=== PATIENT | male | born 1950 | race Caucasian/White ===

== ENCOUNTER → 2016-09-20 | Outpatient (CLI) | payer OTHER ==
[~2016-09-20] MED LIST: /CELE20CA PO; /GLIM2TA; /GLIM2TA OR; /OXYC15TA; /OXYC15TA OR; /ZOLP6ER; /ZOLP6ER OR; ASPI81TA83 OR; ASPI81TA85 PO; BABY81CH; COLA100C2; COLA100C2 OR; COUM2.5T11 PO; CYMB60CA3 PO; DIPH50CA PO; DRIS50002 PO; FLECTOR1.3 TOP; GLIM4TAB PO; HYDR-4274 PO; HYZA50TA2 PO; HYZAAR; HYZAAR OR; LISI10TA2 PO; LISI10TA4; LISI10TA4 OR; LOSA50TA21 PO; LOVA20TA2 PO; METH75TA PO; MORP15TA2 PO; MORP30TA4; MORP30TA4 OR; MORP60TA; NAPR1TAB23 PO; NAPR500T2 PO; NEUR300C PO; OSTEO-BI-FLEX PO; OXYC20TA21 PO; PERC5TAB6 PO; PRIL40CA; PRIL40CA OR; ROBA750T4 PO; SENN8.6T5; SENN8.6T5 OR; TIZA4TAB; TIZA4TAB OR; TYLE325T5 PO; ULTR50TA PO; VALI5TAB PO; VIT D 2000 OR; VITA200016 PO; VITAMIN D50000 UNT; VOLT1GEL2 EXT; VYTO10TA5; VYTO10TA5 OR; [UNRECOGNIZED DRUG - CODE]
--- NOTE | 2016-09-25 00:36 | ECWPNPC ---
PATIENT NAME: ALLAN ARNETT : 1950 GENDER: MALE VISIT DATE: 09/20/2016 DISCHARGE DATE: 09/20/16 1050 VISIT LOCKED DATE TIME: PHYSICIAN: MATTIE EASLEY RESOURCE: MATTIE EASLEY REASON FOR APPOINTMENT 1. BACK PAIN W/C HISTORY OF PRESENT ILLNESS HISTORY OF PRESENT ILLNESS: PAIN THE PATIENT DESCRIBES THE PAIN... 65 YEAR OLD MALE PATIENT WITH HISTORY OF CHRONIC BACK PAIN. PATIENT DESCRIBES THE PAIN ACHING, SORE, SHARP AND HAVING IT ALL THE TIME WITH A PAIN SCORE OF 8/10. PATIENT WAS HURT IN A WORK RELATED INJURY IN 1995 WHEN HE WAS WORKING FOR THE [employer] AND STEPPED OFF A LADDER AND FELL WHEN HE STEPPED ON A PIPE AND HIS FEET CAME OUT FROM UNDER HIM. PATIENT RECEIVED A LUMBAR EPIDURAL ON 06/21/16 AND STATES THAT HE HAS 50% RELIEF FOR 5-6 WEEKS FROM THE INJECTION. MR. FERNÁNDEZ HAD A PATIENT DOES HAVE A DCS PLACED IN 2008 WHICH HE STATES HELPS A LOT WITH PAIN MANAGEMENT BUT WOULD LIKE TO MEET WITH [facility] TO HAVE THE PROGRAMS UPDATED. PATIENT REPORTS THAT WALKING, STANDING, SITTING, AND OTHER EVERY DAY ACTIVITIES INCREASES PAIN IN HIS BACK. CURRENTLY THE PATIENT IS USING GABAPENTIN 300 MG AND METHOCARBAMOL 750 MG AND HE STATES THAT BOTH MEDICATIONS HELP TO AID WITH PAIN RELIEF. PATIENT DENIES UNEXPLAINABLE WEIGHT LOSS, FEVER, CHILLS, NEW CHANGES ON HIS URINARY OR BOWEL CONTROL. FALL RISK SCREENING: SCREENING :NO FALLS IN THE PAST YEAR CURRENT MEDICATIONS TAKING GLIMEPIRIDE 4 MG TABLET 1 TABLET WITH BREAKFAST OR THE FIRST MAIN MEAL OF THE DAY ORALLY ONCE A DAY TAKING GABAPENTIN 300 MG CAPSULE 1 CAPSULE ORALLY BEFORE BEDTIME TAKING LOVASTATIN 20 MG TABLET 1 TABLET WITH A MEAL ORALLY ONCE A DAY TAKING LISINOPRIL-HYDROCHLOROTHIAZIDE 10-12.5 MG TABLET 1 TABLET ORALLY ONCE A DAY TAKING LOSARTAN POTASSIUM-HCTZ 50-12.5 MG TABLET 1 TABLET ORALLY ONCE A DAY TAKING METHOCARBAMOL 750 MG TABLET 1 TABLET ORALLY TID TAKING NAPROXEN 500 MG TABLET 1 TABLET NEEDED ORALLY EVERY 12 HRS TAKING DRISDOL 10087 UNIT CAPSULE 1 CAPSULE ORALLY WEEKLY TAKING MULTIVITAMIN TABLET 1 TAB ORALLY DAILY TAKING INDOMETHACIN 25 MG CAPSULE 1 CAPSULE WITH FOOD OR MILK ORALLY TWICE A DAY NOT-TAKING ASPIR-81 81 MG TABLET DELAYED RELEASE 1 TABLET ORALLY ONCE A DAY NOT-TAKING VALIUM 5 MG TABLET 1 TABLET NEEDED ORALLY TID PRN NOT-TAKING MORPHINE SULFATE 15 MG TABLET 1 TABLET NEEDED ORALLY EVERY 6 HRS PRN NOT-TAKING ROBAXIN-750 750 MG TABLET 1 TABLET ORALLY EVERY 8 HOURS MDD=3 NOT-TAKING VALIUM 5 MG TABLET 1 TABLET NEEDED ORALLY EVERY 8 HOURS NEEDED FOR SEVERE SPASM MDD = 3 NOT-TAKING MORPHINE SULFATE 15 MG TABLET 1 TABLET ORALLY EVERY 12 HRS PRN PAIN MDD=2 MEDICATION LIST REVIEWED AND RECONCILED WITH THE PATIENT PAST MEDICAL HISTORY HTN DIABETIC CHRONIC LOW BACK PAIN ARTHRITIS HYPERCHOLESTEROLEMIA GOUT ALLERGIES CODEINE SULFATE: HEART RACES: ALLERGY SURGICAL HISTORY KNEE REPLACEMENT LEFT BACK SURGERY DCS 2009 CARPAL TUNNEL RELEASE RIGHT CARPAL TUNNEL RELEASE ELBOW ELBOW SURGERY RIGHT ELBOW SURGERY LEFT RIGHT CATARACT LEFT CATARACT FAMILY HISTORY NO FAMILY HISTORY DOCUMENTED. SOCIAL HISTORY GENERAL: TOBACCO USE ARE YOU A:NONSMOKER LEARNING BARRIERS / SPECIAL NEEDS ORIENTED TO PLAN OF CARE: PATIENT, PAIN MANAGEMENT PATIENT, ORIENTED TO PLAN OF CARE: PATIENT, PAIN MANAGEMENT PATIENT. NEW PATIENT PAIN DIARY TODAY'S VISITNOTES FROM 0-10, WHAT LEVEL IS YOUR PAIN TODAY?0 PAIN CLINIC PFS, CLERGY, PUBLIC HEALTH REFERRALS PFS REFERRAL NEEDED?NO CLERGY REFERRAL NEEDED?NO PUBLIC HEALTH REFERRAL NEEDED?NO WAS THE PROVIDER NOTIFIED OF ANY PERTINENT INFO?NO PFS REFERRAL NEEDED?NO CLERGY REFERRAL NEEDED?NO PUBLIC HEALTH REFERRAL NEEDED?NO WAS THE PROVIDER NOTIFIED OF ANY PERTINENT INFO?NO HOSPITALIZATION/MAJOR DIAGNOSTIC PROCEDURE SURGERIES REVIEW OF SYSTEMS CONSTITUTIONAL: ANY CHANGE IN YOUR MEDICAL CONDITION? NO . CHILLS NO . FEVER NO . INFECTION: DO YOU HAVE NEW INFECTIONS? NO . DO YOU HAVE HISTORY OF MRSA? NO . MUSCULOSKELETAL: ANY NEW PATTERNS OF PAIN OR NUMBNESS? NO . GASTROENTEROLOGY: ANY NEW CHANGE IN BOWEL CONTROL? NO . GENITOURINARY: ANY NEW CHANGE IN BLADDER CONTROL? NO . IS THERE A CHANCE YOU COULD BE ? NO . HEMATOLOGY/LYMPH: DO YOU TAKE ANY BLOOD THINNERS? (FOR EXAMPLE- COUMADIN, PLAVIX, AGGRENOX, PLATEL, PRADAXA, OR XARELTO) NO . WHEN WAS YOUR LAST DOSE? DATE: TIME: . NEUROLOGY: HAVE YOU FALLEN IN THE PAST 6 MONTHS? NO . ANY NEW EXTREMITY NUMBNESS OR WEAKNESS? NO . CARDIOLOGY: DO YOU HAVE A PACEMAKER OR DEFIBRILLATOR? NO . RESPIRATORY: HAVE YOU BEEN SICK IN THE PAST WEEK? NO . FEVER NO . FLU LIKE SYMPTOMS? NO . COUGH NO . INTEGUMENTARY: DO YOU HAVE ANY RASHES OR OPEN SORES? NO . ALLERGIC/IMMUNO: ARE YOU ALLERGIC TO SHELLFISH OR IV DYE? NO . ANY NEW ALLERGIES? NO . PSYCHIATRIC: DO YOU HAVE THOUGHTS OF HURTING YOURSELF OR SOMEONE ELSE? NO . ARE YOU ABUSED, NEGLECTED, OR IN AN UNSAFE ENVIRONMENT? NO . ENDOCRINOLOGY: ARE YOU DIABETIC? NO . OTHER: DO YOU NEED ANY PRESCRIPTIONS? YES GABAPENTIN/METHACARBAMOL . IF YES, PLEASE LIST: ____ . ANY NEW PROBLEMS WITH YOUR MEDICATIONS? NO . WHEN DID YOU LAST EAT? ____ . WHEN DID YOU LAST DRINK? ____ . WHAT DID YOU LAST DRINK? ____ . NAME OF PERSON DRIVING YOU HOME? ____ . DO YOU HAVE ANY OTHER QUESTIONS OR CONCERNS YES NOTES INCREASE IN INTENSITY IN LEFT LEG DISCOMFORT. PT STATES HAS NOT HEARD FROM [facility] REP. . REVIEWED BY: PROVIDER: MATTIE EASLEY MD . VITAL SIGNS WT 270 LBS, HT 69 IN, BMI 39.87 INDEX, BP 161/94 MM HG, HR 78 /MIN, RR 18 /MIN, TEMP 96.6 F, OXYGEN SAT % 100, NA INITIALS MP, REVIEWED BY: MLF. EXAMINATION : PATIENT IS ALERT O X 3 AND COOPERATIVE. TENDERNESS IN THE LOWER BACK AND PARASPINAL MUSCLE GROUP. LIMPING FROM THE RIGHT LEG. LEFT LEG IS WEAKER THEN THE RIGHT AT EXTENSION AND FLEXION. FLEXING BACK INCREASES PAIN. CT DONE ON 01/20/16 SHOWS DEGENERATIVE CHANGES AT L2-L3. ASSESSMENTS INTERVERTEBRAL DISC DISORDERS WITH RADICULOPATHY, LUMBAR REGION - M51.16 (PRIMARY) INTERVERTEBRAL DISC DISORDERS WITH RADICULOPATHY, LUMBOSACRAL REGION - M51.17 TREATMENT INTERVERTEBRAL DISC DISORDERS WITH RADICULOPATHY, LUMBAR REGION REFILL GABAPENTIN CAPSULE, 300 MG, 1 CAPSULE, ORALLY FOR PAIN, BEFORE BEDTIME, 30 DAY(S), 30, REFILLS 2 REFILL METHOCARBAMOL TABLET, 750 MG, 1 TABLET, ORALLY, TID NEEDED FOR SPASMS AND PAIN MDD3, 30 DAYS, 85, REFILLS 2 REFILL NAPROXEN TABLET, 500 MG, 1 TABLET NEEDED, ORALLY, EVERY 12 HRS, 30 DAY(S), 60 TABLET, REFILLS 1 NOTES: WE DISCUSSED SEVERAL ISSUES WITH MR. ARNETT'S PAIN MANAGEMENT CASE. AT THIS TIME PATIENT WILL CONTINUE TO USE GABAPENTIN, METHOCARBAMOL AND NAPROXEN. I WOULD LIKE THE PATIENT TO START USING CYMBALTA WELL. MR. ARNETT REPORTS THAT HE DOES NOT WANT ANY NARCOTICS AT THIS TIME. PATIENT STATES THAT HIS PAIN IS GETTING SEVERE AND DUE TO THE LONG LASTING RESULTS OF THE PREVIOUS LUMBAR EPIDURAL WE DISCUSSED MOVING FORWARD WITH ANOTHER INJECTION. WE DISCUSSED THE RISKS, BENEFITS, AND ALTERNATIVES OF THE INJECTION AND THE PATIENT WOULD LIKE TO PROCEED AT THIS TIME. INSTRUCTIONS WERE GIVEN, QUESTIONS WERE ANSWERED, PATIENT REPORTS UNDERSTANDING AND AGREES WITH THE PLAN. I, SAM ADAMS, DOCUMENTED THE ABOVE INFORMATION ACTING A SCRIBE FOR DR. EASLEY. I HAVE REVIEWED THE ABOVE DOCUMENT, WRITTEN BY SAM ADAMS SCRIBDeanne AND I VERIFY THAT IT IS ACCURATE. OTHERS NOTES: LUMBAR EPIDURAL INJECTION: YOUR PROCEDURE MATERIAL WAS PRINTED,WHAT IS LUMBAR EPIDURAL INJECTION? MATERIAL WAS PRINTED. PROCEDURES PN WORKMANS' COMP OPINION IN YOUR OPINION, WAS THE INCIDENT THAT THE PATIENT DESCRIBED THE COMPETENT MEDICAL CAUSE OF THIS INJURY/ILLNESS? YES ARE THE PATIENT'S COMPLAINTS CONSISTENT WITH HIS/HER HISTORY OF THE INJURY/ILLNESS? YES IS THE PATIENT'S HISTORY OF THE INJURY/ILLNESS CONSISTENT WITH YOUR OBJECTIVE FINDING? YES WHAT IS THE PERCENTAGE OF TEMPORARY IMPAIRMENT? TOTAL = 100% IS THE PATIENT WORKING? NO DOCTOR ON SITE: MATTIE HERNANDEZ MD PREVENTIVE MEDICINE PAIN CLINIC TEACHING: MEDICATIONS CYMBALTA PRINTED HANDOUT GIVEN/REVIEWED WITH PT.. PROCEDURE CODES FA211 ESTABILISHED PATIENT [facility] CHARGE G8427 DOC MEDS VERIFIED W/PT OR RE G8730 PAIN ASSESS POS TOOL F/U PLAN DOC FOLLOW UP LESI AFTER APPROVAL ELECTRONICALLY SIGNED BY MATTIE EASLEY MD ON 09/24/2016 AT 07:59 PM EST DISCLAIMER : THIS IS A VISIT SUMMARY EXTRACTED FROM THE [employer] CHART. IT IS NOT A COPY OF THE [employer] PROGRESS NOTE. JL
== END ==
LOC: M PAIN 10:00
PROVIDERS: ATTEND Anesthesiology
DX: M51.16 Intervertebral disc disorders with radiculopathy, lumbar region (principal); M51.17 Intervertebral disc disorders with radiculopathy, lumbosacral region; Z79.899 Other long term (current) drug therapy; Z79.84 Long term (current) use of oral hypoglycemic drugs; I10 Essential (primary) hypertension; M19.90 Unspecified osteoarthritis, unspecified site; E78.00 Pure hypercholesterolemia, unspecified; M10.9 Gout, unspecified; Z88.5 Allergy status to narcotic agent

== ENCOUNTER → 2016-09-25 | Outpatient (CLI) | payer OTHER ==
[~2016-09-25] MED LIST changes: +ISOVUE-M 300 61% 15ML VIAL (Q9967) As Ordered ONE; +LIDOCAINE 1% SDV INJ 30 ML VIAL As Ordered ONE; +methylPREDNISolone SUSP 40 MG/ML (DEPO-medrol) VIAL (J1030) As Ordered ONE
--- NOTE | 2016-09-25 17:04 | REP ---
Partial lumbar spine series: Three views. History: Lumbar epidural steroid injection for pain. 27 seconds of fluoroscopy time is reported. Findings: A sequence of three last image hold fluoroscopic spot radiographs document needle position and contrast injection associated with lumbar epidural injection procedure. Signed by Lobo Centeno MD 09/26/2016 08:29 A
--- NOTE | 2016-09-27 00:10 | ECWPNPC ---
PATIENT NAME: ALLAN ARNETT : 1950 GENDER: MALE VISIT DATE: 09/25/2016 DISCHARGE DATE: 09/25/16 162 VISIT LOCKED DATE TIME: PHYSICIAN: MATTIE EASLEY RESOURCE: MATTIE EASLEY REASON FOR APPOINTMENT 1. LE W/C HISTORY OF PRESENT ILLNESS HISTORY OF PRESENT ILLNESS: PAIN THE PATIENT DESCRIBES THE PAIN... FALL RISK SCREENING: SCREENING :NO FALLS IN THE PAST YEAR CURRENT MEDICATIONS TAKING GLIMEPIRIDE 4 MG TABLET 1 TABLET WITH BREAKFAST OR THE FIRST MAIN MEAL OF THE DAY ORALLY ONCE A DAY, NOTES: 09/24/16699 TAKING LOVASTATIN 20 MG TABLET 1 TABLET WITH A MEAL ORALLY ONCE A DAY, NOTES: 09/25/16599 TAKING LISINOPRIL-HYDROCHLOROTHIAZIDE 10-12.5 MG TABLET 1 TABLET ORALLY ONCE A DAY, NOTES: 09/25/16599 TAKING LOSARTAN POTASSIUM-HCTZ 50-12.5 MG TABLET 1 TABLET ORALLY ONCE A DAY, NOTES: 09/25/16599 TAKING DRISDOL 48605 UNIT CAPSULE 1 CAPSULE ORALLY WEEKLY, NOTES: 09/20/161999 TAKING MULTIVITAMIN TABLET 1 TAB ORALLY DAILY, NOTES: 09/25/16599 TAKING INDOMETHACIN 25 MG CAPSULE 1 CAPSULE WITH FOOD OR MILK ORALLY TWICE A DAY, NOTES: 1 WEEK AGO TAKING GABAPENTIN 300 MG CAPSULE 1 CAPSULE ORALLY FOR PAIN BEFORE BEDTIME, NOTES: 09/24/162129 TAKING METHOCARBAMOL 750 MG TABLET 1 TABLET ORALLY TID NEEDED FOR SPASMS AND PAIN MDD3, NOTES: 09/25/16599 TAKING NAPROXEN 500 MG TABLET 1 TABLET NEEDED ORALLY EVERY 12 HRS, NOTES: 09/25/16599 TAKING ASPIR-81 81 MG TABLET DELAYED RELEASE 1 TABLET ORALLY ONCE A DAY, NOTES: 09/25/16599 NOT-TAKING VALIUM 5 MG TABLET 1 TABLET NEEDED ORALLY TID PRN NOT-TAKING MORPHINE SULFATE 15 MG TABLET 1 TABLET NEEDED ORALLY EVERY 6 HRS PRN NOT-TAKING ROBAXIN-750 750 MG TABLET 1 TABLET ORALLY EVERY 8 HOURS MDD=3 NOT-TAKING VALIUM 5 MG TABLET 1 TABLET NEEDED ORALLY EVERY 8 HOURS NEEDED FOR SEVERE SPASM MDD = 3 NOT-TAKING MORPHINE SULFATE 15 MG TABLET 1 TABLET ORALLY EVERY 12 HRS PRN PAIN MDD=2 MEDICATION LIST REVIEWED AND RECONCILED WITH THE PATIENT PAST MEDICAL HISTORY HTN DIABETIC CHRONIC LOW BACK PAIN ARTHRITIS HYPERCHOLESTEROLEMIA GOUT ALLERGIES CODEINE SULFATE: HEART RACES: ALLERGY SOCIAL HISTORY GENERAL: TOBACCO USE ARE YOU A:NONSMOKER LEARNING BARRIERS / SPECIAL NEEDS ORIENTED TO PLAN OF CARE: PATIENT, PAIN MANAGEMENT PATIENT, ORIENTED TO PLAN OF CARE: PATIENT, PAIN MANAGEMENT PATIENT. NEW PATIENT PAIN DIARY TODAY'S VISITNOTES FROM 0-10, WHAT LEVEL IS YOUR PAIN TODAY?0 PAIN CLINIC PFS, CLERGY, PUBLIC HEALTH REFERRALS PFS REFERRAL NEEDED?NO CLERGY REFERRAL NEEDED?NO PUBLIC HEALTH REFERRAL NEEDED?NO WAS THE PROVIDER NOTIFIED OF ANY PERTINENT INFO?NO PFS REFERRAL NEEDED?NO CLERGY REFERRAL NEEDED?NO PUBLIC HEALTH REFERRAL NEEDED?NO WAS THE PROVIDER NOTIFIED OF ANY PERTINENT INFO?NO REVIEW OF SYSTEMS CONSTITUTIONAL: ANY CHANGE IN YOUR MEDICAL CONDITION? NO . CHILLS NO . FEVER NO . INFECTION: DO YOU HAVE NEW INFECTIONS? NO . DO YOU HAVE HISTORY OF MRSA? NO . MUSCULOSKELETAL: ANY NEW PATTERNS OF PAIN OR NUMBNESS? YES, PAIN AND NUMBNESS LEFT LEG . GASTROENTEROLOGY: ANY NEW CHANGE IN BOWEL CONTROL? NO . GENITOURINARY: ANY NEW CHANGE IN BLADDER CONTROL? NO . IS THERE A CHANCE YOU COULD BE ? NO . HEMATOLOGY/LYMPH: DO YOU TAKE ANY BLOOD THINNERS? (FOR EXAMPLE- COUMADIN, PLAVIX, AGGRENOX, PLATEL, PRADAXA, OR XARELTO) NO . WHEN WAS YOUR LAST DOSE? DATE: TIME: . NEUROLOGY: HAVE YOU FALLEN IN THE PAST 6 MONTHS? NO . ANY NEW EXTREMITY NUMBNESS OR WEAKNESS? NO . CARDIOLOGY: DO YOU HAVE A PACEMAKER OR DEFIBRILLATOR? NO . RESPIRATORY: HAVE YOU BEEN SICK IN THE PAST WEEK? NO . FEVER NO . FLU LIKE SYMPTOMS? NO . COUGH NO . INTEGUMENTARY: DO YOU HAVE ANY RASHES OR OPEN SORES? NO . ALLERGIC/IMMUNO: ARE YOU ALLERGIC TO SHELLFISH OR IV DYE? NO . ANY NEW ALLERGIES? NO . PSYCHIATRIC: DO YOU HAVE THOUGHTS OF HURTING YOURSELF OR SOMEONE ELSE? NO . ARE YOU ABUSED, NEGLECTED, OR IN AN UNSAFE ENVIRONMENT? NO . ENDOCRINOLOGY: ARE YOU DIABETIC? YES DOESN'T TEST GLUCOSE AT HOME . OTHER: DO YOU NEED ANY PRESCRIPTIONS? NO . IF YES, PLEASE LIST: ____ . ANY NEW PROBLEMS WITH YOUR MEDICATIONS? NO . WHEN DID YOU LAST EAT? 09/25/16 0600 . WHEN DID YOU LAST DRINK? ___09/25/16 0600_ . WHAT DID YOU LAST DRINK? ____COFFEE . NAME OF PERSON DRIVING YOU HOME? ____TIM SPRIGS . DO YOU HAVE ANY OTHER QUESTIONS OR CONCERNS NO . REVIEWED BY: PROVIDER: . VITAL SIGNS WT 270 LBS, HT 69 IN, BMI 39.87 INDEX, BP 162/99 MM HG, REPEAT BP 140/88 AD, HR 77 /MIN, RR 16 /MIN, TEMP 96.8 F, OXYGEN SAT % 98, NA INITIALS TL 1332, REVIEWED BY: AD. ASSESSMENTS INTERVERTEBRAL DISC DISORDERS WITH RADICULOPATHY, LUMBAR REGION - M51.16 (PRIMARY) TREATMENT OTHERS START CYMBALTA CAPSULE DELAYED RELEASE PARTICLES, 30 MG, 1 CAPSULE, ORALLY FOR PAIN, TWICE A DAY, 30 DAY(S), 60, REFILLS 2 PROCEDURES PRE PROCEDURE DIAGNOSIS LUMBAR DISC DISORDER WITH RADICULOPATHY POST PROCEDURE DIAGNOSIS LUMBAR DISC DISORDER WITH RADICULOPATHY PROCEDURE LUMBAR EPIDURAL STEROID INJECTION UNDER FLUOROSCOPIC GUIDANCE SURGEON DR. MATTIE EASLEY [employer] INSPECTOR NONE ANESTHESIA LOCAL PRE PROCEDURE NOTE THE PATIENT HAS A HISTORY OF CHRONIC LOW BACK PAIN. I EVALUATE THE PATIENT AND REVIEWED THE CHART. I WENT OVER THE RISKS, ALTERNATIVES, AND BENEFITS ASSOCIATED WITH THIS PROCEDURE. THE PATIENT WOULD LIKE TO PROCEED AND GIVE CONSENT TO PERFORMED THE PROCEDURE. THE PATIENT DENIES UNEXPLAINABLE WEIGHT LOSS, FEVER, CHILLS, OR NEW CHANGES IN URINARY OR BOWEL CONTROL DESCRIPTION OF PROCEDURE THE PATIENT WAS BROUGHT TO THE PROCEDURE ROOM AND PLACED IN THE PRONE POSITION. THE LUMBOSACRAL AREA WAS CLEANED WITH BETADINE SOLUTION AND DRAPED ASEPTICALLY. THE PROCEDURE WAS DONE UNDER STERILE CONDITIONS. I CHECKED LATERALITY AND THE LEVEL WHERE THE PROCEDURE WAS GOING TO BE PERFORMED WITH THE PATIENT AND THE SUPPORTING STAFF AT THE MOMENT OF THE TIME OUT IN THE PROCEDURE ROOM. UNDER FLUOROSCOPIC GUIDANCE, THE TARGET POINT WAS SELECTED AT THE INTERLAMINAR LEVEL OF L4-L5. LIDOCAINE WAS USED TO NUMB THE SKIN AND THE SUBCUTANEOUS TISSUE BELOW IT. EPIDURAL TUOHY NEEDLE, 17-GAUGE, WAS ADVANCED UNDER FLUOROSCOPIC GUIDANCE AND FOLLOWING PATIENT FEEDBACK UNTIL THE EPIDURAL SPACE WAS REACHED, 7 CM DEEP INTO THE SKIN BY THE LOSS OF RESISTANCE TECHNIQUE. ISOVUE M DYE 30%, 0.25 ML, WAS INJECTED SHOWING ADEQUATE SPREAD OF THE DYE. THEN, A SOLUTION OF 3 ML OF NORMAL SALINE WITH DEPO-MEDROL 60 MG WAS INJECTED SLOWLY FOLLOWING PATIENT FEEDBACK. THERE WAS NO EVIDENCE OF BLOOD, PARESTHESIA OR CEREBROSPINAL FLUID DURING THE PROCEDURE. THE PATIENT WAS SENT TO THE RECOVERY ROOM. THE PATIENT WAS MOVING THE EXTREMITIES AND DOING WELL. THERE WAS NO COMPLICATION DURING THE PROCEDURE. FLUOROSCOPY TIME WAS 27 SECONDS POST PROCEDURE NOTE THE PATIENT WILL BE SEEN IN A FOLLOW UP IN THE NEXT FEW WEEKS. INSTRUCTIONS WERE GIVEN, QUESTIONS WERE ANSWERED, AND THE PATIENT EXPRESSED UNDERSTANDING AND AGREES WITH THE PLAN. I, SAM ADAMS, DOCUMENTED THE ABOVE INFORMATION ACTING A SCRIBE FOR DR. EASLEY. I, DR. EASLEY, HAVE REVIEWED THE ABOVE DOCUMENT, SCRIBED BY SAM ADAMS, AND I VERIFY THAT IT IS ACCURATE PN WORKMANS' COMP OPINION IN YOUR OPINION, WAS THE INCIDENT THAT THE PATIENT DESCRIBED THE COMPETENT MEDICAL CAUSE OF THIS INJURY/ILLNESS? YES ARE THE PATIENT'S COMPLAINTS CONSISTENT WITH HIS/HER HISTORY OF THE INJURY/ILLNESS? YES IS THE PATIENT'S HISTORY OF THE INJURY/ILLNESS CONSISTENT WITH YOUR OBJECTIVE FINDING? YES WHAT IS THE PERCENTAGE OF TEMPORARY IMPAIRMENT? TOTAL = 100% IS THE PATIENT WORKING? NO DOCTOR ON SITE: MATTIE HERNANDEZ MD DIAGNOSTIC IMAGING [facility] FLUORO GUIDE SPINE INJECTION (PAIN)[id number] PREVENTIVE MEDICINE PAIN CLINIC TEACHING: PROCEDURE TEACHING POST LUMBAR EPIDURAL STEROID INJECTION INSTRUCTIONS REVIEWED WITH PT. VERBALIZED UNDERSTANDING.. PROCEDURE CODES 41747 LUMBAR/SACRAL W/ IMAGING 6045F RADXPS IN END [id number] PXD FOLLOW UP 3 WEEKS ELECTRONICALLY SIGNED BY MATTIE EASLEY MD ON 09/26/2016 AT 08:59 PM EST DISCLAIMER : THIS IS A VISIT SUMMARY EXTRACTED FROM THE [employer] CHART. IT IS NOT A COPY OF THE [employer] PROGRESS NOTE. MTDD
== END | disposition home or self-care (01) ==
LOC: M PAIN 13:20
PROVIDERS: ATTEND Anesthesiology
DX: G89.29 Other chronic pain (principal); M51.16 Intervertebral disc disorders with radiculopathy, lumbar region; I10 Essential (primary) hypertension; E11.9 Type 2 diabetes mellitus without complications; M19.90 Unspecified osteoarthritis, unspecified site; E78.00 Pure hypercholesterolemia, unspecified; Z88.5 Allergy status to narcotic agent; Z79.82 Long term (current) use of aspirin; Z87.39 Personal history of other diseases of the musculoskeletal system and connective tissue
CPT/HCPCS: 62323; J1030; Q9967

== ENCOUNTER → 2016-10-23 | Outpatient (CLI) | payer OTHER ==
[~2016-10-23] MED LIST changes: -ISOVUE-M 300 61% 15ML VIAL (Q9967) As Ordered ONE; -LIDOCAINE 1% SDV INJ 30 ML VIAL As Ordered ONE; -methylPREDNISolone SUSP 40 MG/ML (DEPO-medrol) VIAL (J1030) As Ordered ONE
== END ==
LOC: M PAIN 10:00
PROVIDERS: ATTEND Anesthesiology
DX: Z09 Encounter for follow-up examination after completed treatment for conditions other than malignant neoplasm (principal); G89.29 Other chronic pain; M51.16 Intervertebral disc disorders with radiculopathy, lumbar region; M51.17 Intervertebral disc disorders with radiculopathy, lumbosacral region; I10 Essential (primary) hypertension; E11.9 Type 2 diabetes mellitus without complications; M19.90 Unspecified osteoarthritis, unspecified site; E78.00 Pure hypercholesterolemia, unspecified; M10.9 Gout, unspecified; Z88.5 Allergy status to narcotic agent; Z79.82 Long term (current) use of aspirin; Z79.899 Other long term (current) drug therapy

== ENCOUNTER → 2016-11-22 | Outpatient (CLI) | payer OTHER ==
--- NOTE | 2016-12-05 00:17 | ECWPNPC ---
PATIENT NAME: ALLAN ARNETT : 1950 GENDER: MALE VISIT DATE: 11/22/2016 DISCHARGE DATE: 11/22/16 1237 VISIT LOCKED DATE TIME: PHYSICIAN: MATTIE EASLEY RESOURCE: MATTIE EASLEY HISTORY OF PRESENT ILLNESS HISTORY OF PRESENT ILLNESS: PAIN THE PATIENT DESCRIBES THE PAIN... 66 YEAR OLD MALE PATIENT WITH HISTORY OF CHRONIC BACK PAIN. PATIENT DESCRIBES THE PAIN ACHING, BURNING, SORE, AND HAVING IT ALL THE TIME WITH A PAIN SCORE OF 9/10 ON TODAY'S VISIT. PATIENT WAS INJURED IN A WORK RELATED INJURY ON 08/28/1995 WORKING FOR [employer] PLASTER[employer], PATIENT WAS STEPPING OFF A LADDER AND FELL WHEN HE STEPPED ON A PIPE AND HIS FEET CAME OUT FROM UNDER HIM, INJURING HIS BACK. PATIENT REPORTS OF HAVING A DCS SURGERY IN 2008. PATIENT REPORTS THAT HE HAS TRIED PHYSICAL THERAPY IN THE PAST WITHOUT ANY SUCCESSFUL IMPROVEMENT IN PAIN RELIEF. PATIENT REPORTS OF RADIATING PAIN DOWN BOTH LEGS WITH THE LEFT LEG HURTING THE MOST. PATIENT REPORTS THAT HIS DCS DOES NOT PROVIDE PAIN RELIEF LIKE IT USE TO. PATIENT REPORTS THAT CYMBALTA MAKES HIM DROWSY AND UNABLE TO THINK CLEARLY. PATIENT DENIES UNEXPLAINABLE WEIGHT LOSS, FEVER, CHILLS, NEW CHANGES ON HIS URINARY OR BOWEL CONTROL. FALL RISK SCREENING: SCREENING :NO FALLS IN THE PAST YEAR CURRENT MEDICATIONS TAKING GLIMEPIRIDE 4 MG TABLET 1 TABLET WITH BREAKFAST OR THE FIRST MAIN MEAL OF THE DAY ORALLY ONCE A DAY TAKING LOVASTATIN 20 MG TABLET 1 TABLET WITH A MEAL ORALLY ONCE A DAY TAKING LISINOPRIL-HYDROCHLOROTHIAZIDE 10-12.5 MG TABLET 1 TABLET ORALLY ONCE A DAY TAKING LOSARTAN POTASSIUM-HCTZ 50-12.5 MG TABLET 1 TABLET ORALLY ONCE A DAY TAKING DRISDOL 74911 UNIT CAPSULE 1 CAPSULE ORALLY WEEKLY TAKING MULTIVITAMIN TABLET 1 TAB ORALLY DAILY TAKING GABAPENTIN 300 MG CAPSULE 1 CAPSULE ORALLY FOR PAIN BEFORE BEDTIME TAKING METHOCARBAMOL 750 MG TABLET 1 TABLET ORALLY TID NEEDED FOR SPASMS AND PAIN MDD3 TAKING NAPROXEN 500 MG TABLET 1 TABLET NEEDED ORALLY EVERY 12 HRS TAKING ASPIR-81 81 MG TABLET DELAYED RELEASE 1 TABLET ORALLY ONCE A DAY NOT-TAKING CYMBALTA 30 MG CAPSULE DELAYED RELEASE PARTICLES 1 CAPSULE ORALLY FOR PAIN TWICE A DAY DISCONTINUED INDOMETHACIN 25 MG CAPSULE 1 CAPSULE WITH FOOD OR MILK ORALLY TWICE A DAY DISCONTINUED VALIUM 5 MG TABLET 1 TABLET NEEDED ORALLY TID PRN DISCONTINUED MORPHINE SULFATE 15 MG TABLET 1 TABLET NEEDED ORALLY EVERY 6 HRS PRN DISCONTINUED ROBAXIN-750 750 MG TABLET 1 TABLET ORALLY EVERY 8 HOURS MDD=3 DISCONTINUED VALIUM 5 MG TABLET 1 TABLET NEEDED ORALLY EVERY 8 HOURS NEEDED FOR SEVERE SPASM MDD = 3 DISCONTINUED MORPHINE SULFATE 15 MG TABLET 1 TABLET ORALLY EVERY 12 HRS PRN PAIN MDD=2 MEDICATION LIST REVIEWED AND RECONCILED WITH THE PATIENT PAST MEDICAL HISTORY HTN DIABETIC CHRONIC LOW BACK PAIN ARTHRITIS HYPERCHOLESTEROLEMIA GOUT ALLERGIES CODEINE SULFATE: HEART RACES: ALLERGY SURGICAL HISTORY NO SURGICAL HISTORY DOCUMENTED. FAMILY HISTORY NO FAMILY HISTORY DOCUMENTED. SOCIAL HISTORY GENERAL: PAIN CLINIC PFS, CLERGY, PUBLIC HEALTH REFERRALS CLERGY REFERRAL NEEDED?NO WAS THE PROVIDER NOTIFIED OF ANY PERTINENT INFO?NO PFS REFERRAL NEEDED?NO PUBLIC HEALTH REFERRAL NEEDED?NO PATIENT: ____. HOSPITALIZATION/MAJOR DIAGNOSTIC PROCEDURE SURGERIES REVIEW OF SYSTEMS CONSTITUTIONAL: ANY CHANGE IN YOUR MEDICAL CONDITION? NO . CHILLS NO . FEVER NO . INFECTION: DO YOU HAVE NEW INFECTIONS? NO . DO YOU HAVE HISTORY OF MRSA? NO . MUSCULOSKELETAL: ANY NEW PATTERNS OF PAIN OR NUMBNESS? YES, PAIN IS NOW UP IN THE THORACIC AREA ON THE LEFT SIDE . GASTROENTEROLOGY: ANY NEW CHANGE IN BOWEL CONTROL? NO . GENITOURINARY: ANY NEW CHANGE IN BLADDER CONTROL? NO . IS THERE A CHANCE YOU COULD BE ? NO . HEMATOLOGY/LYMPH: DO YOU TAKE ANY BLOOD THINNERS? (FOR EXAMPLE- COUMADIN, PLAVIX, AGGRENOX, PLATEL, PRADAXA, OR XARELTO) NO . WHEN WAS YOUR LAST DOSE? DATE: TIME: . NEUROLOGY: HAVE YOU FALLEN IN THE PAST 6 MONTHS? NO . ANY NEW EXTREMITY NUMBNESS OR WEAKNESS? NO . CARDIOLOGY: DO YOU HAVE A PACEMAKER OR DEFIBRILLATOR? NO . RESPIRATORY: HAVE YOU BEEN SICK IN THE PAST WEEK? NO . FEVER NO . FLU LIKE SYMPTOMS? NO . COUGH NO . INTEGUMENTARY: DO YOU HAVE ANY RASHES OR OPEN SORES? NO . ALLERGIC/IMMUNO: ARE YOU ALLERGIC TO SHELLFISH OR IV DYE? NO . ANY NEW ALLERGIES? NO . PSYCHIATRIC: DO YOU HAVE THOUGHTS OF HURTING YOURSELF OR SOMEONE ELSE? NO . ARE YOU ABUSED, NEGLECTED, OR IN AN UNSAFE ENVIRONMENT? NO . ENDOCRINOLOGY: ARE YOU DIABETIC? YES . OTHER: DO YOU NEED ANY PRESCRIPTIONS? NO . IF YES, PLEASE LIST: ____ . ANY NEW PROBLEMS WITH YOUR MEDICATIONS? YES, CAN NOT TAKE DULOXETINE MAKES HIM TOO SLEEPY . WHEN DID YOU LAST EAT? ____ . WHEN DID YOU LAST DRINK? ____ . WHAT DID YOU LAST DRINK? ____ . NAME OF PERSON DRIVING YOU HOME? ____ . DO YOU HAVE ANY OTHER QUESTIONS OR CONCERNS NO . REVIEWED BY: PROVIDER: MATTIE EASLEY MD . VITAL SIGNS WT 260.0 LBS, HT 69 IN, BMI 38.39 INDEX, BP 143/73 MM HG, HR 93 /MIN, RR 18 /MIN, TEMP 98.4 F, OXYGEN SAT % 97%, NA INITIALS TL 1115, REVIEWED BY: CM. EXAMINATION : PATIENT IS ALERT O X 3 AND COOPERATIVE. PATIENT'S LEFT LEG IS WEAKER AT FLEXION AND EXTENSION COMPARED TO THE RIGHT LEG. PATIENT GAS TENDERNESS IN THE LUMBAR PARASPINAL MUSCLE GROUP. PATIENT HAS DIFFICULTIES EXTENDING AND FLEXING HIS BACK. CT DONE ON 01/20/16 SHOWS DEGENERATIVE CHANGES AT L2-L3. ASSESSMENTS INTERVERTEBRAL DISC DISORDERS WITH RADICULOPATHY, LUMBAR REGION - M51.16 (PRIMARY) INTERVERTEBRAL DISC DISORDERS WITH RADICULOPATHY, LUMBOSACRAL REGION - M51.17 TREATMENT INTERVERTEBRAL DISC DISORDERS WITH RADICULOPATHY, LUMBAR REGION REFILL GABAPENTIN CAPSULE, 300 MG, 1 CAPSULE, ORALLY FOR PAIN, BEFORE BEDTIME, 30 DAY(S), 30, REFILLS 2 REFILL METHOCARBAMOL TABLET, 750 MG, 1 TABLET, ORALLY FOR SPASMS AND PAIN, THREE TIMES DAILY NEEDED MDD3, 30 DAYS, 90, REFILLS 2 NOTES: WHAT IS LUMBAR EPIDURAL INJECTION? MATERIAL WAS PRINTED,LUMBAR EPIDURAL INJECTION: YOUR PROCEDURE MATERIAL WAS PRINTED,LUMBAR EPIDURAL INJECTION: YOUR PROCEDURE MATERIAL WAS PRINTED. CLINICAL NOTES: WE DISCUSSED SEVERAL ISSUES WITH MR. ARNETT'S PAIN MANAGEMENT CASE. PATIENT WILL RECEIVED A REFILL OF GABAPENTIN AND METHOCARBAMOL AND PATIENT WILL DISCONTINUE CYMBALTA. I WILL HAVE THE PATIENT START ON IBUPROFEN FOR THE SOMATIC PAIN IN HIS BACK. PATIENT BROUGHT HIS MEDICATIONS IN THE ORIGINAL BOTTLES ON TODAY'S VISIT. PATIENT IS TAKING GABAPENTIN FOR NEUROPATHIC PAIN AND METHOCARBAMOL FOR MUSCLE SPASTICITY. PATIENT REPORTS THAT NOT TAKING METHOCARBAMOL WILL CAUSE SEVERE SPASTICITY, DECREASING HIS MOBILITY AND FUNCTIONALITY. AFTER REVIEWING THE CT AND EXAMINING THE PATIENT HE IS A GOOD CANDIDATE FOR A LUMBAR EPIDURAL INJECTION, WE DISCUSSED THE RISK, BENEFITS, AND ALTERNATIVES AND THE PATIENT WOULD LIKE TO PROCEED. PATIENT WILL BE BOOKED PENDING APPROVAL. INSTRUCTIONS WERE GIVEN, QUESTIONS WERE ANSWERED, PATIENT REPORTS UNDERSTANDING AND AGREES WITH THE PLAN. I, LISA HOUSER, DOCUMENTED THE ABOVE INFORMATION ACTING A SCRIBE FOR DR. EASLEY. I HAVE REVIEWED THE ABOVE DOCUMENT, WRITTEN BY LISA HOUSER SCRIBE AND I VERIFY THAT IT IS ACCURATE. OTHERS START IBUPROFEN TABLET, 800 MG, 1 TABLET, ORALLY WITH FOOD, THREE TIMES A DAY NEEDED FOR PAIN MDD3, 30 DAY(S), 75, REFILLS 2 PROCEDURES PN WORKMANS' COMP OPINION IN YOUR OPINION, WAS THE INCIDENT THAT THE PATIENT DESCRIBED THE COMPETENT MEDICAL CAUSE OF THIS INJURY/ILLNESS? YES ARE THE PATIENT'S COMPLAINTS CONSISTENT WITH HIS/HER HISTORY OF THE INJURY/ILLNESS? YES IS THE PATIENT'S HISTORY OF THE INJURY/ILLNESS CONSISTENT WITH YOUR OBJECTIVE FINDING? YES WHAT IS THE PERCENTAGE OF TEMPORARY IMPAIRMENT? TOTAL = 100% IS THE PATIENT WORKING? NO DOCTOR ON SITE: MATTIE HERNANDEZ MD PROCEDURE CODES FA211 ESTABILISHED PATIENT [facility] FACILITY CHARGE G8730 PAIN ASSESS POS TOOL F/U PLAN DOC G8427 DOC MEDS VERIFIED W/PT OR RE DISPOSITION & COMMUNICATION FOLLOW UP LESI PENDING APPROVAL ELECTRONICALLY SIGNED BY MATTIE EASLEY MD ON 12/04/2016 AT 08:14 AM EDT DISCLAIMER : THIS IS A VISIT SUMMARY EXTRACTED FROM THE [employer] CHART. IT IS NOT A COPY OF THE [employer] PROGRESS NOTE. MTDD
== END ==
LOC: M PAIN 11:30
PROVIDERS: ATTEND Anesthesiology
DX: M51.16 Intervertebral disc disorders with radiculopathy, lumbar region (principal); M51.17 Intervertebral disc disorders with radiculopathy, lumbosacral region; M54.9 Dorsalgia, unspecified; G89.29 Other chronic pain; Z79.899 Other long term (current) drug therapy; Z79.84 Long term (current) use of oral hypoglycemic drugs; Z79.82 Long term (current) use of aspirin; E11.9 Type 2 diabetes mellitus without complications; I10 Essential (primary) hypertension; E78.00 Pure hypercholesterolemia, unspecified; Z88.5 Allergy status to narcotic agent

== ENCOUNTER → 2017-01-22 | Outpatient (CLI) | payer OTHER ==
--- NOTE | 2017-02-07 02:51 | ECWPNPC ---
PATIENT NAME: ALLAN ARNETT : 1950 GENDER: MALE VISIT DATE: 01/22/2017 DISCHARGE DATE: 01/22/17 1354 VISIT LOCKED DATE TIME: PHYSICIAN: MATTIE EASLEY RESOURCE: MATTIE EASLEY REASON FOR APPOINTMENT 1. W/C BACK PAIN HISTORY OF PRESENT ILLNESS HISTORY OF PRESENT ILLNESS: PAIN THE PATIENT DESCRIBES THE PAIN... 66 YEAR OLD MALE PATIENT WITH HISTORY OF CHRONIC BACK PAIN. PATIENT DESCRIBES THE PAIN ACHING, BURNING, SORE, AND HAVING IT ALL THE TIME WITH A PAIN SCORE OF 9/10 ON TODAY'S VISIT. PATIENT WAS INJURED IN A WORK RELATED INJURY ON 08/28/1995 WORKING FOR [employer] P[employer], PATIENT WAS STEPPING OFF A LADDER AND FELL WHEN HE STEPPED ON A PIPE AND HIS FEET CAME OUT FROM UNDER HIM, INJURING HIS BACK. MR. ARNETT RECEIVED A LUMBAR EPIDURAL ON 11/24/16 AND STATES THAT FOR 5 WEEKS HE HAD OVER 50% RELIEF FROM PAIN AND INCREASED MOBILITY AND FUNCTIONALITY. PATIENT REPORTS OF HAVING A DCS SURGERY IN 2008. PATIENT REPORTS THAT HE HAS TRIED PHYSICAL THERAPY IN THE PAST WITHOUT ANY SUCCESSFUL IMPROVEMENT IN PAIN RELIEF. PATIENT REPORTS OF RADIATING PAIN DOWN BOTH LEGS WITH THE LEFT LEG HURTING THE MOST. CURRENTLY THE PATIENT IS USING GABAPENTIN AND MELOXICAM AND STATES THAT THE MEDICATION KEEPS HIM MOBILE AND FUNCTIONAL. PATIENT DENIES UNEXPLAINABLE WEIGHT LOSS, FEVER, CHILLS, NEW CHANGES ON HIS URINARY OR BOWEL CONTROL. FALL RISK SCREENING: SCREENING :NO FALLS IN THE PAST YEAR CURRENT MEDICATIONS TAKING GLIMEPIRIDE 4 MG TABLET 1 TABLET WITH BREAKFAST OR THE FIRST MAIN MEAL OF THE DAY ORALLY ONCE A DAY, NOTES: 11/23/16 0700 TAKING LOVASTATIN 20 MG TABLET 1 TABLET WITH A MEAL ORALLY ONCE A DAY, NOTES: 11/24/16599 TAKING LISINOPRIL-HYDROCHLOROTHIAZIDE 10-12.5 MG TABLET 1 TABLET ORALLY ONCE A DAY, NOTES: 11/24/16599 TAKING LOSARTAN POTASSIUM-HCTZ 50-12.5 MG TABLET 1 TABLET ORALLY ONCE A DAY, NOTES: 11/24/16599 TAKING DRISDOL 33118 UNIT CAPSULE 1 CAPSULE ORALLY WEEKLY, NOTES: 11/22/16 TAKING MULTIVITAMIN TABLET 1 TAB ORALLY DAILY, NOTES: 11/24/16599 TAKING NAPROXEN 500 MG TABLET 1 TABLET NEEDED ORALLY EVERY 12 HRS, NOTES: 11/24/16 0600 TAKING ASPIR-81 81 MG TABLET DELAYED RELEASE 1 TABLET ORALLY ONCE A DAY, NOTES: 11/24/16 0600 TAKING GABAPENTIN 300 MG CAPSULE 1 CAPSULE ORALLY FOR PAIN BEFORE BEDTIME, NOTES: 11/23/16 2200 TAKING METHOCARBAMOL 750 MG TABLET 1 TABLET ORALLY FOR SPASMS AND PAIN THREE TIMES DAILY NEEDED MDD3, NOTES: 11/24/16 0600 NOT-TAKING IBUPROFEN 800 MG TABLET 1 TABLET ORALLY WITH FOOD THREE TIMES A DAY NEEDED FOR PAIN MDD3, NOTES: NONE LATELY NOT-TAKING CYMBALTA 30 MG CAPSULE DELAYED RELEASE PARTICLES 1 CAPSULE ORALLY FOR PAIN TWICE A DAY MEDICATION LIST REVIEWED AND RECONCILED WITH THE PATIENT PAST MEDICAL HISTORY HTN DIABETIC CHRONIC LOW BACK PAIN ARTHRITIS HYPERCHOLESTEROLEMIA GOUT ALLERGIES CODEINE SULFATE: HEART RACES: ALLERGY SURGICAL HISTORY BILAT CARPAL TUNNEL RELEASE BILAT ELBOW SURGERY BILAT TRIGGER FINGER REPAIR LEFT KNEE REPLACEMENT DORSAL COLUMN STIMULATOR FAMILY HISTORY NO FAMILY HISTORY DOCUMENTED. SOCIAL HISTORY GENERAL: PAIN CLINIC PFS, CLERGY, PUBLIC HEALTH REFERRALS CLERGY REFERRAL NEEDED?NO WAS THE PROVIDER NOTIFIED OF ANY PERTINENT INFO?NO PFS REFERRAL NEEDED?NO PUBLIC HEALTH REFERRAL NEEDED?NO PATIENT: ____. HOSPITALIZATION/MAJOR DIAGNOSTIC PROCEDURE SURGERIES REVIEW OF SYSTEMS CONSTITUTIONAL: ANY CHANGE IN YOUR MEDICAL CONDITION? NO . CHILLS NO . FEVER NO . INFECTION: DO YOU HAVE NEW INFECTIONS? NO . DO YOU HAVE HISTORY OF MRSA? NO . MUSCULOSKELETAL: ANY NEW PATTERNS OF PAIN OR NUMBNESS? NO . GASTROENTEROLOGY: ANY NEW CHANGE IN BOWEL CONTROL? NO . GENITOURINARY: ANY NEW CHANGE IN BLADDER CONTROL? NO . IS THERE A CHANCE YOU COULD BE ? NO . HEMATOLOGY/LYMPH: DO YOU TAKE ANY BLOOD THINNERS? (FOR EXAMPLE- COUMADIN, PLAVIX, AGGRENOX, PLATEL, PRADAXA, OR XARELTO) NO . WHEN WAS YOUR LAST DOSE? DATE: TIME: . NEUROLOGY: HAVE YOU FALLEN IN THE PAST 6 MONTHS? NO . ANY NEW EXTREMITY NUMBNESS OR WEAKNESS? NO . CARDIOLOGY: DO YOU HAVE A PACEMAKER OR DEFIBRILLATOR? NO . RESPIRATORY: HAVE YOU BEEN SICK IN THE PAST WEEK? NO . FEVER NO . FLU LIKE SYMPTOMS? NO . COUGH NO . INTEGUMENTARY: DO YOU HAVE ANY RASHES OR OPEN SORES? NO . ALLERGIC/IMMUNO: ARE YOU ALLERGIC TO SHELLFISH OR IV DYE? NO . ANY NEW ALLERGIES? NO . PSYCHIATRIC: DO YOU HAVE THOUGHTS OF HURTING YOURSELF OR SOMEONE ELSE? NO . ARE YOU ABUSED, NEGLECTED, OR IN AN UNSAFE ENVIRONMENT? NO . ENDOCRINOLOGY: ARE YOU DIABETIC? YES . OTHER: DO YOU NEED ANY PRESCRIPTIONS? NO . IF YES, PLEASE LIST: ____ . ANY NEW PROBLEMS WITH YOUR MEDICATIONS? NO . WHEN DID YOU LAST EAT? ____ . WHEN DID YOU LAST DRINK? ____ . WHAT DID YOU LAST DRINK? ____ . NAME OF PERSON DRIVING YOU HOME? ____ . DO YOU HAVE ANY OTHER QUESTIONS OR CONCERNS NO . REVIEWED BY: PROVIDER: MATTIE EASLEY MD . VITAL SIGNS WT 265.0 LBS, HT 69 IN, BMI 39.13 INDEX, BP 142/102 R ARM, REPEAT BP 158/92 MANUAL, HR 67 /MIN, RR 16 /MIN, TEMP 97.0 F, OXYGEN SAT % 96%, SAFE IN ENV? (Y/N) Y, NA INITIALS TL 1301, REVIEWED BY: EM. EXAMINATION : PATIENT IS ALERT O X 3 AND COOPERATIVE. PATIENT'S LEFT LEG IS WEAKER AT FLEXION AND EXTENSION COMPARED TO THE RIGHT LEG. PATIENT GAS TENDERNESS IN THE LUMBAR PARASPINAL MUSCLE GROUP. PATIENT HAS DIFFICULTIES EXTENDING AND FLEXING HIS BACK. CT DONE ON 01/20/16 SHOWS DEGENERATIVE CHANGES AT L2-L3. ASSESSMENTS INTERVERTEBRAL DISC DISORDERS WITH RADICULOPATHY, LUMBAR REGION - M51.16 (PRIMARY) TREATMENT INTERVERTEBRAL DISC DISORDERS WITH RADICULOPATHY, LUMBAR REGION REFILL GABAPENTIN CAPSULE, 300 MG, 1 CAPSULE, ORALLY FOR PAIN, THREE TIMES DAILY MDD3, 30 DAY(S), 90, REFILLS 2, NOTES: 11/23/16 2200 REFILL METHOCARBAMOL TABLET, 750 MG, 1 TABLET, ORALLY FOR SPASMS AND PAIN, THREE TIMES DAILY NEEDED MDD3, 30 DAYS, 65, REFILLS 2, NOTES: 11/24/16 0600 NOTES: WE DISCUSSED SEVERAL ISSUES WITH MR. ARNETT'S PAIN MANAGEMENT CASE. AT THIS TIME THE PATIENT WILL CONTINUE WIT THE SAME MEDICATION REGIME BEFORE. PATIENT WILL ALSO USED IBUPROFEN FOR THE INFLAMMATION AND WAS ADVISED TO USE THIS MEDICATION WITH FOOD. PATIENT IS AWARE OF THE POTENTIAL COMPLICATIONS THAT CAN HAPPEN WHILE USING THIS MEDICATION. PATIENT WILL CONTINUE TO USE GABAPENTIN FOR THE NEUROPATHIC PAIN AND METHOCARBAMOL FOR THE MUSCLE SPASMS. MR. ARNETT HAD A LUMBAR EPIDURAL ON 11/24/16 AND REPORTS HAVING OVER 50% RELIEF FROM THE INJECTION WITH INCREASED MOBILITY AND FUNCTIONALITY. DUE TO THE LONG LASTING PAIN RELIEF FROM THE PREVIOUS LUMBAR EPIDURAL I WOULD LIKE TO PROCEED WITH ANOTHER INJECTION. WE DISCUSSED THE RISKS, BENENFITS, AND ALTNERATIVES OF THE INJECTION AND THE PATIENT WOULD LIKE TO PROCEED. OTHERS START IBUPROFEN TABLET, 800 MG, 1 TABLET WITH FOOD OR MILK, ORALLY FOR PAIN, EVERY 6 HOURS NEEDED MDD3, 30 DAY(S), 60, REFILLS 2 PROCEDURES PN WORKMANS' COMP OPINION IN YOUR OPINION, WAS THE INCIDENT THAT THE PATIENT DESCRIBED THE COMPETENT MEDICAL CAUSE OF THIS INJURY/ILLNESS? YES ARE THE PATIENT'S COMPLAINTS CONSISTENT WITH HIS/HER HISTORY OF THE INJURY/ILLNESS? YES IS THE PATIENT'S HISTORY OF THE INJURY/ILLNESS CONSISTENT WITH YOUR OBJECTIVE FINDING? YES WHAT IS THE PERCENTAGE OF TEMPORARY IMPAIRMENT? TOTAL = 100% IS THE PATIENT WORKING? NO DOCTOR ON SITE: MATTIE HERNANDEZ MD PROCEDURE CODES FA211 ESTABILISHED PATIENT [facility] FACILITY CHARGE G8427 DOC MEDS VERIFIED W/PT OR RE G8730 PAIN ASSESS POS TOOL F/U PLAN DOC DISPOSITION & COMMUNICATION FOLLOW UP LESI AFTER APPROVAL ELECTRONICALLY SIGNED BY MATTIE EASLEY MD ON 02/05/2017 AT 03:02 PM EDT DISCLAIMER : THIS IS A VISIT SUMMARY EXTRACTED FROM THE [employer] CHART. IT IS NOT A COPY OF THE [employer] PROGRESS NOTE. JL
== END ==
LOC: M PAIN 13:00
PROVIDERS: ATTEND Anesthesiology
DX: M51.16 Intervertebral disc disorders with radiculopathy, lumbar region (principal); Z79.84 Long term (current) use of oral hypoglycemic drugs; Z79.82 Long term (current) use of aspirin; Z79.899 Other long term (current) drug therapy; Z88.5 Allergy status to narcotic agent

== ENCOUNTER → 2017-02-21 | Outpatient (CLI) | payer OTHER ==
[~2017-02-21] MED LIST changes: -COUM2.5T11 PO; +COUM2.5T17 PO; -HYDR-4274 PO; +HYDR50TA70 PO; +ISOVUE-M 300 61% 15ML VIAL (Q9967) As Ordered ONE; +LIDOCAINE 1% SDV INJ 30 ML VIAL As Ordered ONE; -LOSA50TA21 PO; +LOSA50TA5 PO; -NAPR500T2 PO; +NAPR500T3 PO; -OXYC20TA21 PO; +OXYC20TA40 PO; +PERC5TAB12 PO; -PERC5TAB6 PO; +methylPREDNISolone SUSP 40 MG/ML (DEPO-medrol) VIAL (J1030) As Ordered ONE
--- NOTE | 2017-02-21 15:02 | REP ---
Partial lumbar spine series: Four views. History: Lumbar epidural steroid injection for pain. 22 seconds of fluoroscopy time is reported. Findings: A sequence of four fluoroscopically obtained intraprocedural spot radiographs of the lumbar spine document needle position associated with lumbar epidural steroid injection. Signed by Lobo Centeno MD 02/21/2017 05:03 P
--- NOTE | 2017-03-04 23:52 | ECWPNPC ---
PATIENT NAME: ALLAN ARNETT : 1950 GENDER: MALE VISIT DATE: 02/21/2017 DISCHARGE DATE: 02/21/17 1108 VISIT LOCKED DATE TIME: PHYSICIAN: MATTIE EASLEY RESOURCE: MATTIE EASLEY REASON FOR APPOINTMENT 1. LE HISTORY OF PRESENT ILLNESS HISTORY OF PRESENT ILLNESS: PAIN THE PATIENT DESCRIBES THE PAIN... FALL RISK SCREENING: SCREENING :NO FALLS IN THE PAST YEAR CURRENT MEDICATIONS TAKING IBUPROFEN 800 MG TABLET 1 TABLET WITH FOOD OR MILK ORALLY FOR PAIN EVERY 6 HOURS NEEDED MDD3, NOTES: 2 WEEKS AGO TAKING GLIMEPIRIDE 4 MG TABLET 1 TABLET WITH BREAKFAST OR THE FIRST MAIN MEAL OF THE DAY ORALLY ONCE A DAY, NOTES: 02/20/17@0700 TAKING LOVASTATIN 20 MG TABLET 1 TABLET WITH A MEAL ORALLY ONCE A DAY, NOTES: 0630 TAKING LISINOPRIL-HYDROCHLOROTHIAZIDE 10-12.5 MG TABLET 1 TABLET ORALLY ONCE A DAY, NOTES: 0630 TAKING LOSARTAN POTASSIUM-HCTZ 50-12.5 MG TABLET 1 TABLET ORALLY ONCE A DAY, NOTES: 0630 TAKING DRISDOL 28630 UNIT CAPSULE 1 CAPSULE ORALLY WEEKLY, NOTES: 0630 TAKING MULTIVITAMIN TABLET 1 TAB ORALLY DAILY, NOTES: 0630 TAKING NAPROXEN 500 MG TABLET 1 TABLET NEEDED ORALLY EVERY 12 HRS, NOTES: 0630 TAKING ASPIR-81 81 MG TABLET DELAYED RELEASE 1 TABLET ORALLY ONCE A DAY, NOTES: 02/20/17@0700 TAKING GABAPENTIN 300 MG CAPSULE 1 CAPSULE ORALLY FOR PAIN THREE TIMES DAILY MDD3, NOTES: 0630 TAKING METHOCARBAMOL 750 MG TABLET 1 TABLET ORALLY FOR SPASMS AND PAIN THREE TIMES DAILY NEEDED MDD3, NOTES: 02/20/17@2330 NOT-TAKING IBUPROFEN 800 MG TABLET 1 TABLET ORALLY WITH FOOD THREE TIMES A DAY NEEDED FOR PAIN MDD3, NOTES: NONE LATELY NOT-TAKING CYMBALTA 30 MG CAPSULE DELAYED RELEASE PARTICLES 1 CAPSULE ORALLY FOR PAIN TWICE A DAY MEDICATION LIST REVIEWED AND RECONCILED WITH THE PATIENT PAST MEDICAL HISTORY HTN DIABETIC CHRONIC LOW BACK PAIN ARTHRITIS HYPERCHOLESTEROLEMIA GOUT ALLERGIES CODEINE SULFATE: HEART RACES: ALLERGY REVIEW OF SYSTEMS REVIEWED BY: PROVIDER: . CONSTITUTIONAL: ANY CHANGE IN YOUR MEDICAL CONDITION? NO . CHILLS NO . FEVER NO . INFECTION: DO YOU HAVE NEW INFECTIONS? NO . DO YOU HAVE HISTORY OF MRSA? NO . MUSCULOSKELETAL: ANY NEW PATTERNS OF PAIN OR NUMBNESS? NO . GASTROENTEROLOGY: ANY NEW CHANGE IN BOWEL CONTROL? NO . GENITOURINARY: ANY NEW CHANGE IN BLADDER CONTROL? NO . IS THERE A CHANCE YOU COULD BE ? NO . HEMATOLOGY/LYMPH: DO YOU TAKE ANY BLOOD THINNERS? (FOR EXAMPLE- COUMADIN, PLAVIX, AGGRENOX, PLATEL, PRADAXA, OR XARELTO) NO . WHEN WAS YOUR LAST DOSE? DATE: TIME: . NEUROLOGY: HAVE YOU FALLEN IN THE PAST 6 MONTHS? NO . ANY NEW EXTREMITY NUMBNESS OR WEAKNESS? NO . CARDIOLOGY: DO YOU HAVE A PACEMAKER OR DEFIBRILLATOR? NO . RESPIRATORY: HAVE YOU BEEN SICK IN THE PAST WEEK? NO . FEVER NO . FLU LIKE SYMPTOMS? NO . COUGH NO . INTEGUMENTARY: DO YOU HAVE ANY RASHES OR OPEN SORES? NO . ALLERGIC/IMMUNO: ARE YOU ALLERGIC TO SHELLFISH OR IV DYE? NO . ANY NEW ALLERGIES? NO . PSYCHIATRIC: DO YOU HAVE THOUGHTS OF HURTING YOURSELF OR SOMEONE ELSE? NO . ARE YOU ABUSED, NEGLECTED, OR IN AN UNSAFE ENVIRONMENT? NO . ENDOCRINOLOGY: ARE YOU DIABETIC? YES . OTHER: DO YOU NEED ANY PRESCRIPTIONS? NO . IF YES, PLEASE LIST: ____ . ANY NEW PROBLEMS WITH YOUR MEDICATIONS? NO . WHEN DID YOU LAST EAT? ____02/20/17 . WHEN DID YOU LAST DRINK? ____629 . WHAT DID YOU LAST DRINK? ____BLACK COFFEE . NAME OF PERSON DRIVING YOU HOME? ____DYLAN NEAL . DO YOU HAVE ANY OTHER QUESTIONS OR CONCERNS NO . VITAL SIGNS WT 270 LBS, HT 69 IN, BMI 39.87 INDEX, BP 170/93 MM HG, HR 72 /MIN, RR 18 /MIN, TEMP 97.3 F, OXYGEN SAT % 97%, NA INITIALS SC 10:07. ASSESSMENTS INTERVERTEBRAL DISC DISORDERS WITH RADICULOPATHY, LUMBAR REGION - M51.16 (PRIMARY) PROCEDURES PRE PROCEDURE DIAGNOSIS LUMBAR DISC DISORDER WITH RADICULOPATHY POST PROCEDURE DIAGNOSIS LUMBAR DISC DISORDER WITH RADICULOPATHY PROCEDURE LUMBAR EPIDURAL STEROID INJECTION UNDER FLUOROSCOPIC GUIDANCE SURGEON DR. MATTIE EASLEY MOBILE SERVICE RV TECHNICIAN NONE ANESTHESIA LOCAL PRE PROCEDURE NOTE THE PATIENT HAS A HISTORY OF CHRONIC LOW BACK PAIN. I EVALUATE THE PATIENT AND REVIEWED THE CHART. I WENT OVER THE RISKS, ALTERNATIVES, AND BENEFITS ASSOCIATED WITH THIS PROCEDURE. THE PATIENT WOULD LIKE TO PROCEED AND GIVE CONSENT TO PERFORMED THE PROCEDURE. THE PATIENT DENIES UNEXPLAINABLE WEIGHT LOSS, FEVER, CHILLS, OR NEW CHANGES IN URINARY OR BOWEL CONTROL. DESCRIPTION OF PROCEDURE THE PATIENT WAS BROUGHT TO THE PROCEDURE ROOM AND PLACED IN THE PRONE POSITION. THE LUMBOSACRAL AREA WAS CLEANED WITH BETADINE SOLUTION AND DRAPED ASEPTICALLY. THE PROCEDURE WAS DONE UNDER STERILE CONDITIONS. I CHECKED LATERALITY AND THE LEVEL WHERE THE PROCEDURE WAS GOING TO BE PERFORMED WITH THE PATIENT AND THE SUPPORTING STAFF AT THE MOMENT OF THE TIME OUT IN THE PROCEDURE ROOM. UNDER FLUOROSCOPIC GUIDANCE, THE TARGET POINT WAS SELECTED AT THE INTERLAMINAR LEVEL OF L4-L5. LIDOCAINE WAS USED TO NUMB THE SKIN AND THE SUBCUTANEOUS TISSUE BELOW IT. EPIDURAL TUOHY NEEDLE, 17-GAUGE, WAS ADVANCED UNDER FLUOROSCOPIC GUIDANCE AND FOLLOWING PATIENT FEEDBACK UNTIL THE EPIDURAL SPACE WAS REACHED, 7 CM DEEP INTO THE SKIN BY THE LOSS OF RESISTANCE TECHNIQUE. ISOVUE M DYE 30%, 0.25 ML, WAS INJECTED SHOWING ADEQUATE SPREAD OF THE DYE. THEN, A SOLUTION OF 3 ML OF NORMAL SALINE WITH DEPO-MEDROL 60 MG WAS INJECTED SLOWLY FOLLOWING PATIENT FEEDBACK. THERE WAS NO EVIDENCE OF BLOOD, PARESTHESIA OR CEREBROSPINAL FLUID DURING THE PROCEDURE. THE PATIENT WAS SENT TO THE RECOVERY ROOM. THE PATIENT WAS MOVING THE EXTREMITIES AND DOING WELL. THERE WAS NO COMPLICATION DURING THE PROCEDURE. FLUOROSCOPY TIME WAS 22 SECONDS. POST PROCEDURE NOTE THE PATIENT WILL BE SEEN IN A FOLLOW UP IN THE NEXT FEW WEEKS. INSTRUCTIONS WERE GIVEN, QUESTIONS WERE ANSWERED, AND THE PATIENT EXPRESSED UNDERSTANDING AND AGREES WITH THE PLAN. I, SAM ADAMS, DOCUMENTED THE ABOVE INFORMATION ACTING A SCRIBE FOR DR. EASLEY. I, DR. EASLEY, HAVE REVIEWED THE ABOVE DOCUMENT, SCRIBED BY SAM ADAMS, AND I VERIFY THAT IT IS ACCURATE PN WORKMANS' COMP OPINION IN YOUR OPINION, WAS THE INCIDENT THAT THE PATIENT DESCRIBED THE COMPETENT MEDICAL CAUSE OF THIS INJURY/ILLNESS? YES ARE THE PATIENT'S COMPLAINTS CONSISTENT WITH HIS/HER HISTORY OF THE INJURY/ILLNESS? YES IS THE PATIENT'S HISTORY OF THE INJURY/ILLNESS CONSISTENT WITH YOUR OBJECTIVE FINDING? YES WHAT IS THE PERCENTAGE OF TEMPORARY IMPAIRMENT? TOTAL = 100% IS THE PATIENT WORKING? NO DOCTOR ON SITE: MATTIE HERNANDEZ MD DOCTOR ON SITE: MATTIE HERNANDEZ MD DOCTOR ON SITE: MATTIE HERNANDEZ MD DIAGNOSTIC IMAGING [facility] FLUORO GUIDE SPINE INJECTION (PAIN)[id number] PROCEDURE CODES 22655 LUMBAR/SACRAL W/ IMAGING 6045F RADXPS IN END [id number] PXD DISPOSITION & COMMUNICATION FOLLOW UP 3 WEEKS ELECTRONICALLY SIGNED BY MATTIE EASLEY MD ON 03/04/2017 AT 10:33 PM EDT DISCLAIMER : THIS IS A VISIT SUMMARY EXTRACTED FROM THE [employer] CHART. IT IS NOT A COPY OF THE [employer] PROGRESS NOTE. JL
== END ==
LOC: M PAIN 10:20
PROVIDERS: ATTEND Anesthesiology
DX: G89.29 Other chronic pain (principal); M51.16 Intervertebral disc disorders with radiculopathy, lumbar region; Z79.899 Other long term (current) drug therapy; Z79.891 Long term (current) use of opiate analgesic; Z79.84 Long term (current) use of oral hypoglycemic drugs; Z79.82 Long term (current) use of aspirin; Z88.5 Allergy status to narcotic agent; I10 Essential (primary) hypertension; E11.9 Type 2 diabetes mellitus without complications; E78.00 Pure hypercholesterolemia, unspecified
CPT/HCPCS: 62323; J1030; Q9967

== ENCOUNTER → 2017-03-13 | Outpatient (CLI) | payer OTHER ==
[~2017-03-13] MED LIST changes: -ISOVUE-M 300 61% 15ML VIAL (Q9967) As Ordered ONE; -LIDOCAINE 1% SDV INJ 30 ML VIAL As Ordered ONE; -methylPREDNISolone SUSP 40 MG/ML (DEPO-medrol) VIAL (J1030) As Ordered ONE
--- NOTE | 2017-03-28 00:55 | ECWPNPC ---
PATIENT NAME: ALLAN ARENTT : 1950 GENDER: MALE VISIT DATE: 03/13/2017 DISCHARGE DATE: 03/13/17 1407 VISIT LOCKED DATE TIME: PHYSICIAN: MATTIE EASLEY RESOURCE: MATTIE EASLEY REASON FOR APPOINTMENT 1. LOW BACK PAIN W/C HISTORY OF PRESENT ILLNESS HISTORY OF PRESENT ILLNESS: PAIN THE PATIENT DESCRIBES THE PAIN... 56 YEAR OLD MALE PATIENT WITH HISTORY OF CHRONIC LOW BACK PAIN. PATIENT DESCRIBES THE PAIN STABBING, THROBBING, SORE, AND HAVING IT ALL THE TIME WITH A PAIN CURRENT PAIN SCORE 4/10. 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 PATIENT RECEIVED A LUMBAR EPIDURAL ON 02/21/17 WITH INCREASED MOBILITY AND FUNCTIONALITY AND OVER 50% RELIEF FROM PAIN FOR OVER 2 WEEKS. PATIENT REPORTS USING LESS MEDICATION DUE TO THE INJECTION. PATIENT REPORTS OF HAVING A DCS SURGERY IN 2008. PATIENT REPORTS THAT HE HAS TRIED PHYSICAL THERAPY IN THE PAST WITHOUT ANY SUCCESSFUL IMPROVEMENT IN PAIN RELIEF. PATIENT REPORTS OF RADIATING PAIN DOWN BOTH LEGS WITH THE LEFT LEG HURTING THE MOST. CURRENTLY THE PATIENT IS USING GABAPENTIN AND MELOXICAM AND STATES THAT THE MEDICATION KEEPS HIM MOBILE AND FUNCTIONAL. PATIENT DENIES UNEXPLAINABLE WEIGHT LOSS, FEVER, CHILLS, NEW CHANGES ON HIS URINARY OR BOWEL CONTROL. FALL RISK SCREENING: SCREENING :NO FALLS IN THE PAST YEAR CURRENT MEDICATIONS TAKING GLIMEPIRIDE 4 MG TABLET 1 TABLET WITH BREAKFAST OR THE FIRST MAIN MEAL OF THE DAY ORALLY ONCE A DAY TAKING LOVASTATIN 20 MG TABLET 1 TABLET WITH A MEAL ORALLY ONCE A DAY TAKING LISINOPRIL-HYDROCHLOROTHIAZIDE 10-12.5 MG TABLET 1 TABLET ORALLY ONCE A DAY TAKING LOSARTAN POTASSIUM-HCTZ 50-12.5 MG TABLET 1 TABLET ORALLY ONCE A DAY TAKING DRISDOL 69701 UNIT CAPSULE 1 CAPSULE ORALLY WEEKLY TAKING MULTIVITAMIN TABLET 1 TAB ORALLY DAILY TAKING NAPROXEN 500 MG TABLET 1 TABLET NEEDED ORALLY EVERY 12 HRS TAKING ASPIR-81 81 MG TABLET DELAYED RELEASE 1 TABLET ORALLY ONCE A DAY TAKING GABAPENTIN 300 MG CAPSULE 1 CAPSULE ORALLY FOR PAIN THREE TIMES DAILY MDD3 TAKING METHOCARBAMOL 750 MG TABLET 1 TABLET ORALLY FOR SPASMS AND PAIN THREE TIMES DAILY NEEDED MDD3 NOT-TAKING IBUPROFEN 800 MG TABLET 1 TABLET WITH FOOD OR MILK ORALLY FOR PAIN EVERY 6 HOURS NEEDED MDD3 NOT-TAKING IBUPROFEN 800 MG TABLET 1 TABLET ORALLY WITH FOOD THREE TIMES A DAY NEEDED FOR PAIN MDD3, NOTES: NONE LATELY NOT-TAKING CYMBALTA 30 MG CAPSULE DELAYED RELEASE PARTICLES 1 CAPSULE ORALLY FOR PAIN TWICE A DAY MEDICATION LIST REVIEWED AND RECONCILED WITH THE PATIENT PAST MEDICAL HISTORY HTN DIABETIC CHRONIC LOW BACK PAIN ARTHRITIS HYPERCHOLESTEROLEMIA GOUT ALLERGIES CODEINE SULFATE: HEART RACES: ALLERGY SURGICAL HISTORY BILAT CARPAL TUNNEL RELEASE BILAT ELBOW SURGERY BILAT TRIGGER FINGER REPAIR LEFT KNEE REPLACEMENT DORSAL COLUMN STIMULATOR FAMILY HISTORY NO FAMILY HISTORY DOCUMENTED. SOCIAL HISTORY GENERAL: PAIN CLINIC PFS, CLERGY, PUBLIC HEALTH REFERRALS CLERGY REFERRAL NEEDED?NO WAS THE PROVIDER NOTIFIED OF ANY PERTINENT INFO?NO PFS REFERRAL NEEDED?NO PUBLIC HEALTH REFERRAL NEEDED?NO PATIENT: ____. HOSPITALIZATION/MAJOR DIAGNOSTIC PROCEDURE SURGERIES REVIEW OF SYSTEMS REVIEWED BY: PROVIDER: MATTIE EASLEY MD . CONSTITUTIONAL: ANY CHANGE IN YOUR MEDICAL CONDITION? NO . CHILLS NO . FEVER NO . INFECTION: DO YOU HAVE NEW INFECTIONS? NO . DO YOU HAVE HISTORY OF MRSA? NO . MUSCULOSKELETAL: ANY NEW PATTERNS OF PAIN OR NUMBNESS? NO, PT STATES HE HAD LESI 02/21/17. PT STATES PRE-PROCEDURE PAIN WAS 8/10, POST PROCEDURE PAIN WAS 5. TODAY PAIN IS RATED 4/10. . GASTROENTEROLOGY: ANY NEW CHANGE IN BOWEL CONTROL? NO . GENITOURINARY: ANY NEW CHANGE IN BLADDER CONTROL? NO . IS THERE A CHANCE YOU COULD BE ? NO . HEMATOLOGY/LYMPH: DO YOU TAKE ANY BLOOD THINNERS? (FOR EXAMPLE- COUMADIN, PLAVIX, AGGRENOX, PLATEL, PRADAXA, OR XARELTO) NO . WHEN WAS YOUR LAST DOSE? DATE: TIME: . NEUROLOGY: HAVE YOU FALLEN IN THE PAST 6 MONTHS? NO . ANY NEW EXTREMITY NUMBNESS OR WEAKNESS? NO . CARDIOLOGY: DO YOU HAVE A PACEMAKER OR DEFIBRILLATOR? NO . RESPIRATORY: HAVE YOU BEEN SICK IN THE PAST WEEK? NO . FEVER NO . FLU LIKE SYMPTOMS? NO . COUGH NO . INTEGUMENTARY: DO YOU HAVE ANY RASHES OR OPEN SORES? NO . ALLERGIC/IMMUNO: ARE YOU ALLERGIC TO SHELLFISH OR IV DYE? NO . ANY NEW ALLERGIES? NO . PSYCHIATRIC: DO YOU HAVE THOUGHTS OF HURTING YOURSELF OR SOMEONE ELSE? NO . ARE YOU ABUSED, NEGLECTED, OR IN AN UNSAFE ENVIRONMENT? NO . ENDOCRINOLOGY: ARE YOU DIABETIC? YES . OTHER: DO YOU NEED ANY PRESCRIPTIONS? NO . IF YES, PLEASE LIST: ____ . ANY NEW PROBLEMS WITH YOUR MEDICATIONS? YES, IBUPROFEN GIVES PT CHEST PAIN, SO PT STATES HE DOES NOT TAKE IT ANYMORE, DISCUSSED GASTRIC REFLUX AND IBUPROFEN WITH PT. . WHEN DID YOU LAST EAT? ____ . WHEN DID YOU LAST DRINK? ____ . WHAT DID YOU LAST DRINK? ____ . NAME OF PERSON DRIVING YOU HOME? ____ . DO YOU HAVE ANY OTHER QUESTIONS OR CONCERNS NO . VITAL SIGNS WT 272.0 LBS, HT 69 IN, BMI 40.16 INDEX, BP 147/87 MM HG, HR 76 /MIN, RR 18 /MIN, TEMP 97.3 F, OXYGEN SAT % 96%, BLOOD GLUCOSE LEVEL 55, SAFE IN ENV? (Y/N) Y, NA INITIALS TL 1314, REVIEWED BY: EMPATIENT FELT DIZZY ON HIS WAY TO THIS APPT. SO HE ASKED IF I COULD CHECK HIS BLOOD SUGAR, I DID AND HIS BLOOD SUGAR WAS 55, RN Wen AWARE, GAVE PTIENT CLARKE CRACKERS, ORAGNE JUICE AND PEPSI - TL. EXAMINATION : PATIENT IS ALERT O X 3 AND COOPERATIVE. PATIENT'S LEFT LEG IS WEAKER AT FLEXION AND EXTENSION COMPARED TO THE RIGHT LEG. PATIENT GAS TENDERNESS IN THE LUMBAR PARASPINAL MUSCLE GROUP. PATIENT HAS DIFFICULTIES EXTENDING AND FLEXING HIS BACK. CT DONE ON 01/20/16 OF THE LUMBAR SPINE SHOWS DISC BULGES AT L3-L4 THROUGH L5-S1 ALONG WITH HYPERTROPHY AND SPINAL STENOSIS. ASSESSMENTS INTERVERTEBRAL DISC DISORDERS WITH RADICULOPATHY, LUMBAR REGION - M51.16 (PRIMARY) RADICULOPATHY, LUMBAR REGION - M54.16 TREATMENT INTERVERTEBRAL DISC DISORDERS WITH RADICULOPATHY, LUMBAR REGION REFILL GABAPENTIN CAPSULE, 300 MG, 1 CAPSULE, ORALLY FOR PAIN, THREE TIMES DAILY MDD3, 30 DAY(S), 90, REFILLS 2 REFILL METHOCARBAMOL TABLET, 750 MG, 1 TABLET, ORALLY FOR SPASMS AND PAIN, BEFORE BEDTIME NEEDED MDD1, 30 DAYS, 30, REFILLS 2 REFILL NAPROXEN TABLET, 500 MG, 1 TABLET NEEDED, ORALLY WITH FOOD, EVERY 12 HRS NEEDED FOR PAIN, 30 DAY(S), 60 TABLET, REFILLS 2 START CYMBALTA CAPSULE DELAYED RELEASE PARTICLES, 30 MG, 1 CAPSULE, ORALLY FOR PAIN, TWICE A DAY MDD2, 30 DAY(S), 60, REFILLS 2 NOTES: WE DISCUSSED SEVERAL ISSUES WITH MR. ARNETT'S PAIN MANAGEMENT CASE. AT THIS TIME THE PATIENT WILL CONTINUE WIT THE SAME MEDICATION REGIME BEFORE. PATIENT WILL CONTINUE TO USE GABAPENTIN FOR THE NEUROPATHIC PAIN, NAPROXEN FOR THE INFLAMMATION, AND METHOCARBAMOL FOR THE MUSCLE SPASMS. PATIENT WILL ALSO START CYMBALTA FOR THE NEUROPATHIC PAIN DOWN THE LEGS. PATIENT WAS ADVISED TO STOP THE MEDICATION IF HE HAS ANY ADVERSE SIDE EFFECTS. PATIENT RECEIVED A LUMBAR EPIDURAL ON 02/21/17 AND REPORTS HAVING OVER 50% PAIN RELIEF WITH INCREASED MOBILITY AND FUNCTIONALITY. PATIENT IS DOING WELL FROM THE INJECTION AND DOES NOT WANT TO PROCEED WITH ANY INTERVENTION AT THIS TIME. PATIENT WILL RETURN TO THE CLINIC IN 2 MONTHS. INSTRUCTIONS WERE GIVEN, QUESTIONS WERE ANSWERED, PATIENT REPORTS UNDERSTANDING AND AGREES WITH THE PLAN. I, SAM ADAMS, DOCUMENTED THE ABOVE INFORMATION ACTING A SCRIBE FOR DR. EASLEY. I HAVE REVIEWED THE ABOVE DOCUMENT, WRITTEN BY SAM DENT AND I VERIFY THAT IT IS ACCURATE. PROCEDURES PN WORKMANS' COMP OPINION IN YOUR OPINION, WAS THE INCIDENT THAT THE PATIENT DESCRIBED THE COMPETENT MEDICAL CAUSE OF THIS INJURY/ILLNESS? YES ARE THE PATIENT'S COMPLAINTS CONSISTENT WITH HIS/HER HISTORY OF THE INJURY/ILLNESS? YES IS THE PATIENT'S HISTORY OF THE INJURY/ILLNESS CONSISTENT WITH YOUR OBJECTIVE FINDING? YES WHAT IS THE PERCENTAGE OF TEMPORARY IMPAIRMENT? TOTAL = 100% IS THE PATIENT WORKING? NO DOCTOR ON SITE: MATTIE HERNANDEZ MD PROCEDURE CODES FA211 ESTABILISHED PATIENT [facility] FACILITY CHARGE G8427 DOC MEDS VERIFIED W/PT OR RE G8730 PAIN ASSESS POS TOOL F/U PLAN DOC DISPOSITION & COMMUNICATION FOLLOW UP 2 MONTHS ELECTRONICALLY SIGNED BY MATTIE EASLEY MD ON 03/26/2017 AT 01:22 PM EDT DISCLAIMER : THIS IS A VISIT SUMMARY EXTRACTED FROM THE [employer] CHART. IT IS NOT A COPY OF THE [employer] PROGRESS NOTE. [facility]
== END ==
LOC: M PAIN 13:40
PROVIDERS: ATTEND Anesthesiology
DX: M51.16 Intervertebral disc disorders with radiculopathy, lumbar region (principal); M54.5 Low back pain; G89.29 Other chronic pain; Z79.82 Long term (current) use of aspirin; Z79.84 Long term (current) use of oral hypoglycemic drugs; Z79.899 Other long term (current) drug therapy; Z88.5 Allergy status to narcotic agent

== ENCOUNTER → 2017-05-11 | Outpatient (CLI) | payer OTHER ==
--- NOTE | 2017-05-24 02:10 | ECWPNPC ---
PATIENT NAME: ALLAN ARNETT : 1950 GENDER: MALE VISIT DATE: 05/11/2017 DISCHARGE DATE: 05/11/17 1209 VISIT LOCKED DATE TIME: PHYSICIAN: MATTIE EASLEY RESOURCE: MATTIE EASLEY REASON FOR APPOINTMENT 1. LOW BACK PAIN W/C HISTORY OF PRESENT ILLNESS HISTORY OF PRESENT ILLNESS: PAIN THE PATIENT DESCRIBES THE PAIN... 56 YEAR OLD MALE PATIENT WITH HISTORY OF CHRONIC LOW BACK PAIN. PATIENT DESCRIBES THE PAIN STABBING, THROBBING, SORE, AND HAVING IT ALL THE TIME WITH A PAIN CURRENT PAIN SCORE 7/10. 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 PATIENT RECEIVED A LUMBAR EPIDURAL ON 02/21/17 WITH INCREASED MOBILITY AND FUNCTIONALITY AND OVER 50% RELIEF FROM PAIN FOR OVER 8 WEEKS BUT THE PAIN IS STARTING TO RETURN AT THIS TIME. PATIENT REPORTS USING LESS MEDICATION DUE TO THE INJECTION. PATIENT REPORTS OF HAVING A DCS SURGERY IN 2008. PATIENT REPORTS THAT HE HAS TRIED PHYSICAL THERAPY IN THE PAST WITHOUT ANY SUCCESSFUL IMPROVEMENT IN PAIN RELIEF. PATIENT REPORTS OF RADIATING PAIN DOWN BOTH LEGS WITH THE LEFT LEG HURTING THE MOST. CURRENTLY THE PATIENT IS USING GABAPENTIN AND MELOXICAM AND STATES THAT THE MEDICATION KEEPS HIM MOBILE AND FUNCTIONAL. PATIENT DENIES UNEXPLAINABLE WEIGHT LOSS, FEVER, CHILLS, NEW CHANGES ON HIS URINARY OR BOWEL CONTROL. FALL RISK SCREENING: SCREENING :NO FALLS IN THE PAST YEAR CURRENT MEDICATIONS TAKING GABAPENTIN 300 MG CAPSULE 1 CAPSULE ORALLY FOR PAIN THREE TIMES DAILY MDD3 TAKING CYMBALTA 30 MG CAPSULE DELAYED RELEASE PARTICLES 1 CAPSULE ORALLY FOR PAIN TWICE A DAY MDD2 TAKING GLIMEPIRIDE 4 MG TABLET 1 TABLET WITH BREAKFAST OR THE FIRST MAIN MEAL OF THE DAY ORALLY ONCE A DAY TAKING LOVASTATIN 20 MG TABLET 1 TABLET WITH A MEAL ORALLY ONCE A DAY TAKING LOSARTAN POTASSIUM-HCTZ 50-12.5 MG TABLET 1 TABLET ORALLY ONCE A DAY TAKING DRISDOL 66819 UNIT CAPSULE 1 CAPSULE ORALLY WEEKLY TAKING MULTIVITAMIN TABLET 1 TAB ORALLY DAILY TAKING ASPIR-81 81 MG TABLET DELAYED RELEASE 1 TABLET ORALLY ONCE A DAY TAKING METHOCARBAMOL 750 MG TABLET 1 TABLET ORALLY FOR SPASMS AND PAIN BEFORE BEDTIME NEEDED MDD1 NOT-TAKING NAPROXEN 500 MG TABLET 1 TABLET NEEDED ORALLY WITH FOOD EVERY 12 HRS NEEDED FOR PAIN NOT-TAKING LISINOPRIL-HYDROCHLOROTHIAZIDE 10-12.5 MG TABLET 1 TABLET ORALLY ONCE A DAY NOT-TAKING IBUPROFEN 800 MG TABLET 1 TABLET WITH FOOD OR MILK ORALLY FOR PAIN EVERY 6 HOURS NEEDED MDD3 NOT-TAKING IBUPROFEN 800 MG TABLET 1 TABLET ORALLY WITH FOOD THREE TIMES A DAY NEEDED FOR PAIN MDD3, NOTES: NONE LATELY NOT-TAKING CYMBALTA 30 MG CAPSULE DELAYED RELEASE PARTICLES 1 CAPSULE ORALLY FOR PAIN TWICE A DAY MEDICATION LIST REVIEWED AND RECONCILED WITH THE PATIENT PAST MEDICAL HISTORY HTN DIABETIC CHRONIC LOW BACK PAIN ARTHRITIS HYPERCHOLESTEROLEMIA GOUT ALLERGIES CODEINE SULFATE: HEART RACES: ALLERGY SURGICAL HISTORY BILAT CARPAL TUNNEL RELEASE BILAT ELBOW SURGERY BILAT TRIGGER FINGER REPAIR LEFT KNEE REPLACEMENT DORSAL COLUMN STIMULATOR SOCIAL HISTORY GENERAL: PAIN CLINIC PFS, CLERGY, PUBLIC HEALTH REFERRALS PFS REFERRAL NEEDED?NO CLERGY REFERRAL NEEDED?NO PUBLIC HEALTH REFERRAL NEEDED?NO WAS THE PROVIDER NOTIFIED OF ANY PERTINENT INFO?NO HAS THE PATIENT BEEN EDUCATED REGARDING HIS/HER PLAN OF CARE?YES HAS THE PATIENT BEEN EDUCATED REGARDING PAIN, THE RISK FOR PAIN, THE IMPORTANCE OF EFFECTIVE PAIN MANAGEMENT, AND THE PAIN ASSESSMENT PROCESS?YES PATIENT: ____. HOSPITALIZATION/MAJOR DIAGNOSTIC PROCEDURE SURGERIES REVIEW OF SYSTEMS REVIEWED BY: PROVIDER: MATTIE EASLEY MD . CONSTITUTIONAL: ANY CHANGE IN YOUR MEDICAL CONDITION? NO . CHILLS NO . FEVER NO . INFECTION: DO YOU HAVE NEW INFECTIONS? NO . DO YOU HAVE HISTORY OF MRSA? NO . MUSCULOSKELETAL: ANY NEW PATTERNS OF PAIN OR NUMBNESS? YES, BILAT LEG PAIN . GASTROENTEROLOGY: ANY NEW CHANGE IN BOWEL CONTROL? NO . GENITOURINARY: ANY NEW CHANGE IN BLADDER CONTROL? NO . IS THERE A CHANCE YOU COULD BE ? NO . HEMATOLOGY/LYMPH: DO YOU TAKE ANY BLOOD THINNERS? (FOR EXAMPLE- COUMADIN, PLAVIX, AGGRENOX, PLATEL, PRADAXA, OR XARELTO) NO . WHEN WAS YOUR LAST DOSE? DATE: TIME: . NEUROLOGY: HAVE YOU FALLEN IN THE PAST 6 MONTHS? NO . ANY NEW EXTREMITY NUMBNESS OR WEAKNESS? NO . CARDIOLOGY: DO YOU HAVE A PACEMAKER OR DEFIBRILLATOR? NO . RESPIRATORY: HAVE YOU BEEN SICK IN THE PAST WEEK? NO . FEVER NO . FLU LIKE SYMPTOMS? NO . COUGH NO . INTEGUMENTARY: DO YOU HAVE ANY RASHES OR OPEN SORES? NO . ALLERGIC/IMMUNO: ARE YOU ALLERGIC TO SHELLFISH OR IV DYE? NO . ANY NEW ALLERGIES? NO . PSYCHIATRIC: DO YOU HAVE THOUGHTS OF HURTING YOURSELF OR SOMEONE ELSE? NO . ARE YOU ABUSED, NEGLECTED, OR IN AN UNSAFE ENVIRONMENT? NO . ENDOCRINOLOGY: ARE YOU DIABETIC? NO . OTHER: DO YOU NEED ANY PRESCRIPTIONS? YES, PT TO DISCUSS CHANGES WITH DR. EASLEY . IF YES, PLEASE LIST: ____ . ANY NEW PROBLEMS WITH YOUR MEDICATIONS? NO . WHEN DID YOU LAST EAT? ____ . WHEN DID YOU LAST DRINK? ____ . WHAT DID YOU LAST DRINK? ____ . NAME OF PERSON DRIVING YOU HOME? ____ . DO YOU HAVE ANY OTHER QUESTIONS OR CONCERNS NO . VITAL SIGNS WT 280 LBS, HT 69 IN, BMI 41.34 INDEX, BP 185/90 MM HG, HR 82 /MIN, RR 16 /MIN, TEMP 97.2 F, OXYGEN SAT % 97, REVIEWED BY: BRIDGET. EXAMINATION : PATIENT IS ALERT O X 3 AND COOPERATIVE. PATIENT'S LEFT LEG IS WEAKER AT FLEXION AND EXTENSION COMPARED TO THE RIGHT LEG. PATIENT GAS TENDERNESS IN THE LUMBAR PARASPINAL MUSCLE GROUP. PATIENT HAS DIFFICULTIES EXTENDING AND FLEXING HIS BACK. STRAIGHT LEG POSITIVE FOR PAIN AT 10 DEGREES. PATIENT DEVELOPS SEVERE SPASMS IN THE SUPINE POSITION. CT DONE ON 01/20/16 OF THE LUMBAR SPINE SHOWS DISC BULGES AT L3-L4 THROUGH L5-S1 ALONG WITH HYPERTROPHY AND SPINAL STENOSIS. ASSESSMENTS INTERVERTEBRAL DISC DISORDERS WITH RADICULOPATHY, LUMBAR REGION - M51.16 (PRIMARY) RADICULOPATHY OF LUMBAR REGION - M54.16 TREATMENT INTERVERTEBRAL DISC DISORDERS WITH RADICULOPATHY, LUMBAR REGION REFILL GABAPENTIN CAPSULE, 300 MG, 1 CAPSULE, ORALLY FOR PAIN, THREE TIMES DAILY MDD3, 30 DAY(S), 90, REFILLS 2 REFILL CYMBALTA CAPSULE DELAYED RELEASE PARTICLES, 30 MG, 1 CAPSULE, ORALLY FOR PAIN, TWICE A DAY MDD2, 30 DAY(S), 60, REFILLS 2 REFILL METHOCARBAMOL TABLET, 750 MG, 1 TABLET, ORALLY FOR SPASMS AND PAIN, EVERY 6 HRS NEEDED MDD3, 30 DAYS, 85, REFILLS 2 NOTES: WE DISCUSSED SEVERAL ISSUES WITH MR. ARNETT'S PAIN MANAGEMENT CASE. AT THIS TIME THE PATIENT WILL CONTINUE WIT THE SAME MEDICATION REGIME BEFORE. PATIENT WILL CONTINUE TO USE GABAPENTIN FOR THE NEUROPATHIC PAIN, NAPROXEN FOR THE INFLAMMATION, CYMBALTA FOR THE NEUROPATHIC PAIN AND METHOCARBAMOL FOR THE MUSCLE SPASMS. PATIENT WILL RECEIVED 85 TABLETS OF THE METHOCARBAMOL DUE TO THE SEVERE SPASMS AND TO HOLD HIM UNTIL HE IS ABLE TO HAVE HIS INJECTION. PATIENT WILL ALSO INCREASE HIS CYMBALTA TO TWO TABLETS A DAY TO SEE IF IT WILL AID IN PAIN RELIEF. DUE TO THE LONG LASTING PAIN RELIEF THE PATIENT RECEIVED FROM THE LUMBAR EPIDURAL I WOULD LIKE TO REPEAT THE INJECTION. PATIENT REPORTS HAVING OVER 8 WEEKS OF PAIN RELIEF WITH INCREASED MOBILITY AND FUNCTIONALITY FROM THE INJECTION AND WAS ABLE TO REDUCE THE USE OF MEDICATIONS. WE DISCUSSED THE RISKS, BENENFITS, AND ALTNERATIVES OF THE INJECTION AND THE PATIENT WOULD LIKE TO PROCEED AT THIS TIME. INSTRUCTIONS WERE GIVEN, QUESTIONS WERE ANSWERED, PATIENT REPORTS UNDERSTANDING AND AGREES WITH THE PLAN. I, SAM ADAMS, DOCUMENTED THE ABOVE INFORMATION ACTING A SCRIBE FOR DR. EASLEY. I HAVE REVIEWED THE ABOVE DOCUMENT, WRITTEN BY SAM DENT AND I VERIFY THAT IT IS ACCURATE. PROCEDURES PN WORKMANS' COMP OPINION IN YOUR OPINION, WAS THE INCIDENT THAT THE PATIENT DESCRIBED THE COMPETENT MEDICAL CAUSE OF THIS INJURY/ILLNESS? YES ARE THE PATIENT'S COMPLAINTS CONSISTENT WITH HIS/HER HISTORY OF THE INJURY/ILLNESS? YES IS THE PATIENT'S HISTORY OF THE INJURY/ILLNESS CONSISTENT WITH YOUR OBJECTIVE FINDING? YES WHAT IS THE PERCENTAGE OF TEMPORARY IMPAIRMENT? TOTAL = 100% IS THE PATIENT WORKING? NO DOCTOR ON SITE: MATTIE HERNANDEZ MD PROCEDURE CODES FA211 ESTABILISHED PATIENT [facility] FACILITY CHARGE G8427 DOC MEDS VERIFIED W/PT OR RE G8730 PAIN ASSESS POS TOOL F/U PLAN DOC DISPOSITION & COMMUNICATION FOLLOW UP LESI AFTER APPROVAL ELECTRONICALLY SIGNED BY MATTIE EASLEY MD ON 05/21/2017 AT 01:27 PM EDT DISCLAIMER : THIS IS A VISIT SUMMARY EXTRACTED FROM THE [employer] CHART. IT IS NOT A COPY OF THE [employer] PROGRESS NOTE. [facility]
== END ==
LOC: M PAIN 10:45
PROVIDERS: ATTEND Anesthesiology
DX: M51.16 Intervertebral disc disorders with radiculopathy, lumbar region (principal); G89.29 Other chronic pain; M54.5 Low back pain; E11.9 Type 2 diabetes mellitus without complications; Z79.82 Long term (current) use of aspirin; Z79.84 Long term (current) use of oral hypoglycemic drugs; Z79.899 Other long term (current) drug therapy; Z88.5 Allergy status to narcotic agent

== ENCOUNTER → 2017-06-04 | Outpatient (CLI) | payer OTHER ==
--- NOTE | 2017-06-19 00:41 | ECWPNPC ---
PATIENT NAME: ALLAN ARNETT : 1950 GENDER: MALE VISIT DATE: 06/04/2017 DISCHARGE DATE: 06/04/17 1639 VISIT LOCKED DATE TIME: PHYSICIAN: MATTIE EASLEY RESOURCE: MATTIE EASLEY REASON FOR APPOINTMENT 1. LOW BACK PAIN W/C HISTORY OF PRESENT ILLNESS HISTORY OF PRESENT ILLNESS: PAIN THE PATIENT DESCRIBES THE PAIN... 66 YEAR OLD MALE PATIENT WITH HISTORY OF CHRONIC LOW BACK PAIN. PATIENT DESCRIBES THE PAIN ACHING, BURNING, THROBBING, SORE, AND HAVING IT ALL THE TIME WITH A PAIN SCORE OF 8/10. 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 PATIENT RECEIVED A LUMBAR EPIDURAL ON 02/21/17 WITH INCREASED MOBILITY AND FUNCTIONALITY AND OVER 50% RELIEF FROM PAIN FOR OVER 8 WEEKS BUT THE PAIN IS STARTING TO RETURN AT THIS TIME. PATIENT REPORTS HAVING AN INCREASED RANGE OF MOTION WHILE HE HAD BENENFITS FROM THE INJECTION INCLUDING BENDING DOWN TO TIE HIS SHOES OR PICK THINGS UP AND WELL TWISTING. PATIENT REPORTS USING LESS MEDICATION DUE TO THE INJECTION BUT AT THIS TIME THE PAIN IS SEVERE. PATIENT REPORTS OF HAVING A DCS SURGERY IN 2008. PATIENT REPORTS THAT HE HAS TRIED PHYSICAL THERAPY IN THE PAST WITHOUT ANY SUCCESSFUL IMPROVEMENT IN PAIN RELIEF. PATIENT REPORTS OF RADIATING PAIN DOWN BOTH LEGS WITH THE LEFT LEG HURTING THE MOST. MR. ARNETT STATES HE HAS DIFFICULTIES MOVING AND DOING ANYTHING BY HIMSELF DUE TO THE SEVERE PAIN. PATIENT STATES HE IS UNABLE TO BE ACTIVE DUE TO THIS SEVERE PAIN. CURRENTLY THE PATIENT IS USING GABAPENTIN AND MELOXICAM AND STATES THAT THE MEDICATION KEEPS HIM MOBILE AND FUNCTIONAL. PATIENT DENIES UNEXPLAINABLE WEIGHT LOSS, FEVER, CHILLS, NEW CHANGES ON HIS URINARY OR BOWEL CONTROL. FALL RISK SCREENING: SCREENING :NO FALLS IN THE PAST YEAR CURRENT MEDICATIONS TAKING LOVASTATIN 20 MG TABLET 1 TABLET WITH A MEAL ORALLY ONCE A DAY TAKING LOSARTAN POTASSIUM-HCTZ 100-25 MG TABLET 1 TABLET ORALLY ONCE A DAY TAKING DRISDOL 09367 UNIT CAPSULE 1 CAPSULE ORALLY WEEKLY TAKING MULTIVITAMIN TABLET 1 TAB ORALLY DAILY TAKING ASPIR-81 81 MG TABLET DELAYED RELEASE 1 TABLET ORALLY ONCE A DAY TAKING GABAPENTIN 300 MG CAPSULE 1 CAPSULE ORALLY FOR PAIN THREE TIMES DAILY MDD3 TAKING METHOCARBAMOL 750 MG TABLET 1 TABLET ORALLY FOR SPASMS AND PAIN EVERY 6 HRS NEEDED MDD3 NOT-TAKING NAPROXEN 500 MG TABLET 1 TABLET NEEDED ORALLY WITH FOOD EVERY 12 HRS NEEDED FOR PAIN NOT-TAKING LISINOPRIL-HYDROCHLOROTHIAZIDE 10-12.5 MG TABLET 1 TABLET ORALLY ONCE A DAY NOT-TAKING IBUPROFEN 800 MG TABLET 1 TABLET WITH FOOD OR MILK ORALLY FOR PAIN EVERY 6 HOURS NEEDED MDD3 NOT-TAKING IBUPROFEN 800 MG TABLET 1 TABLET ORALLY WITH FOOD THREE TIMES A DAY NEEDED FOR PAIN MDD3, NOTES: NONE LATELY NOT-TAKING CYMBALTA 30 MG CAPSULE DELAYED RELEASE PARTICLES 1 CAPSULE ORALLY FOR PAIN TWICE A DAY NOT-TAKING GLIMEPIRIDE 4 MG TABLET 1 TABLET WITH BREAKFAST OR THE FIRST MAIN MEAL OF THE DAY ORALLY ONCE A DAY NOT-TAKING CYMBALTA 30 MG CAPSULE DELAYED RELEASE PARTICLES 1 CAPSULE ORALLY FOR PAIN TWICE A DAY MDD2 MEDICATION LIST REVIEWED AND RECONCILED WITH THE PATIENT PAST MEDICAL HISTORY HTN DIABETIC CHRONIC LOW BACK PAIN ARTHRITIS HYPERCHOLESTEROLEMIA GOUT ALLERGIES CODEINE SULFATE: HEART RACES: ALLERGY REVIEW OF SYSTEMS REVIEWED BY: PROVIDER: MATTIE EASLEY MD . CONSTITUTIONAL: ANY CHANGE IN YOUR MEDICAL CONDITION? NO . CHILLS NO . FEVER NO . INFECTION: DO YOU HAVE NEW INFECTIONS? NO . DO YOU HAVE HISTORY OF MRSA? NO . MUSCULOSKELETAL: ANY NEW PATTERNS OF PAIN OR NUMBNESS? NO . GASTROENTEROLOGY: ANY NEW CHANGE IN BOWEL CONTROL? NO . GENITOURINARY: ANY NEW CHANGE IN BLADDER CONTROL? NO . IS THERE A CHANCE YOU COULD BE ? NO . HEMATOLOGY/LYMPH: DO YOU TAKE ANY BLOOD THINNERS? (FOR EXAMPLE- COUMADIN, PLAVIX, AGGRENOX, PLATEL, PRADAXA, OR XARELTO) NO . WHEN WAS YOUR LAST DOSE? DATE: TIME: . NEUROLOGY: HAVE YOU FALLEN IN THE PAST 6 MONTHS? NO . ANY NEW EXTREMITY NUMBNESS OR WEAKNESS? NO . CARDIOLOGY: DO YOU HAVE A PACEMAKER OR DEFIBRILLATOR? NO . RESPIRATORY: HAVE YOU BEEN SICK IN THE PAST WEEK? NO . FEVER NO . FLU LIKE SYMPTOMS? NO . COUGH NO . INTEGUMENTARY: DO YOU HAVE ANY RASHES OR OPEN SORES? NO . ALLERGIC/IMMUNO: ARE YOU ALLERGIC TO SHELLFISH OR IV DYE? NO . ANY NEW ALLERGIES? NO . PSYCHIATRIC: DO YOU HAVE THOUGHTS OF HURTING YOURSELF OR SOMEONE ELSE? NO . ARE YOU ABUSED, NEGLECTED, OR IN AN UNSAFE ENVIRONMENT? NO . ENDOCRINOLOGY: ARE YOU DIABETIC? NO . OTHER: DO YOU NEED ANY PRESCRIPTIONS? NO . IF YES, PLEASE LIST: ____ . ANY NEW PROBLEMS WITH YOUR MEDICATIONS? NO . WHEN DID YOU LAST EAT? ____ . WHEN DID YOU LAST DRINK? ____ . WHAT DID YOU LAST DRINK? ____ . NAME OF PERSON DRIVING YOU HOME? ____ . DO YOU HAVE ANY OTHER QUESTIONS OR CONCERNS NO . VITAL SIGNS WT 270 LBS, HT 69 IN, BMI 39.87 INDEX, BP 143/78 MM HG, HR 87 /MIN, RR 18 /MIN, TEMP 97.8 F, OXYGEN SAT % 98%, NA INITIALS SC 15:28, REVIEWED BY: KG. EXAMINATION : PATIENT IS ALERT O X 3 AND COOPERATIVE. ANTALGIC GAIT. PATIENT WALKS IN FLEXED POSITION. PATIENT'S LEFT LEG IS WEAKER AT FLEXION AND EXTENSION COMPARED TO THE RIGHT LEG. PATIENT GAS TENDERNESS IN THE LUMBAR PARASPINAL MUSCLE GROUP. PATIENT HAS DIFFICULTIES EXTENDING AND FLEXING HIS BACK. STRAIGHT LEG POSITIVE FOR PAIN AT 10 DEGREES. PATIENT DEVELOPS SEVERE SPASMS IN THE SUPINE POSITION. DIFFICULTIES SITTING UP FROM SUPINE POSITION. CT DONE ON 01/20/16 OF THE LUMBAR SPINE SHOWS DISC BULGES AT L3-L4 THROUGH L5-S1 ALONG WITH HYPERTROPHY AND SPINAL STENOSIS. ASSESSMENTS INTERVERTEBRAL DISC DISORDERS WITH RADICULOPATHY, LUMBAR REGION - M51.16 (PRIMARY) RADICULOPATHY OF LUMBAR REGION - M54.16 TREATMENT INTERVERTEBRAL DISC DISORDERS WITH RADICULOPATHY, LUMBAR REGION REFILL GABAPENTIN CAPSULE, 300 MG, 1 CAPSULE, ORALLY FOR PAIN, FOUR TIMES DAILY MDD4, 30 DAY(S), 120, REFILLS 2 REFILL METHOCARBAMOL TABLET, 750 MG, 1 TABLET, ORALLY FOR SPASMS AND PAIN, EVERY 6 HRS NEEDED MDD3, 30 DAYS, 85, REFILLS 2 NOTES: WE DISCUSSED SEVERAL ISSUES WITH MR. ARNETT'S PAIN MANAGEMENT CASE. AT THIS TIME THE PATIENT WILL CONTINUE WIT THE SAME MEDICATION REGIME BEFORE. PATIENT WILL CONTINUE TO USE GABAPENTIN FOR THE NEUROPATHIC PAIN, NAPROXEN FOR THE INFLAMMATION, CYMBALTA FOR THE NEUROPATHIC PAIN AND METHOCARBAMOL FOR THE MUSCLE SPASMS. DUE TO THE LONG LASTING PAIN RELIEF THE PATIENT RECEIVED FROM THE LUMBAR EPIDURAL I WOULD LIKE TO REPEAT THE INJECTION. PATIENT REPORTS HAVING OVER 8 WEEKS OF PAIN RELIEF WITH INCREASED MOBILITY AND FUNCTIONALITY FROM THE INJECTION AND WAS ABLE TO REDUCE THE USE OF MEDICATIONS. PATIENT REPORTS HAVING AN INCREASES RANGE OF MOTION INCLUDING BENDING AND TWISTING WHILE RECEIVING BENENFITS FROM THE INJECTION, HOWEVER DUE TO THE PAIN RETURNING HE IS UNABLE TO BEND OR TWIST. WE DISCUSSED THE RISKS, BENENFITS, AND ALTNERATIVES OF THE INJECTION AND THE PATIENT WOULD LIKE TO PROCEED AT THIS TIME. INSTRUCTIONS WERE GIVEN, QUESTIONS WERE ANSWERED, PATIENT REPORTS UNDERSTANDING AND AGREES WITH THE PLAN. I, SAM ADAMS, DOCUMENTED THE ABOVE INFORMATION ACTING A SCRIBE FOR DR. EASLEY. I HAVE REVIEWED THE ABOVE DOCUMENT, WRITTEN BY SAM ERNSTIBDeanne AND I VERIFY THAT IT IS ACCURATE. OTHERS START IBUPROFEN TABLET, 800 MG, 1 TABLET WITH FOOD OR MILK, ORALLY, EVERY 8 HOURS NEEDED MDD3, 30 DAY(S), 70, REFILLS 1 PROCEDURES PN WORKMANS' COMP OPINION IN YOUR OPINION, WAS THE INCIDENT THAT THE PATIENT DESCRIBED THE COMPETENT MEDICAL CAUSE OF THIS INJURY/ILLNESS? YES ARE THE PATIENT'S COMPLAINTS CONSISTENT WITH HIS/HER HISTORY OF THE INJURY/ILLNESS? YES IS THE PATIENT'S HISTORY OF THE INJURY/ILLNESS CONSISTENT WITH YOUR OBJECTIVE FINDING? YES WHAT IS THE PERCENTAGE OF TEMPORARY IMPAIRMENT? TOTAL = 100% IS THE PATIENT WORKING? NO DOCTOR ON SITE: MATTIE HERNANDEZ MD PROCEDURE CODES FA211 ESTABILISHED PATIENT [facility] FACILITY CHARGE G8427 DOC MEDS VERIFIED W/PT OR RE G8730 PAIN ASSESS POS TOOL F/U PLAN DOC DISPOSITION & COMMUNICATION FOLLOW UP LESI AFTER APPROVAL ELECTRONICALLY SIGNED BY AMTTIE EASLEY MD ON 06/18/2017 AT 03:24 PM EDT DISCLAIMER : THIS IS A VISIT SUMMARY EXTRACTED FROM THE [employer] CHART. IT IS NOT A COPY OF THE [employer] PROGRESS NOTE. MTDD
== END ==
LOC: M PAIN 15:15
PROVIDERS: ATTEND Anesthesiology
DX: G89.21 Chronic pain due to trauma (principal); M51.16 Intervertebral disc disorders with radiculopathy, lumbar region; I10 Essential (primary) hypertension; E11.9 Type 2 diabetes mellitus without complications; E78.00 Pure hypercholesterolemia, unspecified; Z88.5 Allergy status to narcotic agent; Z79.82 Long term (current) use of aspirin; Z79.899 Other long term (current) drug therapy

== ENCOUNTER → 2017-07-06 | Outpatient (CLI) | payer OTHER ==
--- NOTE | 2017-07-08 23:55 | ECWPNPC ---
PATIENT NAME: ALLAN ARNETT : 1950 GENDER: MALE VISIT DATE: 07/06/2017 DISCHARGE DATE: 07/06/17 1115 VISIT LOCKED DATE TIME: PHYSICIAN: REJI KIM RESOURCE: REJI KIM REASON FOR APPOINTMENT 1. LOW BACK/DENIAL LESI HISTORY OF PRESENT ILLNESS HISTORY OF PRESENT ILLNESS: PAIN THE PATIENT DESCRIBES THE PAIN... FALL RISK SCREENING: SCREENING :NO FALLS IN THE PAST YEAR TODAY'S VISIT: NOTES: FOLLOWUP FOR LOW BACK PAIN. (DOI : 08/28/95) LESB HAD BEEN REQUESTED BY DR EASLEY BUT THIS HAS NOT YET BEEN APPROVED. IS NOTING +OUT OF CONTROL PAIN IN LOW BACK AND THAT THE WORST IS THE RADIATING PAIN TO HIS LEFT LEG TO THE LEVEL OF THE CALF. HAS HAD SEVERAL NEAR FALLS WITH LEG GIVING OUT. STATES DORSAL COLUMN STIMULATOR HAS CONTINUED TO GIVE GOOD COVERAGE TO THE LOW BACK BUT DOES NOT DECREASE THE PAIN IN THE LEG. RATES THE PAIN 9/10. DESCRIBES THE PAIN CONSTANT, ACHING, BURNING, TENDER, THROBBING,SHOOTING. IS S/P LESB COMPLETED ATTHE L4-5 LEVEL ON 02/21/17. PT REPORTS THIS PROVIDED 90% RELIEF OF PAIN IN THE LOW BACK AND LEGS, PARTICULARLY IN THE LEFT LEG. THIS RELIEF LASTED FOR 6 WEEKS AND THEN THE INTENSE PAIN RETURNED WITH THE RADIATION TO THE LEFT LEG. TRIGGERPOINTS AND TIGHT FIBROUS BANDS IDENTIFIED WITH PALPATION OVER THE LUMBAR PARAVERTEBRAL MUSCLES AND ACROSS THE SACRUM. SIGNIFICANT DECREASE IN ROM WITH FLEX/EXTION OF THE SPINE.. CURRENT MEDICATIONS TAKING LOSARTAN POTASSIUM 100 MG TABLET ORALLY DAILY TAKING IBUPROFEN 800 MG TABLET 1 TABLET WITH FOOD OR MILK ORALLY FOR PAIN EVERY 6 HOURS NEEDED MDD3, NOTES: INSURANCE REJECTED TAKING DRISDOL 66934 UNIT CAPSULE 1 CAPSULE ORALLY WEEKLY TAKING MULTIVITAMIN TABLET 1 TAB ORALLY DAILY TAKING ASPIR-81 81 MG TABLET DELAYED RELEASE 1 TABLET ORALLY ONCE A DAY TAKING GABAPENTIN 300 MG CAPSULE 1 CAPSULE ORALLY FOR PAIN FOUR TIMES DAILY MDD4 TAKING METHOCARBAMOL 750 MG TABLET 1 TABLET ORALLY FOR SPASMS AND PAIN EVERY 6 HRS NEEDED MDD3 NOT-TAKING NAPROXEN 500 MG TABLET 1 TABLET NEEDED ORALLY WITH FOOD EVERY 12 HRS NEEDED FOR PAIN NOT-TAKING LISINOPRIL-HYDROCHLOROTHIAZIDE 10-12.5 MG TABLET 1 TABLET ORALLY ONCE A DAY NOT-TAKING IBUPROFEN 800 MG TABLET 1 TABLET ORALLY WITH FOOD THREE TIMES A DAY NEEDED FOR PAIN MDD3, NOTES: NONE LATELY NOT-TAKING CYMBALTA 30 MG CAPSULE DELAYED RELEASE PARTICLES 1 CAPSULE ORALLY FOR PAIN TWICE A DAY NOT-TAKING GLIMEPIRIDE 4 MG TABLET 1 TABLET WITH BREAKFAST OR THE FIRST MAIN MEAL OF THE DAY ORALLY ONCE A DAY NOT-TAKING CYMBALTA 30 MG CAPSULE DELAYED RELEASE PARTICLES 1 CAPSULE ORALLY FOR PAIN TWICE A DAY MDD2 NOT-TAKING LOVASTATIN 20 MG TABLET 1 TABLET WITH A MEAL ORALLY ONCE A DAY NOT-TAKING LOSARTAN POTASSIUM-HCTZ 100-25 MG TABLET 1 TABLET ORALLY ONCE A DAY UNKNOWN IBUPROFEN 800 MG TABLET 1 TABLET WITH FOOD OR MILK ORALLY EVERY 8 HOURS NEEDED MDD3 MEDICATION LIST REVIEWED AND RECONCILED WITH THE PATIENT PAST MEDICAL HISTORY HTN DIABETIC CHRONIC LOW BACK PAIN ARTHRITIS HYPERCHOLESTEROLEMIA GOUT ALLERGIES CODEINE SULFATE: HEART RACES: ALLERGY SURGICAL HISTORY BILAT CARPAL TUNNEL RELEASE BILAT ELBOW SURGERY BILAT TRIGGER FINGER REPAIR LEFT KNEE REPLACEMENT DORSAL COLUMN STIMULATOR SOCIAL HISTORY GENERAL: TOBACCO USE ARE YOU A:NONSMOKER ALCOHOL SCREENING POINTS2 INTERPRETATIONNEGATIVE CAFFEINE CAFFEINE USE?YES MUSLIM [id number] ORTHODOX NO CONGREGATION BELIEFS THAT WOULD IMPACT HEALTH CARE. LEARNING BARRIERS / SPECIAL NEEDS BARRIERS TO LEARNING?NO VISION IMPAIRED?YES :CORRECTIVE LENSES READINESS TO LEARN?YES PAIN CLINIC PFS, CLERGY, PUBLIC HEALTH REFERRALS PFS REFERRAL NEEDED?NO CLERGY REFERRAL NEEDED?NO PUBLIC HEALTH REFERRAL NEEDED?NO WAS THE PROVIDER NOTIFIED OF ANY PERTINENT INFO?NO HAS THE PATIENT BEEN EDUCATED REGARDING HIS/HER PLAN OF CARE?YES HAS THE PATIENT BEEN EDUCATED REGARDING PAIN, THE RISK FOR PAIN, THE IMPORTANCE OF EFFECTIVE PAIN MANAGEMENT, AND THE PAIN ASSESSMENT PROCESS?YES PATIENT: ____. ADVANCE DIRECTIVES HEALTH CARE PROXY?NO WOULD YOU LIKE MORE INFORMATION?NO HOSPITALIZATION/MAJOR DIAGNOSTIC PROCEDURE SURGERIES REVIEW OF SYSTEMS REVIEWED BY: PROVIDER: REJI HUSSEIN . CONSTITUTIONAL: ANY CHANGE IN YOUR MEDICAL CONDITION? NO . CHILLS NO . FEVER NO . INFECTION: DO YOU HAVE NEW INFECTIONS? NO . DO YOU HAVE HISTORY OF MRSA? NO . MUSCULOSKELETAL: ANY NEW PATTERNS OF PAIN OR NUMBNESS? YES, BACK AND LEGS WORSE . GASTROENTEROLOGY: ANY NEW CHANGE IN BOWEL CONTROL? NO . GENITOURINARY: ANY NEW CHANGE IN BLADDER CONTROL? NO . IS THERE A CHANCE YOU COULD BE ? NO . HEMATOLOGY/LYMPH: DO YOU TAKE ANY BLOOD THINNERS? (FOR EXAMPLE- COUMADIN, PLAVIX, AGGRENOX, PLATEL, PRADAXA, OR XARELTO) NO . WHEN WAS YOUR LAST DOSE? DATE: TIME: . NEUROLOGY: HAVE YOU FALLEN IN THE PAST 6 MONTHS? NO . ANY NEW EXTREMITY NUMBNESS OR WEAKNESS? NO . CARDIOLOGY: DO YOU HAVE A PACEMAKER OR DEFIBRILLATOR? YES, DCS . CHEST PAIN PATIENT ADMITS - INTERMITTANT. IS DISCUSSING THIS WITH NEW PCP DR JULIAN . RESPIRATORY: HAVE YOU BEEN SICK IN THE PAST WEEK? NO . FEVER NO . FLU LIKE SYMPTOMS? NO . SHORTNESS OF BREATH ON EXERTION YES . COUGH NO . INTEGUMENTARY: DO YOU HAVE ANY RASHES OR OPEN SORES? NO . ALLERGIC/IMMUNO: ARE YOU ALLERGIC TO SHELLFISH OR IV DYE? NO . ANY NEW ALLERGIES? NO . PSYCHIATRIC: DO YOU HAVE THOUGHTS OF HURTING YOURSELF OR SOMEONE ELSE? NO . ARE YOU ABUSED, NEGLECTED, OR IN AN UNSAFE ENVIRONMENT? NO . ENDOCRINOLOGY: ARE YOU DIABETIC? YES - DIET CONTROLED . OTHER: DO YOU NEED ANY PRESCRIPTIONS? YES . IF YES, PLEASE LIST: ____ . ANY NEW PROBLEMS WITH YOUR MEDICATIONS? NO . WHEN DID YOU LAST EAT? ____ . WHEN DID YOU LAST DRINK? ____ . WHAT DID YOU LAST DRINK? ____ . NAME OF PERSON DRIVING YOU HOME? ____ . DO YOU HAVE ANY OTHER QUESTIONS OR CONCERNS NO . VITAL SIGNS WT 283.6 LBS, HT 69 IN, BMI 41.88 INDEX, BP 185/104 L ARM, REPEAT BP 195/117 R ARM, HR 78 /MIN, RR 18 /MIN, TEMP 97.0 F, OXYGEN SAT % 97%, NA INITIALS TL 1002ELEVATED BP, RN N.L. AWARE- TL/ NL AWARE OF THE. EXAMINATION GENERAL EXAMINATION: PSYCHALERT , ORIENTED X 3 , APPROPRIATE MOOD AND AFFECT , APPEARS UNCOMFORTABLE. CHANGES POSITION FREQUENTLY. LUNGS:CLEAR TO AUSCULTATION BILATERALLY. HEART:HEART RATE REGULAR, RAPID. MUSCULOSKELETAL:PAIN WITH STRAIGHT LEG RAISE LEFT SIDE AT 10 DEGREES IN LOW BACK WITH RADIATION TO POSTERIOR KNEE AND TO WRAPPING AROUND SIDE OF LEFT FOOT. PAIN WITH PATRICKS TESTING BILATERALLY. MUSCLE STRENGTH 4+/5 LEFT PROX/DISTAL LOWER EXTREMITY, 5/5 ON RIGHT. LEFT KNEE FLEXTION TO 90 DEGREES ONLY. RISES VERY SLOWLY TO STANDING POSITION. GAIT ANTALGIC. LEFT LEG LIMP. CANE USED FOR SUPPORT.. DIAGNOSTIC TESTS REVIEWEDCT SCN OF LUMBAR SPINE REVIEWED COMPLETED 01/20/16.. ASSESSMENTS INTERVERTEBRAL DISC DISORDERS WITH RADICULOPATHY, LUMBAR REGION - M51.16 (PRIMARY) RADICULOPATHY OF LUMBAR REGION - M54.16 TREATMENT INTERVERTEBRAL DISC DISORDERS WITH RADICULOPATHY, LUMBAR REGION START IBUPROFEN TABLET, 800 MG, 1 TABLET WITH FOOD OR MILK, ORALLY, THREE TIMES A DAY, 30 DAY(S), 90, REFILLS 1 START AMITRIPTYLINE HCL TABLET, 25 MG, 1 TABLET, ORALLY, BEFORE BEDTIME, 30 DAY(S), 30, REFILLS [address] [facility] [address] SPINE, LUMBAR W/O [id number],[id number] M 07/06/2017 10:44:37 AM > MARKED PERSITANT INCREASE IN PAIN, LEFT LEG WEAKNESS TRIGGER POINT 3 + AREASREJI KIM 07/06/2017 10:43:32 AM > LOW BACK LEFT SACRUM NOTES: INTRALAMINAL LUMBAR EPIDURAL AT L4-5 WITH SPECIAL ATTENTION LEFT L4-5 AND [id number] AND SUSTAINED PAIN NOTED WITH INTERMITTANT WEAKNESS IN LEFT LEG. WILL ASK FOR NEW CT OF LUMBAR SPINE - CAN NOT DO MRI DUE TO DORSAL COLUMN STIMULATOR. WILL ASK FOR SURGICAL RE-EVAL DUE TO THE INCREASED PAIN AND DECREASED ABILITY TO GO ABOUT ROUTINE ADL'S. WILL ASK FOR WC AUTH FOR IBUPROFEN 800 MG FOR ANTI-INFLAMMATORY EFFECT AND PAIN CONTROL, AND AMITRIPTYLINE 25 MG FOR NERVE PAIN AND TO IMPROVE SLEEP DUE TO PAIN.CONTINUE WITH METHOCARBAMOL 750 MG TID FOR MUSCLE SPASMS AND GABAPENTIN FOR LANCITATING NERVE PAIN. [facility] REASON:INCREASED BACK PAIN WITH L4-5, L5-S1 RADICULOPATHY PROCEDURES PN WORKMANS' COMP OPINION IN YOUR OPINION, WAS THE INCIDENT THAT THE PATIENT DESCRIBED THE COMPETENT MEDICAL CAUSE OF THIS INJURY/ILLNESS? YES ARE THE PATIENT'S COMPLAINTS CONSISTENT WITH HIS/HER HISTORY OF THE INJURY/ILLNESS? YES IS THE PATIENT'S HISTORY OF THE INJURY/ILLNESS CONSISTENT WITH YOUR OBJECTIVE FINDING? YES WHAT IS THE PERCENTAGE OF TEMPORARY IMPAIRMENT? TOTAL = 100% IS THE PATIENT WORKING? NO DOCTOR ON SITE: MATTIE HERNANDEZ MD PREVENTIVE MEDICINE REVIEWED PRE PROCEDURE CARE WITH UNDERSTANDING EXPRESSED. PROCEDURE CODES FA211 ESTABILISHED PATIENT [facility] FACILITY CHARGE DISPOSITION & COMMUNICATION FOLLOW UP 1 MONTH (REASON: WC NEED AUTH FOR LESB AT L4-5, AND TRIGGER POINTS LOW BACK AND SACRUM, AND CT OF LUMBAR) ELECTRONICALLY SIGNED BY LAVELLE KILPATRICK ON 07/08/2017 AT 02:19 PM EST DISCLAIMER : THIS IS A VISIT SUMMARY EXTRACTED FROM THE [employer] CHART. IT IS NOT A COPY OF THE [employer] PROGRESS NOTE. RITOD
== END ==
LOC: M PAIN 09:45
PROVIDERS: ATTEND Nurse Practitioner Family
DX: G89.29 Other chronic pain (principal); M51.16 Intervertebral disc disorders with radiculopathy, lumbar region; I10 Essential (primary) hypertension; E11.9 Type 2 diabetes mellitus without complications; E78.00 Pure hypercholesterolemia, unspecified; M10.9 Gout, unspecified; Z88.5 Allergy status to narcotic agent; Z79.82 Long term (current) use of aspirin; Z79.899 Other long term (current) drug therapy; Z95.9 Presence of cardiac and vascular implant and graft, unspecified

== ENCOUNTER → 2017-08-29 | Outpatient (CLI) | payer OTHER | LOC: M PAIN 10:30 | DX: M51.16 Intervertebral disc disorders with radiculopathy, lumbar region (principal); I10 Essential (primary) hypertension; E11.9 Type 2 diabetes mellitus without complications; M19.90 Unspecified osteoarthritis, unspecified site; E78.00 Pure hypercholesterolemia, unspecified; M10.9 Gout, unspecified; Z88.5 Allergy status to narcotic agent; Z79.82 Long term (current) use of aspirin; Z79.84 Long term (current) use of oral hypoglycemic drugs; Z79.899 Other long term (current) drug therapy; Z95.811 Presence of heart assist device | CPT/HCPCS: G0463 ==

== ENCOUNTER → 2017-09-26 | Outpatient (CLI) | payer OTHER ==
[~2017-09-26] MED LIST changes: -/CELE20CA PO; -/GLIM2TA; -/GLIM2TA OR; -/OXYC15TA; -/OXYC15TA OR; -/ZOLP6ER; -/ZOLP6ER OR; -ASPI81TA83 OR; -ASPI81TA85 PO; -BABY81CH; +BUPIVACAINE HCL 0.25% 10 ML VIAL As Ordered; +BUPIVACAINE HCL 0.25% 30 ML VIAL As Ordered; -COLA100C2; -COLA100C2 OR; -COUM2.5T17 PO; -CYMB60CA3 PO; -DIPH50CA PO; -DRIS50002 PO; -FLECTOR1.3 TOP; -GLIM4TAB PO; -HYDR50TA70 PO; -HYZA50TA2 PO; -HYZAAR; -HYZAAR OR; -LISI10TA2 PO; -LISI10TA4; -LISI10TA4 OR; -LOSA50TA5 PO; -LOVA20TA2 PO; -METH75TA PO; -MORP15TA2 PO; -MORP30TA4; -MORP30TA4 OR; -MORP60TA; -NAPR1TAB23 PO; -NAPR500T3 PO; -NEUR300C PO; -OSTEO-BI-FLEX PO; -OXYC20TA40 PO; -PERC5TAB12 PO; -PRIL40CA; -PRIL40CA OR; -ROBA750T4 PO; -SENN8.6T5; -SENN8.6T5 OR; -TIZA4TAB; -TIZA4TAB OR; +TRIAMCINOLONE ACETONIDE SUSP 40 MG/ML VIAL (J3301) As Ordered; -TYLE325T5 PO; -ULTR50TA PO; -VALI5TAB PO; -VIT D 2000 OR; -VITA200016 PO; -VITAMIN D50000 UNT; -VOLT1GEL2 EXT; -VYTO10TA5; -VYTO10TA5 OR; -[UNRECOGNIZED DRUG - CODE]
== END ==
LOC: M PAIN 14:30
DX: G89.29 Other chronic pain (principal); M79.1 Myalgia; I10 Essential (primary) hypertension; E11.9 Type 2 diabetes mellitus without complications; E78.00 Pure hypercholesterolemia, unspecified; Z79.82 Long term (current) use of aspirin; Z79.84 Long term (current) use of oral hypoglycemic drugs; Z79.899 Other long term (current) drug therapy; Z88.5 Allergy status to narcotic agent
CPT/HCPCS: J3301

== ENCOUNTER → 2017-11-06 | Outpatient (CLI) | payer OTHER | LOC: M PAIN 09:45 | DX: M79.1 Myalgia (principal); M51.16 Intervertebral disc disorders with radiculopathy, lumbar region; I10 Essential (primary) hypertension; E11.9 Type 2 diabetes mellitus without complications; E78.00 Pure hypercholesterolemia, unspecified; Z79.82 Long term (current) use of aspirin; Z79.84 Long term (current) use of oral hypoglycemic drugs; Z79.899 Other long term (current) drug therapy; Z88.8 Allergy status to other drugs, medicaments and biological substances | CPT/HCPCS: G0463 ==

== ENCOUNTER → 2017-12-07 | Outpatient (CLI) | payer OTHER | END | disposition home or self-care (01) | LOC: M PAIN 09:00 | DX: G89.29 Other chronic pain (principal); M79.1 Myalgia; I10 Essential (primary) hypertension; E11.9 Type 2 diabetes mellitus without complications; M19.90 Unspecified osteoarthritis, unspecified site; E78.00 Pure hypercholesterolemia, unspecified; M10.9 Gout, unspecified; Z79.899 Other long term (current) drug therapy; Z79.82 Long term (current) use of aspirin; Z79.84 Long term (current) use of oral hypoglycemic drugs; Z88.2 Allergy status to sulfonamides; Z88.5 Allergy status to narcotic agent | CPT/HCPCS: J3301 ==

== ENCOUNTER → 2018-01-09 | Outpatient (CLI) | payer OTHER | LOC: M PAIN 14:30 | DX: M79.1 Myalgia (principal); M51.16 Intervertebral disc disorders with radiculopathy, lumbar region; E11.9 Type 2 diabetes mellitus without complications; I10 Essential (primary) hypertension; M19.90 Unspecified osteoarthritis, unspecified site; E78.00 Pure hypercholesterolemia, unspecified; Z79.82 Long term (current) use of aspirin; Z79.84 Long term (current) use of oral hypoglycemic drugs; Z79.899 Other long term (current) drug therapy; Z88.5 Allergy status to narcotic agent; Z87.39 Personal history of other diseases of the musculoskeletal system and connective tissue; Z96.652 Presence of left artificial knee joint | CPT/HCPCS: G0463 ==

== ENCOUNTER → 2018-02-11 | Outpatient (CLI) | payer OTHER | LOC: M PAIN 15:00 | DX: M79.1 Myalgia (principal); M51.16 Intervertebral disc disorders with radiculopathy, lumbar region; I10 Essential (primary) hypertension; E11.9 Type 2 diabetes mellitus without complications; M19.90 Unspecified osteoarthritis, unspecified site; E78.00 Pure hypercholesterolemia, unspecified; Z79.52 Long term (current) use of systemic steroids; Z79.84 Long term (current) use of oral hypoglycemic drugs; Z79.899 Other long term (current) drug therapy; Z88.5 Allergy status to narcotic agent; Z87.39 Personal history of other diseases of the musculoskeletal system and connective tissue; Z96.652 Presence of left artificial knee joint | CPT/HCPCS: G0463 ==

== ENCOUNTER → 2018-02-28 | Outpatient (CLI) | payer OTHER ==
[~2018-02-28] MED LIST changes: -BUPIVACAINE HCL 0.25% 10 ML VIAL As Ordered; -BUPIVACAINE HCL 0.25% 30 ML VIAL As Ordered; +ISOVUE-370 76% 100ML VIAL (Q9967) As Ordered; -TRIAMCINOLONE ACETONIDE SUSP 40 MG/ML VIAL (J3301) As Ordered
[2018-02-28 10:32] LABS: ALBUMIN 3.5 GM/DL (3.2-5.2); ANION GAP 9 MEQ/L (8-16); BLOOD UREA NITROGEN 24 MG/DL (7-18); CALCIUM LEVEL 8.7 MG/DL (8.8-10.2); CARBON DIOXIDE LEVEL 29 MEQ/L (21-32); CHLORIDE LEVEL 102 MEQ/L (98-107); CREATININE FOR GFR 1.49 MG/DL (0.70-1.30); GLOMERULAR FILTRATION RATE 49.9 (>49); GLUCOSE, FASTING 247 MG/DL (70-100); PHOSPHORUS LEVEL 2.8 MG/DL (2.5-4.9); POTASSIUM SERUM 4.1 MEQ/L (3.5-5.1); SODIUM LEVEL 140 MEQ/L (136-145)
== END ==
LOC: M RAD 08:00
DX: M51.16 Intervertebral disc disorders with radiculopathy, lumbar region (principal); M51.26 Other intervertebral disc displacement, lumbar region; M48.061 Spinal stenosis, lumbar region without neurogenic claudication; Z97.8 Presence of other specified devices
CPT/HCPCS: Q9967

== ENCOUNTER → 2018-03-18 | Outpatient (CLI) | payer OTHER | LOC: M PAIN 10:30 | DX: M51.26 Other intervertebral disc displacement, lumbar region (principal); M79.1 Myalgia; M51.16 Intervertebral disc disorders with radiculopathy, lumbar region; I10 Essential (primary) hypertension; E11.9 Type 2 diabetes mellitus without complications; M19.90 Unspecified osteoarthritis, unspecified site; E78.00 Pure hypercholesterolemia, unspecified; M10.9 Gout, unspecified; Z96.652 Presence of left artificial knee joint; Z79.82 Long term (current) use of aspirin; Z79.84 Long term (current) use of oral hypoglycemic drugs; Z79.899 Other long term (current) drug therapy; Z88.5 Allergy status to narcotic agent | CPT/HCPCS: G0463 ==

== ENCOUNTER → 2018-04-30 | Outpatient (CLI) | payer OTHER ==
[~2018-04-30] MED LIST changes: -ISOVUE-370 76% 100ML VIAL (Q9967) As Ordered; +ISOVUE-M 300 61% 15ML VIAL (Q9967) As Ordered; +LIDOCAINE 1% SDV INJ 30 ML VIAL As Ordered; +methylPREDNISolone SUSP 40 MG/ML (DEPO-medrol) VIAL (J1030) As Ordered
== END ==
LOC: M PAIN 11:45
DX: G89.29 Other chronic pain (principal); M51.16 Intervertebral disc disorders with radiculopathy, lumbar region; M48.061 Spinal stenosis, lumbar region without neurogenic claudication; E11.9 Type 2 diabetes mellitus without complications; I10 Essential (primary) hypertension; M19.90 Unspecified osteoarthritis, unspecified site; E78.00 Pure hypercholesterolemia, unspecified; Z79.84 Long term (current) use of oral hypoglycemic drugs; Z79.82 Long term (current) use of aspirin; Z79.899 Other long term (current) drug therapy; Z88.5 Allergy status to narcotic agent; Z87.39 Personal history of other diseases of the musculoskeletal system and connective tissue
CPT/HCPCS: J1030

== ENCOUNTER → 2018-06-06 | Outpatient (CLI) | payer OTHER | LOC: M PAIN 10:45 | DX: M51.16 Intervertebral disc disorders with radiculopathy, lumbar region (principal); M48.061 Spinal stenosis, lumbar region without neurogenic claudication; I10 Essential (primary) hypertension; E11.9 Type 2 diabetes mellitus without complications; E78.00 Pure hypercholesterolemia, unspecified; M10.9 Gout, unspecified; M19.90 Unspecified osteoarthritis, unspecified site; Z79.82 Long term (current) use of aspirin; Z79.899 Other long term (current) drug therapy; Z96.652 Presence of left artificial knee joint; Z88.5 Allergy status to narcotic agent | CPT/HCPCS: G0463 ==

== ENCOUNTER → 2018-08-08 | Outpatient (CLI) | payer OTHER ==
[~2018-08-08] MED LIST changes: +/CELE20CA PO; +/GLIM2TA; +/GLIM2TA OR; +/OXYC15TA; +/OXYC15TA OR; +/ZOLP6ER; +/ZOLP6ER OR; +ASPI81TA83 OR; +ASPI81TA85 PO; +BABY81CH; +BUPIVACAINE HCL 0.25% 30 ML VIAL As Ordered ONE; +COLA100C2; +COLA100C2 OR; +COUM2.5T17 PO; +CYMB60CA3 PO; +DIPH50CA PO; +DRIS50003 PO; +FLECTOR1.3 TOP; +GLIM4TAB PO; +HYDR50TA70 PO; +HYZA50TA2 PO; +HYZAAR; +HYZAAR OR; -ISOVUE-M 300 61% 15ML VIAL (Q9967) As Ordered; +ISOVUE-M 300 61% 15ML VIAL (Q9967) As Ordered ONE; -LIDOCAINE 1% SDV INJ 30 ML VIAL As Ordered; +LIDOCAINE 1% SDV INJ 30 ML VIAL As Ordered ONE; +LISI10TA2 PO; +LISI10TA4; +LISI10TA4 OR; +LOSA50TA5 PO; +LOVA20TA2 PO; +METH75TA PO; +MORP15TA2 PO; +MORP30TA4; +MORP30TA4 OR; +MORP60TA; +NAPR-885 PO; +NAPR1TAB23 PO; +NEUR300C PO; +OSTEO-BI-FLEX PO; +OXYC20TA40 PO; +PERC5TAB12 PO; +PRIL40CA; +PRIL40CA OR; +ROBA750T4 PO; +SENN8.6T5; +SENN8.6T5 OR; +TIZA4TAB; +TIZA4TAB OR; +TYLE325T5 PO; +ULTR50TA PO; +VALI5TAB PO; +VIT D 2000 OR; +VITA200016 PO; +VITAMIN D50000 UNT; +VOLT1GEL2 EXT; +VYTO10TA5; +VYTO10TA5 OR; +[UNRECOGNIZED DRUG - CODE]; +dexameTHASONE 10 MG/1 ML VIAL PRES.FREE (J1100) As Ordered ONE; +diazePAM 5 MG TAB As Ordered ONE; -methylPREDNISolone SUSP 40 MG/ML (DEPO-medrol) VIAL (J1030) As Ordered; +oxyCODONE 5MG TAB As Ordered ONE
--- NOTE | 2018-08-08 13:57 | REP ---
Partial lumbar spine series: 115 views . History: Injection procedure for pain. 1 minute 42 seconds of fluoroscopy time is reported. Findings: A sequence of 115 fluoroscopically obtained last image hold procedural spot radiographs of the lumbar spine document needle position and contrast injection associated with injection procedure. Electronically Signed by Lobo Centeno MD 08/08/2018 01:48 P
--- NOTE | 2018-08-26 00:04 | ECWPNPC ---
PATIENT NAME: ALLAN ARNETT : 1950 GENDER: MALE VISIT DATE: 08/08/2018 DISCHARGE DATE: 08/08/18 1313 VISIT LOCKED DATE TIME: PHYSICIAN: MATTIE EASLEY MD RESOURCE: MATTIE EASLEY MD REASON FOR APPOINTMENT 1. WC TRANSFORAMINAL EPIDURAL LEFT HISTORY OF PRESENT ILLNESS HISTORY OF PRESENT ILLNESS: PAIN THE PATIENT DESCRIBES THE PAIN... FALL RISK SCREENING: SCREENING :NO FALLS IN THE PAST YEAR CURRENT MEDICATIONS TAKING MULTIVITAMIN TABLET 1 TAB ORALLY DAILY, NOTES: 08/08/18 AM TAKING ASPIR-81 81 MG TABLET DELAYED RELEASE 1 TABLET ORALLY ONCE A DAY, NOTES: 08/07/18 TAKING NIFEDIPINE 60 MG TABLET EXTENDED RELEASE ORALLY , NOTES: 08/08/18 TAKING IBUPROFEN 800 MG TABLET 1 TABLET WITH FOOD OR MILK ORALLY THREE TIMES A DAY, NOTES: 08/07/18 TAKING LOSARTAN POTASSIUM-HCTZ 100-25 MG TABLET 1 TABLET ORALLY ONCE A DAY, NOTES: 08/08/18 AM TAKING CYCLOBENZAPRINE HCL 10 MG TABLET 1 TABLET NEEDED ORALLY THREE TIMES A DAY, NOTES: 08/08/18 AM TAKING GABAPENTIN 300 MG CAPSULE 1 CAPSULE ORALLY FOR PAIN FOUR TIMES DAILY MDD4, NOTES: 08/08/18 AM TAKING BYDUREON 2MG/VIAL 1 INJECTION SUBCUTANEOUSLY WEEKLY, NOTES: 08/06/18 NOT-TAKING METFORMIN HCL ER 500 MG TABLET EXTENDED RELEASE 24 HOUR 1 TABLET WITH EVENING MEAL ORALLY BID NOT-TAKING DRISDOL 94931 UNIT CAPSULE 1 CAPSULE ORALLY WEEKLY NOT-TAKING CELECOXIB 200 MG CAPSULE 1 CAPSULE WITH FOOD ORALLY ONCE A DAY, NOTES: HAVENT STARTED YET NOT-TAKING LYRICA 75 MG CAPSULE 1 CAPSULE ORALLY BID MDD=2, NOTES: HAVENT STARTED YET NOT-TAKING AMITRIPTYLINE HCL 25 MG TABLET 1 TABLET ORALLY BEFORE BEDTIME, NOTES: INSURANCE WONT FILL MEDICATION LIST REVIEWED AND RECONCILED WITH THE PATIENT PAST MEDICAL HISTORY HTN DIABETIC CHRONIC LOW BACK PAIN ARTHRITIS HYPERCHOLESTEROLEMIA GOUT ALLERGIES CODEINE SULFATE: HEART RACES: ALLERGY SURGICAL HISTORY BILAT CARPAL TUNNEL RELEASE BILAT ELBOW SURGERY BILAT TRIGGER FINGER REPAIR LEFT KNEE REPLACEMENT DORSAL COLUMN STIMULATOR SOCIAL HISTORY GENERAL: TOBACCO USE ARE YOU A:NONSMOKER ALCOHOL SCREENING DID YOU HAVE A DRINK CONTAINING ALCOHOL IN THE PAST YEAR?YES HOW OFTEN DID YOU HAVE A DRINK CONTAINING ALCOHOL IN THE PAST YEAR?TWO TO FOUR TIMES A MONTH (2 POINTS) POINTS2 INTERPRETATIONNEGATIVE CAFFEINE CAFFEINE USE?YES ORTHODOX [id number] FAITH NO YAZIDI BELIEFS THAT WOULD IMPACT HEALTH CARE. LANGUAGE LANGUAGES SPOKEN:MACEDONIAN LEARNING BARRIERS / SPECIAL NEEDS BARRIERS TO LEARNING?NO VISION IMPAIRED?YES :CORRECTIVE LENSES READINESS TO LEARN?YES PAIN CLINIC PFS, CLERGY, PUBLIC HEALTH REFERRALS PFS REFERRAL NEEDED?NO CLERGY REFERRAL NEEDED?NO PUBLIC HEALTH REFERRAL NEEDED?NO WAS THE PROVIDER NOTIFIED OF ANY PERTINENT INFO?NO HAS THE PATIENT BEEN EDUCATED REGARDING HIS/HER PLAN OF CARE?YES HAS THE PATIENT BEEN EDUCATED REGARDING PAIN, THE RISK FOR PAIN, THE IMPORTANCE OF EFFECTIVE PAIN MANAGEMENT, AND THE PAIN ASSESSMENT PROCESS?YES ADVANCE DIRECTIVE ADVANCE DIRECTIVE DISCUSSED WITH PATIENT:YES DECLINED REVIEWED WITH PT 06/06/18 1106 BV. HOSPITALIZATION/MAJOR DIAGNOSTIC PROCEDURE SURGERIES REVIEW OF SYSTEMS REVIEWED BY: PROVIDER: . CONSTITUTIONAL: ANY CHANGE IN YOUR MEDICAL CONDITION? NO . CHILLS NO . FEVER NO . INFECTION: DO YOU HAVE NEW INFECTIONS? NO . DO YOU HAVE HISTORY OF MRSA? NO . MUSCULOSKELETAL: ANY NEW PATTERNS OF PAIN OR NUMBNESS? NO . GASTROENTEROLOGY: ANY NEW CHANGE IN BOWEL CONTROL? NO . GENITOURINARY: ANY NEW CHANGE IN BLADDER CONTROL? NO . IS THERE A CHANCE YOU COULD BE ? NO . HEMATOLOGY/LYMPH: DO YOU TAKE ANY BLOOD THINNERS? (FOR EXAMPLE- COUMADIN, PLAVIX, AGGRENOX, PLATEL, PRADAXA, OR XARELTO) NO . WHEN WAS YOUR LAST DOSE? DATE: TIME: . NEUROLOGY: HAVE YOU FALLEN IN THE PAST 6 MONTHS? NO . ANY NEW EXTREMITY NUMBNESS OR WEAKNESS? NO . CARDIOLOGY: DO YOU HAVE A PACEMAKER OR DEFIBRILLATOR? NO . RESPIRATORY: HAVE YOU BEEN SICK IN THE PAST WEEK? NO . FEVER NO . FLU LIKE SYMPTOMS? NO . COUGH NO . INTEGUMENTARY: DO YOU HAVE ANY RASHES OR OPEN SORES? NO . ALLERGIC/IMMUNO: ARE YOU ALLERGIC TO SHELLFISH OR IV DYE? NO . ANY NEW ALLERGIES? NO . PSYCHIATRIC: DO YOU HAVE THOUGHTS OF HURTING YOURSELF OR SOMEONE ELSE? NO . ARE YOU ABUSED, NEGLECTED, OR IN AN UNSAFE ENVIRONMENT? NO . ENDOCRINOLOGY: ARE YOU DIABETIC? YES . OTHER: DO YOU NEED ANY PRESCRIPTIONS? NO . IF YES, PLEASE LIST: ____ . ANY NEW PROBLEMS WITH YOUR MEDICATIONS? NO . WHEN DID YOU LAST EAT? 08/07/18 2030 . WHEN DID YOU LAST DRINK? 08/08/18 0630 . WHAT DID YOU LAST DRINK? WATER . NAME OF PERSON DRIVING YOU HOME? JAIME . DO YOU HAVE ANY OTHER QUESTIONS OR CONCERNS NO . VITAL SIGNS WT 283 LBS, HT 69 IN, BMI 41.79 INDEX, BP 162/78 MM HG, HR 90 /MIN, RR 18 /MIN, TEMP 96.7 F, OXYGEN SAT % 97%, NA INITIALS SC 09:45, REVIEWED BY: EM. ASSESSMENTS SPINAL STENOSIS OF LUMBAR REGION, UNSPECIFIED WHETHER NEUROGENIC CLAUDICATION PRESENT - M48.061 (PRIMARY) INTERVERTEBRAL DISC DISORDER WITH RADICULOPATHY OF LUMBAR REGION - M51.16 INTERVERTEBRAL DISC DISORDER WITH RADICULOPATHY OF LUMBOSACRAL REGION - M51.17 TREATMENT OTHERS START SOMA TABLET, 350 MG, 1 TABLET NEEDED, ORALLY FOR SPASMS AND PAIN, EVERY 6 HOURS NEEDED MDD3, 3 DAYS, 8, REFILLS 0 CLINICAL NOTES: ISTOP CHECKED NUMBER [id number]. PROCEDURES PN LUMBAR TRANSFORAMINAL BLOCKS PRE PROCEDURE DIAGNOSIS LUMBAR SPINAL STENOSIS, LUMBOSACRAL SPINAL STENOSIS, , LUMBAR DISC DISORDER WITH RADICULOPATHY, LUMBOSACRAL DISC DISORDER WITH RADICULOPATHY POST PROCEDURE DIAGNOSIS LUMBAR SPINAL STENOSIS, LUMBOSACRAL SPINAL STENOSIS, , LUMBAR DISC DISORDER WITH RADICULOPATHY, LUMBOSACRAL DISC DISORDER WITH RADICULOPATHY PROCEDURE LEFT L5 AND LEFT S1 TRANSFORAMINAL EPIDURAL STEROID INJECTION UNDER FLUOROSCOPIC GUIDANCE SURGEON DR MATTIE EASLEY HUMAN RESOURCES TEAM MEMBER NONE ANESTHESIA LOCAL PRE PROCEDURE NOTE PATIENT WITH HISTORY OF CHRONIC LOW BACK PAIN. I EVALUATE THE PATIENT AND REVIEWED THE CHART. I WENT OVER THE RISKS, ALTERNATIVES, AND BENEFITS ASSOCIATED WITH THIS PROCEDURE. THE PATIENT WOULD LIKE TO PROCEED AND GIVE CONSENT TO PERFORMED THE PROCEDURE. THE PATIENT DENIES UNEXPLAINABLE WEIGHT LOSS, FEVER, CHILLS, OR CHANGES IN URINARY OR BOWEL CONTROL DESCRIPTION OF PROCEDURE THE PATIENT WAS BROUGHT TO THE PROCEDURE ROOM AND PLACED IN THE PRONE POSITION. THE LUMBOSACRAL AREA WAS CLEANED WITH BETADINE SOLUTION AND DRAPED ASEPTICALLY. THE PROCEDURE WAS DONE UNDER STERILE CONDITIONS. I CHECKED LATERALITY AND THE LEVEL WHERE THE PROCEDURE WAS GOING TO BE PERFORMED WITH THE PATIENT AND THE SUPPORTING STAFF AT THE MOMENT OF THE TIME OUT IN THE PROCEDURE ROOM. UNDER FLUOROSCOPIC GUIDANCE, TARGETS WERE SELECTED AT THE LEFT TRANSFORAMINAL OPENING OF L5 AND S1. TARGET POINT WAS SELECTED AFTER LATERAL ROTATION AND TILT OF THE MAGNIFIER OF THE C-ARM. LIDOCAINE 0.5% WAS USED TO NUMB THE SKIN AND THE SUBCUTANEOUS TISSUE BELOW IT. AN EPIMED INTRODUCER 18-GAUGE WAS ADVANCED UNTIL WE WENT CLOSE TO THE SELECTED TRANSFORAMINAL OPENINGS. AFTER PROPER POSITION OF THE NEEDLES WAS ACHIEVED, A 22-GAUGE EPIMED NEEDLE WAS PLACED INSIDE OF THE INTRODUCER AND ADVANCED TO THE TRANSFORAMINAL OPENING OF THE SELECTED SITES. WHEN PROPER POSITION OF THE NEEDLE WAS ACHIEVED, ISOVUE M DYE 30%, 0.25 ML, WAS INJECTED SHOWING ADEQUATE SPREAD OF THE DYE. THIS WAS DONE UNDER DIGITAL SUBTRACTION AND ANGIOGRAPHY. THERE WAS NO VASCULAR UPDATE. THEN, A SOLUTION OF 2 ML OF BUPIVACAINE 0.25% AND DEXAMETHASONE 10 MG WAS INJECTED AT EACH SITE. THERE WAS NO EVIDENCE OF BLOOD, PARESTHESIA OR CEREBROSPINAL FLUID DURING THE PROCEDURE. THE PATIENT WAS SENT TO THE RECOVERY ROOM. THE PATIENT WAS MOVING THE EXTREMITIES AND DOING WELL. THERE WAS NO COMPLICATION DURING THE PROCEDURE. FLUOROSCOPY TIME WAS 102 SECONDS POST PROCEDURE NOTE THE PROCEDURE DONE WAS DISCUSSED WITH THE PATIENT. THE PATIENT WILL BE SEEN IN A FOLLOW UP IN THE NEXT FEW WEEKS. INSTRUCTIONS WERE GIVEN, QUESTIONS WERE ANSWERED, AND THE PATIENT EXPRESSED UNDERSTANDING AND AGREES WITH THE PLAN. I, KAYLA BARRON, DOCUMENTED THE ABOVE INFORMATION ACTING A SCRIBE FOR DR. EASLEY. I HAVE REVIEWED THE ABOVE DOCUMENT, WRITTEN BY KAYLA DENT AND I VERIFY THAT IT IS ACCURATE. PN WORKMANS' COMP OPINION IN YOUR OPINION, WAS THE INCIDENT THAT THE PATIENT DESCRIBED THE COMPETENT MEDICAL CAUSE OF THIS INJURY/ILLNESS? YES ARE THE PATIENT'S COMPLAINTS CONSISTENT WITH HIS/HER HISTORY OF THE INJURY/ILLNESS? YES IS THE PATIENT'S HISTORY OF THE INJURY/ILLNESS CONSISTENT WITH YOUR OBJECTIVE FINDING? YES WHAT IS THE PERCENTAGE OF TEMPORARY IMPAIRMENT? TOTAL = 100% IS THE PATIENT WORKING? NO DOCTOR ON SITE: MATTIE HERNANDEZ MD DIAGNOSTIC IMAGING [facility] FLUORO GUIDE SPINE INJECTION (PAIN)[id number] PROCEDURE CODES 6045F RADXPS IN END [id number] PXD 13139 INJ FORAMEN EPIDURAL L/S, [place]: [place] [address] INJ FORAMEN EPIDURAL ADD-ON, MODIFIERS: LT DISPOSITION & COMMUNICATION FOLLOW UP 3 WEEKS ELECTRONICALLY SIGNED BY MATTIE EASLEY MD, MD ON 08/25/2018 AT 02:28 PM EST DISCLAIMER : THIS IS A VISIT SUMMARY EXTRACTED FROM THE [employer] CHART. IT IS NOT A COPY OF THE [employer] PROGRESS NOTE. MTDD
== END ==
LOC: M PAIN 10:00
PROVIDERS: ATTEND Anesthesiology
DX: G89.29 Other chronic pain (principal); M48.061 Spinal stenosis, lumbar region without neurogenic claudication; M51.16 Intervertebral disc disorders with radiculopathy, lumbar region; M51.17 Intervertebral disc disorders with radiculopathy, lumbosacral region; I10 Essential (primary) hypertension; E11.9 Type 2 diabetes mellitus without complications; M19.90 Unspecified osteoarthritis, unspecified site; E78.00 Pure hypercholesterolemia, unspecified; E66.01 Morbid (severe) obesity due to excess calories; Z68.41 Body mass index [BMI] 40.0-44.9, adult; Z79.82 Long term (current) use of aspirin; Z79.899 Other long term (current) drug therapy; Z88.5 Allergy status to narcotic agent; Z87.39 Personal history of other diseases of the musculoskeletal system and connective tissue; Z96.652 Presence of left artificial knee joint
CPT/HCPCS: 64483; 64484; J1100; Q9967

== ENCOUNTER → 2018-10-28 | Outpatient (CLI) | payer OTHER ==
[~2018-10-28] MED LIST changes: -BUPIVACAINE HCL 0.25% 30 ML VIAL As Ordered ONE; -ISOVUE-M 300 61% 15ML VIAL (Q9967) As Ordered ONE; -LIDOCAINE 1% SDV INJ 30 ML VIAL As Ordered ONE; -dexameTHASONE 10 MG/1 ML VIAL PRES.FREE (J1100) As Ordered ONE; -diazePAM 5 MG TAB As Ordered ONE; -oxyCODONE 5MG TAB As Ordered ONE
--- NOTE | 2018-11-12 03:44 | ECWPNPC ---
PATIENT NAME: ALLAN ARNETT : 1950 GENDER: MALE VISIT DATE: 10/28/2018 DISCHARGE DATE: 10/28/18 1448 VISIT LOCKED DATE TIME: PHYSICIAN: MATTIE EASLEY MD RESOURCE: MATTIE EASLEY MD REASON FOR APPOINTMENT 1. POST PROC HISTORY OF PRESENT ILLNESS HISTORY OF PRESENT ILLNESS: PAIN THE PATIENT DESCRIBES THE PAIN... 68 YEAR OLD MALE PATIENT WITH A HISTORY OF CHRONIC LOW BACK PAIN. THE PATIENT DESCRIBES THE PAIN ACHING, STABBING, SORE AND CONTINUOUS THROUGHOUT THE DAY WITH A PAIN SCORE 7-10/10. PATIENT WAS INJURED IN A WORK RELATED INJURY ON 08/28/95 WHILE WORKING FOR [employer]. PATIENT WAS STEPPING OFF A LADDER AND FELL WHEN HE STEPPED ON A PIPE, INJURING HIS BACK. PATIENT STATES PAIN STARTS IN HIS LOWER BACK AND RADIATES TO HIS LEFT LEG. PATIENT HAD A TRANSFORAMINAL EPIDURAL INJECTION DONE 08/08/18 AND STATES IT ONLY HELPED THE PAIN FOR A FEW DAYS. THE PATIENT STATES HE HAS DIFFICULTY DOING DAILY ACTIVITIES SUCH CLEANING AND SHOPPING DUE TO THE PAIN. 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 PATIENT DENIES UNEXPLAINABLE WEIGHT LOSS, FEVER, CHILLS, NEW CHANGES ON HIS URINARY OR BOWEL CONTROL. FALL RISK SCREENING: SCREENING : NO FALLS IN THE PAST YEAR. CURRENT MEDICATIONS TAKING MULTIVITAMIN TABLET 1 TAB ORALLY DAILY TAKING ASPIR-81 81 MG TABLET DELAYED RELEASE 1 TABLET ORALLY ONCE A DAY TAKING NIFEDIPINE 60 MG TABLET EXTENDED RELEASE ORALLY TAKING LOSARTAN POTASSIUM-HCTZ 100-25 MG TABLET 1 TABLET ORALLY ONCE A DAY TAKING BYDUREON 2MG/VIAL 1 INJECTION SUBCUTANEOUSLY WEEKLY TAKING IBUPROFEN 800 MG TABLET 1 TABLET WITH FOOD OR MILK ORALLY THREE TIMES A DAY TAKING CYCLOBENZAPRINE HCL 10 MG TABLET 1 TABLET NEEDED ORALLY THREE TIMES A DAY TAKING GABAPENTIN 300 MG CAPSULE 1 CAPSULE ORALLY FOR PAIN FOUR TIMES DAILY MDD4 TAKING OMEPRAZOLE 20 MG CAPSULE DELAYED RELEASE 1 CAPSULE ORALLY ONCE A DAY TAKING TRULICITY 0.75 MG/0.5ML SOLUTION PEN-INJECTOR SUBCUTANEOUS NOT-TAKING SOMA 350 MG TABLET 1 TABLET NEEDED ORALLY FOR SPASMS AND PAIN EVERY 6 HOURS NEEDED MDD3 NOT-TAKING METFORMIN HCL ER 500 MG TABLET EXTENDED RELEASE 24 HOUR 1 TABLET WITH EVENING MEAL ORALLY BID NOT-TAKING DRISDOL 36384 UNIT CAPSULE 1 CAPSULE ORALLY WEEKLY NOT-TAKING CELECOXIB 200 MG CAPSULE 1 CAPSULE WITH FOOD ORALLY ONCE A DAY, NOTES: HAVENT STARTED YET NOT-TAKING LYRICA 75 MG CAPSULE 1 CAPSULE ORALLY BID MDD=2, NOTES: HAVENT STARTED YET NOT-TAKING AMITRIPTYLINE HCL 25 MG TABLET 1 TABLET ORALLY BEFORE BEDTIME, NOTES: INSURANCE WONT FILL MEDICATION LIST REVIEWED AND RECONCILED WITH THE PATIENT PAST MEDICAL HISTORY HTN DIABETIC CHRONIC LOW BACK PAIN ARTHRITIS HYPERCHOLESTEROLEMIA GOUT ALLERGIES CODEINE SULFATE: HEART RACES - ALLERGY SURGICAL HISTORY BILAT CARPAL TUNNEL RELEASE BILAT ELBOW SURGERY BILAT TRIGGER FINGER REPAIR LEFT KNEE REPLACEMENT DORSAL COLUMN STIMULATOR FAMILY HISTORY FATHER: DIAGNOSED WITH HYPERTENSION, DIABETES SOCIAL HISTORY GENERAL: TOBACCO USE ARE YOU A:NONSMOKER ALCOHOL SCREENING DID YOU HAVE A DRINK CONTAINING ALCOHOL IN THE PAST YEAR?YES HOW OFTEN DID YOU HAVE A DRINK CONTAINING ALCOHOL IN THE PAST YEAR?TWO TO FOUR TIMES A MONTH (2 POINTS) POINTS2 INTERPRETATIONNEGATIVE CAFFEINE CAFFEINE USE?YES CAODAISM [id number] SIKHISM NO ISLAM BELIEFS THAT WOULD IMPACT HEALTH CARE. LANGUAGE LANGUAGES SPOKEN:KAZAKH LEARNING BARRIERS / SPECIAL NEEDS BARRIERS TO LEARNING?NO VISION IMPAIRED?YES :CORRECTIVE LENSES READINESS TO LEARN?YES PAIN CLINIC PFS, CLERGY, PUBLIC HEALTH REFERRALS PFS REFERRAL NEEDED?NO CLERGY REFERRAL NEEDED?NO PUBLIC HEALTH REFERRAL NEEDED?NO WAS THE PROVIDER NOTIFIED OF ANY PERTINENT INFO?NO HAS THE PATIENT BEEN EDUCATED REGARDING HIS/HER PLAN OF CARE?YES HAS THE PATIENT BEEN EDUCATED REGARDING PAIN, THE RISK FOR PAIN, THE IMPORTANCE OF EFFECTIVE PAIN MANAGEMENT, AND THE PAIN ASSESSMENT PROCESS?YES ADVANCE DIRECTIVE ADVANCE DIRECTIVE DISCUSSED WITH PATIENT:YES PT DOES NOT HAVE A HCP AND DECLINES INFORMATION AND ASSISTANCE AT THIS TIME. 10/28/18 BV REVIEWED WITH PT 06/06/18 1106 BVREVIEWED WITH PT 10/28/18 1313 BV. HOSPITALIZATION/MAJOR DIAGNOSTIC PROCEDURE SURGERIES REVIEW OF SYSTEMS REVIEWED BY: PROVIDER: MATTIE EASLEY MD . CONSTITUTIONAL: ANY CHANGE IN YOUR MEDICAL CONDITION? NO . CHILLS NO . FEVER NO . INFECTION: DO YOU HAVE NEW INFECTIONS? NO . DO YOU HAVE HISTORY OF MRSA? NO . MUSCULOSKELETAL: ANY NEW PATTERNS OF PAIN OR NUMBNESS? NO . GASTROENTEROLOGY: ANY NEW CHANGE IN BOWEL CONTROL? NO . GENITOURINARY: ANY NEW CHANGE IN BLADDER CONTROL? NO . IS THERE A CHANCE YOU COULD BE ? NO . HEMATOLOGY/LYMPH: DO YOU TAKE ANY BLOOD THINNERS? (FOR EXAMPLE- COUMADIN, PLAVIX, AGGRENOX, PLATEL, PRADAXA, OR XARELTO) NO . WHEN WAS YOUR LAST DOSE? DATE: TIME: . NEUROLOGY: HAVE YOU FALLEN IN THE PAST 12 MONTHS? NO . ANY NEW EXTREMITY NUMBNESS OR WEAKNESS? NO . CARDIOLOGY: DO YOU HAVE A PACEMAKER OR DEFIBRILLATOR? DORSAL COLUMN STIMULATOR . RESPIRATORY: HAVE YOU BEEN SICK IN THE PAST WEEK? NO . FEVER NO . FLU LIKE SYMPTOMS? NO . COUGH NO . INTEGUMENTARY: DO YOU HAVE ANY RASHES OR OPEN SORES? NO . ALLERGIC/IMMUNO: ARE YOU ALLERGIC TO IV DYE? NO . ANY NEW ALLERGIES? NO . PSYCHIATRIC: DO YOU HAVE THOUGHTS OF HURTING YOURSELF OR SOMEONE ELSE? NO . ARE YOU ABUSED, NEGLECTED, OR IN AN UNSAFE ENVIRONMENT? NO . ENDOCRINOLOGY: ARE YOU DIABETIC? YES . OTHER: DO YOU NEED ANY PRESCRIPTIONS? NO . IF YES, PLEASE LIST: ____ . ANY NEW PROBLEMS WITH YOUR MEDICATIONS? NO . WHEN DID YOU LAST EAT? ____ . WHEN DID YOU LAST DRINK? ____ . WHAT DID YOU LAST DRINK? ____ . NAME OF PERSON DRIVING YOU HOME? ____ . DO YOU HAVE ANY OTHER QUESTIONS OR CONCERNS NO . VITAL SIGNS WT 284 LBS, HT 69 IN, BMI 41.93 INDEX, BP 155/84 MM HG, HR 101 /MIN, RR 18 /MIN, TEMP 97.8 F, OXYGEN SAT % 97%, REVIEWED BY: BV. EXAMINATION GENERAL EXAMINATION: PATIENT IS ALERT O X 3 AND COOPERATIVE. PATIENT HAS DIFFICULTY WALKING. LEFT LEG IS WEAKER AT EXTENSION AND FLEXION. STRAIGHT LEG RAISE OF THE LEFT LEG IS POSITIVE AT [address] OF THE LUMBAR SPINE DONE 02/28/18 SHOWS BULGING DISCS. ASSESSMENTS INTERVERTEBRAL DISC DISORDERS WITH RADICULOPATHY, LUMBAR REGION - M51.16 (PRIMARY) RADICULOPATHY OF LUMBAR REGION - M54.16 TREATMENT INTERVERTEBRAL DISC DISORDERS WITH RADICULOPATHY, LUMBAR REGION CLINICAL NOTES: WE DISCUSSED SEVERAL ISSUES WITH MR. ARNETT'S PAIN MANAGEMENT CASE. DUE TO THE LUMBAR RADICULOPATHY I WOULD LIKE TO PROCEED WITH A LEFT SIDE TRANSFORAMINAL EPIDURAL INJECTION. WE HAVE DISCUSSED THE RISKS, BENEFITS AND ALTERNATIVES OF THE INJECTION AND THE PATIENT WOULD LIKE TO PROCEED. WE WILL SCHEDULE THE PROCEDURE AFTER AUTHORIZATION IS RECEIVED. PATIENT TO DISCUSS HIS CASE WITH HIS SURGEON REGARDING SURGICAL SOLUTIONS AND ADRYAN FROM [employer] REGARDING READJUSTMENT OF DCS. PATIENT TO FOLLOW UP WITH ME IN 2 MONTHS AFTER INJECTION. INSTRUCTIONS WERE GIVEN, QUESTIONS WERE ANSWERED, PATIENT REPORTS UNDERSTANDING AND AGREES WITH THE PLAN. I, TYLER PETERSON, DOCUMENTED THE ABOVE INFORMATION ACTING A SCRIBE FOR DR. EASLEY. I HAVE REVIEWED THE ABOVE DOCUMENT, WRITTEN BY TYLER PETERSON SCRIBE AND I VERIFY THAT IT IS ACCURATE. PROCEDURES PN WORKMANS' COMP OPINION IN YOUR OPINION, WAS THE INCIDENT THAT THE PATIENT DESCRIBED THE COMPETENT MEDICAL CAUSE OF THIS INJURY/ILLNESS? YES ARE THE PATIENT'S COMPLAINTS CONSISTENT WITH HIS/HER HISTORY OF THE INJURY/ILLNESS? YES IS THE PATIENT'S HISTORY OF THE INJURY/ILLNESS CONSISTENT WITH YOUR OBJECTIVE FINDING? YES WHAT IS THE PERCENTAGE OF TEMPORARY IMPAIRMENT? TOTAL = 100% IS THE PATIENT WORKING? NO DOCTOR ON SITE: MATTIE HERNANDEZ MD PROCEDURE CODES FA211 ESTABILISHED PATIENT [facility] FACILITY CHARGE [id number] CURRENT MEDS W/DOSAGES DOCUMENTED G8730 PAIN ASSESS POS TOOL F/U PLAN DOC DISPOSITION & COMMUNICATION FOLLOW UP NEEDS AUTH BEFORE IDANIA PROCEDURE ELECTRONICALLY SIGNED BY MATTIE EASLEY MD, MD ON 11/11/2018 AT 06:09 PM EDT DISCLAIMER : THIS IS A VISIT SUMMARY EXTRACTED FROM THE [employer] CHART. IT IS NOT A COPY OF THE [employer] PROGRESS NOTE. JL
== END ==
LOC: M PAIN 13:00
PROVIDERS: ATTEND Anesthesiology
DX: M51.16 Intervertebral disc disorders with radiculopathy, lumbar region (principal); G89.29 Other chronic pain; I10 Essential (primary) hypertension; E11.9 Type 2 diabetes mellitus without complications; M19.90 Unspecified osteoarthritis, unspecified site; E78.00 Pure hypercholesterolemia, unspecified; E66.01 Morbid (severe) obesity due to excess calories; Z68.41 Body mass index [BMI] 40.0-44.9, adult; Z79.82 Long term (current) use of aspirin; Z79.899 Other long term (current) drug therapy; Z88.5 Allergy status to narcotic agent; Z96.652 Presence of left artificial knee joint; Z87.39 Personal history of other diseases of the musculoskeletal system and connective tissue

== ENCOUNTER → 2018-12-19 | Outpatient (CLI) | payer OTHER ==
[~2018-12-19] MED LIST changes: -/CELE20CA PO; -/GLIM2TA; -/GLIM2TA OR; -/OXYC15TA; -/OXYC15TA OR; +AMAR1TAB5; +AMAR1TAB5 OR; +BUPIVACAINE HCL 0.25% 30 ML VIAL As Ordered ONE; +CELE1CAP4 PO; +ISOVUE-M 300 61% 15ML VIAL (Q9967) As Ordered ONE; +LIDOCAINE 1% SDV INJ 30 ML VIAL As Ordered ONE; +OXYC1TAB32; +OXYC1TAB32 OR; +dexameTHASONE 10 MG/1 ML VIAL PRES.FREE (J1100) As Ordered ONE; +diazePAM 5 MG TAB As Ordered ONE; +oxyCODONE 5MG TAB As Ordered ONE
--- NOTE | 2018-12-20 18:49 | REP ---
C-ARM VIEW LUMBAR SPINE: C-ARM view lumbar spine was performed in the lateral projection during transforaminal epidural steroid injection by Dr. Boles. 1 minute and 6 seconds of fluoroscopy time was utilized. Electronically Signed by Salo Martinez MD 12/21/2018 03:06 P
--- NOTE | 2019-01-06 00:11 | ECWPNPC ---
PATIENT NAME: ALLAN ARNETT : 1950 GENDER: MALE VISIT DATE: 12/19/2018 DISCHARGE DATE: 12/19/18 1254 VISIT LOCKED DATE TIME: PHYSICIAN: MATTIE EASLEY MD RESOURCE: MATTIE EASLEY MD REASON FOR APPOINTMENT 1. TRANSFORMINAL W/C HISTORY OF PRESENT ILLNESS HISTORY OF PRESENT ILLNESS: PAIN THE PATIENT DESCRIBES THE PAIN... FALL RISK SCREENING: SCREENING :NO FALLS REPORTED IN THE LAST YEAR CURRENT MEDICATIONS TAKING MULTIVITAMIN TABLET 1 TAB ORALLY DAILY, NOTES: 12/19/18699 TAKING ASPIR-81 81 MG TABLET DELAYED RELEASE 1 TABLET ORALLY ONCE A DAY, NOTES: 12/19/18699 TAKING NIFEDIPINE 60 MG TABLET EXTENDED RELEASE ORALLY , NOTES: 12/19/18699 TAKING LOSARTAN POTASSIUM-HCTZ 100-25 MG TABLET 1 TABLET ORALLY ONCE A DAY, NOTES: 12/19/18699 TAKING CYCLOBENZAPRINE HCL 10 MG TABLET 1 TABLET NEEDED ORALLY THREE TIMES A DAY, NOTES: 12/19/18699 TAKING GABAPENTIN 300 MG CAPSULE 1 CAPSULE ORALLY FOR PAIN FOUR TIMES DAILY MDD4, NOTES: 12/19/18699 TAKING OMEPRAZOLE 20 MG CAPSULE DELAYED RELEASE 1 CAPSULE ORALLY ONCE A DAY, NOTES: 12/19/18699 TAKING TRULICITY 0.75 MG/0.5ML SOLUTION PEN-INJECTOR SUBCUTANEOUS , NOTES: 12/17/18 TAKING IBUPROFEN 800 MG TABLET 1 TABLET WITH FOOD OR MILK ORALLY THREE TIMES A DAY, NOTES: WORKERS COMPENSATION TAKING ROSUVASTATIN CALCIUM 20 MG TABLET 1 TABLET ORALLY ONCE A DAY, NOTES: 12/18/18 2100 NOT-TAKING BYDUREON 2MG/VIAL 1 INJECTION SUBCUTANEOUSLY WEEKLY NOT-TAKING SOMA 350 MG TABLET 1 TABLET NEEDED ORALLY FOR SPASMS AND PAIN EVERY 6 HOURS NEEDED MDD3 NOT-TAKING METFORMIN HCL ER 500 MG TABLET EXTENDED RELEASE 24 HOUR 1 TABLET WITH EVENING MEAL ORALLY BID NOT-TAKING DRISDOL 08977 UNIT CAPSULE 1 CAPSULE ORALLY WEEKLY NOT-TAKING CELECOXIB 200 MG CAPSULE 1 CAPSULE WITH FOOD ORALLY ONCE A DAY, NOTES: HAVENT STARTED YET NOT-TAKING LYRICA 75 MG CAPSULE 1 CAPSULE ORALLY BID MDD=2, NOTES: HAVENT STARTED YET NOT-TAKING AMITRIPTYLINE HCL 25 MG TABLET 1 TABLET ORALLY BEFORE BEDTIME, NOTES: INSURANCE WONT FILL MEDICATION LIST REVIEWED AND RECONCILED WITH THE PATIENT PAST MEDICAL HISTORY HTN DIABETIC CHRONIC LOW BACK PAIN ARTHRITIS HYPERCHOLESTEROLEMIA GOUT ALLERGIES CODEINE SULFATE: HEART RACES - ALLERGY SURGICAL HISTORY BILAT CARPAL TUNNEL RELEASE BILAT ELBOW SURGERY BILAT TRIGGER FINGER REPAIR LEFT KNEE REPLACEMENT DORSAL COLUMN STIMULATOR FAMILY HISTORY FATHER: DIAGNOSED WITH DIABETES, HYPERTENSION SOCIAL HISTORY GENERAL: TOBACCO USE ARE YOU A:NONSMOKER PAIN CLINIC PFS, CLERGY, PUBLIC HEALTH REFERRALS PFS REFERRAL NEEDED?NO CLERGY REFERRAL NEEDED?NO PUBLIC HEALTH REFERRAL NEEDED?NO WAS THE PROVIDER NOTIFIED OF ANY PERTINENT INFO?NO HAS THE PATIENT BEEN EDUCATED REGARDING HIS/HER PLAN OF CARE?YES HAS THE PATIENT BEEN EDUCATED REGARDING PAIN, THE RISK FOR PAIN, THE IMPORTANCE OF EFFECTIVE PAIN MANAGEMENT, AND THE PAIN ASSESSMENT PROCESS?YES CAFFEINE CAFFEINE USE?YES ADVANCE DIRECTIVE ADVANCE DIRECTIVE DISCUSSED WITH PATIENT:YES HCP CHANDRA GOTTI, DAUGHTER HOLINESS [id number] [place] NO LATTER DAY BELIEFS THAT WOULD IMPACT HEALTH CARE. LANGUAGE LANGUAGES SPOKEN:[place] ALCOHOL SCREENING DID YOU HAVE A DRINK CONTAINING ALCOHOL IN THE PAST YEAR?YES HOW OFTEN DID YOU HAVE A DRINK CONTAINING ALCOHOL IN THE PAST YEAR?TWO TO FOUR TIMES A MONTH (2 POINTS) POINTS2 INTERPRETATIONNEGATIVE LEARNING BARRIERS / SPECIAL NEEDS BARRIERS TO LEARNING?NO VISION IMPAIRED?YES :CORRECTIVE LENSES READINESS TO LEARN?YES REVIEWED WITH PT 06/06/18 1106 BVREVIEWED WITH PT 10/28/18 1313 BVREVIEWED WITH PT 12/19/18 1055 LAS. HOSPITALIZATION/MAJOR DIAGNOSTIC PROCEDURE SURGERIES REVIEW OF SYSTEMS REVIEWED BY: PROVIDER: . CONSTITUTIONAL: ANY CHANGE IN YOUR MEDICAL CONDITION? NO . CHILLS NO . FEVER NO . INFECTION: DO YOU HAVE NEW INFECTIONS? NO . DO YOU HAVE HISTORY OF MRSA? NO . MUSCULOSKELETAL: ANY NEW PATTERNS OF PAIN OR NUMBNESS? NO . GASTROENTEROLOGY: ANY NEW CHANGE IN BOWEL CONTROL? NO . GENITOURINARY: ANY NEW CHANGE IN BLADDER CONTROL? NO . IS THERE A CHANCE YOU COULD BE ? NO . HEMATOLOGY/LYMPH: DO YOU TAKE ANY BLOOD THINNERS? (FOR EXAMPLE- COUMADIN, PLAVIX, AGGRENOX, PLATEL, PRADAXA, OR XARELTO) NO . WHEN WAS YOUR LAST DOSE? DATE: TIME: . NEUROLOGY: HAVE YOU FALLEN IN THE PAST 12 MONTHS? NO . ANY NEW EXTREMITY NUMBNESS OR WEAKNESS? NO . CARDIOLOGY: DO YOU HAVE A PACEMAKER OR DEFIBRILLATOR? NO . RESPIRATORY: HAVE YOU BEEN SICK IN THE PAST WEEK? NO . FEVER NO . FLU LIKE SYMPTOMS? NO . COUGH NO . INTEGUMENTARY: DO YOU HAVE ANY RASHES OR OPEN SORES? NO . ALLERGIC/IMMUNO: ARE YOU ALLERGIC TO IV DYE? NO . ANY NEW ALLERGIES? NO . PSYCHIATRIC: DO YOU HAVE THOUGHTS OF HURTING YOURSELF OR SOMEONE ELSE? NO . ARE YOU ABUSED, NEGLECTED, OR IN AN UNSAFE ENVIRONMENT? NO . ENDOCRINOLOGY: ARE YOU DIABETIC? YES . OTHER: DO YOU NEED ANY PRESCRIPTIONS? YES . IF YES, PLEASE LIST: ____GABAPENTIN, CYCLOBENZAPRINE, IBUPROFEN . ANY NEW PROBLEMS WITH YOUR MEDICATIONS? NO . WHEN DID YOU LAST EAT? ____12/18/18 1700 . WHEN DID YOU LAST DRINK? ____12/19/18 0700 . WHAT DID YOU LAST DRINK? ____BLACK COFFEE . NAME OF PERSON DRIVING YOU HOME? ____TIMOTHY . DO YOU HAVE ANY OTHER QUESTIONS OR CONCERNS NO PT HAS NOT HAD ANY VACCINES IN THE PAST 30 DAYS . VITAL SIGNS WT 286.4 LBS, HT 69 IN, BMI 42.29 INDEX, BP 154/103 MM HG, REPEAT BP 170/100MANUAL, 132/82 MANUAL AT 1111, HR 92 /MIN, RR 18 /MIN, TEMP 98.0 F, OXYGEN SAT % 97%, SAFE IN ENV? (Y/N) Y, NA INITIALS AW 0931, REVIEWED BY: MARCUS. ASSESSMENTS INTERVERTEBRAL DISC DISORDERS WITH RADICULOPATHY, LUMBAR REGION - M51.16 (PRIMARY) SPINAL STENOSIS OF LUMBAR REGION, UNSPECIFIED WHETHER NEUROGENIC CLAUDICATION PRESENT - M48.061 TREATMENT INTERVERTEBRAL DISC DISORDERS WITH RADICULOPATHY, LUMBAR REGION REFILL CYCLOBENZAPRINE HCL TABLET, 10 MG, 1 TABLET NEEDED, ORALLY, THREE TIMES A DAY, 30 DAY(S), 90 TABLET, REFILLS 2, NOTES: 12/19/18699 REFILL GABAPENTIN CAPSULE, 300 MG, 1 CAPSULE, ORALLY FOR PAIN, FOUR TIMES DAILY MDD4, 30 DAY(S), 120, REFILLS 2, NOTES: 12/19/18699 REFILL IBUPROFEN TABLET, 800 MG, 1 TABLET WITH FOOD OR MILK, ORALLY, THREE TIMES A DAY, 30 DAY(S), 80, REFILLS 0, NOTES: WORKERS COMPENSATION REFILL SOMA TABLET, 350 MG, 1 TABLET NEEDED, ORALLY FOR SPASMS AND PAIN (FOR POST PROCEDURE USE), EVERY 6 HOURS NEEDED MDD3, 3 DAYS, 8, REFILLS 0 START KETOROLAC TROMETHAMINE TABLET, 10 MG, 1 TABLET WITH FOOD OR MILK NEEDED, ORALLY FOR PAIN, EVERY 8 HRS MDD3, 5 DAY(S), 15, REFILLS 0 [facility] FLUORO GUIDE SPINE INJECTION (PAIN)[id number] CLINICAL NOTES: ISTOP NUMBER [id number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eanne AND I VERIFY THAT IT IS ACCURATE. PN WORKMANS' COMP OPINION IN YOUR OPINION, WAS THE INCIDENT THAT THE PATIENT DESCRIBED THE COMPETENT MEDICAL CAUSE OF THIS INJURY/ILLNESS? YES ARE THE PATIENT'S COMPLAINTS CONSISTENT WITH HIS/HER HISTORY OF THE INJURY/ILLNESS? YES IS THE PATIENT'S HISTORY OF THE INJURY/ILLNESS CONSISTENT WITH YOUR OBJECTIVE FINDING? YES WHAT IS THE PERCENTAGE OF TEMPORARY IMPAIRMENT? TOTAL = 100% IS THE PATIENT WORKING? NO DOCTOR ON SITE: MATTIE HERNANDEZ MD PROCEDURE CODES 6045F RADXPS IN END [id number] PXD 30023 INJ FORAMEN EPIDURAL L/S, [place]IF[place]: [place] [address] INJ FORAMEN EPIDURAL ADD-ON, UNITS: 2.00 , MODIFIERS: LT DISPOSITION & COMMUNICATION FOLLOW UP 3 WEEKS ELECTRONICALLY SIGNED BY MATTIE EASLEY MD, MD ON 01/05/2019 AT 07:56 PM EDT DISCLAIMER : THIS IS A VISIT SUMMARY EXTRACTED FROM THE [employer] CHART. IT IS NOT A COPY OF THE [employer] PROGRESS NOTE. MTDD
== END ==
LOC: M PAIN 10:15
PROVIDERS: ATTEND Anesthesiology
DX: G89.29 Other chronic pain (principal); M51.16 Intervertebral disc disorders with radiculopathy, lumbar region; M48.061 Spinal stenosis, lumbar region without neurogenic claudication; E11.9 Type 2 diabetes mellitus without complications; I10 Essential (primary) hypertension; M19.90 Unspecified osteoarthritis, unspecified site; E78.00 Pure hypercholesterolemia, unspecified; E66.01 Morbid (severe) obesity due to excess calories; Z68.41 Body mass index [BMI] 40.0-44.9, adult; Z79.82 Long term (current) use of aspirin; Z79.899 Other long term (current) drug therapy; Z88.5 Allergy status to narcotic agent; Z87.39 Personal history of other diseases of the musculoskeletal system and connective tissue; Z96.652 Presence of left artificial knee joint
CPT/HCPCS: 64483; 64484; J1100; Q9967

== ENCOUNTER → 2019-02-07 | Outpatient (CLI) | payer OTHER ==
[~2019-02-07] MED LIST changes: -BUPIVACAINE HCL 0.25% 30 ML VIAL As Ordered ONE; -ISOVUE-M 300 61% 15ML VIAL (Q9967) As Ordered ONE; -LIDOCAINE 1% SDV INJ 30 ML VIAL As Ordered ONE; -dexameTHASONE 10 MG/1 ML VIAL PRES.FREE (J1100) As Ordered ONE; -diazePAM 5 MG TAB As Ordered ONE; -oxyCODONE 5MG TAB As Ordered ONE
--- NOTE | 2019-02-16 23:51 | ECWPNPC ---
PATIENT NAME: ALLAN ARNETT : 1950 GENDER: MALE VISIT DATE: 02/07/2019 DISCHARGE DATE: 02/07/19 1052 VISIT LOCKED DATE TIME: PHYSICIAN: MATTIE EASLEY MD RESOURCE: MATTIE EASLEY MD REASON FOR APPOINTMENT 1. WC POST PROC HISTORY OF PRESENT ILLNESS HISTORY OF PRESENT ILLNESS: PAIN THE PATIENT DESCRIBES THE PAIN... 68 YEAR OLD MALE PATIENT WITH A HISTORY OF CHRONIC LOW BACK PAIN. THE PATIENT DESCRIBES THE PAIN ACHING, BURNING, SORE, STABBING, AND CONTINUOUS WITH A PAIN SCORE OF 6-10/10 DEPENDING ON PHYSICAL ACTIVITY. THE PATIENT WAS HURT IN A WORK RELATED INJURY ON 08/28/1995 WHILE WORKING FOR [employer] A [employer] P[employer]ERER WHEN HE WAS STEPPING OFF A LADDER, FELL, AND STEPPED ON A PIPE CAUSING HIM TO INJURE HIS BACK. THE PATIENT SAYS HIS PAIN STARTS IN HIS LOW BACK AND RADIATES DOWN HIS LEFT LEG. THE PATIENT SAYS HE HAS DIFFICULTY DOING DAILY ACTIVITIES SUCH WALKING, SLEEPING, AND WORKING AROUND HIS HOME. THE PATIENT IS CURRENTLY USING GABAPENTIN, CYCLOBENZAPRINE, AND IBUPROFEN WELL A DCS IMPLANT TO AID IN PAIN RELIEF. PATIENT HAS TRIALED AND FAILED MULTIPLE MEDICATIONS IN THE PAST INCLUDING LYRICA, AMITRIPTYLINE, SOMA, KETOROLAC, ROBAXIN, VALIUM, MORPHINE SULFATE, NAPROXEN, CYMBALTA, BACLOFEN, OXYCODONE, TIZANIDINE, ALEVE, HYDROCODONE, FLECTOR PATCH, MOBIC, SKELAXIN, TRAMADOL AND FENTANYL PATCHES.THE PATIENT SAYS THAT HIS PAIN HAS BEEN WORSENING, SO HE FEELS HIS MEDICATION IS NOT HELPING MUCH IT USED TO. PATIENT DENIES UNEXPLAINABLE WEIGHT LOSS, FEVER, CHILLS, NEW CHANGES ON HIS URINARY OR BOWEL CONTROL. FALL RISK SCREENING: SCREENING :NO FALLS REPORTED IN THE LAST YEAR CURRENT MEDICATIONS TAKING MULTIVITAMIN TABLET 1 TAB ORALLY DAILY TAKING ASPIR-81 81 MG TABLET DELAYED RELEASE 1 TABLET ORALLY ONCE A DAY TAKING NIFEDIPINE 60 MG TABLET EXTENDED RELEASE ORALLY TAKING LOSARTAN POTASSIUM-HCTZ 100-25 MG TABLET 1 TABLET ORALLY ONCE A DAY TAKING OMEPRAZOLE 20 MG CAPSULE DELAYED RELEASE 1 CAPSULE ORALLY ONCE A DAY TAKING TRULICITY 0.75 MG/0.5ML SOLUTION PEN-INJECTOR SUBCUTANEOUS TAKING ROSUVASTATIN CALCIUM 20 MG TABLET 1 TABLET ORALLY ONCE A DAY TAKING CYCLOBENZAPRINE HCL 10 MG TABLET 1 TABLET NEEDED ORALLY THREE TIMES A DAY TAKING GABAPENTIN 300 MG CAPSULE 1 CAPSULE ORALLY FOR PAIN FOUR TIMES DAILY MDD4 TAKING IBUPROFEN 800 MG TABLET 1 TABLET WITH FOOD OR MILK ORALLY THREE TIMES A DAY NOT-TAKING BYDUREON 2MG/VIAL 1 INJECTION SUBCUTANEOUSLY WEEKLY NOT-TAKING METFORMIN HCL ER 500 MG TABLET EXTENDED RELEASE 24 HOUR 1 TABLET WITH EVENING MEAL ORALLY BID NOT-TAKING DRISDOL 98690 UNIT CAPSULE 1 CAPSULE ORALLY WEEKLY NOT-TAKING CELECOXIB 200 MG CAPSULE 1 CAPSULE WITH FOOD ORALLY ONCE A DAY, NOTES: HAVENT STARTED YET NOT-TAKING LYRICA 75 MG CAPSULE 1 CAPSULE ORALLY BID MDD=2, NOTES: HAVENT STARTED YET NOT-TAKING AMITRIPTYLINE HCL 25 MG TABLET 1 TABLET ORALLY BEFORE BEDTIME, NOTES: INSURANCE WONT FILL DISCONTINUED SOMA 350 MG TABLET 1 TABLET NEEDED ORALLY FOR SPASMS AND PAIN (FOR POST PROCEDURE USE) EVERY 6 HOURS NEEDED MDD3 DISCONTINUED KETOROLAC TROMETHAMINE 10 MG TABLET 1 TABLET WITH FOOD OR MILK NEEDED ORALLY FOR PAIN EVERY 8 HRS MDD3 MEDICATION LIST REVIEWED AND RECONCILED WITH THE PATIENT PAST MEDICAL HISTORY HTN DIABETIC CHRONIC LOW BACK PAIN ARTHRITIS HYPERCHOLESTEROLEMIA GOUT ALLERGIES CODEINE SULFATE: HEART RACES - ALLERGY SURGICAL HISTORY BILAT CARPAL TUNNEL RELEASE BILAT ELBOW SURGERY BILAT TRIGGER FINGER REPAIR LEFT KNEE REPLACEMENT DORSAL COLUMN STIMULATOR FAMILY HISTORY FATHER: DIAGNOSED WITH DIABETES, HYPERTENSION SOCIAL HISTORY GENERAL: TOBACCO USE ARE YOU A:NONSMOKER PAIN CLINIC PFS, CLERGY, PUBLIC HEALTH REFERRALS PFS REFERRAL NEEDED?NO CLERGY REFERRAL NEEDED?NO PUBLIC HEALTH REFERRAL NEEDED?NO WAS THE PROVIDER NOTIFIED OF ANY PERTINENT INFO?NO HAS THE PATIENT BEEN EDUCATED REGARDING HIS/HER PLAN OF CARE?YES HAS THE PATIENT BEEN EDUCATED REGARDING PAIN, THE RISK FOR PAIN, THE IMPORTANCE OF EFFECTIVE PAIN MANAGEMENT, AND THE PAIN ASSESSMENT PROCESS?YES CAFFEINE CAFFEINE USE?YES ADVANCE DIRECTIVE ADVANCE DIRECTIVE DISCUSSED WITH PATIENT:YES HCP CHANDRA GOTTI, DAUGHTER LATTER-DAY [id number] JEW NO SCIENTOLOGIST BELIEFS THAT WOULD IMPACT HEALTH CARE. LANGUAGE LANGUAGES SPOKEN:[place] ALCOHOL SCREENING DID YOU HAVE A DRINK CONTAINING ALCOHOL IN THE PAST YEAR?YES HOW OFTEN DID YOU HAVE A DRINK CONTAINING ALCOHOL IN THE PAST YEAR?TWO TO FOUR TIMES A MONTH (2 POINTS) POINTS2 INTERPRETATIONNEGATIVE LEARNING BARRIERS / SPECIAL NEEDS BARRIERS TO LEARNING?NO VISION IMPAIRED?YES :CORRECTIVE LENSES READINESS TO LEARN?YES REVIEWED WITH PT 06/06/18 1106 BVREVIEWED WITH PT 10/28/18 1313 BVREVIEWED WITH PT 12/19/18 1055 LAS. HOSPITALIZATION/MAJOR DIAGNOSTIC PROCEDURE SURGERIES REVIEW OF SYSTEMS REVIEWED BY: PROVIDER: MATTIE EASLEY MD . CONSTITUTIONAL: ANY CHANGE IN YOUR MEDICAL CONDITION? NO . CHILLS NO . FEVER NO . INFECTION: DO YOU HAVE NEW INFECTIONS? NO . DO YOU HAVE HISTORY OF MRSA? NO . MUSCULOSKELETAL: ANY NEW PATTERNS OF PAIN OR NUMBNESS? YES, PAIN IS GETTING WORSE . GASTROENTEROLOGY: ANY NEW CHANGE IN BOWEL CONTROL? NO . GENITOURINARY: ANY NEW CHANGE IN BLADDER CONTROL? NO . IS THERE A CHANCE YOU COULD BE ? NO . HEMATOLOGY/LYMPH: DO YOU TAKE ANY BLOOD THINNERS? (FOR EXAMPLE- COUMADIN, PLAVIX, AGGRENOX, PLATEL, PRADAXA, OR XARELTO) NO . WHEN WAS YOUR LAST DOSE? DATE: TIME: . NEUROLOGY: HAVE YOU FALLEN IN THE PAST 12 MONTHS? NO . ANY NEW EXTREMITY NUMBNESS OR WEAKNESS? YES, LEFT LEG PAIN AND WEAKNESS IS WORSE . CARDIOLOGY: DO YOU HAVE A PACEMAKER OR DEFIBRILLATOR? YES, DCS . RESPIRATORY: HAVE YOU BEEN SICK IN THE PAST WEEK? NO . FEVER NO . FLU LIKE SYMPTOMS? NO . COUGH NO . INTEGUMENTARY: DO YOU HAVE ANY RASHES OR OPEN SORES? NO . ALLERGIC/IMMUNO: ARE YOU ALLERGIC TO IV DYE? NO . ANY NEW ALLERGIES? NO . PSYCHIATRIC: DO YOU HAVE THOUGHTS OF HURTING YOURSELF OR SOMEONE ELSE? NO . ARE YOU ABUSED, NEGLECTED, OR IN AN UNSAFE ENVIRONMENT? NO . ENDOCRINOLOGY: ARE YOU DIABETIC? YES . OTHER: DO YOU NEED ANY PRESCRIPTIONS? YES, IBUPROFEN, CYCLLOBENZAPRINE . IF YES, PLEASE LIST: ____ . ANY NEW PROBLEMS WITH YOUR MEDICATIONS? NO . WHEN DID YOU LAST EAT? ____ . WHEN DID YOU LAST DRINK? ____ . WHAT DID YOU LAST DRINK? ____ . NAME OF PERSON DRIVING YOU HOME? ____ . DO YOU HAVE ANY OTHER QUESTIONS OR CONCERNS YES, SHINGLES VACCINE RECEIVED 01/18/19 . VITAL SIGNS WT 282.6 LBS, HT 69 IN, BMI 41.73 INDEX, BP 157/89 MM HG, HR 95 /MIN, RR 18 /MIN, TEMP 96.3 F, OXYGEN SAT % 97%, NA INITIALS SC 09:31, REVIEWED BY: BRIDGET. EXAMINATION GENERAL EXAMINATION: PATIENT IS ALERT O X 3 AND COOPERATIVE. ANTALGIC GAIT. PATIENT IS LIMPING FROM HIS LEFT LEG. LEFT LEG IS WEAKER AT EXTENSION AND FLEXION. CT OF THE LUMBAR SPINE DONE ON 02/28/2018 SHOWS A DISC PROTRUSION AT L3-L4 THAT IS EXTENDING CAUDALLY. ASSESSMENTS INTERVERTEBRAL DISC DISORDER WITH RADICULOPATHY OF LUMBAR REGION - M51.16 (PRIMARY) TREATMENT INTERVERTEBRAL DISC DISORDER WITH RADICULOPATHY OF LUMBAR REGION CLINICAL NOTES: WE DISCUSSED SEVERAL ISSUES WITH MR. ARNETT'S PAIN MANAGEMENT CASE. THE PATIENT IS A SURGICAL CANDIDATE AND HIS SURGEON HAS RECOMMENDED A CT WITH CONTRAST AND I AGREE WITH THAT TREATMENT PLAN. THE PATIENT WILL CONTINUE USING THE GABAPENTIN FOR NEUROPATHIC PAIN AND I WILL GIVE THE PATIENT 85 TABLETS OF CYCLOBENZAPRINE FOR THE MONTH TO USE NEEDED FOR THE ACUTE SPASMS AND PAIN. I WOULD LIKE THE PATIENT TO START USING CELEBREX BECAUSE THE IBUPROFEN HAS NOT BEEN HELPING, BUT I WILL REFILL THE IBUPROFEN FOR HIM TO USE UNTIL HE RECEIVES THE CELEBREX. THE PLAN IS FOR THE PATIENT TO CONTINUE TO TAKE THE CELEBREX LONG THE MEDICATION IS HELPING WITH HIS PAIN MANAGEMENT. THE PATIENT WILL FOLLOW UP IN 2 MONTHS. INSTRUCTIONS WERE GIVEN, QUESTIONS WERE ANSWERED, PATIENT REPORTS UNDERSTANDING AND AGREES WITH THE PLAN. I, KAYLA BARRON, DOCUMENTED THE ABOVE INFORMATION ACTING A SCRIBE FOR DR. EASLEY. I HAVE REVIEWED THE ABOVE DOCUMENT, WRITTEN BY KAYLA DENT AND I VERIFY THAT IT IS ACCURATE. . OTHERS REFILL CELECOXIB CAPSULE, 200 MG, 1 CAPSULE WITH FOOD, ORALLY, ONCE A DAY, 30 DAY(S), 30, REFILLS 1, NOTES: HAVENT STARTED YET REFILL IBUPROFEN TABLET, 800 MG, 1 TABLET WITH FOOD OR MILK, ORALLY, THREE TIMES A DAY, 30 DAY(S), 80, REFILLS 0 REFILL GABAPENTIN CAPSULE, 300 MG, 1 CAPSULE, ORALLY FOR PAIN, FOUR TIMES DAILY MDD4, 30 DAY(S), 120, REFILLS 2 REFILL CYCLOBENZAPRINE HCL TABLET, 10 MG, 1 TABLET NEEDED, ORALLY, THREE TIMES A DAY, 30 DAY(S), 85, REFILLS 2 PROCEDURES PN WORKMANS' COMP OPINION IN YOUR OPINION, WAS THE INCIDENT THAT THE PATIENT DESCRIBED THE COMPETENT MEDICAL CAUSE OF THIS INJURY/ILLNESS? YES ARE THE PATIENT'S COMPLAINTS CONSISTENT WITH HIS/HER HISTORY OF THE INJURY/ILLNESS? YES IS THE PATIENT'S HISTORY OF THE INJURY/ILLNESS CONSISTENT WITH YOUR OBJECTIVE FINDING? YES WHAT IS THE PERCENTAGE OF TEMPORARY IMPAIRMENT? TOTAL = 100% IS THE PATIENT WORKING? NO DOCTOR ON SITE: MATTIE HERNANDEZ MD PREVENTIVE MEDICINE PAIN CLINIC TEACHING: MEDICATIONS PT GIVEN WRITTEN AND VERBAL EDUCATION ON STARTING CELEBREX. PT VERBALIZES UNDERSTANDING OF ALL EDUCATION, STATING HE HAS BEEN ON THIS MEDICATION BEFORE. TRANG BRIGGS 02/07/2019 10:54:49 AM > . PROCEDURE CODES FA211 ESTABILISHED PATIENT [facility] FACILITY CHARGE G8427 CURRENT MEDS W/DOSAGES DOCUMENTED G8730 PAIN ASSESS POS TOOL F/U PLAN DOC DISPOSITION & COMMUNICATION FOLLOW UP 2 MONTHS (REASON: W/C LOW BACK) ELECTRONICALLY SIGNED BY MATTIE EASLEY MD, MD ON 02/16/2019 AT 08:08 PM EDT DISCLAIMER : THIS IS A VISIT SUMMARY EXTRACTED FROM THE [employer] CHART. IT IS NOT A COPY OF THE [employer] PROGRESS NOTE. JL
== END ==
LOC: M PAIN 09:30
PROVIDERS: ATTEND Anesthesiology
DX: M51.16 Intervertebral disc disorders with radiculopathy, lumbar region (principal); I10 Essential (primary) hypertension; E11.9 Type 2 diabetes mellitus without complications; E78.00 Pure hypercholesterolemia, unspecified; M10.9 Gout, unspecified; M19.90 Unspecified osteoarthritis, unspecified site; Z79.82 Long term (current) use of aspirin; Z79.1 Long term (current) use of non-steroidal anti-inflammatories (NSAID); Z79.899 Other long term (current) drug therapy; Z88.5 Allergy status to narcotic agent

== ENCOUNTER → 2019-03-03 | Outpatient (CLI) | payer OTHER ==
[~2019-03-03] MED LIST changes: -GLIM4TAB PO; +GLIM4TAB5 PO; +LISI10TA15 PO; -LISI10TA2 PO; +METH750T2 PO; -METH75TA PO
[2019-03-03 13:22] LABS: CREATININE FOR GFR 1.4 MG/DL (0.70-1.30); GLOMERULAR FILTRATION RATE 53.5 (>49)
== END ==
LOC: M LAB 12:21
PROVIDERS: ATTEND Neurological Surgery
DX: M54.5 Low back pain (principal)

== ENCOUNTER → 2019-04-14 | Outpatient (CLI) | payer OTHER ==
--- NOTE | 2019-04-18 00:23 | ECWPNPC ---
PATIENT NAME: ALLAN ARNETT : 1950 GENDER: MALE VISIT DATE: 04/14/2019 DISCHARGE DATE: 04/14/19 1051 VISIT LOCKED DATE TIME: PHYSICIAN: MATTIE EASLEY MD RESOURCE: MATTIE EASLEY MD REASON FOR APPOINTMENT 1. W/C, LOW BACK- DR. FRANCISCO IS REQUESTING THAT THE PATIENT HAVE A L TRANSFORAMINAL BLOCK AT L4-5 & L5/S1 HISTORY OF PRESENT ILLNESS HISTORY OF PRESENT ILLNESS: PAIN THE PATIENT DESCRIBES THE PAIN... 68 YEAR OLD MALE PATIENT WITH A HISTORY OF CHRONIC LOW BACK PAIN. THE PATIENT DESCRIBES THE PAIN ACHING, STABBING, SORE, AND CONTINUOUS WITH A PAIN SCORE OF 6-10/10 DEPENDING ON PHYSICAL ACTIVITY. 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 THE PATIENT STATES HIS PAIN BEGINS IN HIS LOW BACK AND RADIATES DOWN MAINLY HIS LEFT LEG AND INTO HIS LEFT FOOT. THE PATIENT SAYS HIS PAIN IS AFFECTING HIS ABILITY TO PERFORM HIS DAILY ACTIVITIES SUCH CLEANING, GROCERY SHOPPING, WALKING, AND SLEEPING. THE PATIENT IS CURRENTLY USING CELEBREX 200 MG, GABAPENTIN 300 MG, AND CYCLOBENZAPRINE 10 MG TO AID IN RELIEF FROM PAIN AND SPASMS, BUT HIS PAIN STILL PERSISTS. PATIENT DENIES UNEXPLAINABLE WEIGHT LOSS, FEVER, CHILLS, NEW CHANGES ON HIS URINARY OR BOWEL CONTROL. FALL RISK SCREENING: SCREENING :NO FALLS REPORTED IN THE LAST YEAR CURRENT MEDICATIONS TAKING CELECOXIB 200 MG CAPSULE 1 CAPSULE WITH FOOD ORALLY ONCE A DAY, NOTES: HAVENT STARTED YET TAKING GABAPENTIN 300 MG CAPSULE 1 CAPSULE ORALLY FOR PAIN FOUR TIMES DAILY MDD4 TAKING CYCLOBENZAPRINE HCL 10 MG TABLET 1 TABLET NEEDED ORALLY THREE TIMES A DAY, NOTES: PT REPORTS HE IS TAKING ONLY ONE/DAY TAKING MULTIVITAMIN TABLET 1 TAB ORALLY DAILY TAKING ASPIR-81 81 MG TABLET DELAYED RELEASE 1 TABLET ORALLY ONCE A DAY TAKING NIFEDIPINE 60 MG TABLET EXTENDED RELEASE ORALLY TAKING LOSARTAN POTASSIUM-HCTZ 100-25 MG TABLET 1 TABLET ORALLY ONCE A DAY TAKING OMEPRAZOLE 20 MG CAPSULE DELAYED RELEASE 1 CAPSULE ORALLY ONCE A DAY TAKING TRULICITY 0.75 MG/0.5ML SOLUTION PEN-INJECTOR SUBCUTANEOUS TAKING ROSUVASTATIN CALCIUM 20 MG TABLET 1 TABLET ORALLY ONCE A DAY NOT-TAKING IBUPROFEN 800 MG TABLET 1 TABLET WITH FOOD OR MILK ORALLY THREE TIMES A DAY NOT-TAKING BYDUREON 2MG/VIAL 1 INJECTION SUBCUTANEOUSLY WEEKLY NOT-TAKING METFORMIN HCL ER 500 MG TABLET EXTENDED RELEASE 24 HOUR 1 TABLET WITH EVENING MEAL ORALLY BID NOT-TAKING DRISDOL 09535 UNIT CAPSULE 1 CAPSULE ORALLY WEEKLY NOT-TAKING LYRICA 75 MG CAPSULE 1 CAPSULE ORALLY BID MDD=2, NOTES: HAVENT STARTED YET NOT-TAKING AMITRIPTYLINE HCL 25 MG TABLET 1 TABLET ORALLY BEFORE BEDTIME, NOTES: INSURANCE WONT FILL MEDICATION LIST REVIEWED AND RECONCILED WITH THE PATIENT PAST MEDICAL HISTORY HTN DIABETIC CHRONIC LOW BACK PAIN ARTHRITIS HYPERCHOLESTEROLEMIA GOUT ALLERGIES CODEINE SULFATE: HEART RACES - ALLERGY SURGICAL HISTORY BILAT CARPAL TUNNEL RELEASE BILAT ELBOW SURGERY BILAT TRIGGER FINGER REPAIR LEFT KNEE REPLACEMENT DORSAL COLUMN STIMULATOR FAMILY HISTORY FATHER: DIAGNOSED WITH DIABETES, HYPERTENSION SOCIAL HISTORY GENERAL: TOBACCO USE ARE YOU A:NONSMOKER PAIN CLINIC PFS, CLERGY, PUBLIC HEALTH REFERRALS PFS REFERRAL NEEDED?NO CLERGY REFERRAL NEEDED?NO PUBLIC HEALTH REFERRAL NEEDED?NO WAS THE PROVIDER NOTIFIED OF ANY PERTINENT INFO?NO HAS THE PATIENT BEEN EDUCATED REGARDING HIS/HER PLAN OF CARE?YES HAS THE PATIENT BEEN EDUCATED REGARDING PAIN, THE RISK FOR PAIN, THE IMPORTANCE OF EFFECTIVE PAIN MANAGEMENT, AND THE PAIN ASSESSMENT PROCESS?YES CAFFEINE CAFFEINE USE?YES ADVANCE DIRECTIVE ADVANCE DIRECTIVE DISCUSSED WITH PATIENT:YES HCP CHANDRA GOTTI, DAUGHTER HINDU [id number] EPISCOPALIAN NO FAITH BELIEFS THAT WOULD IMPACT HEALTH CARE. LANGUAGE LANGUAGES SPOKEN:CROATIAN ALCOHOL SCREENING DID YOU HAVE A DRINK CONTAINING ALCOHOL IN THE PAST YEAR?YES HOW OFTEN DID YOU HAVE A DRINK CONTAINING ALCOHOL IN THE PAST YEAR?TWO TO FOUR TIMES A MONTH (2 POINTS) POINTS2 INTERPRETATIONNEGATIVE LEARNING BARRIERS / SPECIAL NEEDS BARRIERS TO LEARNING?NO VISION IMPAIRED?YES :CORRECTIVE LENSES READINESS TO LEARN?YES REVIEWED WITH PT 06/06/18 1106 BVREVIEWED WITH PT 10/28/18 1313 BVREVIEWED WITH PT 12/19/18 1055 LAS. HOSPITALIZATION/MAJOR DIAGNOSTIC PROCEDURE SURGERIES REVIEW OF SYSTEMS REVIEWED BY: PROVIDER: MATTIE EASLEY MD . CONSTITUTIONAL: ANY CHANGE IN YOUR MEDICAL CONDITION? NO . CHILLS NO . FEVER NO . INFECTION: DO YOU HAVE NEW INFECTIONS? NO . DO YOU HAVE HISTORY OF MRSA? NO . MUSCULOSKELETAL: ANY NEW PATTERNS OF PAIN OR NUMBNESS? YES PT REPORTS INCREASED NUMBNESS/WEAKNESS IN LEFT LEG, GETTING WORSE OVER THE PAST YEAR. . GASTROENTEROLOGY: ANY NEW CHANGE IN BOWEL CONTROL? NO . GENITOURINARY: ANY NEW CHANGE IN BLADDER CONTROL? NO . IS THERE A CHANCE YOU COULD BE ? NO . HEMATOLOGY/LYMPH: DO YOU TAKE ANY BLOOD THINNERS? (FOR EXAMPLE- COUMADIN, PLAVIX, AGGRENOX, PLATEL, PRADAXA, OR XARELTO) NO . WHEN WAS YOUR LAST DOSE? DATE: TIME: . NEUROLOGY: HAVE YOU FALLEN IN THE PAST 12 MONTHS? NO . ANY NEW EXTREMITY NUMBNESS OR WEAKNESS? NO . CARDIOLOGY: DO YOU HAVE A PACEMAKER OR DEFIBRILLATOR? NO . RESPIRATORY: HAVE YOU BEEN SICK IN THE PAST WEEK? NO . FEVER NO . FLU LIKE SYMPTOMS? NO . COUGH NO . INTEGUMENTARY: DO YOU HAVE ANY RASHES OR OPEN SORES? NO . ALLERGIC/IMMUNO: ARE YOU ALLERGIC TO IV DYE? NO . ANY NEW ALLERGIES? NO . PSYCHIATRIC: DO YOU HAVE THOUGHTS OF HURTING YOURSELF OR SOMEONE ELSE? NO . ARE YOU ABUSED, NEGLECTED, OR IN AN UNSAFE ENVIRONMENT? NO . ENDOCRINOLOGY: ARE YOU DIABETIC? NO . OTHER: DO YOU NEED ANY PRESCRIPTIONS? YES CELECOXIB, GABAPENTIN CYCLOBENZAPRINE . IF YES, PLEASE LIST: ____ . ANY NEW PROBLEMS WITH YOUR MEDICATIONS? NO . WHEN DID YOU LAST EAT? ____ . WHEN DID YOU LAST DRINK? ____ . WHAT DID YOU LAST DRINK? ____ . NAME OF PERSON DRIVING YOU HOME? ____ . DO YOU HAVE ANY OTHER QUESTIONS OR CONCERNS NO . VITAL SIGNS WT 292 LBS, HT 69 IN, BMI 43.12 INDEX, BP 130/86 MM HG, HR 102 /MIN, RR 18 /MIN, TEMP 98.1 F, OXYGEN SAT % 96%, SAFE IN ENV? (Y/N) YES, NA INITIALS AW 0924, REVIEWED BY: PREMA. EXAMINATION GENERAL EXAMINATION: PATIENT IS ALERT O X 3 AND COOPERATIVE. LEFT LEG IS WEAKER AT EXTENSION AND FLEXION. STRAIGHT LEG RAISE OF THE LEFT LEG IS POSITIVE AT 30 DEGREES FOR RADICULOPATHY. TENDERNESS IN THE LOW BACK AREA. ANTALGIC WALK. MRI OF THE LUMBAR SPINE DONE ON 03/18/2019 SHOWS BULGING DISC AT L4-L5 LEVEL. NOTE FROM DR. CELESTINO RFANCISCO MD FROM [facility] STATES PATIENT WAS SEEN AT THEIR PRACTICE IN FEBRUARY 2019 AND HE WAS REFERRED TO US WITH THE RECOMMENDATION OF A LUMBAR EPIDURAL. ASSESSMENTS INTERVERTEBRAL DISC DISORDER WITH RADICULOPATHY OF LUMBAR REGION - M51.16 (PRIMARY) INTERVERTEBRAL DISC DISORDER WITH RADICULOPATHY OF LUMBOSACRAL REGION - M51.17 TREATMENT INTERVERTEBRAL DISC DISORDER WITH RADICULOPATHY OF LUMBAR REGION CLINICAL NOTES: WE DISCUSSED SEVERAL ISSUES WITH MR. ARNETT'S PAIN MANAGEMENT CASE. DUE TO THE LUMBAR RADICULOPATHY, I WOULD LIKE TO MOVE FORWARD WITH A LUMBAR EPIDURAL STEROID INJECTION AT THIS TIME. WE DISCUSSED THE BENEFITS, RISKS, AND ALTERNATIVES OF THE INJECTION AND THE PATIENT WOULD LIKE TO PROCEED. I PREFER TO FIRST TRY THE INTERLAMINAR ROUTE WITH AN EPIMED CATHETER TO SEE IF THIS PROVIDES LONG-LASTING PAIN RELIEF FOR THE PATIENT. DEPENDING ON THE RESULTS OF THE PROCEDURE, I WILL TRY THE TRANSFORAMINAL ROUTE DR. FRANCISCO, SPINE SURGEON RECOMMENDED. I REFILLED THE PATIENT'S CELECOXIB 200 MG, GABAPENTIN 300 MG, AND CYCLOBENZAPRINE 10 MG AT TODAY'S VISIT. THE PATIENT HAS BEEN REDUCING HIS CYCLOBENZAPRINE MEDICATION FROM 3 TABLETS DAILY DOWN TO 1 TABLET NEEDED FOR SPASMS AND PAIN. I EXPLAINED TO THE PATIENT THE RISKS, ALTERNATIVES, AND BENEFITS ASSOCIATED WITH THE USE OF NSAID'S. THE PATIENT UNDERSTOOD THAT THE USE OF NSAID'S MAY BE ASSOCIATED WITH THE DEVELOPMENT OF GASTRIC IRRITATION AND ULCERS, WITH THE DEVELOPMENT OF KIDNEY PROBLEMS, AND WITH THE POSSIBILITY OF DEVELOPING CARDIAC EVENTS, SUCH STOKE OR CARDIAC DISEASES. THE PATIENT AGREES ON USING THE CELEBREX LITTLE POSSIBLE AND NEEDED FOR HIS PAIN. THE PATIENT WILL FOLLOW UP IN SEVERAL WEEKS AFTER HIS INJECTION. INSTRUCTIONS WERE GIVEN, QUESTIONS WERE ANSWERED, PATIENT REPORTS UNDERSTANDING AND AGREES WITH THE PLAN. I, EDWARDO TERRAZAS, DOCUMENTED THE ABOVE INFORMATION ACTING A SCRIBE FOR DR. EASLEY. I HAVE REVIEWED THE ABOVE DOCUMENT, WRITTEN BY EDWARDO ERNSTIBDeanne AND I VERIFY THAT IT IS ACCURATE. . OTHERS REFILL CELECOXIB CAPSULE, 200 MG, 1 CAPSULE WITH FOOD, ORALLY, ONCE A DAY, 30 DAY(S), 30, REFILLS 1, NOTES: HAVENT STARTED YET REFILL GABAPENTIN CAPSULE, 300 MG, 1 CAPSULE, ORALLY FOR PAIN, FOUR TIMES DAILY MDD4, 30 DAY(S), 120, REFILLS 2 REFILL CYCLOBENZAPRINE HCL TABLET, 10 MG, 1 TABLET NEEDED, ORALLY, THREE TIMES A DAY, 30 DAY(S), 85, REFILLS 2, NOTES: PT REPORTS HE IS TAKING ONLY ONE/DAY PROCEDURES PN WORKMANS' COMP OPINION IN YOUR OPINION, WAS THE INCIDENT THAT THE PATIENT DESCRIBED THE COMPETENT MEDICAL CAUSE OF THIS INJURY/ILLNESS? YES ARE THE PATIENT'S COMPLAINTS CONSISTENT WITH HIS/HER HISTORY OF THE INJURY/ILLNESS? YES IS THE PATIENT'S HISTORY OF THE INJURY/ILLNESS CONSISTENT WITH YOUR OBJECTIVE FINDING? YES WHAT IS THE PERCENTAGE OF TEMPORARY IMPAIRMENT? TOTAL = 100% IS THE PATIENT WORKING? NO DOCTOR ON SITE: MATTIE HERNANDEZ MD PROCEDURE CODES FA211 ESTABILISHED PATIENT [facility] FACILITY CHARGE [id number] CURRENT MEDS W/DOSAGES DOCUMENTED [id number] PAIN ASSESS POS TOOL F/U PLAN DOC DISPOSITION & COMMUNICATION FOLLOW UP REASON: LESI WITH CATHETER (PLEASE PUT IN DESCRIPTION) ELECTRONICALLY SIGNED BY MATTIE EASLEY MD, ON 04/17/2019 AT 01:51 PM EDT DISCLAIMER : THIS IS A VISIT SUMMARY [facility]ACTED FROM [facility]. IT IS NOT A COPY OF THE [employer] PROGRESS NOTE. JL
== END ==
LOC: M PAIN 09:45
PROVIDERS: ATTEND Anesthesiology
DX: M51.16 Intervertebral disc disorders with radiculopathy, lumbar region (principal); M51.17 Intervertebral disc disorders with radiculopathy, lumbosacral region; G89.29 Other chronic pain; I10 Essential (primary) hypertension; E11.9 Type 2 diabetes mellitus without complications; M19.90 Unspecified osteoarthritis, unspecified site; E78.00 Pure hypercholesterolemia, unspecified; Z96.652 Presence of left artificial knee joint; Z88.5 Allergy status to narcotic agent; E66.01 Morbid (severe) obesity due to excess calories; Z68.41 Body mass index [BMI] 40.0-44.9, adult; Z79.82 Long term (current) use of aspirin; Z79.84 Long term (current) use of oral hypoglycemic drugs; Z79.899 Other long term (current) drug therapy

== ENCOUNTER → 2019-05-27 | Outpatient (CLI) | payer OTHER ==
[~2019-05-27] MED LIST changes: +GLIM4TAB PO; -GLIM4TAB5 PO; +ISOVUE-M 300 61% 15ML VIAL (Q9967) As Ordered ONE; +LIDOCAINE 1% SDV INJ 30 ML VIAL As Ordered ONE; +diazePAM 5 MG TAB As Ordered ONE; +methylPREDNISolone SUSP 40 MG/ML (DEPO-medrol) VIAL (J1030) As Ordered ONE
--- NOTE | 2019-05-27 16:46 | REP ---
Partial lumbar spine series: Two views . History: Injection procedure for pain. 50 seconds of fluoroscopy time is reported. Findings: A sequence of two fluoroscopically obtained last image hold procedural spot radiographs of the lumbar spine document needle position and contrast injection associated with injection procedure. Electronically Signed by Lobo Centeno MD 05/27/2019 04:38 P
== END ==
LOC: M PAIN 13:00
PROVIDERS: ATTEND Anesthesiology
DX: M51.17 Intervertebral disc disorders with radiculopathy, lumbosacral region (principal); M48.061 Spinal stenosis, lumbar region without neurogenic claudication; I10 Essential (primary) hypertension; E11.9 Type 2 diabetes mellitus without complications; E78.00 Pure hypercholesterolemia, unspecified; M10.9 Gout, unspecified; M19.90 Unspecified osteoarthritis, unspecified site; Z96.652 Presence of left artificial knee joint; Z79.82 Long term (current) use of aspirin; Z79.84 Long term (current) use of oral hypoglycemic drugs; Z79.899 Other long term (current) drug therapy; Z88.5 Allergy status to narcotic agent
CPT/HCPCS: 62323; J1030; Q9967

== ENCOUNTER → 2019-06-10 | Outpatient (CLI) | payer OTHER ==
[~2019-06-10] MED LIST changes: -GLIM4TAB PO; +GLIM4TAB3 PO; -ISOVUE-M 300 61% 15ML VIAL (Q9967) As Ordered ONE; -LIDOCAINE 1% SDV INJ 30 ML VIAL As Ordered ONE; -diazePAM 5 MG TAB As Ordered ONE; -methylPREDNISolone SUSP 40 MG/ML (DEPO-medrol) VIAL (J1030) As Ordered ONE
--- NOTE | 2019-06-12 00:30 | ECWPNPC ---
PATIENT NAME: ALLAN ARNETT : 1950 GENDER: MALE VISIT DATE: 06/10/2019 DISCHARGE DATE: 06/10/19 1112 VISIT LOCKED DATE TIME: PHYSICIAN: DYLAN GARCIA RESOURCE: DYLAN GARCIA REASON FOR APPOINTMENT 1. W/C POST PROC HISTORY OF PRESENT ILLNESS HISTORY OF PRESENT ILLNESS: PAIN THE PATIENT DESCRIBES THE PAIN... THE PATIENT DESCRIBES THE PAIN... 68-YEAR-OLD MALE WITH A HX OF LOW BACK PAIN IN FOR POST LESI FOLLOW-UP. HE RATES HIS PAIN PREPROCEDURE AT AN 8 OUT OF 10 AND POSTPROCEDURE AT A 3 OUT OF 10 AND STATES THIS ONLY LASTED A COUPLE OF DAYS. HE RATES HIS PAIN CURRENTLY AT AN 8 OUT OF 10 AND DESCRIBES IT ACHING, BURNING, SORE, WAKES HIM FROM SLEEP, AND LASTS ALL DAY. 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 THE PATIENT STATES HIS PAIN BEGINS IN HIS LOW BACK AND RADIATES DOWN MAINLY HIS LEFT LEG AND INTO HIS LEFT FOOT. THE PATIENT SAYS HIS PAIN IS AFFECTING HIS ABILITY TO PERFORM HIS DAILY ACTIVITIES SUCH CLEANING, GROCERY SHOPPING, WALKING, AND SLEEPING. THE PATIENT IS CURRENTLY USING CELEBREX 200 MG, GABAPENTIN 300 MG, AND CYCLOBENZAPRINE 10 MG TO AID IN RELIEF FROM PAIN AND SPASMS, BUT HIS PAIN STILL PERSISTS. FALL RISK SCREENING: SCREENING :NO FALLS REPORTED IN THE LAST YEAR CURRENT MEDICATIONS TAKING CELECOXIB 200 MG CAPSULE 1 CAPSULE WITH FOOD ORALLY ONCE A DAY TAKING GABAPENTIN 300 MG CAPSULE 1 CAPSULE ORALLY FOR PAIN FOUR TIMES DAILY MDD4 TAKING CYCLOBENZAPRINE HCL 10 MG TABLET 1 TABLET NEEDED ORALLY THREE TIMES A DAY TAKING MULTIVITAMIN TABLET 1 TAB ORALLY DAILY TAKING ASPIR-81 81 MG TABLET DELAYED RELEASE 1 TABLET ORALLY ONCE A DAY TAKING NIFEDIPINE 60 MG TABLET EXTENDED RELEASE ORALLY DAILY TAKING LOSARTAN POTASSIUM-HCTZ 100-25 MG TABLET 1 TABLET ORALLY ONCE A DAY TAKING OMEPRAZOLE 20 MG CAPSULE DELAYED RELEASE 1 CAPSULE ORALLY ONCE A DAY TAKING TRULICITY 0.75 MG/0.5ML SOLUTION PEN-INJECTOR SUBCUTANEOUS TAKING ROSUVASTATIN CALCIUM 20 MG TABLET 1 TABLET ORALLY ONCE A DAY TAKING METFORMIN HCL ER 500 MG TABLET EXTENDED RELEASE 24 HOUR 1 TABLET WITH EVENING MEAL ORALLY ONCE A DAY NOT-TAKING IBUPROFEN 800 MG TABLET 1 TABLET WITH FOOD OR MILK ORALLY THREE TIMES A DAY NOT-TAKING BYDUREON 2MG/VIAL 1 INJECTION SUBCUTANEOUSLY WEEKLY NOT-TAKING DRISDOL [id number] UNIT CAPSULE 1 CAPSULE ORALLY WEEKLY NOT-TAKING LYRICA 75 MG CAPSULE 1 CAPSULE ORALLY BID MDD=2, NOTES: HAVENT STARTED YET NOT-TAKING AMITRIPTYLINE HCL 25 MG TABLET 1 TABLET ORALLY BEFORE BEDTIME, NOTES: INSURANCE WONT FILL MEDICATION LIST REVIEWED AND RECONCILED WITH THE PATIENT PAST MEDICAL HISTORY HTN DIABETIC CHRONIC LOW BACK PAIN ARTHRITIS HYPERCHOLESTEROLEMIA GOUT ALLERGIES CODEINE SULFATE: HEART RACES - ALLERGY SURGICAL HISTORY BILAT CARPAL TUNNEL RELEASE BILAT ELBOW SURGERY BILAT TRIGGER FINGER REPAIR LEFT KNEE REPLACEMENT DORSAL COLUMN STIMULATOR 08/2018 FAMILY HISTORY FATHER: , DIAGNOSED WITH DIABETES, HYPERTENSION MOTHER: SOCIAL HISTORY GENERAL: TOBACCO USE ARE YOU A:NONSMOKER PAIN CLINIC PFS, CLERGY, PUBLIC HEALTH REFERRALS PFS REFERRAL NEEDED?NO CLERGY REFERRAL NEEDED?NO PUBLIC HEALTH REFERRAL NEEDED?NO WAS THE PROVIDER NOTIFIED OF ANY PERTINENT INFO? N/A HAS THE PATIENT BEEN EDUCATED REGARDING HIS/HER PLAN OF CARE?YES HAS THE PATIENT BEEN EDUCATED REGARDING PAIN, THE RISK FOR PAIN, THE IMPORTANCE OF EFFECTIVE PAIN MANAGEMENT, AND THE PAIN ASSESSMENT PROCESS?YES LATEX QUESTIONNAIRE LATEX ALLERGY : HAVE YOU EVER DEVELOPED ANY TYPE OF REACTION AFTER HANDLING LATEX PRODUCTS SUCH RUBBER GLOVES, CONDOMS, DIAPHRAGMS, BALLOONS, SOCKS, OR UNDERWEAR?NO LATEX ALLERGY : HAVE YOU EVER DEVELOPED ANY TYPE OF REACTION DURING OR AFTER DENTAL APPOINTMENT, VAGINAL/RECTAL EXAMINATION, SURGICAL PROCEDURE, OR ANY OTHER EXPOSURE?NO DATE ASKED : 05/27/2019 LATEX RISK : HAVE YOU EVER HAD ANY DIFFICULTY BREATHING OR HIVES AFTER EATING OR HANDLING ANY FRUITS, OR VEGETABLES; SUCH KIWI, BANANAS, STONE FRUITS, OR CHESTNUTSNO LATEX RISK : DO YOU HAVE A PREVIOUS PERSONAL HISTORY OF MORE THAN NINE SURGERIES, SPINA BIFIDA, OR REPEATED CATHERIZATIONS? NO LATEX RISK : ARE YOU FREQUENTLY EXPOSED TO LATEX PRODUCTS IN YOUR OCCUPATION?NO CAFFEINE CAFFEINE USE?YES ADVANCE DIRECTIVE ADVANCE DIRECTIVE DISCUSSED WITH PATIENT:YES HCP CHANDRA GOTTI, DAUGHTER JAINISM [id number] AMISH NO TENRIISM BELIEFS THAT WOULD IMPACT HEALTH CARE. LANGUAGE LANGUAGES SPOKEN:VINCENTIAN DOMESTIC VIOLENCE DO YOU FEEL SAFE IN YOUR ENVIRONMENT?YES ALCOHOL SCREENING DID YOU HAVE A DRINK CONTAINING ALCOHOL IN THE PAST YEAR?YES HOW OFTEN DID YOU HAVE SIX OR MORE DRINKS ON ONE OCCASION IN THE PAST YEAR?WEEKLY (3 POINTS) HOW MANY DRINKS DID YOU HAVE ON A TYPICAL DAY WHEN YOU WERE DRINKING IN THE PAST YEAR?7 TO 9 (3 POINTS) HOW OFTEN DID YOU HAVE A DRINK CONTAINING ALCOHOL IN THE PAST YEAR?TWO TO FOUR TIMES A MONTH (2 POINTS) POINTS8 INTERPRETATIONPOSITIVE LEARNING BARRIERS / SPECIAL NEEDS BARRIERS TO LEARNING?NO HEARING IMPAIRED?NO VISION IMPAIRED?YES COGNITIVELY IMPAIRED?NO :CORRECTIVE LENSES READINESS TO LEARN?YES LEARNING PREFERENCES?YES :TAPES/VIDEOS LEARNING CAPABILITIES PRESENT?YES EMOTIONAL BARRIERS?NO SPECIAL DEVICES?NO PAPER FOLDING MACHINE 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 AD REVIEWED WITH PATIENT 06/10/19 1027 NLJ. HOSPITALIZATION/MAJOR DIAGNOSTIC PROCEDURE SURGERIES REVIEW OF SYSTEMS REVIEWED BY: PROVIDER: DHAVAL VALDERRAMA . CONSTITUTIONAL: ANY CHANGE IN YOUR MEDICAL CONDITION? NO . CHILLS NO . FEVER NO . INFECTION: DO YOU HAVE NEW INFECTIONS? NO . DO YOU HAVE HISTORY OF MRSA? NO . MUSCULOSKELETAL: ANY NEW PATTERNS OF PAIN OR NUMBNESS? YES- STATES LESI ONLY WORKED FOR A COUPLE OF DAYS, STATES HIS PAIN HAS RETURNED TO PRE-PROCEDURE LEVEL, STATES MEDS DO NOT WORK FOR PAIN . GASTROENTEROLOGY: ANY NEW CHANGE IN BOWEL CONTROL? NO . GENITOURINARY: ANY NEW CHANGE IN BLADDER CONTROL? NO . IS THERE A CHANCE YOU COULD BE ? NO . HEMATOLOGY/LYMPH: DO YOU TAKE ANY BLOOD THINNERS? (FOR EXAMPLE- COUMADIN, PLAVIX, AGGRENOX, PLATEL, PRADAXA, OR XARELTO) NO . WHEN WAS YOUR LAST DOSE? DATE: TIME: . NEUROLOGY: HAVE YOU FALLEN IN THE PAST 12 MONTHS? NO . ANY NEW EXTREMITY NUMBNESS OR WEAKNESS? NO . CARDIOLOGY: DO YOU HAVE A PACEMAKER OR DEFIBRILLATOR? NO . RESPIRATORY: HAVE YOU BEEN SICK IN THE PAST WEEK? NO . FEVER NO . FLU LIKE SYMPTOMS? NO . COUGH NO . INTEGUMENTARY: DO YOU HAVE ANY RASHES OR OPEN SORES? NO . ALLERGIC/IMMUNO: ARE YOU ALLERGIC TO IV DYE? NO . ANY NEW ALLERGIES? NO . PSYCHIATRIC: DO YOU HAVE THOUGHTS OF HURTING YOURSELF OR SOMEONE ELSE? NO . ARE YOU ABUSED, NEGLECTED, OR IN AN UNSAFE ENVIRONMENT? NO . ENDOCRINOLOGY: ARE YOU DIABETIC? YES . OTHER: DO YOU NEED ANY PRESCRIPTIONS? YES . IF YES, PLEASE LIST: ____GABAPENTIN, CYCLOBENZAPRINE . ANY NEW PROBLEMS WITH YOUR MEDICATIONS? NO . WHEN DID YOU LAST EAT? ____ . WHEN DID YOU LAST DRINK? ____ . WHAT DID YOU LAST DRINK? ____ . NAME OF PERSON DRIVING YOU HOME? ____ . DO YOU HAVE ANY OTHER QUESTIONS OR CONCERNS NO . VITAL SIGNS WT 283.4 LBS, HT 69 IN, BMI 41.85 INDEX, BP 183/97 MM HG, HR 104 /MIN, RR 18 /MIN, TEMP 97.1 F, OXYGEN SAT % 96%, SAFE IN ENV? (Y/N) YES, NA INITIALS SC 10:06, REVIEWED BY: SHAY. EXAMINATION GENERAL EXAMINATION: GENERALNO ACUTE DISTRESS, WELL NOURISHED AND HYDRATED. PSYCHAPPROPRIATE MOOD AND AFFECT . LUNGS:CLEAR TO AUSCULTATION BILATERALLY, NO WHEEZES, RHONCHI, RALES. HEART:NO MURMURS, REGULAR RATE AND RHYTHM. ASSESSMENTS INTERVERTEBRAL DISC DISORDERS WITH RADICULOPATHY, LUMBAR REGION - M51.16 (PRIMARY) TREATMENT INTERVERTEBRAL DISC DISORDERS WITH RADICULOPATHY, LUMBAR REGION START CYMBALTA CAPSULE DELAYED RELEASE PARTICLES, 30 MG, 1 CAPSULE, ORALLY, ONCE A DAY, 30 DAY(S), 30 STOP CYCLOBENZAPRINE HCL TABLET, 10 MG, 1 TABLET NEEDED, ORALLY, THREE TIMES A DAY REFILL GABAPENTIN CAPSULE, 300 MG, 1 CAPSULE, ORALLY FOR PAIN, FOUR TIMES DAILY MDD4, 30 DAY(S), 120, REFILLS 2 CLINICAL NOTES: 68-YEAR-OLD MALE IN FOR POST LESI FOLLOW-UP. GIVEN PRESENTING SYMPTOMS AND RESULTS OF PHYSICAL EXAMINATION RECOMMENDED CYMBALTA 30 MG DAILY WITH FOLLOW-UP IN 2 MONTHS TO DETERMINE EFFICACY OF TREATMENT. PATIENT HAS EXPRESSED UNDERSTANDING OF AND WAS IN AGREEMENT WITH TREATMENT PLAN. GIVEN TIME TO ASK QUESTIONS AND EXPRESS CONCERNS. PROCEDURES PN WORKMANS' COMP OPINION IN YOUR OPINION, WAS THE INCIDENT THAT THE PATIENT DESCRIBED THE COMPETENT MEDICAL CAUSE OF THIS INJURY/ILLNESS? YES ARE THE PATIENT'S COMPLAINTS CONSISTENT WITH HIS/HER HISTORY OF THE INJURY/ILLNESS? YES IS THE PATIENT'S HISTORY OF THE INJURY/ILLNESS CONSISTENT WITH YOUR OBJECTIVE FINDING? YES WHAT IS THE PERCENTAGE OF TEMPORARY IMPAIRMENT? TOTAL = 100% IS THE PATIENT WORKING? NO DOCTOR ON SITE: MATTIE HERNANDEZ MD PREVENTIVE MEDICINE PAIN CLINIC TEACHING: MEDITATION DULOXETINE MEDICATION INFORMATION PRINTED AND REVIEWED WITH PATIENT 06/10/19 1106 NLJ. PROCEDURE CODES FA211 ESTABILISHED PATIENT [facility] CHARGE DISPOSITION & COMMUNICATION FOLLOW UP 2 MONTHS (REASON: MEDICATION ADDITION ) ELECTRONICALLY SIGNED BY JOVITA XAVIER ON 06/11/2019 AT 03:55 PM EDT DISCLAIMER : THIS IS A VISIT SUMMARY EXTRACTED FROM THE [employer] CHART. IT IS NOT A COPY OF THE [employer] PROGRESS NOTE. JL
== END ==
LOC: M PAIN 10:15
PROVIDERS: ATTEND Family Medicine
DX: M51.16 Intervertebral disc disorders with radiculopathy, lumbar region (principal); I10 Essential (primary) hypertension; E11.9 Type 2 diabetes mellitus without complications; E78.00 Pure hypercholesterolemia, unspecified; Z96.652 Presence of left artificial knee joint; Z88.5 Allergy status to narcotic agent; E66.01 Morbid (severe) obesity due to excess calories; Z68.41 Body mass index [BMI] 40.0-44.9, adult; Z79.82 Long term (current) use of aspirin; Z79.84 Long term (current) use of oral hypoglycemic drugs; Z79.899 Other long term (current) drug therapy

== ENCOUNTER → 2019-08-07 | Outpatient (CLI) | payer OTHER ==
--- NOTE | 2019-08-12 04:22 | ECWPNPC ---
PATIENT NAME: ALLAN ARNETT : 1950 GENDER: MALE VISIT DATE: 08/07/2019 DISCHARGE DATE: 08/07/19 1123 VISIT LOCKED DATE TIME: PHYSICIAN: DYLAN GARCIA RESOURCE: DYLAN GARCIA REASON FOR APPOINTMENT 1. W/C MEDS HISTORY OF PRESENT ILLNESS HISTORY OF PRESENT ILLNESS: PAIN THE PATIENT DESCRIBES THE PAIN... 68-YEAR-OLD MALE WITH A HX OF LOW BACK PAIN IN FOR FOLLOW-UP. HE RATES HIS PAIN CURRENTLY AT AN 7 OUT OF 10 AND DESCRIBES IT ACHING, SORE, AND CONTINUOUS. 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 THE PATIENT STATES HIS PAIN BEGINS IN HIS LOW BACK AND RADIATES DOWN MAINLY HIS LEFT LEG AND INTO HIS LEFT FOOT. THE PATIENT SAYS HIS PAIN IS AFFECTING HIS ABILITY TO PERFORM HIS DAILY ACTIVITIES SUCH CLEANING, GROCERY SHOPPING, WALKING, AND SLEEPING. THE PATIENT IS CURRENTLY USING CELEBREX 200 MG, AND CYCLOBENZAPRINE 10 MG TO AID IN RELIEF FROM PAIN AND SPASMS, BUT HIS PAIN STILL PERSISTS. FALL RISK SCREENING: SCREENING :NO FALLS REPORTED IN THE LAST YEAR CURRENT MEDICATIONS TAKING MULTIVITAMIN TABLET 1 TAB ORALLY DAILY TAKING ASPIR-81 81 MG TABLET DELAYED RELEASE 1 TABLET ORALLY ONCE A DAY TAKING NIFEDIPINE 60 MG TABLET EXTENDED RELEASE ORALLY DAILY TAKING LOSARTAN POTASSIUM-HCTZ 100-25 MG TABLET 1 TABLET ORALLY ONCE A DAY TAKING OMEPRAZOLE 20 MG CAPSULE DELAYED RELEASE 1 CAPSULE ORALLY ONCE A DAY TAKING ROSUVASTATIN CALCIUM 20 MG TABLET 1 TABLET ORALLY ONCE A DAY TAKING CELECOXIB 200 MG CAPSULE 1 CAPSULE WITH FOOD ORALLY ONCE A DAY TAKING METFORMIN HCL 1000 MG TABLET 1 TABLET WITH A MEAL ORALLY ONCE A DAY NOT-TAKING TRULICITY 0.75 MG/0.5ML SOLUTION PEN-INJECTOR SUBCUTANEOUS NOT-TAKING METFORMIN HCL ER 500 MG TABLET EXTENDED RELEASE 24 HOUR 1 TABLET WITH EVENING MEAL ORALLY ONCE A DAY NOT-TAKING CYMBALTA 30 MG CAPSULE DELAYED RELEASE PARTICLES 1 CAPSULE ORALLY ONCE A DAY NOT-TAKING GABAPENTIN 300 MG CAPSULE 1 CAPSULE ORALLY FOR PAIN FOUR TIMES DAILY MDD4 NOT-TAKING IBUPROFEN 800 MG TABLET 1 TABLET WITH FOOD OR MILK ORALLY THREE TIMES A DAY NOT-TAKING BYDUREON 2MG/VIAL 1 INJECTION SUBCUTANEOUSLY WEEKLY NOT-TAKING DRFFIIOL 02144 UNIT CAPSULE 1 CAPSULE ORALLY WEEKLY NOT-TAKING LYRICA 75 MG CAPSULE 1 CAPSULE ORALLY BID MDD=2, NOTES: HAVENT STARTED YET NOT-TAKING AMITRIPTYLINE HCL 25 MG TABLET 1 TABLET ORALLY BEFORE BEDTIME, NOTES: INSURANCE WONT FILL MEDICATION LIST REVIEWED AND RECONCILED WITH THE PATIENT PAST MEDICAL HISTORY HTN DIABETIC CHRONIC LOW BACK PAIN ARTHRITIS HYPERCHOLESTEROLEMIA GOUT ALLERGIES CODEINE SULFATE: HEART RACES - ALLERGY SURGICAL HISTORY BILAT CARPAL TUNNEL RELEASE BILAT ELBOW SURGERY BILAT TRIGGER FINGER REPAIR LEFT KNEE REPLACEMENT DORSAL COLUMN STIMULATOR 08/2018 FAMILY HISTORY FATHER: , DIAGNOSED WITH DIABETES, HYPERTENSION MOTHER: SOCIAL HISTORY GENERAL: TOBACCO USE ARE YOU A:NONSMOKER PAIN CLINIC PFS, CLERGY, PUBLIC HEALTH REFERRALS PFS REFERRAL NEEDED?NO CLERGY REFERRAL NEEDED?NO PUBLIC HEALTH REFERRAL NEEDED?NO WAS THE PROVIDER NOTIFIED OF ANY PERTINENT INFO? N/A HAS THE PATIENT BEEN EDUCATED REGARDING HIS/HER PLAN OF CARE?YES HAS THE PATIENT BEEN EDUCATED REGARDING PAIN, THE RISK FOR PAIN, THE IMPORTANCE OF EFFECTIVE PAIN MANAGEMENT, AND THE PAIN ASSESSMENT PROCESS?YES LATEX QUESTIONNAIRE LATEX ALLERGY : HAVE YOU EVER DEVELOPED ANY TYPE OF REACTION AFTER HANDLING LATEX PRODUCTS SUCH RUBBER GLOVES, CONDOMS, DIAPHRAGMS, BALLOONS, SOCKS, OR UNDERWEAR?NO LATEX ALLERGY : HAVE YOU EVER DEVELOPED ANY TYPE OF REACTION DURING OR AFTER DENTAL APPOINTMENT, VAGINAL/RECTAL EXAMINATION, SURGICAL PROCEDURE, OR ANY OTHER EXPOSURE?NO DATE ASKED : 05/27/2019 LATEX RISK : HAVE YOU EVER HAD ANY DIFFICULTY BREATHING OR HIVES AFTER EATING OR HANDLING ANY FRUITS, OR VEGETABLES; SUCH KIWI, BANANAS, STONE FRUITS, OR CHESTNUTSNO LATEX RISK : DO YOU HAVE A PREVIOUS PERSONAL HISTORY OF MORE THAN NINE SURGERIES, SPINA BIFIDA, OR REPEATED CATHERIZATIONS? NO LATEX RISK : ARE YOU FREQUENTLY EXPOSED TO LATEX PRODUCTS IN YOUR OCCUPATION?NO CAFFEINE CAFFEINE USE?YES ADVANCE DIRECTIVE ADVANCE DIRECTIVE DISCUSSED WITH PATIENT:YES HCP CHANDRA BEN, DAUGHTER PRESYBETERIAN [id number] MORAVIAN NO DRUZE BELIEFS THAT WOULD IMPACT HEALTH CARE. LANGUAGE LANGUAGES SPOKEN:ERITREAN DOMESTIC VIOLENCE DO YOU FEEL SAFE IN YOUR ENVIRONMENT?YES ALCOHOL SCREENING DID YOU HAVE A DRINK CONTAINING ALCOHOL IN THE PAST YEAR?YES HOW OFTEN DID YOU HAVE SIX OR MORE DRINKS ON ONE OCCASION IN THE PAST YEAR?WEEKLY (3 POINTS) HOW MANY DRINKS DID YOU HAVE ON A TYPICAL DAY WHEN YOU WERE DRINKING IN THE PAST YEAR?7 TO 9 (3 POINTS) HOW OFTEN DID YOU HAVE A DRINK CONTAINING ALCOHOL IN THE PAST YEAR?TWO TO FOUR TIMES A MONTH (2 POINTS) POINTS8 INTERPRETATIONPOSITIVE LEARNING BARRIERS / SPECIAL NEEDS BARRIERS TO LEARNING?NO HEARING IMPAIRED?NO VISION IMPAIRED?YES COGNITIVELY IMPAIRED?NO :CORRECTIVE LENSES READINESS TO LEARN?YES LEARNING PREFERENCES?YES :TAPES/VIDEOS LEARNING CAPABILITIES PRESENT?YES EMOTIONAL BARRIERS?NO SPECIAL DEVICES?NO HOUSEKEEPER/LAUNDRY ASSISTANT NEEDED?NO REVIEWED WITH PATIENT 08/07/19 1041 BVREVIEWED WITH PT 06/06/18 1106 BVREVIEWED WITH PT 10/28/18 1313 BVREVIEWED WITH PT 12/19/18 1055 LAS05/27/19 1331 REVIEWED WITH PT. AD REVIEWED WITH PATIENT 06/10/19 1027 NLJ. HOSPITALIZATION/MAJOR DIAGNOSTIC PROCEDURE SURGERIES REVIEW OF SYSTEMS REVIEWED BY: PROVIDER: DHAVAL VALDERRAMA . CONSTITUTIONAL: ANY CHANGE IN YOUR MEDICAL CONDITION? NO . CHILLS NO . FEVER NO . INFECTION: DO YOU HAVE NEW INFECTIONS? NO . DO YOU HAVE HISTORY OF MRSA? NO . MUSCULOSKELETAL: ANY NEW PATTERNS OF PAIN OR NUMBNESS? YES, INCREASING PAIN/NUMBNESS IN LEFT LEG . GASTROENTEROLOGY: ANY NEW CHANGE IN BOWEL CONTROL? NO . GENITOURINARY: ANY NEW CHANGE IN BLADDER CONTROL? NO . IS THERE A CHANCE YOU COULD BE ? NO . HEMATOLOGY/LYMPH: DO YOU TAKE ANY BLOOD THINNERS? (FOR EXAMPLE- COUMADIN, PLAVIX, AGGRENOX, PLATEL, PRADAXA, OR XARELTO) NO . WHEN WAS YOUR LAST DOSE? DATE: TIME: . NEUROLOGY: HAVE YOU FALLEN IN THE PAST 12 MONTHS? NO . ANY NEW EXTREMITY NUMBNESS OR WEAKNESS? NO . CARDIOLOGY: DO YOU HAVE A PACEMAKER OR DEFIBRILLATOR? NO PACEMAKER OR DEFIBRILLATOR, BUT PATIENT DOES HAVE A DORSAL COLUMN STIMULATOR . RESPIRATORY: HAVE YOU BEEN SICK IN THE PAST WEEK? NO . FEVER NO . FLU LIKE SYMPTOMS? NO . COUGH NO . INTEGUMENTARY: DO YOU HAVE ANY RASHES OR OPEN SORES? NO . ALLERGIC/IMMUNO: ARE YOU ALLERGIC TO IV DYE? NO . ANY NEW ALLERGIES? NO . PSYCHIATRIC: DO YOU HAVE THOUGHTS OF HURTING YOURSELF OR SOMEONE ELSE? NO . ARE YOU ABUSED, NEGLECTED, OR IN AN UNSAFE ENVIRONMENT? NO . ENDOCRINOLOGY: ARE YOU DIABETIC? YES, ON MEDICATION . OTHER: DO YOU NEED ANY PRESCRIPTIONS? CELEBREX . IF YES, PLEASE LIST: ____ . ANY NEW PROBLEMS WITH YOUR MEDICATIONS? YES, PT STATES HE STOPPED CYMBALTA DUE TO IT CAUSING NAUSEA AND FEELING LIKE HIS HEAD "WAS SPINNING" . WHEN DID YOU LAST EAT? ____ . WHEN DID YOU LAST DRINK? ____ . WHAT DID YOU LAST DRINK? ____ . NAME OF PERSON DRIVING YOU HOME? ____ . DO YOU HAVE ANY OTHER QUESTIONS OR CONCERNS NO . VITAL SIGNS WT 281.8 LBS, HT 69 IN, BMI 41.61 INDEX, BP 166/91 MM HG, HR 100 /MIN, RR 18 /MIN, TEMP 97.6 F, OXYGEN SAT % 96%, NA INITIALS SC 10:32, REVIEWED BY: BV. EXAMINATION GENERAL EXAMINATION: GENERALNO ACUTE DISTRESS, WELL NOURISHED AND HYDRATED. PSYCHAPPROPRIATE MOOD AND AFFECT . LUNGS:CLEAR TO AUSCULTATION BILATERALLY, NO WHEEZES, RHONCHI, RALES. HEART:NO MURMURS, REGULAR RATE AND RHYTHM. ASSESSMENTS INTERVERTEBRAL DISC DISORDERS WITH RADICULOPATHY, LUMBOSACRAL REGION - M51.17 (PRIMARY) TREATMENT INTERVERTEBRAL DISC DISORDERS WITH RADICULOPATHY, LUMBOSACRAL REGION START LYRICA CAPSULE, 75 MG, 1 CAPSULE, ORALLY, TWICE A DAY, 30 DAYS, 60 CLINICAL NOTES: 68-YEAR-OLD MALE IN FOR WORKER'S COMP. CHRONIC PAIN FOLLOW-UP. GIVEN PRESENTING SYMPTOMS SUCH RADICULOPATHY AND RESULTS OF PHYSICAL EXAMINATION RECOMMENDED LYRICA 75 MG TWICE A DAY WITH FOLLOW-UP IN 2 MONTHS TO DETERMINE EFFICACY OF TREATMENT. PATIENT HAS EXPRESSED UNDERSTANDING OF AND WAS IN AGREEMENT WITH TREATMENT PLAN. GIVEN TIME TO ASK QUESTIONS AND EXPRESS CONCERNS., ISTOP REGISTRY REVIEWED AND DEMONSTRATES COMPLLIANCE. (REF # [id number] ) BRINGS IN MEDICATIONS WHICH IS APPROPRIATE FOR WHAT WAS DISPENSED. RECENT URINE TOXICOLOGY REVIEWED. NO UNAUTHORIZED MEDICATIONS. NO ILLICIT SUBSTANCES AND PRESCRIBED MEDICATIONS WERE PRESENT. PROCEDURES PN WORKMANS' COMP OPINION IN YOUR OPINION, WAS THE INCIDENT THAT THE PATIENT DESCRIBED THE COMPETENT MEDICAL CAUSE OF THIS INJURY/ILLNESS? YES ARE THE PATIENT'S COMPLAINTS CONSISTENT WITH HIS/HER HISTORY OF THE INJURY/ILLNESS? YES IS THE PATIENT'S HISTORY OF THE INJURY/ILLNESS CONSISTENT WITH YOUR OBJECTIVE FINDING? YES WHAT IS THE PERCENTAGE OF TEMPORARY IMPAIRMENT? TOTAL = 100% IS THE PATIENT WORKING? NO DOCTOR ON SITE: MATTIE HERNANDEZ MD [facility] PA[facility] TEACHING: MEDICATIONS LYRICA INFORMATION GIVEN AND REVIEWD WITH PT.. PROCEDURE CODES FA211 ESTABILISHED [facility]IENT [facility] CHARGE DISPOSITION & COMMUNICATION FOLLOW UP 2 MONTHS (REASON: BACK PAIN WORKER'S COMP.) ELECTRONICALLY SIGNED BY JOVITA XAIVER ON 08/11/2019 AT 01:41 PM EST DISCLAIMER : THIS IS A VISIT SUMMARY EXTRACTED FROM THE [employer] CHART. IT IS NOT A COPY OF THE [employer] PROGRESS NOTE. RITOD
== END ==
LOC: M PAIN 10:30
PROVIDERS: ATTEND Family Medicine
DX: M51.17 Intervertebral disc disorders with radiculopathy, lumbosacral region (principal); I10 Essential (primary) hypertension; E11.9 Type 2 diabetes mellitus without complications; E78.00 Pure hypercholesterolemia, unspecified; Z88.5 Allergy status to narcotic agent; E66.01 Morbid (severe) obesity due to excess calories; Z68.41 Body mass index [BMI] 40.0-44.9, adult; Z79.82 Long term (current) use of aspirin; Z79.84 Long term (current) use of oral hypoglycemic drugs; Z79.899 Other long term (current) drug therapy

== ENCOUNTER → 2019-08-07 | Outpatient (CLI) | payer OTHER ==
--- NOTE | 2019-08-07 13:52 | REP ---
BILATERAL HIP SERIES: AP and frogleg views of the bilateral hips are performed. There is no acute fracture or dislocation bilaterally. There is fairly symmetrical to moderate joint space narrowing superiorly with subchondral sclerosis of the acetabulum as well as mild acetabular spurring. There is mild narrowing and sclerosis of the sacroiliac joints bilaterally. Mild tendinous calcifications are seen along the left greater trochanter. 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 Electronically Signed by Salo Martinez MD 08/07/2019 05:13 P
== END ==
LOC: M LAB 11:41 → M RAD 11:41
PROVIDERS: ATTEND Neurological Surgery
DX: M16.12 Unilateral primary osteoarthritis, left hip (principal); M65.252 Calcific tendinitis, left thigh; M25.752 Osteophyte, left hip

== ENCOUNTER → 2019-10-20 | Outpatient (CLI) | payer OTHER ==
[~2019-10-20] MED LIST changes: -GLIM4TAB3 PO; +GLIM4TAB5 PO
--- NOTE | 2019-10-23 02:28 | ECWPNPC ---
PATIENT NAME: ALLAN ARNETT : 1950 GENDER: MALE VISIT DATE: 10/20/2019 DISCHARGE DATE: 10/20/19 1213 VISIT LOCKED DATE TIME: PHYSICIAN: DYLAN GARCIA RESOURCE: DYLAN GARCIA REASON FOR APPOINTMENT 1. W/C-BACK HISTORY OF PRESENT ILLNESS HISTORY OF PRESENT ILLNESS: PAIN THE PATIENT DESCRIBES THE PAIN... 69-YEAR-OLD MALE IN FOR WORKER'S COMP. CHRONIC PAIN FOLLOW-UP. AT LAST CLINIC VISIT PATIENT WAS STARTED ON LYRICA 75 MG TWICE A DAY AND HE IS UNSURE IF THIS WAS HELPFUL. 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 THE PATIENT STATES HIS PAIN BEGINS IN HIS LOW BACK AND RADIATES DOWN MAINLY HIS LEFT LEG AND INTO HIS LEFT FOOT. THE PATIENT SAYS HIS PAIN IS AFFECTING HIS ABILITY TO PERFORM HIS DAILY ACTIVITIES SUCH CLEANING, GROCERY SHOPPING, WALKING, AND SLEEPING. FALL RISK SCREENING: SCREENING :NO FALLS REPORTED IN THE LAST YEAR CURRENT MEDICATIONS TAKING MULTIVITAMIN TABLET 1 TAB ORALLY DAILY TAKING ASPIR-81 81 MG TABLET DELAYED RELEASE 1 TABLET ORALLY ONCE A DAY TAKING NIFEDIPINE 60 MG TABLET EXTENDED RELEASE ORALLY DAILY TAKING OMEPRAZOLE 40 MG CAPSULE DELAYED RELEASE 1 CAPSULE ORALLY ONCE A DAY TAKING ROSUVASTATIN CALCIUM 20 MG TABLET 1 TABLET ORALLY ONCE A DAY TAKING METFORMIN HCL 1000 MG TABLET 1 TABLET WITH A MEAL ORALLY ONCE A DAY TAKING LYRICA 75 MG CAPSULE 1 CAPSULE ORALLY TWICE A DAY TAKING LOSARTAN POTASSIUM 100 MG TABLET 1 TABLET ORALLY ONCE A DAY TAKING HYDROCHLOROTHIAZIDE 25 MG TABLET 1 TABLET IN THE MORNING ORALLY ONCE A DAY NOT-TAKING LOSARTAN POTASSIUM-HCTZ 100-25 MG TABLET 1 TABLET ORALLY ONCE A DAY NOT-TAKING CELECOXIB 200 MG CAPSULE 1 CAPSULE WITH FOOD ORALLY ONCE A DAY NOT-TAKING TRULICITY 0.75 MG/0.5ML SOLUTION PEN-INJECTOR SUBCUTANEOUS NOT-TAKING METFORMIN HCL ER 500 MG TABLET EXTENDED RELEASE 24 HOUR 1 TABLET WITH EVENING MEAL ORALLY ONCE A DAY NOT-TAKING CYMBALTA 30 MG CAPSULE DELAYED RELEASE PARTICLES 1 CAPSULE ORALLY ONCE A DAY NOT-TAKING GABAPENTIN 300 MG CAPSULE 1 CAPSULE ORALLY FOR PAIN FOUR TIMES DAILY MDD4 NOT-TAKING IBUPROFEN 800 MG TABLET 1 TABLET WITH FOOD OR MILK ORALLY THREE TIMES A DAY NOT-TAKING BYDUREON 2MG/VIAL 1 INJECTION SUBCUTANEOUSLY WEEKLY NOT-TAKING DRISDOL 66157 UNIT CAPSULE 1 CAPSULE ORALLY WEEKLY NOT-TAKING LYRICA 75 MG CAPSULE 1 CAPSULE ORALLY BID MDD=2, NOTES: HAVENT STARTED YET NOT-TAKING AMITRIPTYLINE HCL 25 MG TABLET 1 TABLET ORALLY BEFORE BEDTIME, NOTES: INSURANCE WONT FILL MEDICATION LIST REVIEWED AND RECONCILED WITH THE PATIENT PAST MEDICAL HISTORY HTN DIABETIC CHRONIC LOW BACK PAIN ARTHRITIS HYPERCHOLESTEROLEMIA GOUT ALLERGIES CODEINE SULFATE: HEART RACES - ALLERGY SURGICAL HISTORY BILAT CARPAL TUNNEL RELEASE BILAT ELBOW SURGERY BILAT TRIGGER FINGER REPAIR LEFT KNEE REPLACEMENT DORSAL COLUMN STIMULATOR 08/2018 FAMILY HISTORY FATHER: , DIAGNOSED WITH DIABETES, HYPERTENSION MOTHER: SOCIAL HISTORY GENERAL: TOBACCO USE ARE YOU A:NONSMOKER PAIN CLINIC PFS, CLERGY, PUBLIC HEALTH REFERRALS PFS REFERRAL NEEDED?NO CLERGY REFERRAL NEEDED?NO PUBLIC HEALTH REFERRAL NEEDED?NO WAS THE PROVIDER NOTIFIED OF ANY PERTINENT INFO? N/A HAS THE PATIENT BEEN EDUCATED REGARDING HIS/HER PLAN OF CARE?YES HAS THE PATIENT BEEN EDUCATED REGARDING PAIN, THE RISK FOR PAIN, THE IMPORTANCE OF EFFECTIVE PAIN MANAGEMENT, AND THE PAIN ASSESSMENT PROCESS?YES LATEX QUESTIONNAIRE LATEX ALLERGY : HAVE YOU EVER DEVELOPED ANY TYPE OF REACTION AFTER HANDLING LATEX PRODUCTS SUCH RUBBER GLOVES, CONDOMS, DIAPHRAGMS, BALLOONS, SOCKS, OR UNDERWEAR?NO LATEX ALLERGY : HAVE YOU EVER DEVELOPED ANY TYPE OF REACTION DURING OR AFTER DENTAL APPOINTMENT, VAGINAL/RECTAL EXAMINATION, SURGICAL PROCEDURE, OR ANY OTHER EXPOSURE?NO DATE ASKED : 05/27/2019 LATEX RISK : HAVE YOU EVER HAD ANY DIFFICULTY BREATHING OR HIVES AFTER EATING OR HANDLING ANY FRUITS, OR VEGETABLES; SUCH KIWI, BANANAS, STONE FRUITS, OR CHESTNUTSNO LATEX RISK : DO YOU HAVE A PREVIOUS PERSONAL HISTORY OF MORE THAN NINE SURGERIES, SPINA BIFIDA, OR REPEATED CATHERIZATIONS? NO LATEX RISK : ARE YOU FREQUENTLY EXPOSED TO LATEX PRODUCTS IN YOUR OCCUPATION?NO CAFFEINE CAFFEINE USE?YES ADVANCE DIRECTIVE ADVANCE DIRECTIVE DISCUSSED WITH PATIENT:YES HCP CHANDRA JOSEGURWINDER, DAUGHTER BUDDHISM [id number] AMISH NO HINDU BELIEFS THAT WOULD IMPACT HEALTH CARE. LANGUAGE LANGUAGES SPOKEN:JAPANESE DOMESTIC VIOLENCE DO YOU FEEL SAFE IN YOUR ENVIRONMENT?YES ALCOHOL SCREENING DID YOU HAVE A DRINK CONTAINING ALCOHOL IN THE PAST YEAR?YES HOW OFTEN DID YOU HAVE SIX OR MORE DRINKS ON ONE OCCASION IN THE PAST YEAR?WEEKLY (3 POINTS) HOW MANY DRINKS DID YOU HAVE ON A TYPICAL DAY WHEN YOU WERE DRINKING IN THE PAST YEAR?7 TO 9 (3 POINTS) HOW OFTEN DID YOU HAVE A DRINK CONTAINING ALCOHOL IN THE PAST YEAR?TWO TO FOUR TIMES A MONTH (2 POINTS) POINTS8 INTERPRETATIONPOSITIVE LEARNING BARRIERS / SPECIAL NEEDS BARRIERS TO LEARNING?NO HEARING IMPAIRED?NO VISION IMPAIRED?YES COGNITIVELY IMPAIRED?NO :CORRECTIVE LENSES READINESS TO LEARN?YES LEARNING PREFERENCES?YES :TAPES/VIDEOS LEARNING CAPABILITIES PRESENT?YES EMOTIONAL BARRIERS?NO SPECIAL DEVICES?NO FURNITURE REFINISHER NEEDED?NO REVIEWED WITH PATIENT 08/07/19 1041 BVREVIEWED WITH PT 06/06/18 1106 BVREVIEWED WITH PT 10/28/18 1313 BVREVIEWED WITH PT 12/19/18 1055 LAS05/27/19 1331 REVIEWED WITH PT. AD REVIEWED WITH PATIENT 06/10/19 1027 NLJ. HOSPITALIZATION/MAJOR DIAGNOSTIC PROCEDURE SURGERIES REVIEW OF SYSTEMS REVIEWED BY: PROVIDER: DHAVAL VALDERRAMA . CONSTITUTIONAL: ANY CHANGE IN YOUR MEDICAL CONDITION? NO . CHILLS NO . FEVER NO . INFECTION: DO YOU HAVE NEW INFECTIONS? YES . DO YOU HAVE HISTORY OF MRSA? NO . MUSCULOSKELETAL: ANY NEW PATTERNS OF PAIN OR NUMBNESS? NO . GASTROENTEROLOGY: ANY NEW CHANGE IN BOWEL CONTROL? NO . GENITOURINARY: ANY NEW CHANGE IN BLADDER CONTROL? NO . IS THERE A CHANCE YOU COULD BE ? NO . HEMATOLOGY/LYMPH: DO YOU TAKE ANY BLOOD THINNERS? (FOR EXAMPLE- COUMADIN, PLAVIX, AGGRENOX, PLATEL, PRADAXA, OR XARELTO) NO . WHEN WAS YOUR LAST DOSE? DATE: TIME: . NEUROLOGY: HAVE YOU FALLEN IN THE PAST 12 MONTHS? NO . ANY NEW EXTREMITY NUMBNESS OR WEAKNESS? NO . CARDIOLOGY: DO YOU HAVE A PACEMAKER OR DEFIBRILLATOR? NO . RESPIRATORY: HAVE YOU BEEN SICK IN THE PAST WEEK? NO . FEVER NO . FLU LIKE SYMPTOMS? NO . COUGH NO . INTEGUMENTARY: DO YOU HAVE ANY RASHES OR OPEN SORES? NO . ALLERGIC/IMMUNO: ARE YOU ALLERGIC TO IV DYE? NO . ANY NEW ALLERGIES? NO . PSYCHIATRIC: DO YOU HAVE THOUGHTS OF HURTING YOURSELF OR SOMEONE ELSE? NO . ARE YOU ABUSED, NEGLECTED, OR IN AN UNSAFE ENVIRONMENT? NO . ENDOCRINOLOGY: ARE YOU DIABETIC? YES . OTHER: DO YOU NEED ANY PRESCRIPTIONS? YES . IF YES, PLEASE LIST: ____ . ANY NEW PROBLEMS WITH YOUR MEDICATIONS? NO . WHEN DID YOU LAST EAT? ____ . WHEN DID YOU LAST DRINK? ____ . WHAT DID YOU LAST DRINK? ____ . NAME OF PERSON DRIVING YOU HOME? ____ . DO YOU HAVE ANY OTHER QUESTIONS OR CONCERNS NO . VITAL SIGNS WT 280.2 LBS, HT 69 IN, BMI 41.37 INDEX, BP 129/77 MM HG, HR 97 /MIN, RR 18 /MIN, TEMP 97.1 F, OXYGEN SAT % 94, REVIEWED BY: LS. EXAMINATION GENERAL EXAMINATION: GENERALNO ACUTE DISTRESS, WELL NOURISHED AND HYDRATED. PSYCHAPPROPRIATE MOOD AND AFFECT . LUNGS:CLEAR TO AUSCULTATION BILATERALLY, NO WHEEZES, RHONCHI, RALES. HEART:NO MURMURS, REGULAR RATE AND RHYTHM. ASSESSMENTS INTERVERTEBRAL DISC DISORDER WITH RADICULOPATHY OF LUMBAR REGION - M51.16 (PRIMARY) TREATMENT INTERVERTEBRAL DISC DISORDER WITH RADICULOPATHY OF LUMBAR REGION INCREASE LYRICA CAPSULE, 150 MG, 1 CAPSULE, ORALLY, TWICE A DAY, 30 DAYS, 60 CLINICAL NOTES: 69-YEAR-OLD MALE IN FOR WORKER'S COMP. CHRONIC PAIN FOLLOW-UP. GIVEN PRESENTING SYMPTOMS AND RESULTS OF PHYSICAL EXAMINATION RECOMMENDED INCREASING LYRICA 150 MG TWICE A DAY WITH FOLLOW-UP IN 2 MONTHS TO DETERMINE EFFICACY OF TREATMENT. PATIENT HAS EXPRESSED UNDERSTANDING OF AND WAS IN AGREEMENT WITH TREATMENT PLAN. GIVEN TIME TO ASK QUESTIONS AND EXPRESS CONCERNS., ISTOP REGISTRY REVIEWED AND DEMONSTRATES COMPLLIANCE. (REF # [id number] ) BRINGS IN MEDICATIONS WHICH IS APPROPRIATE FOR WHAT WAS DISPENSED. RECENT URINE TOXICOLOGY REVIEWED. NO UNAUTHORIZED MEDICATIONS. NO ILLICIT SUBSTANCES AND PRESCRIBED MEDICATIONS WERE PRESENT. PROCEDURES PN WORKMANS' COMP OPINION IN YOUR OPINION, WAS THE INCIDENT THAT THE PATIENT DESCRIBED THE COMPETENT MEDICAL CAUSE OF THIS INJURY/ILLNESS? YES ARE THE PATIENT'S COMPLAINTS CONSISTENT WITH HIS/HER HISTORY OF THE INJURY/ILLNESS? YES IS THE PATIENT'S HISTORY OF THE INJURY/ILLNESS CONSISTENT WITH YOUR OBJECTIVE FINDING? YES WHAT IS THE PERCENTAGE OF TEMPORARY IMPAIRMENT? TOTAL = 100% IS THE PATIENT WORKING? NO DOCTOR ON SITE: MATTIE HERNANDEZ MD PROCEDURE CODES FA211 ESTABILISHED PATIENT [facility] CHARGE DISPOSITION & COMMUNICATION FOLLOW UP 2 MONTHS (REASON: BACK PAIN) ELECTRONICALLY SIGNED BY JOVITA XAVIER ON 10/22/2019 AT 01:23 PM EST DISCLAIMER : THIS IS A VISIT SUMMARY EXTRACTED FROM THE [employer] CHART. IT IS NOT A COPY OF THE [employer] PROGRESS NOTE. JL
== END ==
LOC: M PAIN 11:00
PROVIDERS: ATTEND Family Medicine
DX: M51.16 Intervertebral disc disorders with radiculopathy, lumbar region (principal); G89.29 Other chronic pain; I10 Essential (primary) hypertension; E11.9 Type 2 diabetes mellitus without complications; Z96.652 Presence of left artificial knee joint; Z88.5 Allergy status to narcotic agent; E66.01 Morbid (severe) obesity due to excess calories; Z68.41 Body mass index [BMI] 40.0-44.9, adult; Z79.82 Long term (current) use of aspirin; Z79.84 Long term (current) use of oral hypoglycemic drugs; Z79.899 Other long term (current) drug therapy

== ENCOUNTER → 2019-12-29 | Outpatient (CLI) | payer OTHER ==
--- NOTE | 2019-12-31 04:49 | ECWPNPC ---
PATIENT NAME: ALLAN ARNETT : 1950 GENDER: MALE VISIT DATE: 12/29/2019 DISCHARGE DATE: 12/29/19 1120 VISIT LOCKED DATE TIME: PHYSICIAN: DYLAN GARCIA RESOURCE: DYLAN GARCIA REASON FOR APPOINTMENT 1. 2 MONTH HISTORY OF PRESENT ILLNESS HISTORY OF PRESENT ILLNESS: PAIN THE PATIENT DESCRIBES THE PAIN... PERMISSION REQUESTED AND RECEIVED FROM PATIENT TO PERFORM TELEPHONE VISIT. 69-YEAR-OLD MALE IN FOR CHRONIC PAIN FOLLOW-UP. AT LAST CLINIC VISIT HIS LYRICA WAS INCREASED AND HE ADMITS TODAY THAT THIS IS BEEN INEFFECTIVE IN MANAGING HIS PAIN SYMPTOMS. HE RATES HIS PAIN CURRENTLY AT A 7-8 OUT OF 10 AND DESCRIBES IT CONSTANT AND SHOOTING. 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 THE PATIENT STATES HIS PAIN BEGINS IN HIS LOW BACK AND RADIATES DOWN MAINLY HIS LEFT LEG AND INTO HIS LEFT FOOT. THE PATIENT SAYS HIS PAIN IS AFFECTING HIS ABILITY TO PERFORM HIS DAILY ACTIVITIES SUCH CLEANING, GROCERY SHOPPING, WALKING, AND SLEEPING. FALL RISK SCREENING: SCREENING :NO FALLS REPORTED IN THE LAST YEAR CURRENT MEDICATIONS TAKING MULTIVITAMIN TABLET 1 TAB ORALLY DAILY TAKING ASPIR-81 81 MG TABLET DELAYED RELEASE 1 TABLET ORALLY ONCE A DAY TAKING NIFEDIPINE 60 MG TABLET EXTENDED RELEASE ORALLY DAILY TAKING OMEPRAZOLE 40 MG CAPSULE DELAYED RELEASE 1 CAPSULE ORALLY ONCE A DAY TAKING ROSUVASTATIN CALCIUM 20 MG TABLET 1 TABLET ORALLY ONCE A DAY TAKING METFORMIN HCL 1000 MG TABLET 1 TABLET WITH A MEAL ORALLY ONCE A DAY TAKING LOSARTAN POTASSIUM 100 MG TABLET 1 TABLET ORALLY ONCE A DAY TAKING HYDROCHLOROTHIAZIDE 25 MG TABLET 1 TABLET IN THE MORNING ORALLY ONCE A DAY TAKING LYRICA 150 MG CAPSULE 1 CAPSULE ORALLY TWICE A DAY TAKING ALLOPURINOL 100 MG TABLET 1 TABLET ORALLY ONCE A DAY TAKING FARXIGA 10 MG TABLET 1 TABLET ORALLY ONCE A DAY TAKING COLCHICINE 0.6 MG TABLET 1 TABLET ORALLY ONCE A DAY, NOTES: 3 MORE PILLS NOT-TAKING LOSARTAN POTASSIUM-HCTZ 100-25 MG TABLET 1 TABLET ORALLY ONCE A DAY NOT-TAKING CELECOXIB 200 MG CAPSULE 1 CAPSULE WITH FOOD ORALLY ONCE A DAY NOT-TAKING TRULICITY 0.75 MG/0.5ML SOLUTION PEN-INJECTOR SUBCUTANEOUS NOT-TAKING METFORMIN HCL ER 500 MG TABLET EXTENDED RELEASE 24 HOUR 1 TABLET WITH EVENING MEAL ORALLY ONCE A DAY NOT-TAKING CYMBALTA 30 MG CAPSULE DELAYED RELEASE PARTICLES 1 CAPSULE ORALLY ONCE A DAY NOT-TAKING GABAPENTIN 300 MG CAPSULE 1 CAPSULE ORALLY FOR PAIN FOUR TIMES DAILY MDD4 NOT-TAKING IBUPROFEN 800 MG TABLET 1 TABLET WITH FOOD OR MILK ORALLY THREE TIMES A DAY NOT-TAKING BYDUREON 2MG/VIAL 1 INJECTION SUBCUTANEOUSLY WEEKLY NOT-TAKING DRISDOL 73407 UNIT CAPSULE 1 CAPSULE ORALLY WEEKLY NOT-TAKING LYRICA 75 MG CAPSULE 1 CAPSULE ORALLY BID MDD=2, NOTES: HAVENT STARTED YET NOT-TAKING AMITRIPTYLINE HCL 25 MG TABLET 1 TABLET ORALLY BEFORE BEDTIME, NOTES: INSURANCE WONT FILL MEDICATION LIST REVIEWED AND RECONCILED WITH THE PATIENT PAST MEDICAL HISTORY HTN DIABETIC CHRONIC LOW BACK PAIN ARTHRITIS HYPERCHOLESTEROLEMIA GOUT ALLERGIES CODEINE SULFATE: HEART RACES - ALLERGY SURGICAL HISTORY BILAT CARPAL TUNNEL RELEASE BILAT ELBOW SURGERY BILAT TRIGGER FINGER REPAIR LEFT KNEE REPLACEMENT DORSAL COLUMN STIMULATOR 08/2018 FAMILY HISTORY FATHER: , DIAGNOSED WITH HYPERTENSION, DIABETES MOTHER: SOCIAL HISTORY GENERAL: TOBACCO USE ARE YOU A:NONSMOKER LATEX QUESTIONNAIRE LATEX ALLERGY : HAVE YOU EVER DEVELOPED ANY TYPE OF REACTION AFTER HANDLING LATEX PRODUCTS SUCH RUBBER GLOVES, CONDOMS, DIAPHRAGMS, BALLOONS, SOCKS, OR UNDERWEAR?NO LATEX ALLERGY : HAVE YOU EVER DEVELOPED ANY TYPE OF REACTION DURING OR AFTER DENTAL APPOINTMENT, VAGINAL/RECTAL EXAMINATION, SURGICAL PROCEDURE, OR ANY OTHER EXPOSURE?NO LATEX RISK : HAVE YOU EVER HAD ANY DIFFICULTY BREATHING OR HIVES AFTER EATING OR HANDLING ANY FRUITS, OR VEGETABLES; SUCH KIWI, BANANAS, STONE FRUITS, OR CHESTNUTSNO LATEX RISK : DO YOU HAVE A PREVIOUS PERSONAL HISTORY OF MORE THAN NINE SURGERIES, SPINA BIFIDA, OR REPEATED CATHERIZATIONS? NO LATEX RISK : ARE YOU FREQUENTLY EXPOSED TO LATEX PRODUCTS IN YOUR OCCUPATION?NO DATE ASKED : 12/26/2019 ALCOHOL SCREENING DID YOU HAVE A DRINK CONTAINING ALCOHOL IN THE PAST YEAR?YES HOW OFTEN DID YOU HAVE SIX OR MORE DRINKS ON ONE OCCASION IN THE PAST YEAR?WEEKLY (3 POINTS) HOW MANY DRINKS DID YOU HAVE ON A TYPICAL DAY WHEN YOU WERE DRINKING IN THE PAST YEAR?7 TO 9 (3 POINTS) HOW OFTEN DID YOU HAVE A DRINK CONTAINING ALCOHOL IN THE PAST YEAR?TWO TO FOUR TIMES A MONTH (2 POINTS) POINTS8 INTERPRETATIONPOSITIVE RECREATIONAL DRUG USE DRUG USE?NO CAFFEINE CAFFEINE USE?YES ORTHODOX [id number] DRUZE NO SABIANISM BELIEFS THAT WOULD IMPACT HEALTH CARE. LANGUAGE LANGUAGES SPOKEN:PORTUGUESE LEARNING BARRIERS / SPECIAL NEEDS BARRIERS TO LEARNING?NO HEARING IMPAIRED?NO VISION IMPAIRED?YES COGNITIVELY IMPAIRED?NO :CORRECTIVE LENSES READINESS TO LEARN?YES LEARNING PREFERENCES?YES :TAPES/VIDEOS LEARNING CAPABILITIES PRESENT?YES EMOTIONAL BARRIERS?NO SPECIAL DEVICES?NO SENIOR POWER SCHEDULER NEEDED?NO DOMESTIC VIOLENCE DO YOU FEEL SAFE IN YOUR ENVIRONMENT?YES NEW PATIENT PAIN DIARY TODAY'S VISITNOTES 12/26/2019 PATIENT DESCRIBES PAIN :ACHING, HAVE IT ALL THE TIME, SORE FROM 0-10, WHAT LEVEL IS YOUR PAIN TODAY?6 PAIN CLINIC PFS, CLERGY, PUBLIC HEALTH REFERRALS PFS REFERRAL NEEDED?NO CLERGY REFERRAL NEEDED?NO PUBLIC HEALTH REFERRAL NEEDED?NO WAS THE PROVIDER NOTIFIED OF ANY PERTINENT INFO? N/A HAS THE PATIENT BEEN EDUCATED REGARDING HIS/HER PLAN OF CARE?YES HAS THE PATIENT BEEN EDUCATED REGARDING PAIN, THE RISK FOR PAIN, THE IMPORTANCE OF EFFECTIVE PAIN MANAGEMENT, AND THE PAIN ASSESSMENT PROCESS?YES ADVANCE DIRECTIVE ADVANCE DIRECTIVE DISCUSSED WITH PATIENT:YES HCP CHANDRA GOTTI, DAUGHTER HOSPITALIZATION/MAJOR DIAGNOSTIC PROCEDURE SURGERIES REVIEW OF SYSTEMS REVIEWED BY: PROVIDER: DHAVAL GARCIA DIRECTOR OF LABOR RELATIONS-C . CONSTITUTIONAL: ANY CHANGE IN YOUR MEDICAL CONDITION? NO . CHILLS NO . FEVER NO . INFECTION: DO YOU HAVE NEW INFECTIONS? NO . DO YOU HAVE HISTORY OF MRSA? NO . MUSCULOSKELETAL: ANY NEW PATTERNS OF PAIN OR NUMBNESS? NO . GASTROENTEROLOGY: ANY NEW CHANGE IN BOWEL CONTROL? NO . GENITOURINARY: ANY NEW CHANGE IN BLADDER CONTROL? NO . IS THERE A CHANCE YOU COULD BE ? NO . HEMATOLOGY/LYMPH: DO YOU TAKE ANY BLOOD THINNERS? (FOR EXAMPLE- COUMADIN, PLAVIX, AGGRENOX, PLATEL, PRADAXA, OR XARELTO) NO . WHEN WAS YOUR LAST DOSE? DATE: TIME: . NEUROLOGY: HAVE YOU FALLEN IN THE PAST 12 MONTHS? NO . ANY NEW EXTREMITY NUMBNESS OR WEAKNESS? NO . CARDIOLOGY: DO YOU HAVE A PACEMAKER OR DEFIBRILLATOR? NO, [facility] . RESPIRATORY: HAVE YOU BEEN SICK IN THE PAST WEEK? YES, STATES A COLD AND SOME DIARRHEA RECENTLY . FEVER NO . FLU LIKE SYMPTOMS? NO . COUGH NO . INTEGUMENTARY: DO YOU HAVE ANY RASHES OR OPEN SORES? NO . ALLERGIC/IMMUNO: ARE YOU ALLERGIC TO IV DYE? NO . ANY NEW ALLERGIES? NO . PSYCHIATRIC: DO YOU HAVE THOUGHTS OF HURTING YOURSELF OR SOMEONE ELSE? NO . ARE YOU ABUSED, NEGLECTED, OR IN AN UNSAFE ENVIRONMENT? NO . ENDOCRINOLOGY: ARE YOU DIABETIC? YES . OTHER: DO YOU NEED ANY PRESCRIPTIONS? YES . IF YES, PLEASE LIST: ____LYRICA . ANY NEW PROBLEMS WITH YOUR MEDICATIONS? YES, DOES NOT FEEL LIKE THE LYRICA IS REALLY HELPING . WHEN DID YOU LAST EAT? ____ . WHEN DID YOU LAST DRINK? ____ . WHAT DID YOU LAST DRINK? ____ . NAME OF PERSON DRIVING YOU HOME? ____ . DO YOU HAVE ANY OTHER QUESTIONS OR CONCERNS YES, WOULD LIKE TO DISCUSS AN INJECTION THAT HIS OTHER DOCTOR WOULD LIKE HIM TO TRY BUT HE IS UNSURE OF THE NAME OF THAT INJECTION. ALSO STATED THAT YOU HAD DISCUSSED A PATCH WITH HIM AT ONE POINT AND THAT HE SAID HE DIDN'T REALLY WANT TO TRY IT BUT IS POSSIBLY WILLING TO TRY IT NOW . EXAMINATION GENERAL EXAMINATION: PSYCHAPPROPRIATE MOOD AND AFFECT , ORIENTED X 3. ASSESSMENTS INTERVERTEBRAL DISC DISORDER WITH RADICULOPATHY OF LUMBOSACRAL REGION - M51.17 (PRIMARY) TREATMENT INTERVERTEBRAL DISC DISORDER WITH RADICULOPATHY OF LUMBOSACRAL REGION START BUTRANS PATCH WEEKLY, 5 MCG/HR, 1 PATCH TO SKIN, TRANSDERMAL, WEEKLY, 30 DAYS, 4 REFILL LYRICA CAPSULE, 150 MG, 1 CAPSULE, ORALLY, TWICE A DAY, 30 DAYS, 60 CLINICAL NOTES: 69-YEAR-OLD MALE IN FOR CHRONIC PAIN FOLLOW-UP. GIVEN PRESENTING SYMPTOMS RECOMMEND STARTING BUTRANS PATCH WITH FOLLOW-UP IN CLINIC IN ONE MONTH TO DISCUSS EFFICACY OF TREATMENT. NARCOTIC AGREEMENT AND U TOX TO BE COLLECTED AT THAT VISIT. PATIENT HAS EXPRESSED UNDERSTANDING OF AND WAS IN AGREEMENT WITH TREATMENT PLAN. GIVEN TIME TO ASK QUESTIONS AND EXPRESS CONCERNS. , ISTOP REGISTRY REVIEWED AND DEMONSTRATES COMPLLIANCE. (REF # [id number] ) BRINGS IN MEDICATIONS WHICH IS APPROPRIATE FOR WHAT WAS DISPENSED. RISKS OF NARCOTIC/OPIOD MEDICATIONS INCLUDES BUT IS NOT LIMITED TO RISK OF DEPENDANCE/DEVELOPMENT OF ADDICTION, MOOD DISTURBANCE AND DEPRESSION, OSTEOPOROSIS, HORMONAL AND LABIDAL CHANGES, RESPIRATORY DEPRESSION AND . PATIENT IS ADVISED NOT TO DRIVE OR DRINK ALCOHOL WHILE ON THESE MEDICATIONS, VISIT TO BE BILLED BASED ON TIME SPENT WITH PATIENT. TIME SPENT WITH PATIENT 11 MINUTES . OTHERS NOTES: NO VITALS OBTAINED DUE TO VIRTUAL VISIT. PRE-SCREENING COMPLETED 12/26/2019 7674 JS. PROCEDURES PN WORKMANS' COMP OPINION IN YOUR OPINION, WAS THE INCIDENT THAT THE PATIENT DESCRIBED THE COMPETENT MEDICAL CAUSE OF THIS INJURY/ILLNESS? YES ARE THE PATIENT'S COMPLAINTS CONSISTENT WITH HIS/HER HISTORY OF THE INJURY/ILLNESS? YES IS THE PATIENT'S HISTORY OF THE INJURY/ILLNESS CONSISTENT WITH YOUR OBJECTIVE FINDING? YES WHAT IS THE PERCENTAGE OF TEMPORARY IMPAIRMENT? TOTAL = 100% IS THE PATIENT WORKING? NO DOCTOR ON SITE: MATTIE HERNANDEZ MD DISPOSITION & COMMUNICATION FOLLOW UP 4 WEEKS (REASON: IN CLINIC MEDICATION) ELECTRONICALLY SIGNED BY JOVITA XAVIER ON 12/30/2019 AT 08:32 AM EDT DISCLAIMER : THIS IS A VISIT SUMMARY EXTRACTED FROM THE [employer] CHART. IT IS NOT A COPY OF THE [employer] PROGRESS NOTE. JL
== END ==
LOC: M PAIN 10:30
PROVIDERS: ATTEND Family Medicine
DX: M51.17 Intervertebral disc disorders with radiculopathy, lumbosacral region (principal); G89.29 Other chronic pain; I10 Essential (primary) hypertension; E11.9 Type 2 diabetes mellitus without complications; Z96.652 Presence of left artificial knee joint; Z88.5 Allergy status to narcotic agent; Z79.82 Long term (current) use of aspirin; Z79.84 Long term (current) use of oral hypoglycemic drugs; Z79.899 Other long term (current) drug therapy

== ENCOUNTER → 2020-01-26 | Outpatient (CLI) | payer OTHER ==
--- NOTE | 2020-01-28 02:42 | ECWPNPC ---
PATIENT NAME: ALLAN ARNETT : 1950 GENDER: MALE VISIT DATE: 01/26/2020 DISCHARGE DATE: 01/26/20 1134 VISIT LOCKED DATE TIME: PHYSICIAN: DYLAN GARCIA RESOURCE: DYLAN GARCIA REASON FOR APPOINTMENT 1. 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 CHRONIC PAIN FOLLOW-UP. HE RATES PAIN CURRENTLY AT A 7 OUT OF 10 AND DESCRIBES IT ACHING, BURNING, AND CONTINUOUS. PATIENT WAS STARTED ON BUTRANS PATCH AT LAST CLINIC VISIT AND AT IT'S CURRENT DOSAGE PATIENT STATES IT HAS BEEN INEFFECTIVE. PAIN SCREENING: PATIENT HAS A COMPLAINT OF ACUTE OR CHRONIC PAIN :YES LOCATION OF PAIN:LOW BACK, LEG(S) LEFT LEG INTENSITY OF PAIN (SCALE OF 1 TO 10):7 WHAT DOES YOUR PAIN FEEL LIKE:ACHING, BURNING, CONTINOUS DURATION:CONTINOUS, CONSTANT, ALL DAY PAIN IS INCREASED BY:ACTIVITIES, PROLONGED STANDING PAIN IS DECREASED BY:USE OF PAIN MEDICATIONS, SITTING PAIN HAS INTERFERED WITH THE FOLLOWING:MOOD, WALKING ABILITY, HOUSEWORK, RELATIONSHIP WITH OTHERS, ENJOYMENT OF LIFE PLAN/GOALS/TREATMENT/INTERVENTION/FOLLOW UP:SEE PLAN FALL RISK SCREENING: SCREENING :NO FALLS REPORTED IN THE LAST YEAR DEPRESSION SCREENING: PHQ-2 (2015 EDITION) LITTLE INTEREST OR PLEASURE IN DOING THINGS?NOT AT ALL FEELING DOWN, DEPRESSED, OR HOPELESS?NOT AT ALL TOTAL SCORE0 NURSING NOTE: PT. C/O BUTRANS PATCH NOT HITTING THE PAIN. PAIN CENTER INTAKE QUESTIONS: DO YOU HAVE A HISTORY OF MRSA? :NO DO YOU TAKE A BLOOD THINNERS? :NO DO YOU HAVE ANY BLEEDING DISORDERS? :NO ANY NEW NUMBNESS OR WEAKNESS IN YOUR LEGS OR ARMS? :YES BOTH LEGS ANY PACEMAKER,DEFIBRILLATOR, OR DORSAL COLUMN STIMULATOR? :NO DO YOU HAVE ANY RASHES OR OPEN SORES? :NO ARE YOU ALLERGIC TO IV DYE? :NO ARE YOU DIABETIC? :YES ANY NEW PROBLEMS WITH YOUR MEDICATIONS? :NO HAVE YOU RECEIVED A VACCINE IN THE PAST 30 DAYS? :NO DO YOU PLAN TO RECEIVE A VACCINE IN THE NEXT 21 DAYS? :NO DO YOU NEED ANY PRESCRIPTION? :NO DO YOU TAKE ANY IMMUNOSUPPRESSIVE MEDICATIONS? :NO CURRENT MEDICATIONS TAKING MULTIVITAMIN TABLET 1 TAB ORALLY DAILY TAKING ASPIR-81 81 MG TABLET DELAYED RELEASE 1 TABLET ORALLY ONCE A DAY TAKING NIFEDIPINE 60 MG TABLET EXTENDED RELEASE ORALLY DAILY TAKING OMEPRAZOLE 40 MG CAPSULE DELAYED RELEASE 1 CAPSULE ORALLY ONCE A DAY TAKING ROSUVASTATIN CALCIUM 20 MG TABLET 1 TABLET ORALLY ONCE A DAY TAKING METFORMIN HCL 1000 MG TABLET 1 TABLET WITH A MEAL ORALLY ONCE A DAY TAKING LOSARTAN POTASSIUM 100 MG TABLET 1 TABLET ORALLY ONCE A DAY TAKING HYDROCHLOROTHIAZIDE 25 MG TABLET 1 TABLET IN THE MORNING ORALLY ONCE A DAY TAKING ALLOPURINOL 100 MG TABLET 1 TABLET ORALLY ONCE A DAY TAKING FARXIGA 10 MG TABLET 1 TABLET ORALLY ONCE A DAY TAKING COLCHICINE 0.6 MG TABLET 1 TABLET ORALLY ONCE A DAY, NOTES: 3 MORE PILLS TAKING BUTRANS 5 MCG/HR PATCH WEEKLY 1 PATCH TO SKIN TRANSDERMAL WEEKLY TAKING LYRICA 150 MG CAPSULE 1 CAPSULE ORALLY TWICE A DAY NOT-TAKING LOSARTAN POTASSIUM-HCTZ 100-25 MG TABLET 1 TABLET ORALLY ONCE A DAY NOT-TAKING CELECOXIB 200 MG CAPSULE 1 CAPSULE WITH FOOD ORALLY ONCE A DAY NOT-TAKING TRULICITY 0.75 MG/0.5ML SOLUTION PEN-INJECTOR SUBCUTANEOUS NOT-TAKING METFORMIN HCL ER 500 MG TABLET EXTENDED RELEASE 24 HOUR 1 TABLET WITH EVENING MEAL ORALLY ONCE A DAY NOT-TAKING CYMBALTA 30 MG CAPSULE DELAYED RELEASE PARTICLES 1 CAPSULE ORALLY ONCE A DAY NOT-TAKING GABAPENTIN 300 MG CAPSULE 1 CAPSULE ORALLY FOR PAIN FOUR TIMES DAILY MDD4 NOT-TAKING IBUPROFEN 800 MG TABLET 1 TABLET WITH FOOD OR MILK ORALLY THREE TIMES A DAY NOT-TAKING BYDUREON 2MG/VIAL 1 INJECTION SUBCUTANEOUSLY WEEKLY NOT-TAKING DRISDOL 26212 UNIT CAPSULE 1 CAPSULE ORALLY WEEKLY NOT-TAKING LYRICA 75 MG CAPSULE 1 CAPSULE ORALLY BID MDD=2, NOTES: HAVENT STARTED YET NOT-TAKING AMITRIPTYLINE HCL 25 MG TABLET 1 TABLET ORALLY BEFORE BEDTIME, NOTES: INSURANCE WONT FILL MEDICATION LIST REVIEWED AND RECONCILED WITH THE PATIENT PAST MEDICAL HISTORY HTN DIABETIC CHRONIC LOW BACK PAIN ARTHRITIS HYPERCHOLESTEROLEMIA GOUT ALLERGIES CODEINE SULFATE: HEART RACES - ALLERGY SURGICAL HISTORY BILAT CARPAL TUNNEL RELEASE BILAT ELBOW SURGERY BILAT TRIGGER FINGER REPAIR LEFT KNEE REPLACEMENT DORSAL COLUMN STIMULATOR 08/2018 FAMILY HISTORY FATHER: , DIAGNOSED WITH DIABETES, HYPERTENSION MOTHER: SOCIAL HISTORY GENERAL: TOBACCO USE ARE YOU A:NONSMOKER LATEX QUESTIONNAIRE LATEX ALLERGY : HAVE YOU EVER DEVELOPED ANY TYPE OF REACTION AFTER HANDLING LATEX PRODUCTS SUCH RUBBER GLOVES, CONDOMS, DIAPHRAGMS, BALLOONS, SOCKS, OR UNDERWEAR?NO LATEX ALLERGY : HAVE YOU EVER DEVELOPED ANY TYPE OF REACTION DURING OR AFTER DENTAL APPOINTMENT, VAGINAL/RECTAL EXAMINATION, SURGICAL PROCEDURE, OR ANY OTHER EXPOSURE?NO LATEX RISK : HAVE YOU EVER HAD ANY DIFFICULTY BREATHING OR HIVES AFTER EATING OR HANDLING ANY FRUITS, OR VEGETABLES; SUCH KIWI, BANANAS, STONE FRUITS, OR CHESTNUTSNO LATEX RISK : DO YOU HAVE A PREVIOUS PERSONAL HISTORY OF MORE THAN NINE SURGERIES, SPINA BIFIDA, OR REPEATED CATHERIZATIONS? NO LATEX RISK : ARE YOU FREQUENTLY EXPOSED TO LATEX PRODUCTS IN YOUR OCCUPATION?NO DATE ASKED : 01/23/2020 ALCOHOL SCREENING DID YOU HAVE A DRINK CONTAINING ALCOHOL IN THE PAST YEAR?YES HOW OFTEN DID YOU HAVE SIX OR MORE DRINKS ON ONE OCCASION IN THE PAST YEAR?WEEKLY (3 POINTS) HOW MANY DRINKS DID YOU HAVE ON A TYPICAL DAY WHEN YOU WERE DRINKING IN THE PAST YEAR?7 TO 9 (3 POINTS) HOW OFTEN DID YOU HAVE A DRINK CONTAINING ALCOHOL IN THE PAST YEAR?TWO TO FOUR TIMES A MONTH (2 POINTS) POINTS8 INTERPRETATIONPOSITIVE RECREATIONAL DRUG USE DRUG USE?NO CAFFEINE CAFFEINE USE?YES BUDDHISM [id number] TAOISM NO NONDENOMINATIONAL BELIEFS THAT WOULD IMPACT HEALTH CARE. LANGUAGE LANGUAGES SPOKEN:EAST TIMORESE LEARNING BARRIERS / SPECIAL NEEDS BARRIERS TO LEARNING?NO HEARING IMPAIRED?NO VISION IMPAIRED?YES :CORRECTIVE LENSES COGNITIVELY IMPAIRED?NO READINESS TO LEARN?YES LEARNING PREFERENCES?YES :TAPES/VIDEOS LEARNING CAPABILITIES PRESENT?YES EMOTIONAL BARRIERS?NO SPECIAL DEVICES?NO LEPIDOPTERIST NEEDED?NO DOMESTIC VIOLENCE DO YOU FEEL SAFE IN YOUR ENVIRONMENT?YES NEW PATIENT PAIN DIARY TODAY'S VISITNOTES PATIENT DESCRIBES PAIN :ACHING, HAVE IT ALL THE TIME, SORE FROM 0-10, WHAT LEVEL IS YOUR PAIN TODAY?6 PAIN CLINIC PFS, CLERGY, PUBLIC HEALTH REFERRALS PFS REFERRAL NEEDED?NO CLERGY REFERRAL NEEDED?NO PUBLIC HEALTH REFERRAL NEEDED?NO WAS THE PROVIDER NOTIFIED OF ANY PERTINENT INFO? N/A HAS THE PATIENT BEEN EDUCATED REGARDING HIS/HER PLAN OF CARE?YES HAS THE PATIENT BEEN EDUCATED REGARDING PAIN, THE RISK FOR PAIN, THE IMPORTANCE OF EFFECTIVE PAIN MANAGEMENT, AND THE PAIN ASSESSMENT PROCESS?YES ADVANCE DIRECTIVE ADVANCE DIRECTIVE DISCUSSED WITH PATIENT:YES HCP CHANDRA GOTTI, DAUGHTER HOSPITALIZATION/MAJOR DIAGNOSTIC PROCEDURE SURGERIES REVIEW OF SYSTEMS CONSTITUTIONAL: ANY RECENT FEVER OR ILLNESS NO . CHILLS NO . GASTROENTEROLOGY: BOWEL INCONTINENCE NO . ANY NEW CHANGE IN BOWEL CONTROL? NO . ABDOMINAL PAIN NO . CONSTIPATION NO . GENITOURINARY: ANY NEW CHANGE IN BLADDER CONTROL? NO . URINARY INCONTINENCE NO . CARDIOLOGY: CHEST PRESSURE NO . CHEST PAIN NO . RESPIRATORY: COUGH NO . SHORTNESS OF BREATH NO . VITAL SIGNS WT 260.2 LBS, HT 69 IN, BMI 38.42 INDEX, BP 127/88 MM HG, HR 93 /MIN, RR 18 /MIN, TEMP 97.4 F, OXYGEN SAT % 94%, SAFE IN ENV? 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 EXAMINATION GENERAL EXAMINATION: GENERALNO ACUTE DISTRESS, WELL NOURISHED AND HYDRATED. PSYCHAPPROPRIATE MOOD AND AFFECT . LUNGS:CLEAR TO AUSCULTATION BILATERALLY, NO WHEEZES, RHONCHI, RALES. HEART:NO MURMURS, REGULAR RATE AND RHYTHM. ASSESSMENTS INTERVERTEBRAL DISC DISORDER WITH RADICULOPATHY OF LUMBOSACRAL REGION - M51.17 (PRIMARY) TREATMENT INTERVERTEBRAL DISC DISORDER WITH RADICULOPATHY OF LUMBOSACRAL REGION INCREASE LYRICA CAPSULE, 150 MG, 1 CAPSULE, ORALLY, THREE TIMES DAILY, 30 DAYS, 90 INCREASE BUTRANS PATCH WEEKLY, 10 MCG/HR, 1 PATCH TO SKIN, TRANSDERMAL, WEEKLY, 30 DAYS, 4 CLINICAL NOTES: 69-YEAR-OLD MALE IN FOR CHRONIC PAIN FOLLOW-UP. GIVEN PRESENTING SYMPTOMS RECOMMENDED INCREASING BUTRANS PATCH TO 10 MCG, AND LYRICA TO 150MG THREE TIMES DAILY WITH FOLLOW-UP IN CLINIC IN ONE MONTH. PATIENT HAS EXPRESSED UNDERSTANDING OF WAS IN AGREEMENT WITH TREATMENT PLAN. GIVEN TIME TO ASK QUESTIONS AND EXPRESS CONCERNS. , ISTOP REGISTRY REVIEWED AND DEMONSTRATES COMPLLIANCE. (REF # [id number] ) BRINGS IN MEDICATIONS WHICH IS APPROPRIATE FOR WHAT WAS DISPENSED. RECENT URINE TOXICOLOGY REVIEWED. NO UNAUTHORIZED MEDICATIONS. NO ILLICIT SUBSTANCES AND PRESCRIBED MEDICATIONS WERE PRESENT. PROCEDURES PN WORKMANS' COMP OPINION IN YOUR OPINION, WAS THE INCIDENT THAT THE PATIENT DESCRIBED THE COMPETENT MEDICAL CAUSE OF THIS INJURY/ILLNESS? YES ARE THE PATIENT'S COMPLAINTS CONSISTENT WITH HIS/HER HISTORY OF THE INJURY/ILLNESS? YES IS THE PATIENT'S HISTORY OF THE INJURY/ILLNESS CONSISTENT WITH YOUR OBJECTIVE FINDING? YES WHAT IS THE PERCENTAGE OF TEMPORARY IMPAIRMENT? TOTAL = 100% IS THE PATIENT WORKING? NO DOCTOR ON SITE: MATTIE HERNANDEZ MD PROCEDURE CODES FA211 ESTABILISHED PATIENT [facility] FACILITY CHARGE DISPOSITION & COMMUNICATION FOLLOW UP 4 WEEKS (REASON: BACK PAIN, WC) ELECTRONICALLY SIGNED BY JOVITA XAVIER ON 01/27/2020 AT 08:21 AM EDT DISCLAIMER : THIS IS A VISIT SUMMARY EXTRACTED FROM THE [employer] CHART. IT IS NOT A COPY OF THE [employer] PROGRESS NOTE. JL
== END ==
LOC: M PAIN 11:00
PROVIDERS: ATTEND Family Medicine
DX: M51.17 Intervertebral disc disorders with radiculopathy, lumbosacral region (principal)

== ENCOUNTER → 2020-02-26 | Outpatient (CLI) | payer OTHER ==
--- NOTE | 2020-02-28 03:24 | ECWPNPC ---
PATIENT NAME: ALLAN ARNETT : 1950 GENDER: MALE VISIT DATE: 02/26/2020 DISCHARGE DATE: 02/26/20 1053 VISIT LOCKED DATE TIME: PHYSICIAN: DYLAN GARCIA RESOURCE: DYLAN GARCIA REASON FOR APPOINTMENT 1. BACK PAIN, WC HISTORY OF PRESENT ILLNESS GENERAL: - 69-YEAR-OLD MALE IN FOR WORKER'S COMP. CHRONIC PAIN FOLLOW-UP. HE RATES HIS PAIN CURRENTLY AT A 7 OUT OF 10 AND DESCRIBES IT STABBING, AND THROBBING. HE FEELS MEDICATIONS ARE HELPFUL HOWEVER HE DOES QUESTION IF AN INCREASE IN MEDICATION WOULD BE OF MORE BENEFIT. THE PATIENT WAS HURT IN A WORK RELATED INJURY ON 08/28/1995 WHILE WORKING A [employer] FOR [employer] WHEN HE WAS STEPPING OFF A LADDER, FELL, AND STEPPED ON A PIPE CAUSING HIM TO INJURE HIS BACK. THE PATIENT STATES HIS PAIN BEGINS IN HIS LOW BACK AND RADIATES DOWN MAINLY HIS LEFT LEG AND INTO HIS LEFT FOOT. THE PATIENT SAYS HIS PAIN IS AFFECTING HIS ABILITY TO PERFORM HIS DAILY ACTIVITIES SUCH CLEANING, GROCERY SHOPPING, WALKING, AND SLEEPING. FALL RISK SCREENING: SCREENING :NO FALLS REPORTED IN THE LAST YEAR PAIN SCREENING: PATIENT HAS A COMPLAINT OF ACUTE OR CHRONIC PAIN :YES LOCATION OF PAIN:LOW BACK INTENSITY OF PAIN (SCALE OF 1 TO 10):7 WHAT DOES YOUR PAIN FEEL LIKE:STABBING, THROBBING DURATION:CONTINOUS, CONSTANT, ALL DAY PAIN IS INCREASED BY:ACTIVITIES, PROLONGED STANDING PAIN IS DECREASED BY: PATCH, LYRICA LEVEL OF RELIEF FROM PAIN TREATMENTS IN THE PAST:25% PAIN HAS INTERFERED WITH THE FOLLOWING:BATHING/DRESSING, MOOD, HOUSEWORK, RELATIONSHIP WITH OTHERS, ENJOYMENT OF LIFE PLAN/GOALS/TREATMENT/INTERVENTION/FOLLOW UP:SEE PLAN NURSING NOTE: -. PAIN CENTER INTAKE QUESTIONS: DO YOU HAVE A HISTORY OF MRSA? :NO DO YOU TAKE A BLOOD THINNERS? :NO DO YOU HAVE ANY BLEEDING DISORDERS? :NO ANY NEW NUMBNESS OR WEAKNESS IN YOUR LEGS OR ARMS? :NO ANY PACEMAKER,DEFIBRILLATOR, OR DORSAL COLUMN STIMULATOR? :NO DO YOU HAVE ANY RASHES OR OPEN SORES? :NO ARE YOU ALLERGIC TO IV DYE? :NO ARE YOU DIABETIC? :YES ANY NEW PROBLEMS WITH YOUR MEDICATIONS? :YES LYRICA, BUTRANS PATCH HAVE YOU RECEIVED A VACCINE IN THE PAST 30 DAYS? :YES IF SO WHAT VACCINE AND WHEN? TRIAMCINOLONE ACETONIDE INJECTION ON 02/23/20 (LEFT KNEE) DO YOU PLAN TO RECEIVE A VACCINE IN THE NEXT 21 DAYS? :NO DO YOU NEED ANY PRESCRIPTION? :NO DO YOU TAKE ANY IMMUNOSUPPRESSIVE MEDICATIONS? :NO IS THERE A CHANCE YOU COULD BE ? :NO ARE YOU BREAST FEEDING? :NO CURRENT MEDICATIONS TAKING MULTIVITAMIN TABLET 1 TAB ORALLY DAILY TAKING ASPIR-81 81 MG TABLET DELAYED RELEASE 1 TABLET ORALLY ONCE A DAY TAKING NIFEDIPINE 60 MG TABLET EXTENDED RELEASE ORALLY DAILY TAKING OMEPRAZOLE 40 MG CAPSULE DELAYED RELEASE 1 CAPSULE ORALLY ONCE A DAY TAKING ROSUVASTATIN CALCIUM 20 MG TABLET 1 TABLET ORALLY ONCE A DAY TAKING METFORMIN HCL 1000 MG TABLET 1 TABLET WITH A MEAL ORALLY ONCE A DAY TAKING LOSARTAN POTASSIUM 100 MG TABLET 1 TABLET ORALLY ONCE A DAY TAKING ALLOPURINOL 100 MG TABLET 1 TABLET ORALLY ONCE A DAY TAKING FARXIGA 10 MG TABLET 1 TABLET ORALLY ONCE A DAY TAKING COLCHICINE 0.6 MG TABLET 1 TABLET ORALLY ONCE A DAY, NOTES: 3 MORE PILLS TAKING LYRICA 150 MG CAPSULE 1 CAPSULE ORALLY THREE TIMES DAILY TAKING BUTRANS 10 MCG/HR PATCH WEEKLY 1 PATCH TO SKIN TRANSDERMAL WEEKLY NOT-TAKING HYDROCHLOROTHIAZIDE 25 MG TABLET 1 TABLET IN THE MORNING ORALLY ONCE A DAY NOT-TAKING LOSARTAN POTASSIUM-HCTZ 100-25 MG TABLET 1 TABLET ORALLY ONCE A DAY NOT-TAKING CELECOXIB 200 MG CAPSULE 1 CAPSULE WITH FOOD ORALLY ONCE A DAY NOT-TAKING TRULICITY 0.75 MG/0.5ML SOLUTION PEN-INJECTOR SUBCUTANEOUS NOT-TAKING METFORMIN HCL ER 500 MG TABLET EXTENDED RELEASE 24 HOUR 1 TABLET WITH EVENING MEAL ORALLY ONCE A DAY NOT-TAKING CYMBALTA 30 MG CAPSULE DELAYED RELEASE PARTICLES 1 CAPSULE ORALLY ONCE A DAY NOT-TAKING GABAPENTIN 300 MG CAPSULE 1 CAPSULE ORALLY FOR PAIN FOUR TIMES DAILY MDD4 NOT-TAKING IBUPROFEN 800 MG TABLET 1 TABLET WITH FOOD OR MILK ORALLY THREE TIMES A DAY NOT-TAKING BYDUREON 2MG/VIAL 1 INJECTION SUBCUTANEOUSLY WEEKLY NOT-TAKING DRISDOL 71460 UNIT CAPSULE 1 CAPSULE ORALLY WEEKLY NOT-TAKING LYRICA 75 MG CAPSULE 1 CAPSULE ORALLY BID MDD=2, NOTES: HAVENT STARTED YET NOT-TAKING AMITRIPTYLINE HCL 25 MG TABLET 1 TABLET ORALLY BEFORE BEDTIME, NOTES: INSURANCE WONT FILL MEDICATION LIST REVIEWED AND RECONCILED WITH THE PATIENT PAST MEDICAL HISTORY HTN DIABETIC CHRONIC LOW BACK PAIN ARTHRITIS HYPERCHOLESTEROLEMIA GOUT ALLERGIES CODEINE SULFATE: HEART RACES - ALLERGY SURGICAL HISTORY BILAT CARPAL TUNNEL RELEASE BILAT ELBOW SURGERY BILAT TRIGGER FINGER REPAIR LEFT KNEE REPLACEMENT DORSAL COLUMN STIMULATOR 08/2018 FAMILY HISTORY FATHER: , DIAGNOSED WITH HYPERTENSION, DIABETES MOTHER: SOCIAL HISTORY GENERAL: TOBACCO USE ARE YOU A:NONSMOKER LATEX QUESTIONNAIRE LATEX ALLERGY : HAVE YOU EVER DEVELOPED ANY TYPE OF REACTION AFTER HANDLING LATEX PRODUCTS SUCH RUBBER GLOVES, CONDOMS, DIAPHRAGMS, BALLOONS, SOCKS, OR UNDERWEAR?NO LATEX ALLERGY : HAVE YOU EVER DEVELOPED ANY TYPE OF REACTION DURING OR AFTER DENTAL APPOINTMENT, VAGINAL/RECTAL EXAMINATION, SURGICAL PROCEDURE, OR ANY OTHER EXPOSURE?NO LATEX RISK : HAVE YOU EVER HAD ANY DIFFICULTY BREATHING OR HIVES AFTER EATING OR HANDLING ANY FRUITS, OR VEGETABLES; SUCH KIWI, BANANAS, STONE FRUITS, OR CHESTNUTSNO LATEX RISK : DO YOU HAVE A PREVIOUS PERSONAL HISTORY OF MORE THAN NINE SURGERIES, SPINA BIFIDA, OR REPEATED CATHERIZATIONS? NO LATEX RISK : ARE YOU FREQUENTLY EXPOSED TO LATEX PRODUCTS IN YOUR OCCUPATION?NO DATE ASKED : 02/26/2020 ALCOHOL SCREENING DID YOU HAVE A DRINK CONTAINING ALCOHOL IN THE PAST YEAR?YES HOW OFTEN DID YOU HAVE SIX OR MORE DRINKS ON ONE OCCASION IN THE PAST YEAR?WEEKLY (3 POINTS) HOW MANY DRINKS DID YOU HAVE ON A TYPICAL DAY WHEN YOU WERE DRINKING IN THE PAST YEAR?7 TO 9 (3 POINTS) HOW OFTEN DID YOU HAVE A DRINK CONTAINING ALCOHOL IN THE PAST YEAR?TWO TO FOUR TIMES A MONTH (2 POINTS) POINTS8 INTERPRETATIONPOSITIVE RECREATIONAL DRUG USE DRUG USE?NO CAFFEINE CAFFEINE USE?YES RESTORATION [id number] AMISH NO YARSANISM BELIEFS THAT WOULD IMPACT HEALTH CARE. LANGUAGE LANGUAGES SPOKEN:MONTSERRATIAN LEARNING BARRIERS / SPECIAL NEEDS BARRIERS TO LEARNING?NO HEARING IMPAIRED?NO VISION IMPAIRED?YES COGNITIVELY IMPAIRED?NO :CORRECTIVE LENSES READINESS TO LEARN?YES LEARNING PREFERENCES?YES :TAPES/VIDEOS LEARNING CAPABILITIES PRESENT?YES EMOTIONAL BARRIERS?NO SPECIAL DEVICES?NO PASSENGER BARGE MASTER NEEDED?NO DOMESTIC VIOLENCE DO YOU FEEL SAFE IN YOUR ENVIRONMENT?YES NEW PATIENT PAIN DIARY TODAY'S VISITNOTES PATIENT DESCRIBES PAIN :ACHING, HAVE IT ALL THE TIME, SORE FROM 0-10, WHAT LEVEL IS YOUR PAIN TODAY?6 PAIN CLINIC PFS, CLERGY, PUBLIC HEALTH REFERRALS PFS REFERRAL NEEDED?NO CLERGY REFERRAL NEEDED?NO PUBLIC HEALTH REFERRAL NEEDED?NO WAS THE PROVIDER NOTIFIED OF ANY PERTINENT INFO? N/A HAS THE PATIENT BEEN EDUCATED REGARDING HIS/HER PLAN OF CARE?YES HAS THE PATIENT BEEN EDUCATED REGARDING PAIN, THE RISK FOR PAIN, THE IMPORTANCE OF EFFECTIVE PAIN MANAGEMENT, AND THE PAIN ASSESSMENT PROCESS?YES ADVANCE DIRECTIVE ADVANCE DIRECTIVE DISCUSSED WITH PATIENT:YES HCP CHANDRA GOTTI, DAUGHTER HOSPITALIZATION/MAJOR DIAGNOSTIC PROCEDURE SURGERIES REVIEW OF SYSTEMS CONSTITUTIONAL: ANY RECENT FEVER NO . CHILLS NO . WEIGHT CHANGE OF UNKNOWN REASONS NO . GASTROENTEROLOGY: NEW UNEXPLAINABLE CHANGES IN BOWEL CONTROL NO . CONSTIPATION NO . GENITOURINARY: ANY NEW CHANGE IN BLADDER CONTROL? NO . NEUROLOGY: NEW ONSET DIZZINESS OR NEUROLOGICAL CHANGES NOT MENTIONED NO . NEW NUMBNESS OR PAIN PATTERNS NOT MENTIONED AND PERTINENT TO TODAY'S VISIT NO . CARDIOLOGY: NEW CHEST PRESSURE NO . NEW CHEST PAIN NO . RESPIRATORY: UNEXPLAINABLE COUGH NO . NEW SHORTNESS OF BREATH NO . VITAL SIGNS WT 267 LBS, HT 69 IN, BMI 39.42 INDEX, BP 151/81 MM HG, HR 88 /MIN, RR 18 /MIN, TEMP 98.0 F, OXYGEN SAT % 95, SAFE IN ENV? (Y/N) YM. CARMELITA ANDERSON, EDGE SAWYER II @ 1013. EXAMINATION GENERAL EXAMINATION: GENERALNO ACUTE DISTRESS, WELL NOURISHED AND HYDRATED. PSYCHAPPROPRIATE MOOD AND AFFECT . LUNGS:CLEAR TO AUSCULTATION BILATERALLY, NO WHEEZES, RHONCHI, RALES. HEART:NO MURMURS, REGULAR RATE AND RHYTHM. ASSESSMENTS INTERVERTEBRAL DISC DISORDER WITH RADICULOPATHY OF LUMBOSACRAL REGION - M51.17 (PRIMARY) TREATMENT INTERVERTEBRAL DISC DISORDER WITH RADICULOPATHY OF LUMBOSACRAL REGION INCREASE LYRICA CAPSULE, 200 MG, 1 CAPSULE, ORALLY, THREE TIMES DAILY, 30 DAYS, 90 INCREASE BUTRANS PATCH WEEKLY, 15 MCG/HR, 1 PATCH TO SKIN, TRANSDERMAL, WEEKLY, 30 DAYS, 4 START NEXCARE TEGADERM 4"X4-3/4" MISCELLANEOUS, -, DIRECTED, EXTERNAL, NEEDED TO COVER BUTRANS PATCH. PATCH DOES NOT STAY ADHERED WITHOUT TEGADERM IN PLACE, 30 DAYS, 10 CLINICAL NOTES: 69-YEAR-OLD MALE IN FOR WORKER'S COMP. CHRONIC PAIN FOLLOW-UP. GIVEN PRESENTING SYMPTOMS RECOMMENDED INCREASING BUTRANS PATCH AND LYRICA WITH FOLLOW-UP IN 2 MONTHS TO DETERMINE EFFICACY OF TREATMENT. PATIENT HAS EXPRESSED UNDERSTANDING OF AND WAS IN AGREEMENT WITH TREATMENT PLAN. GIVEN TIME TO ASK QUESTIONS AND EXPRESS CONCERNS. , ISTOP REGISTRY REVIEWED AND DEMONSTRATES COMPLLIANCE. (REF # [id number] ) BRINGS IN MEDICATIONS WHICH IS APPROPRIATE FOR WHAT WAS DISPENSED. RECENT URINE TOXICOLOGY REVIEWED. NO UNAUTHORIZED MEDICATIONS. NO ILLICIT SUBSTANCES AND PRESCRIBED MEDICATIONS WERE PRESENT. PROCEDURE CODES FA211 ESTABILISHED PATIENT [facility] CHARGE DISPOSITION & COMMUNICATION FOLLOW UP 2 MONTHS (REASON: WORKERS COMP BACK PAIN ) ELECTRONICALLY SIGNED BY JOVITA XAVIER ON 02/27/2020 AT 07:59 AM EDT DISCLAIMER : THIS IS A VISIT SUMMARY EXTRACTED FROM THE [employer] CHART. IT IS NOT A COPY OF THE [employer] PROGRESS NOTE. JL
== END ==
LOC: M PAIN 10:15
PROVIDERS: ATTEND Family Medicine
DX: M51.17 Intervertebral disc disorders with radiculopathy, lumbosacral region (principal)

== ENCOUNTER → 2020-05-06 | Outpatient (CLI) | payer OTHER ==
[~2020-05-06] MED LIST changes: -ASPI81TA85 PO; +ASPI81TA86 PO
== END ==
LOC: M PAIN 09:28
PROVIDERS: ATTEND Family Medicine
DX: M51.17 Intervertebral disc disorders with radiculopathy, lumbosacral region (principal)

== ENCOUNTER → 2020-05-26 | Outpatient (CLI) | payer OTHER | LOC: M LABSMTC 09:37 | PROVIDERS: ATTEND Anesthesiology | DX: Z11.59 Encounter for screening for other viral diseases (principal) ==

== ENCOUNTER → 2020-05-31 | Outpatient (CLI) | payer OTHER ==
[~2020-05-31] MED LIST changes: +ISOVUE-M 300 61% 15ML VIAL As Ordered ONE; +LIDOCAINE 1% SDV 30ML VIAL As Ordered ONE; +diazePAM 5 MG TAB As Ordered ONE; +methylPREDNISolone SUSP 40MG/ML 1ML VIAL (DEPO MEDROL) As Ordered ONE; +oxyCODONE 5MG TAB As Ordered ONE
--- NOTE | 2020-06-02 13:04 | ECWPNPC ---
PATIENT NAME: ALLAN ARNETT : 1950 GENDER: MALE VISIT DATE: 05/31/2020 DISCHARGE DATE: 05/31/201545 VISIT LOCKED DATE TIME: PHYSICIAN: MATTIE EASLEY MD PHYSICIAN PAGER NO: ACTIVE RESOURCE: MTATIE EASLEY MD REASON FOR APPOINTMENT 1. LESI L4/L5, L5/S1 HISTORY OF PRESENT ILLNESS PAIN CENTER INTAKE QUESTIONS: DO YOU HAVE A HISTORY OF MRSA? :NO DO YOU TAKE A BLOOD THINNERS? :NO DO YOU HAVE ANY BLEEDING DISORDERS? :NO ANY NEW NUMBNESS OR WEAKNESS IN YOUR LEGS OR ARMS? :NO ANY PACEMAKER,DEFIBRILLATOR, OR DORSAL COLUMN STIMULATOR? :YES DCS DO YOU HAVE ANY RASHES OR OPEN SORES? :NO ARE YOU ALLERGIC TO IV DYE? :NO ARE YOU DIABETIC? :YES TAKES METFORMIN ANY NEW PROBLEMS WITH YOUR MEDICATIONS? :NO HAVE YOU RECEIVED A VACCINE IN THE PAST 30 DAYS? :YES IF SO WHAT VACCINE AND WHEN? FLU VACCINE REVEIVED 05/14/20 DO YOU PLAN TO RECEIVE A VACCINE IN THE NEXT 21 DAYS? :NO DO YOU TAKE ANY IMMUNOSUPPRESSIVE MEDICATIONS? :NO ANY HISTORY OF SEIZURES? :NO ANY HISTORY OF CARDIAC ISSUES OR EVENTS? :NO DO YOU HAVE SLEEP APNEA? :NO ANY RECENT HEAD INJURY? :NO DO YOU HAVE ANY NEW INFECTIONS? :NO IS THERE A CHANCE YOU COULD BE ? :NO ARE YOU BREAST FEEDING? :NO WHEN DID YOU LAST EAT? : 05/31/20599 STEAK AND EGGS WHEN DID YOU LAST DRINK? : 05/31/20599 WHAT DID YOU LAST DRINK? : COFFEE WITH CREAMER NAME OF PERSON DRIVING YOU HOME? : -FRIEND KAI DO YOU HAVE ANY OTHER QUESTIONS OR CONCERNS? : NO GENERAL: -. FALL RISK SCREENING: SCREENING :NO FALLS REPORTED IN THE LAST YEAR PAIN SCREENING: PATIENT HAS A COMPLAINT OF ACUTE OR CHRONIC PAIN :YES LOCATION OF PAIN: LOW BACK, LEFT LEG INTENSITY OF PAIN (SCALE OF 1 TO 10):7 WHAT DOES YOUR PAIN FEEL LIKE:ACHING, THROBBING DURATION:CONTINOUS PAIN IS INCREASED BY:ACTIVITIES, PROLONGED STANDING PLAN/GOALS/TREATMENT/INTERVENTION/FOLLOW UP:SEE PLAN NURSING NOTE: -. CURRENT MEDICATIONS TAKING MULTIVITAMIN TABLET 1 TAB ORALLY DAILY, NOTES: 05/31 600 TAKING ASPIR-81 81 MG TABLET DELAYED RELEASE 1 TABLET ORALLY ONCE A DAY, NOTES: 05/31 600 TAKING NIFEDIPINE 60 MG TABLET EXTENDED RELEASE ORALLY DAILY, NOTES: 05/31 600 TAKING OMEPRAZOLE 40 MG CAPSULE DELAYED RELEASE 1 CAPSULE ORALLY ONCE A DAY, NOTES: 05/31 600 TAKING ROSUVASTATIN CALCIUM 20 MG TABLET 1 TABLET ORALLY ONCE A DAY, NOTES: 05/31 600 TAKING METFORMIN HCL 1000 MG TABLET 1 TABLET WITH A MEAL ORALLY ONCE A DAY, NOTES: 05/30 600 TAKING LOSARTAN POTASSIUM 100 MG TABLET 1 TABLET ORALLY ONCE A DAY, NOTES: 05/31 600 TAKING ALLOPURINOL 100 MG TABLET 1 TABLET ORALLY ONCE A DAY, NOTES: 05/28 600 TAKING LYRICA 200 MG CAPSULE 1 CAPSULE ORALLY THREE TIMES DAILY, NOTES: 05/31 600 NOT-TAKING FARXIGA 10 MG TABLET 1 TABLET ORALLY ONCE A DAY NOT-TAKING COLCHICINE 0.6 MG TABLET 1 TABLET ORALLY ONCE A DAY, NOTES: 3 MORE PILLS NOT-TAKING BUTRANS 15 MCG/HR PATCH WEEKLY 1 PATCH TO SKIN TRANSDERMAL WEEKLY NOT-TAKING NEXCARE TEGADERM 4"X4-3/4" - MISCELLANEOUS DIRECTED EXTERNAL NEEDED TO COVER BUTRANS PATCH. PATCH DOES NOT STAY ADHERED WITHOUT TEGADERM IN PLACE NOT-TAKING HYDROCHLOROTHIAZIDE 25 MG TABLET 1 TABLET IN THE MORNING ORALLY ONCE A DAY NOT-TAKING LOSARTAN POTASSIUM-HCTZ 100-25 MG TABLET 1 TABLET ORALLY ONCE A DAY NOT-TAKING CELECOXIB 200 MG CAPSULE 1 CAPSULE WITH FOOD ORALLY ONCE A DAY NOT-TAKING TRULICITY 0.75 MG/0.5ML SOLUTION PEN-INJECTOR SUBCUTANEOUS NOT-TAKING METFORMIN HCL ER 500 MG TABLET EXTENDED RELEASE 24 HOUR 1 TABLET WITH EVENING MEAL ORALLY ONCE A DAY NOT-TAKING CYMBALTA 30 MG CAPSULE DELAYED RELEASE PARTICLES 1 CAPSULE ORALLY ONCE A DAY NOT-TAKING GABAPENTIN 300 MG CAPSULE 1 CAPSULE ORALLY FOR PAIN FOUR TIMES DAILY MDD4 NOT-TAKING IBUPROFEN 800 MG TABLET 1 TABLET WITH FOOD OR MILK ORALLY THREE TIMES A DAY NOT-TAKING BYDUREON 2MG/VIAL 1 INJECTION SUBCUTANEOUSLY WEEKLY NOT-TAKING DRISDOL 38280 UNIT CAPSULE 1 CAPSULE ORALLY WEEKLY NOT-TAKING LYRICA 75 MG CAPSULE 1 CAPSULE ORALLY BID MDD=2, NOTES: HAVENT STARTED YET NOT-TAKING AMITRIPTYLINE HCL 25 MG TABLET 1 TABLET ORALLY BEFORE BEDTIME, NOTES: INSURANCE WONT FILL MEDICATION LIST REVIEWED AND RECONCILED WITH THE PATIENT PAST MEDICAL HISTORY HTN DIABETIC CHRONIC LOW BACK PAIN ARTHRITIS HYPERCHOLESTEROLEMIA GOUT ALLERGIES CODEINE SULFATE: HEART RACES - ALLERGY SURGICAL HISTORY BILAT CARPAL TUNNEL RELEASE BILAT ELBOW SURGERY BILAT TRIGGER FINGER REPAIR LEFT KNEE REPLACEMENT DORSAL COLUMN STIMULATOR 08/2018 FAMILY HISTORY FATHER: , DIAGNOSED WITH HYPERTENSION, DIABETES MOTHER: 2 BROTHER(S) , 1 SISTER(S) . 2DAUGHTER(S) - HEALTHY. SOCIAL HISTORY GENERAL: TOBACCO USE ARE YOU A:NONSMOKER LATEX QUESTIONNAIRE LATEX ALLERGY : HAVE YOU EVER DEVELOPED ANY TYPE OF REACTION AFTER HANDLING LATEX PRODUCTS SUCH RUBBER GLOVES, CONDOMS, DIAPHRAGMS, BALLOONS, SOCKS, OR UNDERWEAR?NO LATEX ALLERGY : HAVE YOU EVER DEVELOPED ANY TYPE OF REACTION DURING OR AFTER DENTAL APPOINTMENT, VAGINAL/RECTAL EXAMINATION, SURGICAL PROCEDURE, OR ANY OTHER EXPOSURE?NO LATEX RISK : HAVE YOU EVER HAD ANY DIFFICULTY BREATHING OR HIVES AFTER EATING OR HANDLING ANY FRUITS, OR VEGETABLES; SUCH KIWI, BANANAS, STONE FRUITS, OR CHESTNUTSNO LATEX RISK : DO YOU HAVE A PREVIOUS PERSONAL HISTORY OF MORE THAN NINE SURGERIES, SPINA BIFIDA, OR REPEATED CATHERIZATIONS? NO LATEX RISK : ARE YOU FREQUENTLY EXPOSED TO LATEX PRODUCTS IN YOUR OCCUPATION?NO DATE ASKED : 02/26/2020 ALCOHOL SCREENING DID YOU HAVE A DRINK CONTAINING ALCOHOL IN THE PAST YEAR?YES HOW OFTEN DID YOU HAVE A DRINK CONTAINING ALCOHOL IN THE PAST YEAR?TWO TO FOUR TIMES A MONTH (2 POINTS) HOW MANY DRINKS DID YOU HAVE ON A TYPICAL DAY WHEN YOU WERE DRINKING IN THE PAST YEAR?7 TO 9 (3 POINTS) HOW OFTEN DID YOU HAVE SIX OR MORE DRINKS ON ONE OCCASION IN THE PAST YEAR?WEEKLY (3 POINTS) POINTS8 INTERPRETATIONPOSITIVE RECREATIONAL DRUG USE DRUG USE?NO CAFFEINE CAFFEINE USE?YES [employer] [id number] RELIGION NO BUDDHIST BELIEFS THAT WOULD IMPACT HEALTH CARE. LANGUAGE LANGUAGES SPOKEN:VENEZUELAN EDUCATION LEVEL OF EDUCATION: HIGH SCHOOL LEARNING BARRIERS / SPECIAL NEEDS BARRIERS TO LEARNING?NO HEARING IMPAIRED?NO VISION IMPAIRED?YES COGNITIVELY IMPAIRED?NO :CORRECTIVE LENSES READINESS TO LEARN?YES LEARNING PREFERENCES?YES :TAPES/VIDEOS LEARNING CAPABILITIES PRESENT?YES EMOTIONAL BARRIERS?NO SPECIAL DEVICES?NO LARRY OPERATOR NEEDED?NO DOMESTIC VIOLENCE DO YOU FEEL SAFE IN YOUR ENVIRONMENT?YES OCCUPATION: RETIRED [employer]. DIET: REGULAR. MARITAL STATUS: SINGLE. NEW PATIENT PAIN DIARY TODAY'S VISITNOTES PATIENT DESCRIBES PAIN :ACHING, HAVE IT ALL THE TIME, SORE FROM 0-10, WHAT LEVEL IS YOUR PAIN TODAY?6 PAIN CLINIC PFS, CLERGY, PUBLIC HEALTH REFERRALS PFS REFERRAL NEEDED?NO CLERGY REFERRAL NEEDED?NO PUBLIC HEALTH REFERRAL NEEDED?NO WAS THE PROVIDER NOTIFIED OF ANY PERTINENT INFO? N/A HAS THE PATIENT BEEN EDUCATED REGARDING HIS/HER PLAN OF CARE?YES HAS THE PATIENT BEEN EDUCATED REGARDING PAIN, THE RISK FOR PAIN, THE IMPORTANCE OF EFFECTIVE PAIN MANAGEMENT, AND THE PAIN ASSESSMENT PROCESS?YES ADVANCE DIRECTIVE ADVANCE DIRECTIVE DISCUSSED WITH PATIENT:YES HCP CHANDRA GOTTI, DAUGHTER HOSPITALIZATION/MAJOR DIAGNOSTIC PROCEDURE SURGERIES VITAL SIGNS WT 275.6 LBS, HT 69 IN, BMI 40.69 INDEX, BP 134/76 MM HG, HR 84 /MIN, RR 18 /MIN, TEMP 97.6 F, OXYGEN SAT % 96%, SAFE IN ENV? (Y/N) YES, NA INITIALS AW 1336, REVIEWED BY: MT. EXAMINATION GENERAL EXAMINATION: THE PATIENT IS ALERT, ORIENTED TIMES THREE AND COOPERATIVE. HEART SHOWS REGULAR RHYTHM, NO MURMURS AND NO GALLOPS. LUNGS ARE CLEAR TO AUSCULTATION. ASSESSMENTS INTERVERTEBRAL DISC DISORDERS WITH RADICULOPATHY, LUMBAR REGION - M51.16 (PRIMARY) TREATMENT INTERVERTEBRAL DISC DISORDERS WITH RADICULOPATHY, LUMBAR REGION [facility] FLUORO GUIDE SPINE INJECTION (PAIN)[id number] MEDICATION: VALIUM TAB 10MG ORALLY (DIAZEPAM)RG KEYES 05/31/2020 2:32:39 PM > LOT #: [id number] EXP: 10/2020. GEN GRIMES 05/31/2020 2:34:57 PM > VERIFIED RG KEYES 05/31/2020 2:36:23 PM > ADMINISTERED. MEDICATION: OXYCODONE HCL TAB 10MG ORALLYRG KEYES 05/31/2020 2:33:21 PM > LOT# [id number] EXP: 09/2021 ALON GRIMESEN 05/31/2020 2:34:31 PM > VERIFIED RG KEYES 05/31/2020 2:36:57 PM > ADMINISTERED. OTHERS CLINICAL NOTES: 05/27/20 @ 1230 ADY POTTER, MANAGER REGULATORY. PROCEDURES PAIN NURSING RECORD PRE-PROCEDURE IV SITE N/A, PRE-PROCEDURE ORAL MEDICATIONS VALIUM 10MG AND OXYCODONE 10MG ADMINSTERED. PROCEDURE IN ROOM 1455, PHYSICIAN IN ROOM 1510, START 1515, FINISH 1522, PHYSICIAN OUT OF ROOM 1525, OUT OF ROOM 1534, STEROID DEPOMEDROL, O2 N/A, ECG NORMAL SINUS, PATIENT SHIELDED YES, SAFETY STRAP YES, PREP BETADINE BY SANTOSH RN, BSN, IV INFUSED N/A, DRESSING TEGADERM BY DR. EASLEY. LOC: RG KEYES 05/31/2020 2:55:00 PM > , 1. ALERT, ORIENTED RESP: RG KEYES 05/31/2020 2:55:00 1. REGULAR, NO DYSPNEA COLOR: RG KEYES 05/31/2020 2:55:00 1. PINK SKIN: RG KEYES 05/31/2020 2:55:00 1. WARM, DRY POSITION: RG KEYES 05/31/2020 2:55:00 1. PRONE VITALS: RG KEYES 05/31/2020 2:55:00 130/73, 76, 96% RA, 18. RG KEYES 05/31/2020 3:23:08 PM > 130/63, 79, 93% RA, 18. RG KEYES 05/31/2020 3:36:47 PM > POST PROCEDURE 156/82, 75, 96% RA, 18. DISCHARGE: POST PAIN 03/29, DRESSING SITE DRY AND INTACT, IV N/A, GAIT OTHER PATIENT PRESENTS UNCOMFORTABLE, UNSTEADY GAIT, PATIENT REFUSED WHEELCHAIR, SOLAR SALES ENERGY ADVISOR ESCORTED PATIENT TO VEHICLE WITHOUT INCIDENT., TEACHING COMPLETED, PATIENT ACKNOWLEDGES UNDERSTANDING YES, PATIENT DISCHARGED AT 1540 PRE PROCEDURE DIAGNOSIS LUMBAR DISC DISORDER WITH RADICULOPATHY POST PROCEDURE DIAGNOSIS LUMBAR DISC DISORDER WITH RADICULOPATHY PROCEDURE LUMBAR EPIDURAL STEROID INJECTION UNDER FLUOROSCOPIC GUIDANCE SURGEON DR. MATTIE EASLEY BUYER INTERNSHIP NONE ANESTHESIA LOCAL PRE PROCEDURE NOTE THE PATIENT HAS A HISTORY OF CHRONIC LOW BACK PAIN. I EVALUATED THE PATIENT AND REVIEWED THE CHART. I WENT OVER THE RISKS, ALTERNATIVES, AND BENEFITS ASSOCIATED WITH THIS PROCEDURE. I DISCUSSED THAT THE USE OF STEROIDS MAY CONTRIBUTE TO IMMUNOSUPPRESSION OF THE PATIENT'S BODY AGAINST INFECTIONS SUCH COVID-19. THE PATIENT IS AWARE OF THE POTENTIAL COMPLICATIONS ASSOCIATED WITH THIS VIRUS, INCLUDING, BUT NOT LIMITED TO, . THE PATIENT WOULD LIKE TO PROCEED AND GIVE CONSENT TO PERFORMED THE PROCEDURE. THE PATIENT DENIES UNEXPLAINABLE WEIGHT LOSS, FEVER, CHILLS, OR NEW CHANGES IN URINARY OR BOWEL CONTROL. THE PATIENT IS COVID-19 NEGATIVE DESCRIPTION OF PROCEDURE THE PATIENT WAS BROUGHT TO THE PROCEDURE ROOM AND PLACED IN THE PRONE POSITION. THE LUMBOSACRAL AREA WAS CLEANED WITH BETADINE SOLUTION AND DRAPED ASEPTICALLY. THE PROCEDURE WAS DONE UNDER STERILE CONDITIONS. A TIMEOUT WAS PERFORMED WHERE LATERALITY AND THE SITE OF THE PROCEDURE WERE CHECKED AND CONFIRMED WITH EVERYONE IN THE ROOM. UNDER FLUOROSCOPIC GUIDANCE, THE TARGET POINT WAS SELECTED AT THE INTERLAMINAR LEVEL OF L4-L5. I CONFIRMED AGAIN WITH EVERYONE IN THE ROOM THE LATERALITY OF THE TARGET AT 1516. LIDOCAINE WAS USED TO NUMB THE SKIN AND THE SUBCUTANEOUS TISSUE BELOW IT. EPIDURAL TUOHY NEEDLE, 17-GAUGE, WAS ADVANCED UNDER FLUOROSCOPIC GUIDANCE AND FOLLOWING PATIENT FEEDBACK UNTIL THE EPIDURAL SPACE WAS REACHED 8 CM DEEP INTO THE SKIN BY THE LOSS OF RESISTANCE TECHNIQUE. ISOVUE-M DYE 30%, 0.25 ML, WAS INJECTED SHOWING ADEQUATE SPREAD OF THE DYE. THEN, A SOLUTION OF 3 ML OF NORMAL SALINE WITH DEPO-MEDROL 80 MG WAS INJECTED SLOWLY FOLLOWING PATIENT FEEDBACK. THE MEDICATIONS WERE VERIFIED WITH THE NURSE. THERE WAS NO EVIDENCE OF BLOOD, PARESTHESIA OR CEREBROSPINAL FLUID DURING THE PROCEDURE. THE PATIENT WAS SENT TO THE RECOVERY ROOM. THE PATIENT WAS MOVING THE EXTREMITIES AND DOING WELL. THERE WERE NO COMPLICATIONS DURING THE PROCEDURE. ESTIMATED BLOOD LOSS WAS LESS THAN 5 ML. FLUOROSCOPY TIME WAS 21 SECONDS POST PROCEDURE NOTE THE PATIENT WILL BE SEEN IN A FOLLOW UP IN THE NEXT FEW WEEKS. I AM LOOKING FOR LONG LASTING RELIEF FOR THE PATIENT WITH THIS INTERVENTION. INSTRUCTIONS WERE GIVEN, QUESTIONS WERE ANSWERED, AND THE PATIENT EXPRESSED UNDERSTANDING AND AGREES WITH THE PLAN. I, ARLEN BAKER, DOCUMENTED THE ABOVE INFORMATION ACTING A SCRIBE FOR DR. EASLEY. I HAVE REVIEWED THE ABOVE DOCUMENT, WRITTEN BY ARLEN BAKER, PREFINISH OPERATOR, AND I VERIFY THAT IT IS ACCURATE PROCEDURE CODES 66077 LUMBAR/SACRAL W/ IMAGING DISPOSITION & COMMUNICATION FOLLOW UP FOLLOW UP WITH SNAG GRINDER (REASON: POST LESI L4-L5) ELECTRONICALLY SIGNED BY MATTIE EASLEY MD, MD ON 06/02/2020 AT 11:52 AM EDT DISCLAIMER : THIS IS A VISIT SUMMARY EXTRACTED FROM THE Goodreads CHART. IT IS NOT A COPY OF THE Goodreads PROGRESS NOTE. JL
--- NOTE | 2020-06-03 10:31 | REP ---
PARTIAL LUMBAR SPINE SERIES: 3-VIEWS HISTORY: Injection procedure for pain. FLUROSCOPY TIME: 21 seconds reported. FINDINGS: A sequence of three [id number] fluoroscopically obtained spot radiographs of the lumbar spine document needle position and contrast injection associated with injection procedure. JL
== END ==
LOC: M PAIN 13:30
PROVIDERS: ATTEND Anesthesiology
DX: M51.16 Intervertebral disc disorders with radiculopathy, lumbar region (principal); I10 Essential (primary) hypertension; E11.9 Type 2 diabetes mellitus without complications; E78.00 Pure hypercholesterolemia, unspecified; M10.9 Gout, unspecified; Z79.82 Long term (current) use of aspirin; Z79.899 Other long term (current) drug therapy; Z88.5 Allergy status to narcotic agent
CPT/HCPCS: 62323; J1030; Q9967

== ENCOUNTER → 2020-06-15 | Outpatient (CLI) | payer OTHER ==
[~2020-06-15] MED LIST changes: -ISOVUE-M 300 61% 15ML VIAL As Ordered ONE; -LIDOCAINE 1% SDV 30ML VIAL As Ordered ONE; -diazePAM 5 MG TAB As Ordered ONE; -methylPREDNISolone SUSP 40MG/ML 1ML VIAL (DEPO MEDROL) As Ordered ONE; -oxyCODONE 5MG TAB As Ordered ONE
--- NOTE | 2020-06-17 00:40 | ECWPNPC ---
PATIENT NAME: ALLAN ARNETT : 1950 GENDER: MALE VISIT DATE: 06/15/2020 DISCHARGE DATE: 06/15/20 1038 VISIT LOCKED DATE TIME: PHYSICIAN: DYLAN GARCIA PHYSICIAN PAGER NO: ACTIVE RESOURCE: DYLAN GARCIA REASON FOR APPOINTMENT 1. POST LESI HISTORY OF PRESENT ILLNESS DEPRESSION SCREENING: PHQ-2 (2015 EDITION) LITTLE INTEREST OR PLEASURE IN DOING THINGS?NOT AT ALL FEELING DOWN, DEPRESSED, OR HOPELESS?NOT AT ALL TOTAL SCORE0 69-YEAR-OLD MALE IN FOR POST LESI FOLLOW-UP. HE FEELS THE PROCEDURE WAS UNSUCCESSFUL. HE RATES HIS PAIN CURRENTLY AT A 7 OUT OF 10 AND DESCRIBES IT ACHING, BURNING, CONTINUOUS, INTERMITTENT, TENDER, THROBBING, SORE, AND SHOOTING. HE WOULD LIKE TO DISCUSS POTENTIALLY TRYING OTHER MEDICATIONS TO HELP HIS PAIN. THE PATIENT WAS HURT IN A WORK RELATED INJURY ON 08/28/1995 WHILE WORKING A [employer] P[employer] FOR [employer] WHEN HE WAS STEPPING OFF A LADDER, FELL, AND STEPPED ON A PIPE CAUSING HIM TO INJURE HIS BACK. THE PATIENT STATES HIS PAIN BEGINS IN HIS LOW BACK AND RADIATES DOWN MAINLY HIS LEFT LEG AND INTO HIS LEFT FOOT. THE PATIENT SAYS HIS PAIN IS AFFECTING HIS ABILITY TO PERFORM HIS DAILY ACTIVITIES SUCH CLEANING, GROCERY SHOPPING, WALKING, AND SLEEPING. GENERAL: -. FALL RISK SCREENING: SCREENING :NO FALLS REPORTED IN THE LAST YEAR PAIN SCREENING: PATIENT HAS A COMPLAINT OF ACUTE OR CHRONIC PAIN :YES LOCATION OF PAIN:LOW BACK LOW BACK AND RADIATES DOWN LEFT LEG INTENSITY OF PAIN (SCALE OF 1 TO 10):7 WHAT DOES YOUR PAIN FEEL LIKE:ACHING, BURNING, CONTINOUS, INTERMITTENT, TENDER, THROBBING, SORE, SHOOTING DURATION:CONTINOUS PAIN IS INCREASED BY:ACTIVITIES STANDING, SITTING, SLIGHT BENDING PAIN IS DECREASED BY:USE OF PAIN MEDICATIONS, SITTING NURSING NOTE: -. PAIN CENTER INTAKE QUESTIONS: DO YOU HAVE A HISTORY OF MRSA? :NO DO YOU TAKE A BLOOD THINNERS? :NO DO YOU HAVE ANY BLEEDING DISORDERS? :NO ANY NEW NUMBNESS OR WEAKNESS IN YOUR LEGS OR ARMS? :NO SAME NUMBNESS ANY PACEMAKER,DEFIBRILLATOR, OR DORSAL COLUMN STIMULATOR? :YES DCS DO YOU HAVE ANY RASHES OR OPEN SORES? :NO ARE YOU ALLERGIC TO IV DYE? :NO ARE YOU DIABETIC? :YES TYPE II ANY NEW PROBLEMS WITH YOUR MEDICATIONS? :NO HAVE YOU RECEIVED A VACCINE IN THE PAST 30 DAYS? :NO DO YOU PLAN TO RECEIVE A VACCINE IN THE NEXT 21 DAYS? :NO DO YOU NEED ANY PRESCRIPTION? :NO DO YOU TAKE ANY IMMUNOSUPPRESSIVE MEDICATIONS? :NO IS THERE A CHANCE YOU COULD BE ? :NO ARE YOU BREAST FEEDING? :NO CURRENT MEDICATIONS TAKING MULTIVITAMIN TABLET 1 TAB ORALLY DAILY TAKING ASPIR-81 81 MG TABLET DELAYED RELEASE 1 TABLET ORALLY ONCE A DAY TAKING NIFEDIPINE 60 MG TABLET EXTENDED RELEASE ORALLY DAILY TAKING OMEPRAZOLE 40 MG CAPSULE DELAYED RELEASE 1 CAPSULE ORALLY ONCE A DAY TAKING ROSUVASTATIN CALCIUM 20 MG TABLET 1 TABLET ORALLY ONCE A DAY TAKING METFORMIN HCL 1000 MG TABLET 1 TABLET WITH A MEAL ORALLY ONCE A DAY TAKING LOSARTAN POTASSIUM 100 MG TABLET 1 TABLET ORALLY ONCE A DAY TAKING ALLOPURINOL 100 MG TABLET 1 TABLET ORALLY ONCE A DAY TAKING LYRICA 200 MG CAPSULE 1 CAPSULE ORALLY THREE TIMES DAILY NOT-TAKING FARXIGA 10 MG TABLET 1 TABLET ORALLY ONCE A DAY NOT-TAKING COLCHICINE 0.6 MG TABLET 1 TABLET ORALLY ONCE A DAY, NOTES: 3 MORE PILLS NOT-TAKING BUTRANS 15 MCG/HR PATCH WEEKLY 1 PATCH TO SKIN TRANSDERMAL WEEKLY NOT-TAKING NEXCARE TEGADERM 4"X4-3/4" - MISCELLANEOUS DIRECTED EXTERNAL NEEDED TO COVER BUTRANS PATCH. PATCH DOES NOT STAY ADHERED WITHOUT TEGADERM IN PLACE NOT-TAKING HYDROCHLOROTHIAZIDE 25 MG TABLET 1 TABLET IN THE MORNING ORALLY ONCE A DAY NOT-TAKING LOSARTAN POTASSIUM-HCTZ 100-25 MG TABLET 1 TABLET ORALLY ONCE A DAY NOT-TAKING CELECOXIB 200 MG CAPSULE 1 CAPSULE WITH FOOD ORALLY ONCE A DAY NOT-TAKING TRULICITY 0.75 MG/0.5ML SOLUTION PEN-INJECTOR SUBCUTANEOUS NOT-TAKING METFORMIN HCL ER 500 MG TABLET EXTENDED RELEASE 24 HOUR 1 TABLET WITH EVENING MEAL ORALLY ONCE A DAY NOT-TAKING CYMBALTA 30 MG CAPSULE DELAYED RELEASE PARTICLES 1 CAPSULE ORALLY ONCE A DAY NOT-TAKING GABAPENTIN 300 MG CAPSULE 1 CAPSULE ORALLY FOR PAIN FOUR TIMES DAILY MDD4 NOT-TAKING IBUPROFEN 800 MG TABLET 1 TABLET WITH FOOD OR MILK ORALLY THREE TIMES A DAY NOT-TAKING BYDUREON 2MG/VIAL 1 INJECTION SUBCUTANEOUSLY WEEKLY NOT-TAKING DRISDOL 28794 UNIT CAPSULE 1 CAPSULE ORALLY WEEKLY NOT-TAKING LYRICA 75 MG CAPSULE 1 CAPSULE ORALLY BID MDD=2, NOTES: HAVENT STARTED YET NOT-TAKING AMITRIPTYLINE HCL 25 MG TABLET 1 TABLET ORALLY BEFORE BEDTIME, NOTES: INSURANCE WONT FILL MEDICATION LIST REVIEWED AND RECONCILED WITH THE PATIENT PAST MEDICAL HISTORY HTN DIABETIC CHRONIC LOW BACK PAIN ARTHRITIS HYPERCHOLESTEROLEMIA GOUT ALLERGIES CODEINE SULFATE: HEART RACES - ALLERGY SURGICAL HISTORY BILAT CARPAL TUNNEL RELEASE BILAT ELBOW SURGERY BILAT TRIGGER FINGER REPAIR LEFT KNEE REPLACEMENT DORSAL COLUMN STIMULATOR 08/2018 FAMILY HISTORY FATHER: , DIAGNOSED WITH HYPERTENSION, DIABETES MOTHER: 2 BROTHER(S) , 1 SISTER(S) . 2DAUGHTER(S) - HEALTHY. SOCIAL HISTORY GENERAL: TOBACCO USE ARE YOU A:NONSMOKER LATEX QUESTIONNAIRE LATEX ALLERGY : HAVE YOU EVER DEVELOPED ANY TYPE OF REACTION AFTER HANDLING LATEX PRODUCTS SUCH RUBBER GLOVES, CONDOMS, DIAPHRAGMS, BALLOONS, SOCKS, OR UNDERWEAR?NO LATEX ALLERGY : HAVE YOU EVER DEVELOPED ANY TYPE OF REACTION DURING OR AFTER DENTAL APPOINTMENT, VAGINAL/RECTAL EXAMINATION, SURGICAL PROCEDURE, OR ANY OTHER EXPOSURE?NO LATEX RISK : HAVE YOU EVER HAD ANY DIFFICULTY BREATHING OR HIVES AFTER EATING OR HANDLING ANY FRUITS, OR VEGETABLES; SUCH KIWI, BANANAS, STONE FRUITS, OR CHESTNUTSNO LATEX RISK : DO YOU HAVE A PREVIOUS PERSONAL HISTORY OF MORE THAN NINE SURGERIES, SPINA BIFIDA, OR REPEATED CATHERIZATIONS? NO LATEX RISK : ARE YOU FREQUENTLY EXPOSED TO LATEX PRODUCTS IN YOUR OCCUPATION?NO DATE ASKED : 06/15/2020 ALCOHOL SCREENING DID YOU HAVE A DRINK CONTAINING ALCOHOL IN THE PAST YEAR?YES HOW OFTEN DID YOU HAVE SIX OR MORE DRINKS ON ONE OCCASION IN THE PAST YEAR?WEEKLY (3 POINTS) HOW MANY DRINKS DID YOU HAVE ON A TYPICAL DAY WHEN YOU WERE DRINKING IN THE PAST YEAR?7 TO 9 (3 POINTS) HOW OFTEN DID YOU HAVE A DRINK CONTAINING ALCOHOL IN THE PAST YEAR?TWO TO FOUR TIMES A MONTH (2 POINTS) POINTS8 INTERPRETATIONPOSITIVE RECREATIONAL DRUG USE DRUG USE?NO CAFFEINE CAFFEINE USE?YES SABIANIST [id number] TENRIISM NO RASTAFARI BELIEFS THAT WOULD IMPACT HEALTH CARE. LANGUAGE LANGUAGES SPOKEN:PORTUGUESE EDUCATION LEVEL OF EDUCATION: HIGH SCHOOL LEARNING BARRIERS / SPECIAL NEEDS BARRIERS TO LEARNING?NO HEARING IMPAIRED?NO VISION IMPAIRED?YES COGNITIVELY IMPAIRED?NO :CORRECTIVE LENSES READINESS TO LEARN?YES LEARNING PREFERENCES?YES :TAPES/VIDEOS LEARNING CAPABILITIES PRESENT?YES EMOTIONAL BARRIERS?NO SPECIAL DEVICES?NO MANAGER EMPLOYMENT NEEDED?NO DOMESTIC VIOLENCE DO YOU FEEL SAFE IN YOUR ENVIRONMENT?YES OCCUPATION: RETIRED [employer]. DIET: REGULAR. MARITAL STATUS: SINGLE. PAIN CLINIC PFS, CLERGY, PUBLIC HEALTH REFERRALS PFS REFERRAL NEEDED?NO CLERGY REFERRAL NEEDED?NO PUBLIC HEALTH REFERRAL NEEDED?NO WAS THE PROVIDER NOTIFIED OF ANY PERTINENT INFO?YES N/A HAS THE PATIENT BEEN EDUCATED REGARDING HIS/HER PLAN OF CARE?YES HAS THE PATIENT BEEN EDUCATED REGARDING PAIN, THE RISK FOR PAIN, THE IMPORTANCE OF EFFECTIVE PAIN MANAGEMENT, AND THE PAIN ASSESSMENT PROCESS?YES ADVANCE DIRECTIVE ADVANCE DIRECTIVE DISCUSSED WITH PATIENT:YES HCP CHANDRA GOTTI, DAUGHTER HOSPITALIZATION/MAJOR DIAGNOSTIC PROCEDURE SURGERIES REVIEW OF SYSTEMS CONSTITUTIONAL: ANY RECENT FEVER NO . CHILLS NO . WEIGHT CHANGE OF UNKNOWN REASONS NO . GASTROENTEROLOGY: NEW UNEXPLAINABLE CHANGES IN BOWEL CONTROL NO . CONSTIPATION NO . GENITOURINARY: ANY NEW CHANGE IN BLADDER CONTROL? NO . NEUROLOGY: NEW ONSET DIZZINESS OR NEUROLOGICAL CHANGES NOT MENTIONED NO . NEW NUMBNESS OR PAIN PATTERNS NOT MENTIONED AND PERTINENT TO TODAY'S VISIT NO . CARDIOLOGY: NEW CHEST PRESSURE NO . NEW CHEST PAIN NO . RESPIRATORY: UNEXPLAINABLE COUGH NO . NEW SHORTNESS OF BREATH NO . VITAL SIGNS WT 281.8 LBS, HT 69 IN, BMI 41.61 INDEX, BP 181/97 MM HG, HR 74 /MIN, RR 18 /MIN, TEMP 97.4 F, OXYGEN SAT % 94%, SAFE IN ENV? (Y/N) Y, NA INITIALS AW 1001, REVIEWED BY: TIESHA. EXAMINATION GENERAL EXAMINATION: GENERALNO ACUTE DISTRESS, WELL NOURISHED AND HYDRATED. PSYCHAPPROPRIATE MOOD AND AFFECT . LUNGS:CLEAR TO AUSCULTATION BILATERALLY, NO WHEEZES, RHONCHI, RALES. HEART:NO MURMURS, REGULAR RATE AND RHYTHM. ASSESSMENTS OTHER CHRONIC PAIN - G89.29 (PRIMARY) INTERVERTEBRAL DISC DISORDER WITH RADICULOPATHY OF LUMBOSACRAL REGION - M51.17 TREATMENT OTHER CHRONIC PAIN DECREASE LYRICA CAPSULE, 150 MG, 1 CAPSULE, ORALLY, THREE TIMES DAILY, 30 DAYS, 90 START GABAPENTIN CAPSULE, 100 MG, 1 CAPSULE, ORALLY, TWICE DAILY, 30 DAY(S), 60 PAIN PROCEDURE LOGDATE OF [id number]/12/2020PROCEDURE:LUMBAR EPIDURAL STEROID INJECTION L4-5, L5-T2ECNZRE OF PRE SEDATEVALIUM 10MGS AND OXYCODONE 10MGSRESULT:PRE-02/26 POST 03/29 NOTES: EDUCATED PT REGARDING LYRICA AND GABAPENTIN DOSING CHANGE, PT ACKNOWLEDGED UNDERSTANDING, DS. CLINICAL NOTES: 69-YEAR-OLD MALE IN FOR POST LESI FOLLOW-UP. GIVEN PRESENTING SYMPTOMS RECOMMENDED TAPERING OFF LYRICA AND STARTING GABAPENTIN WITH FOLLOW-UP IN 2 MONTHS. PATIENT EXPRESSED UNDERSTANDING OF AND WAS IN AGREEMENT WITH TREATMENT PLAN. GIVEN TIME TO ASK QUESTIONS AND EXPRESS CONCERNS. , ISTOP REGISTRY REVIEWED AND DEMONSTRATES COMPLLIANCE. (REF # [id number] ) BRINGS IN MEDICATIONS WHICH IS APPROPRIATE FOR WHAT WAS DISPENSED. RECENT URINE TOXICOLOGY REVIEWED. NO UNAUTHORIZED MEDICATIONS. NO ILLICIT SUBSTANCES AND PRESCRIBED MEDICATIONS WERE PRESENT. PROCEDURES PN WORKMANS' COMP OPINION IN YOUR OPINION, WAS THE INCIDENT THAT THE PATIENT DESCRIBED THE COMPETENT MEDICAL CAUSE OF THIS INJURY/ILLNESS? YES ARE THE PATIENT'S COMPLAINTS CONSISTENT WITH HIS/HER HISTORY OF THE INJURY/ILLNESS? YES IS THE PATIENT'S HISTORY OF THE INJURY/ILLNESS CONSISTENT WITH YOUR OBJECTIVE FINDING? YES WHAT IS THE PERCENTAGE OF TEMPORARY IMPAIRMENT? TOTAL = 100% IS THE PATIENT WORKING? NO DOCTOR ON SITE: MATTIE HERNANDEZ MD PROCEDURE CODES FA211 ESTABILISHED PATIENT [facility] FACILITY CHARGE DISPOSITION & COMMUNICATION FOLLOW UP 2 MONTHS (REASON: BACK PAIN, NEW MEDICATION) ELECTRONICALLY SIGNED BY JOVITA XAVIER ON 06/16/2020 AT 08:53 AM EDT DISCLAIMER : THIS IS A VISIT SUMMARY EXTRACTED FROM THE [facility] CHART. IT IS NOT A COPY OF THE [facility] PROGRESS NOTE. JL
== END ==
LOC: M PAIN 10:15
PROVIDERS: ATTEND Family Medicine
DX: G89.29 Other chronic pain (principal); M51.17 Intervertebral disc disorders with radiculopathy, lumbosacral region; I10 Essential (primary) hypertension; E11.9 Type 2 diabetes mellitus without complications; E78.00 Pure hypercholesterolemia, unspecified; M10.9 Gout, unspecified; Z79.82 Long term (current) use of aspirin; Z79.84 Long term (current) use of oral hypoglycemic drugs; Z79.899 Other long term (current) drug therapy; Z88.5 Allergy status to narcotic agent

== ENCOUNTER → 2020-08-02 | Outpatient (CLI) | payer OTHER ==
--- NOTE | 2020-08-04 05:54 | ECWPNPC ---
PATIENT NAME: ALLAN ARNETT : 1950 GENDER: MALE VISIT DATE: 08/02/2020 DISCHARGE DATE: 08/02/20 1107 VISIT LOCKED DATE TIME: PHYSICIAN: DYLAN GARCIA PHYSICIAN PAGER NO: ACTIVE RESOURCE: DYLAN GARCIA REASON FOR APPOINTMENT 1. BACK PAIN,NEW MED HISTORY OF PRESENT ILLNESS GENERAL: - 69-YEAR-OLD MALE IN FOR WORKER'S COMP. CHRONIC PAIN FOLLOW-UP. HE RATES HIS PAIN CURRENTLY AT A 7 OUT OF 10 AND DESCRIBES IT ACHING, CONTINUOUS, TENDER, AND SORE. AT LAST CLINIC VISIT PATIENT WAS STARTED ON GABAPENTIN AND HE ADMITS TODAY THAT AT HIS CURRENT DOSAGE IT HAS BEEN INEFFECTIVE. THE PATIENT WAS HURT IN A WORK RELATED INJURY ON 08/28/1995 WHILE WORKING A [employer] P[employer]ERER FOR [employer] WHEN HE WAS STEPPING OFF A LADDER, FELL, AND STEPPED ON A PIPE CAUSING HIM TO INJURE HIS BACK. THE PATIENT STATES HIS PAIN BEGINS IN HIS LOW BACK AND RADIATES DOWN MAINLY HIS LEFT LEG AND INTO HIS LEFT FOOT. THE PATIENT SAYS HIS PAIN IS AFFECTING HIS ABILITY TO PERFORM HIS DAILY ACTIVITIES SUCH CLEANING, GROCERY SHOPPING, WALKING, AND SLEEPING. FALL RISK SCREENING: SCREENING :NO FALLS REPORTED IN THE LAST YEAR PAIN SCREENING: PATIENT HAS A COMPLAINT OF ACUTE OR CHRONIC PAIN :YES LOCATION OF PAIN:LOW BACK, LEG(S) BILATERAL LEGS. LEFT > RIGHT LEG INTENSITY OF PAIN (SCALE OF 1 TO 10):7 WHAT DOES YOUR PAIN FEEL LIKE:ACHING, CONTINOUS, TENDER, SORE DURATION:CONTINOUS, CONSTANT PAIN IS INCREASED BY:ACTIVITIES, PROLONGED STANDING PAIN IS DECREASED BY:USE OF PAIN MEDICATIONS, SITTING NURSING NOTE: -. PAIN CENTER INTAKE QUESTIONS: DO YOU HAVE A HISTORY OF MRSA? :NO DO YOU TAKE A BLOOD THINNERS? :NO DO YOU HAVE ANY BLEEDING DISORDERS? :NO ANY NEW NUMBNESS OR WEAKNESS IN YOUR LEGS OR ARMS? :NO ANY PACEMAKER,DEFIBRILLATOR, OR DORSAL COLUMN STIMULATOR? :YES DORSAL COLUMN STIMULATOR DO YOU HAVE ANY RASHES OR OPEN SORES? :NO ARE YOU ALLERGIC TO IV DYE? :NO ARE YOU DIABETIC? :YES ANY NEW PROBLEMS WITH YOUR MEDICATIONS? :NO HAVE YOU RECEIVED A VACCINE IN THE PAST 30 DAYS? :NO DO YOU PLAN TO RECEIVE A VACCINE IN THE NEXT 21 DAYS? :NO DO YOU NEED ANY PRESCRIPTION? :YES LYRICA/GABAPENTIN DO YOU TAKE ANY IMMUNOSUPPRESSIVE MEDICATIONS? :NO IS THERE A CHANCE YOU COULD BE ? :NO ARE YOU BREAST FEEDING? :NO CURRENT MEDICATIONS TAKING MULTIVITAMIN TABLET 1 TAB ORALLY DAILY TAKING ASPIR-81 81 MG TABLET DELAYED RELEASE 1 TABLET ORALLY ONCE A DAY TAKING NIFEDIPINE 60 MG TABLET EXTENDED RELEASE ORALLY DAILY TAKING OMEPRAZOLE 40 MG CAPSULE DELAYED RELEASE 1 CAPSULE ORALLY ONCE A DAY TAKING ROSUVASTATIN CALCIUM 20 MG TABLET 1 TABLET ORALLY ONCE A DAY TAKING METFORMIN HCL 1000 MG TABLET 1 TABLET WITH A MEAL ORALLY ONCE A DAY TAKING LOSARTAN POTASSIUM 100 MG TABLET 1 TABLET ORALLY ONCE A DAY TAKING ALLOPURINOL 100 MG TABLET 1 TABLET ORALLY ONCE A DAY TAKING LYRICA 200 MG CAPSULE 1 CAPSULE 1 TO 3 HOURS BEFORE BEDTIME ORALLY THREE TIMES DAILY TAKING GABAPENTIN 100 MG CAPSULE 1 CAPSULE ORALLY TWICE DAILY NOT-TAKING LYRICA 150 MG CAPSULE 1 CAPSULE ORALLY THREE TIMES DAILY NOT-TAKING FARXIGA 10 MG TABLET 1 TABLET ORALLY ONCE A DAY NOT-TAKING COLCHICINE 0.6 MG TABLET 1 TABLET ORALLY ONCE A DAY, NOTES: 3 MORE PILLS NOT-TAKING BUTRANS 15 MCG/HR PATCH WEEKLY 1 PATCH TO SKIN TRANSDERMAL WEEKLY NOT-TAKING NEXCARE TEGADERM 4"X4-3/4" - MISCELLANEOUS DIRECTED EXTERNAL NEEDED TO COVER BUTRANS PATCH. PATCH DOES NOT STAY ADHERED WITHOUT TEGADERM IN PLACE NOT-TAKING HYDROCHLOROTHIAZIDE 25 MG TABLET 1 TABLET IN THE MORNING ORALLY ONCE A DAY NOT-TAKING LOSARTAN POTASSIUM-HCTZ 100-25 MG TABLET 1 TABLET ORALLY ONCE A DAY NOT-TAKING CELECOXIB 200 MG CAPSULE 1 CAPSULE WITH FOOD ORALLY ONCE A DAY NOT-TAKING TRULICITY 0.75 MG/0.5ML SOLUTION PEN-INJECTOR SUBCUTANEOUS NOT-TAKING METFORMIN HCL ER 500 MG TABLET EXTENDED RELEASE 24 HOUR 1 TABLET WITH EVENING MEAL ORALLY ONCE A DAY NOT-TAKING CYMBALTA 30 MG CAPSULE DELAYED RELEASE PARTICLES 1 CAPSULE ORALLY ONCE A DAY NOT-TAKING GABAPENTIN 300 MG CAPSULE 1 CAPSULE ORALLY FOR PAIN FOUR TIMES DAILY MDD4 NOT-TAKING IBUPROFEN 800 MG TABLET 1 TABLET WITH FOOD OR MILK ORALLY THREE TIMES A DAY NOT-TAKING BYDUREON 2MG/VIAL 1 INJECTION SUBCUTANEOUSLY WEEKLY NOT-TAKING DRISDOL 36837 UNIT CAPSULE 1 CAPSULE ORALLY WEEKLY NOT-TAKING LYRICA 75 MG CAPSULE 1 CAPSULE ORALLY BID MDD=2, NOTES: HAVENT STARTED YET NOT-TAKING AMITRIPTYLINE HCL 25 MG TABLET 1 TABLET ORALLY BEFORE BEDTIME, NOTES: INSURANCE WONT FILL MEDICATION LIST REVIEWED AND RECONCILED WITH THE PATIENT PAST MEDICAL HISTORY HTN DIABETIC CHRONIC LOW BACK PAIN ARTHRITIS HYPERCHOLESTEROLEMIA GOUT ALLERGIES CODEINE SULFATE: HEART RACES - ALLERGY SURGICAL HISTORY BILAT CARPAL TUNNEL RELEASE BILAT ELBOW SURGERY BILAT TRIGGER FINGER REPAIR LEFT KNEE REPLACEMENT DORSAL COLUMN STIMULATOR 08/2018 FAMILY HISTORY FATHER: , DIAGNOSED WITH HYPERTENSION, DIABETES MOTHER: 2 BROTHER(S) , 1 SISTER(S) . 2DAUGHTER(S) - HEALTHY. SOCIAL HISTORY GENERAL: TOBACCO USE ARE YOU A:NONSMOKER LATEX QUESTIONNAIRE LATEX ALLERGY : HAVE YOU EVER DEVELOPED ANY TYPE OF REACTION AFTER HANDLING LATEX PRODUCTS SUCH RUBBER GLOVES, CONDOMS, DIAPHRAGMS, BALLOONS, SOCKS, OR UNDERWEAR?NO LATEX ALLERGY : HAVE YOU EVER DEVELOPED ANY TYPE OF REACTION DURING OR AFTER DENTAL APPOINTMENT, VAGINAL/RECTAL EXAMINATION, SURGICAL PROCEDURE, OR ANY OTHER EXPOSURE?NO LATEX RISK : HAVE YOU EVER HAD ANY DIFFICULTY BREATHING OR HIVES AFTER EATING OR HANDLING ANY FRUITS, OR VEGETABLES; SUCH KIWI, BANANAS, STONE FRUITS, OR CHESTNUTSNO LATEX RISK : DO YOU HAVE A PREVIOUS PERSONAL HISTORY OF MORE THAN NINE SURGERIES, SPINA BIFIDA, OR REPEATED CATHERIZATIONS? NO LATEX RISK : ARE YOU FREQUENTLY EXPOSED TO LATEX PRODUCTS IN YOUR OCCUPATION?NO DATE ASKED : 08/02/2020 ALCOHOL SCREENING DID YOU HAVE A DRINK CONTAINING ALCOHOL IN THE PAST YEAR?YES HOW OFTEN DID YOU HAVE SIX OR MORE DRINKS ON ONE OCCASION IN THE PAST YEAR?WEEKLY (3 POINTS) HOW MANY DRINKS DID YOU HAVE ON A TYPICAL DAY WHEN YOU WERE DRINKING IN THE PAST YEAR?7 TO 9 (3 POINTS) HOW OFTEN DID YOU HAVE A DRINK CONTAINING ALCOHOL IN THE PAST YEAR?TWO TO FOUR TIMES A MONTH (2 POINTS) POINTS8 INTERPRETATIONPOSITIVE RECREATIONAL DRUG USE DRUG USE?NO CAFFEINE CAFFEINE USE?YES CONFUCIANISM [id number] YAZIDISM NO MOSQUE BELIEFS THAT WOULD IMPACT HEALTH CARE. LANGUAGE LANGUAGES SPOKEN:[place]OLOF EDUCATION LEVEL OF EDUCATION: HIGH SCHOOL LEARNING BARRIERS / SPECIAL NEEDS BARRIERS TO LEARNING?NO HEARING IMPAIRED?NO VISION IMPAIRED?YES :CORRECTIVE LENSES COGNITIVELY IMPAIRED?NO READINESS TO LEARN?YES LEARNING PREFERENCES?YES :TAPES/VIDEOS LEARNING CAPABILITIES PRESENT?YES EMOTIONAL BARRIERS?NO SPECIAL DEVICES?NO RECRUITMENT INTERN NEEDED?NO DOMESTIC VIOLENCE DO YOU FEEL SAFE IN YOUR ENVIRONMENT?YES OCCUPATION: RETIRED [employer]. DIET: REGULAR. MARITAL STATUS: SINGLE. PAIN CLINIC PFS, CLERGY, PUBLIC HEALTH REFERRALS PFS REFERRAL NEEDED?NO CLERGY REFERRAL NEEDED?NO PUBLIC HEALTH REFERRAL NEEDED?NO WAS THE PROVIDER NOTIFIED OF ANY PERTINENT INFO?YES N/A HAS THE PATIENT BEEN EDUCATED REGARDING HIS/HER PLAN OF CARE?YES HAS THE PATIENT BEEN EDUCATED REGARDING PAIN, THE RISK FOR PAIN, THE IMPORTANCE OF EFFECTIVE PAIN MANAGEMENT, AND THE PAIN ASSESSMENT PROCESS?YES ADVANCE DIRECTIVE ADVANCE DIRECTIVE DISCUSSED WITH PATIENT:YES HCP CHANDRA GOTTI, DAUGHTER HOSPITALIZATION/MAJOR DIAGNOSTIC PROCEDURE SURGERIES REVIEW OF SYSTEMS CONSTITUTIONAL: ANY RECENT FEVER NO . CHILLS NO . WEIGHT CHANGE OF UNKNOWN REASONS NO . GASTROENTEROLOGY: NEW UNEXPLAINABLE CHANGES IN BOWEL CONTROL NO . CONSTIPATION NO . GENITOURINARY: ANY NEW CHANGE IN BLADDER CONTROL? NO . NEUROLOGY: NEW ONSET DIZZINESS OR NEUROLOGICAL CHANGES NOT MENTIONED NO . NEW NUMBNESS OR PAIN PATTERNS NOT MENTIONED AND PERTINENT TO TODAY'S VISIT NO . CARDIOLOGY: NEW CHEST PRESSURE NO . NEW CHEST PAIN NO . RESPIRATORY: UNEXPLAINABLE COUGH NO . NEW SHORTNESS OF BREATH NO . VITAL SIGNS WT 293.2 LBS, HT 69 IN, BMI 43.29 INDEX, BP 177/90 MM HG, HR 84 /MIN, RR 18 /MIN, TEMP 98.1 F, OXYGEN SAT % 94%, SAFE IN ENV? (Y/N) YES, NA INITIALS AW 1033, REVIEWED BY: ELISHA RN. EXAMINATION GENERAL EXAMINATION: GENERALNO ACUTE DISTRESS, WELL NOURISHED AND HYDRATED. PSYCHAPPROPRIATE MOOD AND AFFECT . LUNGS:CLEAR TO AUSCULTATION BILATERALLY, NO WHEEZES, RHONCHI, RALES. HEART:NO MURMURS, REGULAR RATE AND RHYTHM. ASSESSMENTS INTERVERTEBRAL DISC DISORDERS WITH RADICULOPATHY, LUMBOSACRAL REGION - M51.17 (PRIMARY) TREATMENT INTERVERTEBRAL DISC DISORDERS WITH RADICULOPATHY, LUMBOSACRAL REGION NOTES: 69-YEAR-OLD MALE IN FOR WORKER'S COMP. CHRONIC PAIN FOLLOW-UP. GIVEN PRESENTING SYMPTOMS RECOMMEND INCREASING GABAPENTIN TO 300 MG TWICE A DAY WITH FOLLOW-UP IN 3 MONTHS. PATIENT HAS EXPRESSED UNDERSTANDING OF WAS IN AGREEMENT WITH TREATMENT PLAN. GIVEN TIME TO ASK QUESTIONS AND EXPRESS CONCERNS. REVIEWED DISCHARGE INSTRUCTIONS WITH PATIENT INCLUDING INCREASE OF GABAPENTIN TO 300 MG TWICE A DAY. PATIENT VERBALIZED UUNDERSTANDING OF DISCHARGE INSTRUCTIONS. OTHERS REFILL GABAPENTIN CAPSULE, 300 MG, 1 CAPSULE, ORALLY, TWICE DAILY, 30 DAY(S), 60 PROCEDURES PN WORKMANS' COMP OPINION IN YOUR OPINION, WAS THE INCIDENT THAT THE PATIENT DESCRIBED THE COMPETENT MEDICAL CAUSE OF THIS INJURY/ILLNESS? YES ARE THE PATIENT'S COMPLAINTS CONSISTENT WITH HIS/HER HISTORY OF THE INJURY/ILLNESS? YES IS THE PATIENT'S HISTORY OF THE INJURY/ILLNESS CONSISTENT WITH YOUR OBJECTIVE FINDING? YES WHAT IS THE PERCENTAGE OF TEMPORARY IMPAIRMENT? TOTAL = 100% IS THE PATIENT WORKING? NO DOCTOR ON SITE: MATTIE HERNANDEZ MD PROCEDURE CODES FA211 ESTABILISHED PATIENT [facility] CHARGE DISPOSITION & COMMUNICATION FOLLOW UP 3 MONTHS (REASON: BACK PAIN ) ELECTRONICALLY SIGNED BY JOVITA XAVIER ON 08/03/2020 AT 08:51 AM EST DISCLAIMER : THIS IS A VISIT SUMMARY EXTRACTED FROM THE [employer] CHART. IT IS NOT A COPY OF THE [employer] PROGRESS NOTE. JL
== END ==
LOC: M PAIN 10:30
PROVIDERS: ATTEND Family Medicine
DX: M51.17 Intervertebral disc disorders with radiculopathy, lumbosacral region (principal); G89.29 Other chronic pain; E11.9 Type 2 diabetes mellitus without complications; Z96.89 Presence of other specified functional implants; Z96.652 Presence of left artificial knee joint; Z88.5 Allergy status to narcotic agent; E66.01 Morbid (severe) obesity due to excess calories; Z68.41 Body mass index [BMI] 40.0-44.9, adult; Z79.82 Long term (current) use of aspirin; Z79.84 Long term (current) use of oral hypoglycemic drugs; Z79.899 Other long term (current) drug therapy

== ENCOUNTER → 2020-11-01 | Outpatient (CLI) | payer OTHER ==
[~2020-11-01] MED LIST changes: +METH-1165 PO; -METH750T2 PO
--- NOTE | 2020-11-03 07:10 | ECWPNPC ---
PATIENT NAME: ALLAN ARNETT : 1950 GENDER: MALE VISIT DATE: 11/01/2020 DISCHARGE DATE: 11/01/20 1059 VISIT LOCKED DATE TIME: PHYSICIAN: DYLAN GARCIA PHYSICIAN PAGER NO: ACTIVE RESOURCE: DYLAN GARCIA REASON FOR APPOINTMENT 1. W/C BACK PAIN HISTORY OF PRESENT ILLNESS GENERAL: - 70-YEAR-OLD MALE IN FOR WORKER'S COMP. CHRONIC PAIN FOLLOW-UP. HE RATES HIS PAIN CURRENTLY AT A 4 OUT OF 10 AND DESCRIBES IT ACHING, CONTINUOUS, AND SHOOTING. PATIENT FEELS THE MEDICATIONS ARE HELPFUL BUT DOES QUESTION IF AN INCREASE IN PAIN MEDICATION WOULD BE OF BENEFIT HE IS EXPERIENCING INCREASED PAIN. THE PATIENT WAS HURT IN A WORK RELATED INJURY ON 08/28/1995 WHILE WORKING A [employer] FOR [employer] WHEN HE WAS STEPPING OFF A LADDER, FELL, AND STEPPED ON A PIPE CAUSING HIM TO INJURE HIS BACK. THE PATIENT STATES HIS PAIN BEGINS IN HIS LOW BACK AND RADIATES DOWN MAINLY HIS LEFT LEG AND INTO HIS LEFT FOOT. THE PATIENT SAYS HIS PAIN IS AFFECTING HIS ABILITY TO PERFORM HIS DAILY ACTIVITIES SUCH CLEANING, GROCERY SHOPPING, WALKING, AND SLEEPING. FALL RISK SCREENING: SCREENING : NO FALLS REPORTED IN THE LAST YEAR. PAIN SCREENING: PATIENT HAS A COMPLAINT OF ACUTE OR CHRONIC PAIN :YES LOCATION OF PAIN:LOW BACK, LEFT HIP, LEG(S) INTENSITY OF PAIN (SCALE OF 1 TO 10):4 WHAT DOES YOUR PAIN FEEL LIKE:ACHING, CONTINOUS, SORE, SHOOTING DURATION:CONTINOUS, CONSTANT PAIN IS INCREASED BY:ACTIVITIES, PROLONGED STANDING PAIN IS DECREASED BY:OTHERS NOTHING HELPS THE PAIN NURSING NOTE: -. PAIN CENTER INTAKE QUESTIONS: DO YOU HAVE A HISTORY OF MRSA? :NO DO YOU TAKE A BLOOD THINNERS? :NO DO YOU HAVE ANY BLEEDING DISORDERS? :NO ANY NEW NUMBNESS OR WEAKNESS IN YOUR LEGS OR ARMS? :NO ANY PACEMAKER,DEFIBRILLATOR, OR DORSAL COLUMN STIMULATOR? :YES DORSAL COLUMN STIMULATOR DO YOU HAVE ANY RASHES OR OPEN SORES? :NO ARE YOU ALLERGIC TO IV DYE? :NO ARE YOU DIABETIC? :YES TYPE II ANY NEW PROBLEMS WITH YOUR MEDICATIONS? :NO HAVE YOU RECEIVED A VACCINE IN THE PAST 30 DAYS? :YES IF SO WHAT VACCINE AND WHEN? SECOND COVID VACCINATION SCHEDULED FOR 11/02/2020 DO YOU PLAN TO RECEIVE A VACCINE IN THE NEXT 21 DAYS? :NO DO YOU NEED ANY PRESCRIPTION? :YES GABAPENTIN AND LYRICA- WOULD LIKE TO DISCUSS DO YOU TAKE ANY IMMUNOSUPPRESSIVE MEDICATIONS? :NO DO YOU HAVE ANY KIDNEY OR LIVER DISEASE? :NO IS THERE A CHANCE YOU COULD BE ? :NO ARE YOU BREAST FEEDING? :NO CURRENT MEDICATIONS TAKING MULTIVITAMIN TABLET 1 TAB ORALLY DAILY TAKING ASPIR-81 81 MG TABLET DELAYED RELEASE 1 TABLET ORALLY ONCE A DAY TAKING NIFEDIPINE 60 MG TABLET EXTENDED RELEASE ORALLY DAILY TAKING OMEPRAZOLE 40 MG CAPSULE DELAYED RELEASE 1 CAPSULE ORALLY ONCE A DAY TAKING ROSUVASTATIN CALCIUM 20 MG TABLET 1 TABLET ORALLY ONCE A DAY TAKING METFORMIN HCL 1000 MG TABLET 1 TABLET WITH A MEAL ORALLY ONCE A DAY TAKING LOSARTAN POTASSIUM 100 MG TABLET 1 TABLET ORALLY ONCE A DAY TAKING ALLOPURINOL 100 MG TABLET 1 TABLET ORALLY ONCE A DAY TAKING GABAPENTIN 300 MG CAPSULE 1 CAPSULE ORALLY TWICE DAILY TAKING LYRICA 200 MG CAPSULE 1 CAPSULE 1 TO 3 HOURS BEFORE BEDTIME ORALLY THREE TIMES DAILY UNKNOWN LYRICA 150 MG CAPSULE 1 CAPSULE ORALLY THREE TIMES DAILY UNKNOWN FARXIGA 10 MG TABLET 1 TABLET ORALLY ONCE A DAY UNKNOWN COLCHICINE 0.6 MG TABLET 1 TABLET ORALLY ONCE A DAY, NOTES: 3 MORE PILLS UNKNOWN BUTRANS 15 MCG/HR PATCH WEEKLY 1 PATCH TO SKIN TRANSDERMAL WEEKLY UNKNOWN NEXCARE TEGADERM 4"X4-3/4" - MISCELLANEOUS DIRECTED EXTERNAL NEEDED TO COVER BUTRANS PATCH. PATCH DOES NOT STAY ADHERED WITHOUT TEGADERM IN PLACE UNKNOWN HYDROCHLOROTHIAZIDE 25 MG TABLET 1 TABLET IN THE MORNING ORALLY ONCE A DAY UNKNOWN LOSARTAN POTASSIUM-HCTZ 100-25 MG TABLET 1 TABLET ORALLY ONCE A DAY UNKNOWN CELECOXIB 200 MG CAPSULE 1 CAPSULE WITH FOOD ORALLY ONCE A DAY UNKNOWN TRULICITY 0.75 MG/0.5ML SOLUTION PEN-INJECTOR SUBCUTANEOUS UNKNOWN METFORMIN HCL ER 500 MG TABLET EXTENDED RELEASE 24 HOUR 1 TABLET WITH EVENING MEAL ORALLY ONCE A DAY UNKNOWN CYMBALTA 30 MG CAPSULE DELAYED RELEASE PARTICLES 1 CAPSULE ORALLY ONCE A DAY UNKNOWN GABAPENTIN 300 MG CAPSULE 1 CAPSULE ORALLY FOR PAIN FOUR TIMES DAILY MDD4 UNKNOWN IBUPROFEN 800 MG TABLET 1 TABLET WITH FOOD OR MILK ORALLY THREE TIMES A DAY UNKNOWN BYDUREON 2MG/VIAL 1 INJECTION SUBCUTANEOUSLY WEEKLY UNKNOWN DRISDOL 12820 UNIT CAPSULE 1 CAPSULE ORALLY WEEKLY UNKNOWN LYRICA 75 MG CAPSULE 1 CAPSULE ORALLY BID MDD=2, NOTES: HAVENT STARTED YET UNKNOWN AMITRIPTYLINE HCL 25 MG TABLET 1 TABLET ORALLY BEFORE BEDTIME, NOTES: INSURANCE WONT FILL MEDICATION LIST REVIEWED AND RECONCILED WITH THE PATIENT PAST MEDICAL HISTORY HTN DIABETIC CHRONIC LOW BACK PAIN ARTHRITIS HYPERCHOLESTEROLEMIA GOUT ALLERGIES CODEINE SULFATE: HEART RACES - ALLERGY SURGICAL HISTORY BILAT CARPAL TUNNEL RELEASE BILAT ELBOW SURGERY BILAT TRIGGER FINGER REPAIR LEFT KNEE REPLACEMENT DORSAL COLUMN STIMULATOR 08/2018 RIGHT KNEE REPLACEMENT 08/31/2020 SOCIAL HISTORY GENERAL: TOBACCO USE ARE YOU A:NONSMOKER LATEX QUESTIONNAIRE LATEX ALLERGY : HAVE YOU EVER DEVELOPED ANY TYPE OF REACTION AFTER HANDLING LATEX PRODUCTS SUCH RUBBER GLOVES, CONDOMS, DIAPHRAGMS, BALLOONS, SOCKS, OR UNDERWEAR?NO LATEX ALLERGY : HAVE YOU EVER DEVELOPED ANY TYPE OF REACTION DURING OR AFTER DENTAL APPOINTMENT, VAGINAL/RECTAL EXAMINATION, SURGICAL PROCEDURE, OR ANY OTHER EXPOSURE?NO LATEX RISK : HAVE YOU EVER HAD ANY DIFFICULTY BREATHING OR HIVES AFTER EATING OR HANDLING ANY FRUITS, OR VEGETABLES; SUCH KIWI, BANANAS, STONE FRUITS, OR CHESTNUTSNO LATEX RISK : DO YOU HAVE A PREVIOUS PERSONAL HISTORY OF MORE THAN NINE SURGERIES, SPINA BIFIDA, OR REPEATED CATHERIZATIONS? NO LATEX RISK : ARE YOU FREQUENTLY EXPOSED TO LATEX PRODUCTS IN YOUR OCCUPATION?NO DATE ASKED : 11/01/2020 ALCOHOL USE: OCCASIONAL. ALCOHOL SCREENING DID YOU HAVE A DRINK CONTAINING ALCOHOL IN THE PAST YEAR?YES HOW OFTEN DID YOU HAVE SIX OR MORE DRINKS ON ONE OCCASION IN THE PAST YEAR?WEEKLY (3 POINTS) HOW MANY DRINKS DID YOU HAVE ON A TYPICAL DAY WHEN YOU WERE DRINKING IN THE PAST YEAR?7 TO 9 (3 POINTS) HOW OFTEN DID YOU HAVE A DRINK CONTAINING ALCOHOL IN THE PAST YEAR?TWO TO FOUR TIMES A MONTH (2 POINTS) POINTS8 INTERPRETATIONPOSITIVE RECREATIONAL DRUG USE DRUG USE?NO CAFFEINE CAFFEINE USE?YES EPISCOPAL [id number] HOAHAOISM NO ANGLICAN BELIEFS THAT WOULD IMPACT HEALTH CARE. LANGUAGE LANGUAGES SPOKEN:THAI EDUCATION LEVEL OF EDUCATION: HIGH SCHOOL LEARNING BARRIERS / SPECIAL NEEDS CHANGE FROM LAST VISIT?YES BARRIERS TO LEARNING?NO HEARING IMPAIRED?NO VISION IMPAIRED?NO COGNITIVELY IMPAIRED?NO READINESS TO LEARN?YES LEARNING PREFERENCES?YES :TAPES/VIDEOS LEARNING CAPABILITIES PRESENT?YES EMOTIONAL BARRIERS?NO SPECIAL DEVICES?NO HALL MONITOR NEEDED?NO DOMESTIC VIOLENCE DO YOU FEEL SAFE IN YOUR ENVIRONMENT?YES OCCUPATION: RETIRED [employer]. DIET: REGULAR. MARITAL STATUS: SINGLE. - PFS REFERRAL NEEDED?NO CLERGY REFERRAL NEEDED?NO PUBLIC HEALTH REFERRAL NEEDED?NO WAS THE PROVIDER NOTIFIED OF ANY PERTINENT INFO?YES N/A HAS THE PATIENT BEEN EDUCATED REGARDING HIS/HER PLAN OF CARE?YES HAS THE PATIENT BEEN EDUCATED REGARDING PAIN, THE RISK FOR PAIN, THE IMPORTANCE OF EFFECTIVE PAIN MANAGEMENT, AND THE PAIN ASSESSMENT PROCESS?YES ADVANCE DIRECTIVE ADVANCE DIRECTIVE DISCUSSED WITH PATIENT:YES HCP CHANDRA GOTTI, DAUGHTER HOSPITALIZATION/MAJOR DIAGNOSTIC PROCEDURE SURGERIES REVIEW OF SYSTEMS CONSTITUTIONAL: ANY RECENT FEVER NO . CHILLS NO . WEIGHT CHANGE OF UNKNOWN REASONS NO . GASTROENTEROLOGY: NEW UNEXPLAINABLE CHANGES IN BOWEL CONTROL NO . CONSTIPATION NO . GENITOURINARY: ANY NEW CHANGE IN BLADDER CONTROL? NO . NEUROLOGY: NEW ONSET DIZZINESS OR NEUROLOGICAL CHANGES NOT MENTIONED NO . NEW NUMBNESS OR PAIN PATTERNS NOT MENTIONED AND PERTINENT TO TODAY'S VISIT NO . CARDIOLOGY: NEW CHEST PRESSURE NO . PATIENT DENIES NO . RESPIRATORY: UNEXPLAINABLE COUGH NO . NEW SHORTNESS OF BREATH NO . VITAL SIGNS WT 280.0 LBS, HT 69 IN, BMI 41.34 INDEX, BP 148/82 MM HG, HR 81 /MIN, RR 18 /MIN, TEMP 97.8 F, OXYGEN SAT % 94%, SAFE IN ENV? (Y/N) YES, NA INITIALS SC 10:28, REVIEWED BY: KENAN MALCOLM MA. EXAMINATION GENERAL EXAMINATION: GENERALNO ACUTE DISTRESS, WELL NOURISHED AND HYDRATED. PSYCHAPPROPRIATE MOOD AND AFFECT . LUNGS:CLEAR TO AUSCULTATION BILATERALLY, NO WHEEZES, RHONCHI, RALES. HEART:NO MURMURS, REGULAR RATE AND RHYTHM. ASSESSMENTS INTERVERTEBRAL DISC DISORDERS WITH RADICULOPATHY, LUMBOSACRAL REGION - M51.17 (PRIMARY) TREATMENT INTERVERTEBRAL DISC DISORDERS WITH RADICULOPATHY, LUMBOSACRAL REGION STOP LYRICA CAPSULE, 150 MG, 1 CAPSULE, ORALLY, THREE TIMES DAILY REFILL GABAPENTIN CAPSULE, 400 MG, 1 CAPSULE, ORALLY, TWICE DAILY, 30 DAY(S), 60, REFILLS 2 NOTES: 70-YEAR-OLD MALE IN FOR CHRONIC PAIN FOLLOW-UP. GIVEN PRESENTING SYMPTOMS RECOMMENDED INCREASING GABAPENTIN TO 400 MG TWICE A DAY WITH FOLLOW-UP IN 3 MONTHS. PATIENT HAS EXPRESSED UNDERSTANDING OF AND WAS IN AGREEMENT WITH TREATMENT PLAN. GIVEN TIME TO ASK QUESTIONS AND EXPRESS CONCERNS. , ISTOP REGISTRY REVIEWED AND DEMONSTRATES COMPLLIANCE. (REF # [id number] ). PROCEDURES PN WORKMANS' COMP OPINION IN YOUR OPINION, WAS THE INCIDENT THAT THE PATIENT DESCRIBED THE COMPETENT MEDICAL CAUSE OF THIS INJURY/ILLNESS? YES ARE THE PATIENT'S COMPLAINTS CONSISTENT WITH HIS/HER HISTORY OF THE INJURY/ILLNESS? YES IS THE PATIENT'S HISTORY OF THE INJURY/ILLNESS CONSISTENT WITH YOUR OBJECTIVE FINDING? YES WHAT IS THE PERCENTAGE OF TEMPORARY IMPAIRMENT? TOTAL = 100% IS THE PATIENT WORKING? NO DOCTOR ON SITE: MATTIE HERNANDEZ MD PROCEDURE CODES FA211 ESTABILISHED PATIENT [facility] CHARGE DISPOSITION & COMMUNICATION FOLLOW UP 3 MONTHS (REASON: WORKER'S COMP./BACK PAIN) ELECTRONICALLY SIGNED BY JOVITA XAVIER ON 11/02/2020 AT 08:53 AM EDT DISCLAIMER : THIS IS A VISIT SUMMARY EXTRACTED FROM THE [email or web address] CHART. IT IS NOT A COPY OF THE [email or web address] PROGRESS NOTE. JL
== END ==
LOC: M PAIN 10:30
PROVIDERS: ATTEND Family Medicine
DX: M51.17 Intervertebral disc disorders with radiculopathy, lumbosacral region (principal); I10 Essential (primary) hypertension; E11.9 Type 2 diabetes mellitus without complications; E78.00 Pure hypercholesterolemia, unspecified; M10.9 Gout, unspecified; Z79.82 Long term (current) use of aspirin; Z79.84 Long term (current) use of oral hypoglycemic drugs; Z79.899 Other long term (current) drug therapy; Z88.5 Allergy status to narcotic agent

== ENCOUNTER → 2020-11-19 | Outpatient (CLI) | payer OTHER ==
--- NOTE | 2020-11-22 23:53 | ECWPNPC ---
PATIENT NAME: ALLAN ARNETT : 1950 GENDER: MALE VISIT DATE: 11/19/2020 DISCHARGE DATE: 11/19/20 1453 VISIT LOCKED DATE TIME: PHYSICIAN: DYLAN GARCIA PHYSICIAN PAGER NO: ACTIVE RESOURCE: DYLAN GARCIA REASON FOR APPOINTMENT 1. WANTS PROCEDURE HISTORY OF PRESENT ILLNESS GENERAL: 70-YEAR-OLD MALE IN FOR WORKER'S COMP. CHRONIC PAIN FOLLOW-UP. HE RATES HIS PAIN CURRENTLY AT A 4 OUT OF 10 AND DESCRIBES IT ACHING, BURNING, CONTINOUS, SHARP, STABBING, TENDER, SORE, AND SHOOTING. WE WILL DISCUSS TRANSFORAMINAL EPIDURALS TODAY WITH A GOAL OF INCREASED FUNCTIONALITY AND DECREASED PAIN. THE PATIENT WAS HURT IN A WORK RELATED INJURY ON 08/28/1995 WHILE WORKING A [employer] FOR [employer] WHEN HE WAS STEPPING OFF A LADDER, FELL, AND STEPPED ON A PIPE CAUSING HIM TO INJURE HIS BACK. THE PATIENT STATES HIS PAIN BEGINS IN HIS LOW BACK AND RADIATES DOWN MAINLY HIS LEFT LEG AND INTO HIS LEFT FOOT. THE PATIENT SAYS HIS PAIN IS AFFECTING HIS ABILITY TO PERFORM HIS DAILY ACTIVITIES SUCH CLEANING, GROCERY SHOPPING, WALKING, AND SLEEPING. FALL RISK SCREENING: SCREENING : NO FALLS REPORTED IN THE LAST YEAR. PAIN SCREENING: PATIENT HAS A COMPLAINT OF ACUTE OR CHRONIC PAIN :YES LOCATION OF PAIN:LOW BACK INTENSITY OF PAIN (SCALE OF 1 TO 10):4 WHEN WALKING, PATIENT STATES "THE PAIN IS A 9-10". WHAT DOES YOUR PAIN FEEL LIKE:ACHING, BURNING, CONTINOUS, SHARP, STABBING, TENDER, SORE, SHOOTING DURATION:CONTINOUS, AWAKENS FROM SLEEP PAIN IS INCREASED BY:ACTIVITIES, PROLONGED STANDING, OTHERS WALKING PAIN IS DECREASED BY:OTHERS NOTHING SEEMS TO HELP THE PAIN NURSING NOTE: -. PAIN CENTER INTAKE QUESTIONS: DO YOU HAVE A HISTORY OF MRSA? :NO DO YOU TAKE A BLOOD THINNERS? :NO DO YOU HAVE ANY BLEEDING DISORDERS? :NO ANY NEW NUMBNESS OR WEAKNESS IN YOUR LEGS OR ARMS? :YES LEFT LEG INCREASING IN PAIN ANY PACEMAKER,DEFIBRILLATOR, OR DORSAL COLUMN STIMULATOR? :YES DCS DO YOU HAVE ANY RASHES OR OPEN SORES? :NO ARE YOU ALLERGIC TO IV DYE? :NO ARE YOU DIABETIC? :YES TYPE II ANY NEW PROBLEMS WITH YOUR MEDICATIONS? :NO HAVE YOU RECEIVED A VACCINE IN THE PAST 30 DAYS? :YES IF SO WHAT VACCINE AND WHEN? PATIENT RECEIVED SECOND COVID VACCINATION AROUND 10/18/2020. PATIENT UNABLE TO VERIFY THE EXACT DATE. DO YOU PLAN TO RECEIVE A VACCINE IN THE NEXT 21 DAYS? :NO DO YOU NEED ANY PRESCRIPTION? :YES LYRICA DO YOU TAKE ANY IMMUNOSUPPRESSIVE MEDICATIONS? :NO DO YOU HAVE ANY KIDNEY OR LIVER DISEASE? :NO IS THERE A CHANCE YOU COULD BE ? :NO ARE YOU BREAST FEEDING? :NO CURRENT MEDICATIONS TAKING GABAPENTIN 400 MG CAPSULE 1 CAPSULE ORALLY TWICE DAILY TAKING MULTIVITAMIN TABLET 1 TAB ORALLY DAILY TAKING ASPIR-81 81 MG TABLET DELAYED RELEASE 1 TABLET ORALLY ONCE A DAY TAKING NIFEDIPINE 60 MG TABLET EXTENDED RELEASE ORALLY DAILY TAKING OMEPRAZOLE 40 MG CAPSULE DELAYED RELEASE 1 CAPSULE ORALLY ONCE A DAY TAKING ROSUVASTATIN CALCIUM 20 MG TABLET 1 TABLET ORALLY ONCE A DAY TAKING METFORMIN HCL 1000 MG TABLET 1 TABLET WITH A MEAL ORALLY ONCE A DAY TAKING LOSARTAN POTASSIUM 100 MG TABLET 1 TABLET ORALLY ONCE A DAY TAKING ALLOPURINOL 100 MG TABLET 1 TABLET ORALLY ONCE A DAY TAKING GABAPENTIN 400 MG CAPSULE 1 CAPSULE ORALLY TWICE DAILY TAKING LYRICA 200 MG CAPSULE 1 CAPSULE 1 TO 3 HOURS BEFORE BEDTIME ORALLY THREE TIMES DAILY UNKNOWN FARXIGA 10 MG TABLET 1 TABLET ORALLY ONCE A DAY UNKNOWN COLCHICINE 0.6 MG TABLET 1 TABLET ORALLY ONCE A DAY, NOTES: 3 MORE PILLS UNKNOWN BUTRANS 15 MCG/HR PATCH WEEKLY 1 PATCH TO SKIN TRANSDERMAL WEEKLY UNKNOWN NEXCARE TEGADERM 4"X4-3/4" - MISCELLANEOUS DIRECTED EXTERNAL NEEDED TO COVER BUTRANS PATCH. PATCH DOES NOT STAY ADHERED WITHOUT TEGADERM IN PLACE UNKNOWN HYDROCHLOROTHIAZIDE 25 MG TABLET 1 TABLET IN THE MORNING ORALLY ONCE A DAY UNKNOWN LOSARTAN POTASSIUM-HCTZ 100-25 MG TABLET 1 TABLET ORALLY ONCE A DAY UNKNOWN CELECOXIB 200 MG CAPSULE 1 CAPSULE WITH FOOD ORALLY ONCE A DAY UNKNOWN TRULICITY 0.75 MG/0.5ML SOLUTION PEN-INJECTOR SUBCUTANEOUS UNKNOWN METFORMIN HCL ER 500 MG TABLET EXTENDED RELEASE 24 HOUR 1 TABLET WITH EVENING MEAL ORALLY ONCE A DAY UNKNOWN CYMBALTA 30 MG CAPSULE DELAYED RELEASE PARTICLES 1 CAPSULE ORALLY ONCE A DAY UNKNOWN IBUPROFEN 800 MG TABLET 1 TABLET WITH FOOD OR MILK ORALLY THREE TIMES A DAY UNKNOWN BYDUREON 2MG/VIAL 1 INJECTION SUBCUTANEOUSLY WEEKLY UNKNOWN DRISDOL 29207 UNIT CAPSULE 1 CAPSULE ORALLY WEEKLY UNKNOWN LYRICA 75 MG CAPSULE 1 CAPSULE ORALLY BID MDD=2, NOTES: HAVENT STARTED YET UNKNOWN AMITRIPTYLINE HCL 25 MG TABLET 1 TABLET ORALLY BEFORE BEDTIME, NOTES: INSURANCE WONT FILL MEDICATION LIST REVIEWED AND RECONCILED WITH THE PATIENT PAST MEDICAL HISTORY HTN DIABETIC CHRONIC LOW BACK PAIN ARTHRITIS HYPERCHOLESTEROLEMIA GOUT ALLERGIES CODEINE SULFATE: HEART RACES - ALLERGY SURGICAL HISTORY BILAT CARPAL TUNNEL RELEASE BILAT ELBOW SURGERY BILAT TRIGGER FINGER REPAIR LEFT KNEE REPLACEMENT DORSAL COLUMN STIMULATOR 08/2018 RIGHT KNEE REPLACEMENT 08/31/2020 SOCIAL HISTORY GENERAL: TOBACCO USE ARE YOU A:NONSMOKER LATEX QUESTIONNAIRE LATEX ALLERGY : HAVE YOU EVER DEVELOPED ANY TYPE OF REACTION AFTER HANDLING LATEX PRODUCTS SUCH RUBBER GLOVES, CONDOMS, DIAPHRAGMS, BALLOONS, SOCKS, OR UNDERWEAR?NO LATEX ALLERGY : HAVE YOU EVER DEVELOPED ANY TYPE OF REACTION DURING OR AFTER DENTAL APPOINTMENT, VAGINAL/RECTAL EXAMINATION, SURGICAL PROCEDURE, OR ANY OTHER EXPOSURE?NO LATEX RISK : HAVE YOU EVER HAD ANY DIFFICULTY BREATHING OR HIVES AFTER EATING OR HANDLING ANY FRUITS, OR VEGETABLES; SUCH KIWI, BANANAS, STONE FRUITS, OR CHESTNUTSNO LATEX RISK : DO YOU HAVE A PREVIOUS PERSONAL HISTORY OF MORE THAN NINE SURGERIES, SPINA BIFIDA, OR REPEATED CATHERIZATIONS? NO LATEX RISK : ARE YOU FREQUENTLY EXPOSED TO LATEX PRODUCTS IN YOUR OCCUPATION?NO DATE ASKED : 11/19/2020 ALCOHOL USE: OCCASIONAL. ALCOHOL SCREENING DID YOU HAVE A DRINK CONTAINING ALCOHOL IN THE PAST YEAR?YES HOW OFTEN DID YOU HAVE SIX OR MORE DRINKS ON ONE OCCASION IN THE PAST YEAR?WEEKLY (3 POINTS) HOW MANY DRINKS DID YOU HAVE ON A TYPICAL DAY WHEN YOU WERE DRINKING IN THE PAST YEAR?7 TO 9 (3 POINTS) HOW OFTEN DID YOU HAVE A DRINK CONTAINING ALCOHOL IN THE PAST YEAR?TWO TO FOUR TIMES A MONTH (2 POINTS) POINTS8 INTERPRETATIONPOSITIVE RECREATIONAL DRUG USE DRUG USE?NO CAFFEINE CAFFEINE USE?YES ANABAPTIST [id number] BAPTIST NO ANABAPTISM BELIEFS THAT WOULD IMPACT HEALTH CARE. LANGUAGE LANGUAGES SPOKEN:PERUVIAN EDUCATION LEVEL OF EDUCATION: HIGH SCHOOL LEARNING BARRIERS / SPECIAL NEEDS CHANGE FROM LAST VISIT?YES BARRIERS TO LEARNING?NO HEARING IMPAIRED?NO VISION IMPAIRED?NO COGNITIVELY IMPAIRED?NO READINESS TO LEARN?YES LEARNING PREFERENCES?YES :TAPES/VIDEOS LEARNING CAPABILITIES PRESENT?YES EMOTIONAL BARRIERS?NO SPECIAL DEVICES?NO RADIOLOGIC TECHNOLOGY INSTRUCTOR NEEDED?NO DOMESTIC VIOLENCE DO YOU FEEL SAFE IN YOUR ENVIRONMENT?YES OCCUPATION: RETIRED [employer]. DIET: REGULAR. MARITAL STATUS: SINGLE. - PFS REFERRAL NEEDED?NO CLERGY REFERRAL NEEDED?NO PUBLIC HEALTH REFERRAL NEEDED?NO WAS THE PROVIDER NOTIFIED OF ANY PERTINENT INFO?YES N/A HAS THE PATIENT BEEN EDUCATED REGARDING HIS/HER PLAN OF CARE?YES HAS THE PATIENT BEEN EDUCATED REGARDING PAIN, THE RISK FOR PAIN, THE IMPORTANCE OF EFFECTIVE PAIN MANAGEMENT, AND THE PAIN ASSESSMENT PROCESS?YES ADVANCE DIRECTIVE ADVANCE DIRECTIVE DISCUSSED WITH PATIENT:YES HCP CHANDRA GOTTI, DAUGHTER HOSPITALIZATION/MAJOR DIAGNOSTIC PROCEDURE SURGERIES REVIEW OF SYSTEMS CONSTITUTIONAL: ANY RECENT FEVER NO . CHILLS NO . WEIGHT CHANGE OF UNKNOWN REASONS NO . GASTROENTEROLOGY: NEW UNEXPLAINABLE CHANGES IN BOWEL CONTROL NO . CONSTIPATION NO . GENITOURINARY: ANY NEW CHANGE IN BLADDER CONTROL? NO . NEUROLOGY: NEW ONSET DIZZINESS OR NEUROLOGICAL CHANGES NOT MENTIONED NO . NEW NUMBNESS OR PAIN PATTERNS NOT MENTIONED AND PERTINENT TO TODAY'S VISIT NO . CARDIOLOGY: NEW CHEST PRESSURE NO . PATIENT DENIES NO . RESPIRATORY: UNEXPLAINABLE COUGH NO . NEW SHORTNESS OF BREATH NO . VITAL SIGNS WT 284.0 LBS, HT 69 IN, BMI 41.93 INDEX, BP 188/97 MM HG, REPEAT BP 162/76 MM HG, HR 94 /MIN, RR 18 /MIN, TEMP 95.7 F, OXYGEN SAT % 96%, SAFE IN ENV? (Y/N) YES, NA INITIALS AW 0925, REVIEWED BY: LORIE BP RETAKEN 162/76. ALVAREZ MALCOLM MA. EXAMINATION GENERAL EXAMINATION: GENERALNO ACUTE DISTRESS, WELL NOURISHED AND HYDRATED. PSYCHAPPROPRIATE MOOD AND AFFECT . LUNGS:CLEAR TO AUSCULTATION BILATERALLY, NO WHEEZES, RHONCHI, RALES. HEART:NO MURMURS, REGULAR RATE AND RHYTHM. BACK:DENIES POINT TENDERNESS ALONG LUMBAR SPINE, SURROUNDING SKIN SHOWS NO ERYTHEMA, ECCHYMOSIS, INCREASED WARMTH, AND/OR SKIN ERUPTIONS NOTED. POSITIVE MODIFIED SLR LEFT SIDE . MUSCULOSKELETAL:NOTABLE WEAKNESS OF THE LEFT LOWER EXTREMITY, RIGHT LOWER EXTREMITY WITHIN NORMAL LIMITS . ASSESSMENTS INTERVERTEBRAL DISC DISORDER WITH RADICULOPATHY OF LUMBOSACRAL REGION - M51.17 (PRIMARY), RISK: (NULL) TREATMENT INTERVERTEBRAL DISC DISORDER WITH RADICULOPATHY OF LUMBOSACRAL REGION MEDICATION: OXYCODONE HCL TAB 10MG ORALLY (ORDERED FOR 11/29/2020) MEDICATION: VALIUM TAB 10MG ORALLY (DIAZEPAM) (ORDERED FOR 11/29/2020) NOTES: 70-YEAR-OLD MALE IN FOR WORKER'S COMP. CHRONIC PAIN FOLLOW-UP. GIVEN PRESENTING SYMPTOMS AND RESULTS OF PHYSICAL EXAMINATION RECOMMENDED LEFT TRANSFORAMINAL EPIDURAL STEROID INJECTION WITH POSTPROCEDURAL FOLLOW-UP. PATIENT HAS EXPRESSED UNDERSTANDING OF AND WAS IN AGREEMENT WITH TREATMENT PLAN. GIVEN TIME TO ASK QUESTIONS AND EXPRESS CONCERNS. , ISTOP REGISTRY REVIEWED AND DEMONSTRATES COMPLLIANCE. (REF # [id number] ) BRINGS IN MEDICATIONS WHICH IS APPROPRIATE FOR WHAT WAS DISPENSED. RECENT URINE TOXICOLOGY REVIEWED. PROCEDURES PN WORKMANS' COMP OPINION IN YOUR OPINION, WAS THE INCIDENT THAT THE PATIENT DESCRIBED THE COMPETENT MEDICAL CAUSE OF THIS INJURY/ILLNESS? YES ARE THE PATIENT'S COMPLAINTS CONSISTENT WITH HIS/HER HISTORY OF THE INJURY/ILLNESS? YES IS THE PATIENT'S HISTORY OF THE INJURY/ILLNESS CONSISTENT WITH YOUR OBJECTIVE FINDING? YES WHAT IS THE PERCENTAGE OF TEMPORARY IMPAIRMENT? TOTAL = 100% IS THE PATIENT WORKING? NO DOCTOR ON SITE: MATTIE HERNANDEZ MD PROCEDURE CODES FA211 ESTABILISHED PATIENT [facility] CHARGE DISPOSITION & COMMUNICATION FOLLOW UP POST PROCEDURE (REASON: LEFT TRANSFORAMINAL EPIDURAL STERIOD INJECTION ) ELECTRONICALLY SIGNED BY JOVITA XAVIER ON 11/22/2020 AT 08:42 AM EDT DISCLAIMER : THIS IS A VISIT SUMMARY EXTRACTED FROM THE [facility] CHART. IT IS NOT A COPY OF THE [facility] PROGRESS NOTE. JL
== END ==
LOC: M PAIN 09:45
PROVIDERS: ATTEND Family Medicine
DX: M51.17 Intervertebral disc disorders with radiculopathy, lumbosacral region (principal); I10 Essential (primary) hypertension; E11.9 Type 2 diabetes mellitus without complications; E78.00 Pure hypercholesterolemia, unspecified; M10.9 Gout, unspecified; Z79.82 Long term (current) use of aspirin; Z79.899 Other long term (current) drug therapy; Z79.84 Long term (current) use of oral hypoglycemic drugs; Z88.5 Allergy status to narcotic agent

== ENCOUNTER → 2021-01-14 | Outpatient (CLI) | payer OTHER | LOC: M LABSMTC 10:14 | PROVIDERS: ATTEND Anesthesiology | DX: Z01.812 Encounter for preprocedural laboratory examination (principal); Z11.52 Encounter for screening for COVID-19 ==

== ENCOUNTER → 2021-01-19 | Outpatient (CLI) | payer OTHER ==
[~2021-01-19] MED LIST changes: +BUPIVACAINE HCL 0.25% 30ML VIAL As Ordered ONE; +ISOVUE-M 300 61% 15ML VIAL As Ordered ONE; +LIDOCAINE 1% SDV 30ML VIAL As Ordered ONE; +dexameTHASONE 10MG/1ML VIAL PRES.FREE (J1100 PER 1MG) As Ordered ONE; +diazePAM 5MG TABLET As Ordered ONE; +oxyCODONE 5MG TAB As Ordered ONE
--- NOTE | 2021-01-19 16:08 | REP ---
INDICATION: LEFT TRANSFORAMINAL. COMPARISON: None. TECHNIQUE: Multiple C-arm views lower lumbar spine. FINDINGS: [place] are seen along the lower lumbar spine. A small amount of contrast is injected. IMPRESSION: 1 minutes 2 seconds fluoroscopy time utilized. <Electronically signed by Salo Martinez > 01/19/21 0587
--- NOTE | 2021-01-21 00:47 | ECWPNPC ---
PATIENT NAME: ALLAN ARNETT : 1950 GENDER: MALE VISIT DATE: 01/19/2021 DISCHARGE DATE: 01/19/21 1608 VISIT LOCKED DATE TIME: PHYSICIAN: MATTIE EASLEY MD PHYSICIAN PAGER NO: ACTIVE RESOURCE: MATTIE EASLEY MD REASON FOR APPOINTMENT 1. LEFT TRANSFORAMINAL EPIDURAL STERIOD INJECTION HISTORY OF PRESENT ILLNESS GENERAL: -. FALL RISK SCREENING: SCREENING : NO FALLS REPORTED IN THE LAST YEAR. PAIN SCREENING: PATIENT HAS A COMPLAINT OF ACUTE OR CHRONIC PAIN :YES LOCATION OF PAIN:LOW BACK, LEG(S) INTENSITY OF PAIN (SCALE OF 1 TO 10):8 WHAT DOES YOUR PAIN FEEL LIKE:ACHING, BURNING, SHARP, STABBING, THROBBING, SHOOTING DURATION:CONTINOUS, CONSTANT PAIN IS INCREASED BY:ACTIVITIES PAIN IS DECREASED BY:USE OF PAIN MEDICATIONS NURSING NOTE: -. PAIN CENTER INTAKE QUESTIONS: DO YOU HAVE A HISTORY OF MRSA? :NO DO YOU TAKE A BLOOD THINNERS? :NO DO YOU HAVE ANY BLEEDING DISORDERS? :NO ANY NEW NUMBNESS OR WEAKNESS IN YOUR LEGS OR ARMS? :NO ANY PACEMAKER,DEFIBRILLATOR, OR DORSAL COLUMN STIMULATOR? :YES DCS DO YOU HAVE ANY RASHES OR OPEN SORES? :NO ARE YOU ALLERGIC TO IV DYE? :NO ARE YOU DIABETIC? :YES ANY NEW PROBLEMS WITH YOUR MEDICATIONS? :NO HAVE YOU RECEIVED A VACCINE IN THE PAST 30 DAYS? :NO DO YOU PLAN TO RECEIVE A VACCINE IN THE NEXT 21 DAYS? :NO DO YOU TAKE ANY IMMUNOSUPPRESSIVE MEDICATIONS? :YES ALLOPURINOL ANY HISTORY OF SEIZURES? :NO ANY HISTORY OF CARDIAC ISSUES OR EVENTS? :NO DO YOU HAVE ANY KIDNEY OR LIVER DISEASE? :NO DO YOU HAVE SLEEP APNEA? :YES DO YOU WEAR A CPAP?NO NON-COMPLIANT ANY RECENT HEAD INJURY? :NO DO YOU HAVE ANY NEW INFECTIONS? :NO IS THERE A CHANCE YOU COULD BE ? :NO ARE YOU BREAST FEEDING? :NO WHEN DID YOU LAST EAT? : 01/19/21 @ 0600 WHEN DID YOU LAST DRINK? : 01/19/21 @ 0600 WHAT DID YOU LAST DRINK? : COFFEE WITH CREAMER NAME OF PERSON DRIVING YOU HOME? : ALBERT DO YOU HAVE ANY OTHER QUESTIONS OR CONCERNS? : - CURRENT MEDICATIONS TAKING MULTIVITAMIN TABLET 1 TAB ORALLY DAILY TAKING ASPIR-81 81 MG TABLET DELAYED RELEASE 1 TABLET ORALLY ONCE A DAY TAKING NIFEDIPINE 60 MG TABLET EXTENDED RELEASE ORALLY DAILY TAKING OMEPRAZOLE 40 MG CAPSULE DELAYED RELEASE 1 CAPSULE ORALLY ONCE A DAY TAKING ROSUVASTATIN CALCIUM 20 MG TABLET 1 TABLET ORALLY ONCE A DAY TAKING METFORMIN HCL 1000 MG TABLET 1 TABLET WITH A MEAL ORALLY ONCE A DAY, NOTES: 01/18/21 TAKING LOSARTAN POTASSIUM 100 MG TABLET 1 TABLET ORALLY ONCE A DAY TAKING ALLOPURINOL 100 MG TABLET 1 TABLET ORALLY ONCE A DAY, NOTES: 01/19/21 TAKING GABAPENTIN 400 MG CAPSULE 1 CAPSULE ORALLY TWICE DAILY, NOTES: 01/19/21 TAKING LYRICA 200 MG CAPSULE 1 CAPSULE 1 TO 3 HOURS BEFORE BEDTIME ORALLY THREE TIMES DAILY, NOTES: 01/19/21 NOT-TAKING GABAPENTIN 400 MG CAPSULE 1 CAPSULE ORALLY TWICE DAILY NOT-TAKING FARXIGA 10 MG TABLET 1 TABLET ORALLY ONCE A DAY NOT-TAKING COLCHICINE 0.6 MG TABLET 1 TABLET ORALLY ONCE A DAY, NOTES: 3 MORE PILLS NOT-TAKING BUTRANS 15 MCG/HR PATCH WEEKLY 1 PATCH TO SKIN TRANSDERMAL WEEKLY NOT-TAKING NEXCARE TEGADERM 4"X4-3/4" - MISCELLANEOUS DIRECTED EXTERNAL NEEDED TO COVER BUTRANS PATCH. PATCH DOES NOT STAY ADHERED WITHOUT TEGADERM IN PLACE NOT-TAKING HYDROCHLOROTHIAZIDE 25 MG TABLET 1 TABLET IN THE MORNING ORALLY ONCE A DAY NOT-TAKING LOSARTAN POTASSIUM-HCTZ 100-25 MG TABLET 1 TABLET ORALLY ONCE A DAY NOT-TAKING CELECOXIB 200 MG CAPSULE 1 CAPSULE WITH FOOD ORALLY ONCE A DAY NOT-TAKING TRULICITY 0.75 MG/0.5ML SOLUTION PEN-INJECTOR SUBCUTANEOUS NOT-TAKING METFORMIN HCL ER 500 MG TABLET EXTENDED RELEASE 24 HOUR 1 TABLET WITH EVENING MEAL ORALLY ONCE A DAY NOT-TAKING CYMBALTA 30 MG CAPSULE DELAYED RELEASE PARTICLES 1 CAPSULE ORALLY ONCE A DAY NOT-TAKING IBUPROFEN 800 MG TABLET 1 TABLET WITH FOOD OR MILK ORALLY THREE TIMES A DAY NOT-TAKING BYDUREON 2MG/VIAL 1 INJECTION SUBCUTANEOUSLY WEEKLY NOT-TAKING DRISDOL 75181 UNIT CAPSULE 1 CAPSULE ORALLY WEEKLY NOT-TAKING LYRICA 75 MG CAPSULE 1 CAPSULE ORALLY BID MDD=2, NOTES: HAVENT STARTED YET NOT-TAKING AMITRIPTYLINE HCL 25 MG TABLET 1 TABLET ORALLY BEFORE BEDTIME, NOTES: INSURANCE WONT FILL MEDICATION LIST REVIEWED AND RECONCILED WITH THE PATIENT PAST MEDICAL HISTORY HTN DIABETIC CHRONIC LOW BACK PAIN ARTHRITIS HYPERCHOLESTEROLEMIA GOUT ALLERGIES CODEINE SULFATE: HEART RACES - ALLERGY SOCIAL HISTORY GENERAL: TOBACCO USE ARE YOU A:NONSMOKER LATEX QUESTIONNAIRE LATEX ALLERGY : HAVE YOU EVER DEVELOPED ANY TYPE OF REACTION AFTER HANDLING LATEX PRODUCTS SUCH RUBBER GLOVES, CONDOMS, DIAPHRAGMS, BALLOONS, SOCKS, OR UNDERWEAR?NO LATEX ALLERGY : HAVE YOU EVER DEVELOPED ANY TYPE OF REACTION DURING OR AFTER DENTAL APPOINTMENT, VAGINAL/RECTAL EXAMINATION, SURGICAL PROCEDURE, OR ANY OTHER EXPOSURE?NO DATE ASKED : 11/19/2020 LATEX RISK : HAVE YOU EVER HAD ANY DIFFICULTY BREATHING OR HIVES AFTER EATING OR HANDLING ANY FRUITS, OR VEGETABLES; SUCH KIWI, BANANAS, STONE FRUITS, OR CHESTNUTSNO LATEX RISK : DO YOU HAVE A PREVIOUS PERSONAL HISTORY OF MORE THAN NINE SURGERIES, SPINA BIFIDA, OR REPEATED CATHERIZATIONS? NO LATEX RISK : ARE YOU FREQUENTLY EXPOSED TO LATEX PRODUCTS IN YOUR OCCUPATION?NO ALCOHOL USE: OCCASIONAL. ALCOHOL SCREENING DID YOU HAVE A DRINK CONTAINING ALCOHOL IN THE PAST YEAR?YES HOW OFTEN DID YOU HAVE SIX OR MORE DRINKS ON ONE OCCASION IN THE PAST YEAR?WEEKLY (3 POINTS) HOW MANY DRINKS DID YOU HAVE ON A TYPICAL DAY WHEN YOU WERE DRINKING IN THE PAST YEAR?7 TO 9 (3 POINTS) HOW OFTEN DID YOU HAVE A DRINK CONTAINING ALCOHOL IN THE PAST YEAR?TWO TO FOUR TIMES A MONTH (2 POINTS) POINTS8 INTERPRETATIONPOSITIVE RECREATIONAL DRUG USE DRUG USE?NO CAFFEINE CAFFEINE USE?YES SYNAGOGUE [id number] JAIN NO SPIRITISM BELIEFS THAT WOULD IMPACT HEALTH CARE. LANGUAGE LANGUAGES SPOKEN:GERMAN EDUCATION LEVEL OF EDUCATION: HIGH SCHOOL LEARNING BARRIERS / SPECIAL NEEDS CHANGE FROM LAST VISIT?YES BARRIERS TO LEARNING?NO HEARING IMPAIRED?NO VISION IMPAIRED?NO COGNITIVELY IMPAIRED?NO READINESS TO LEARN?YES LEARNING PREFERENCES?YES :TAPES/VIDEOS LEARNING CAPABILITIES PRESENT?YES EMOTIONAL BARRIERS?NO SPECIAL DEVICES?NO DIMETHYLANILINE SULFATOR OPERATOR NEEDED?NO DOMESTIC VIOLENCE DO YOU FEEL SAFE IN YOUR ENVIRONMENT?YES OCCUPATION: RETIRED [employer]. DIET: REGULAR. MARITAL STATUS: SINGLE. - PFS REFERRAL NEEDED?NO CLERGY REFERRAL NEEDED?NO PUBLIC HEALTH REFERRAL NEEDED?NO WAS THE PROVIDER NOTIFIED OF ANY PERTINENT INFO?YES N/A HAS THE PATIENT BEEN EDUCATED REGARDING HIS/HER PLAN OF CARE?YES HAS THE PATIENT BEEN EDUCATED REGARDING PAIN, THE RISK FOR PAIN, THE IMPORTANCE OF EFFECTIVE PAIN MANAGEMENT, AND THE PAIN ASSESSMENT PROCESS?YES ADVANCE DIRECTIVE ADVANCE DIRECTIVE DISCUSSED WITH PATIENT:YES HCP CHANDRA GOTTI, DAUGHTER VITAL SIGNS WT 287.2 LBS, HT 69 IN, BMI 42.41 INDEX, BP 137/73 MM HG, HR 86 /MIN, RR 20 /MIN, TEMP 97.9 F, OXYGEN SAT % 96%, SAFE IN ENV? (Y/N) Y, NA INITIALS SC 13:20, REVIEWED BY: EM. EXAMINATION GENERAL: THE PATIENT IS ALERT, ORIENTED TIMES THREE AND COOPERATIVE. LUNGS ARE CLEAR TO AUSCULTATION. HEART SHOWS REGULAR RHYTHM, NO MURMURS AND NO GALLOPS. ASSESSMENTS INTERVERTEBRAL DISC DISORDERS WITH RADICULOPATHY, LUMBAR REGION - M51.16 PROCEDURES PAIN NURSING RECORD PROCEDURE IN ROOM 1445, PHYSICIAN IN ROOM 1514, START 1521, FINISH 1534, PHYSICIAN OUT OF ROOM 1535, OUT OF ROOM 1545, ECG NORMAL SINUS SEMI-REGULAR PVC'S NOTED, DR EASLEY AWARE, PT DENIES S/S., PATIENT SHIELDED NO, SAFETY STRAP NO FACE TO THE BASE, NOT ABLE TO USE SAFETY STRAP, PREP BETADINE E. TARIQ RN, DRESSING TEGADERM DR. EASLEY LOC: 1. ALERT, ORIENTED, TARIQKIAH 01/19/2021 3:24:52 PM > RESP: 1. REGULAR, NO DYSPNEA, TARIQ,KIAH 01/19/2021 3:24:55 PM > COLOR: 1. PINK, TARIQKIAH 01/19/2021 3:24:59 PM > SKIN: 1. WARM, DRY, TARIQKIAH 01/19/2021 3:25:02 PM > POSITION: 1. PRONE, TARIQKIAH 01/19/2021 3:25:06 PM > VITALS: 120/77, 87, 16, 95% TARIQ,KIAH 01/19/2021 2:52:25 PM > , 167/85, 82, 16, 96%, TARIQ,KIAH 01/19/2021 3:02:25 PM > 159/81, 88, 16, 96%, TARIQ,KIAH 01/19/2021 3:15:25 PM > 142/86, 89, 16, 95%, TARIQ,KIAH 01/19/2021 3:30:23 PM > 139/81, 85, 16, 99%, TARIQKIAH 01/19/2021 3:53:49 PM > NOTES Tanner POTTER RN COMPLETION OF PROCEDURE APPOINTMENT: POST PAIN 7, DRESSING SITE DRY AND INTACT, IV N/A, GAIT STEADY, TEACHING COMPLETED, PATIENT ACKNOWLEDGES UNDERSTANDING YES, PROCEDURE APPOINTMENT COMPLETED AT 1600 PN LUMBAR TRANSFORAMINAL BLOCKS PRE PROCEDURE DIAGNOSIS LUMBAR DISC DISORDER WITH RADICULOPATHY POST PROCEDURE DIAGNOSIS LUMBAR DISC DISORDER WITH RADICULOPATHY PROCEDURE LEFT L3-L4 AND LEFT L4-L5 TRANSFORAMINAL EPIDURAL STEROID INJECTION UNDER FLUOROSCOPIC GUIDANCE SURGEON DR MATTIE EASLEY GAUGE AND WEIGH MACHINE ADJUSTER NONE ANESTHESIA LOCAL PRE PROCEDURE NOTE THE PATIENT WITH HISTORY OF CHRONIC LOW BACK PAIN. I EVALUATED THE PATIENT AND REVIEWED THE CHART. I WENT OVER THE RISKS, ALTERNATIVES, AND BENEFITS ASSOCIATED WITH THIS PROCEDURE. THE PATIENT WOULD LIKE TO PROCEED AND GIVE CONSENT TO PERFORMED THE PROCEDURE. THE PATIENT DENIES UNEXPLAINABLE WEIGHT LOSS, FEVER, CHILLS, OR CHANGES IN URINARY OR BOWEL CONTROL. THE PATIENT IS COVID-19 NEGATIVE DESCRIPTION OF PROCEDURE THE PATIENT WAS BROUGHT TO THE PROCEDURE ROOM AND PLACED IN THE PRONE POSITION. THE LUMBOSACRAL AREA WAS CLEANED WITH BETADINE SOLUTION AND DRAPED ASEPTICALLY. THE PROCEDURE WAS DONE UNDER STERILE CONDITIONS. A TIMEOUT WAS PERFORMED WHERE THE CONSENTED SITE WAS VERIFIED WITH EVERYONE IN THE ROOM. UNDER FLUOROSCOPIC GUIDANCE, THE TARGET POINT WAS SELECTED AT THE LEFT TRANSFORAMINAL OPENING OF L3 AND THE LEFT TRANSFORAMINAL OPENING OF L4. TARGET POINT WAS SELECTED AFTER LATERAL ROTATION AND TILT OF THE MAGNIFIER OF THE C-ARM. I CONFIRMED AGAIN THE SITE OF TARGET. LIDOCAINE 0.5% WAS USED TO NUMB THE SKIN AND THE SUBCUTANEOUS TISSUE BELOW IT. AN EPIMED INTRODUCER, 18-GAUGE, WAS ADVANCED UNTIL I WENT CLOSE TO THE SELECTED TRANSFORAMINAL OPENINGS. AFTER PROPER POSITION OF THE NEEDLES WAS ACHIEVED, A 22-GAUGE, EPIMED NEEDLE, WAS PLACED INSIDE OF THE INTRODUCER AND ADVANCED TO THE TRANSFORAMINAL OPENING OF THE SELECTED SITES. WHEN PROPER POSITION OF THE NEEDLE WAS ACHIEVED, ISOVUE-M DYE 30%, 0.25 ML, WAS INJECTED SHOWING ADEQUATE SPREAD OF THE DYE. THIS WAS DONE UNDER DIGITAL SUBTRACTION AND ANGIOGRAPHY. THERE WAS NO VASCULAR UPDATE. THEN, A SOLUTION OF 2 ML OF BUPIVACAINE 0.25% AND DEXAMETHASONE 5 MG WAS INJECTED AT EACH SITE. THE MEDICATION WAS VERIFIED WITH THE NURSE. THERE WAS NO EVIDENCE OF BLOOD, PARESTHESIA OR CEREBROSPINAL FLUID DURING THE PROCEDURE. THE PATIENT WAS SENT TO THE RECOVERY ROOM. THE PATIENT WAS MOVING THE EXTREMITIES AND DOING WELL. THERE WAS NO COMPLICATION DURING THE PROCEDURE. ESTIMATED BLOOD LOSS WAS LESS THAN 5 ML. FLUOROSCOPY TIME WAS 1 MINUTE 2 SECONDS POST PROCEDURE NOTE THE PROCEDURE DONE WAS DISCUSSED WITH THE PATIENT. THE PATIENT WILL BE SEEN IN A FOLLOW UP IN THE NEXT FEW WEEKS. I AM LOOKING FOR LONG LASTING PAIN RELIEF FOR THE PATIENT WITH THIS INTERVENTION. INSTRUCTIONS WERE GIVEN, QUESTIONS WERE ANSWERED, AND THE PATIENT EXPRESSED UNDERSTANDING AND AGREES WITH THE PLAN. I, ARLEN BAKER, DOCUMENTED THE ABOVE INFORMATION ACTING A SCRIBE FOR DR. EASLEY. I HAVE REVIEWED THE ABOVE DOCUMENT, WRITTEN BY ARLEN BAKER, BONE GRINDER, AND I VERIFY THAT IT IS ACCURATE PN WORKMANS' COMP OPINION IN YOUR OPINION, WAS THE INCIDENT THAT THE PATIENT DESCRIBED THE COMPETENT MEDICAL CAUSE OF THIS INJURY/ILLNESS? YES ARE THE PATIENT'S COMPLAINTS CONSISTENT WITH HIS/HER HISTORY OF THE INJURY/ILLNESS? YES IS THE PATIENT'S HISTORY OF THE INJURY/ILLNESS CONSISTENT WITH YOUR OBJECTIVE FINDING? YES WHAT IS THE PERCENTAGE OF TEMPORARY IMPAIRMENT? TOTAL = 100% IS THE PATIENT WORKING? NO DOCTOR ON SITE: MATTIE HERNANDEZ MD DIAGNOSTIC IMAGING [facility] FLUORO GUIDE SPINE INJECTION (PAIN)[id number] PROCEDURE CODES 38129 INJ FORAMEN EPIDURAL L/S, [place]: [place] [address] INJ FORAMEN EPIDURAL ADD-ON, MODIFIERS: LT DISPOSITION & COMMUNICATION FOLLOW UP FOLLOW UP WITH TANK BUILDER SUPERVISOR (REASON: POST LEFT TRANSFORAMINAL EPIDURAL STEROID INJECTION L3-L4, L4-L5) ELECTRONICALLY SIGNED BY MATTIE EASLEY MD, MD ON 01/20/2021 AT 11:52 AM EDT DISCLAIMER : THIS IS A VISIT SUMMARY EXTRACTED FROM THE [employer] CHART. IT IS NOT A COPY OF THE [employer] PROGRESS NOTE. MTDD
== END ==
LOC: M PAIN 13:20
PROVIDERS: ATTEND Anesthesiology
DX: M51.16 Intervertebral disc disorders with radiculopathy, lumbar region (principal); I10 Essential (primary) hypertension; E11.9 Type 2 diabetes mellitus without complications; E78.00 Pure hypercholesterolemia, unspecified; M10.9 Gout, unspecified; Z79.82 Long term (current) use of aspirin; Z79.4 Long term (current) use of insulin; Z79.899 Other long term (current) drug therapy; Z88.5 Allergy status to narcotic agent
CPT/HCPCS: 64483; 64484; J1100; Q9967

== ENCOUNTER → 2021-02-09 | Outpatient (CLI) | payer OTHER ==
[~2021-02-09] MED LIST changes: -BUPIVACAINE HCL 0.25% 30ML VIAL As Ordered ONE; -ISOVUE-M 300 61% 15ML VIAL As Ordered ONE; -LIDOCAINE 1% SDV 30ML VIAL As Ordered ONE; -dexameTHASONE 10MG/1ML VIAL PRES.FREE (J1100 PER 1MG) As Ordered ONE; -diazePAM 5MG TABLET As Ordered ONE; -oxyCODONE 5MG TAB As Ordered ONE
--- NOTE | 2021-02-11 03:07 | ECWPNPC ---
PATIENT NAME: ALLAN ARNETT : 1950 GENDER: MALE VISIT DATE: 02/09/2021 DISCHARGE DATE: 02/09/21 1147 VISIT LOCKED DATE TIME: PHYSICIAN: DYLAN GARCIA PHYSICIAN PAGER NO: ACTIVE RESOURCE: DYLAN GARCIA REASON FOR APPOINTMENT 1. POST LEFT TRANSFORAMINAL EPIDURAL STERIOD INJECTION HISTORY OF PRESENT ILLNESS GENERAL: HPI 70-YEAR-OLD MALE IN FOR POST LEFT TRANSFORAMINAL EPIDURAL STEROID INJECTION FOLLOW-UP. PATIENT FEELS THE PROCEDURE WAS UNSUCCESSFUL. HE RATES HIS PAIN CURRENTLY AT A 10 AND DESCRIBES IT ACHING, BURNING, AND CONTINUOUS. PATIENT WOULD LIKE TO TAPER OFF OF HIS LYRICA AND HAS REQUESTED AN INCREASE IN HIS GABAPENTIN. DOI: 08/28/1995. -. FALL RISK SCREENING: SCREENING : NO FALLS REPORTED IN THE LAST YEAR. PAIN SCREENING: PATIENT HAS A COMPLAINT OF ACUTE OR CHRONIC PAIN :YES LOCATION OF PAIN:LOW BACK, LEFT HIP, LEG(S) INTENSITY OF PAIN (SCALE OF 1 TO 10):8 WHAT DOES YOUR PAIN FEEL LIKE:ACHING, BURNING, CONTINOUS, STABBING DURATION:CONTINOUS, CONSTANT PAIN IS INCREASED BY:ACTIVITIES, PROLONGED STANDING PAIN IS DECREASED BY:SITTING, OTHERS LAYING DOWN NURSING NOTE: -. PAIN CENTER INTAKE QUESTIONS: DO YOU HAVE A HISTORY OF MRSA? :NO DO YOU TAKE A BLOOD THINNERS? :NO DO YOU HAVE ANY BLEEDING DISORDERS? :NO ANY NEW NUMBNESS OR WEAKNESS IN YOUR LEGS OR ARMS? :NO ANY PACEMAKER,DEFIBRILLATOR, OR DORSAL COLUMN STIMULATOR? :YES DCS DO YOU HAVE ANY RASHES OR OPEN SORES? :NO ARE YOU ALLERGIC TO IV DYE? :NO ARE YOU DIABETIC? :YES TYPE II ANY NEW PROBLEMS WITH YOUR MEDICATIONS? :NO HAVE YOU RECEIVED A VACCINE IN THE PAST 30 DAYS? :NO SECOND COVID VACCINATION 10/18/2020 DO YOU PLAN TO RECEIVE A VACCINE IN THE NEXT 21 DAYS? :NO DO YOU NEED ANY PRESCRIPTION? :YES WILL DISCUSS WITH PROVIDER DO YOU TAKE ANY IMMUNOSUPPRESSIVE MEDICATIONS? :YES ALLOPURINOL DO YOU HAVE ANY KIDNEY OR LIVER DISEASE? :NO IS THERE A CHANCE YOU COULD BE ? :NO ARE YOU BREAST FEEDING? :NO CURRENT MEDICATIONS TAKING MULTIVITAMIN TABLET 1 TAB ORALLY DAILY TAKING ASPIR-81 81 MG TABLET DELAYED RELEASE 1 TABLET ORALLY ONCE A DAY TAKING NIFEDIPINE 60 MG TABLET EXTENDED RELEASE ORALLY DAILY TAKING OMEPRAZOLE 40 MG CAPSULE DELAYED RELEASE 1 CAPSULE ORALLY ONCE A DAY TAKING ROSUVASTATIN CALCIUM 20 MG TABLET 1 TABLET ORALLY ONCE A DAY TAKING METFORMIN HCL 1000 MG TABLET 1 TABLET WITH A MEAL ORALLY ONCE A DAY, NOTES: 01/18/21 TAKING LOSARTAN POTASSIUM 100 MG TABLET 1 TABLET ORALLY ONCE A DAY TAKING ALLOPURINOL 100 MG TABLET 1 TABLET ORALLY ONCE A DAY, NOTES: 01/19/21 TAKING GABAPENTIN 400 MG CAPSULE 1 CAPSULE ORALLY TWICE DAILY, NOTES: 01/19/21 TAKING LYRICA 200 MG CAPSULE 1 CAPSULE 1 TO 3 HOURS BEFORE BEDTIME ORALLY THREE TIMES DAILY, NOTES: 01/19/21 NOT-TAKING GABAPENTIN 400 MG CAPSULE 1 CAPSULE ORALLY TWICE DAILY NOT-TAKING FARXIGA 10 MG TABLET 1 TABLET ORALLY ONCE A DAY NOT-TAKING COLCHICINE 0.6 MG TABLET 1 TABLET ORALLY ONCE A DAY, NOTES: 3 MORE PILLS NOT-TAKING BUTRANS 15 MCG/HR PATCH WEEKLY 1 PATCH TO SKIN TRANSDERMAL WEEKLY NOT-TAKING NEXCARE TEGADERM 4"X4-3/4" - MISCELLANEOUS DIRECTED EXTERNAL NEEDED TO COVER BUTRANS PATCH. PATCH DOES NOT STAY ADHERED WITHOUT TEGADERM IN PLACE NOT-TAKING HYDROCHLOROTHIAZIDE 25 MG TABLET 1 TABLET IN THE MORNING ORALLY ONCE A DAY NOT-TAKING LOSARTAN POTASSIUM-HCTZ 100-25 MG TABLET 1 TABLET ORALLY ONCE A DAY NOT-TAKING CELECOXIB 200 MG CAPSULE 1 CAPSULE WITH FOOD ORALLY ONCE A DAY NOT-TAKING TRULICITY 0.75 MG/0.5ML SOLUTION PEN-INJECTOR SUBCUTANEOUS NOT-TAKING METFORMIN HCL ER 500 MG TABLET EXTENDED RELEASE 24 HOUR 1 TABLET WITH EVENING MEAL ORALLY ONCE A DAY NOT-TAKING CYMBALTA 30 MG CAPSULE DELAYED RELEASE PARTICLES 1 CAPSULE ORALLY ONCE A DAY NOT-TAKING IBUPROFEN 800 MG TABLET 1 TABLET WITH FOOD OR MILK ORALLY THREE TIMES A DAY NOT-TAKING BYDUREON 2MG/VIAL 1 INJECTION SUBCUTANEOUSLY WEEKLY NOT-TAKING DRISDOL 69829 UNIT CAPSULE 1 CAPSULE ORALLY WEEKLY NOT-TAKING LYRICA 75 MG CAPSULE 1 CAPSULE ORALLY BID MDD=2, NOTES: HAVENT STARTED YET NOT-TAKING AMITRIPTYLINE HCL 25 MG TABLET 1 TABLET ORALLY BEFORE BEDTIME, NOTES: INSURANCE WONT FILL MEDICATION LIST REVIEWED AND RECONCILED WITH THE PATIENT PAST MEDICAL HISTORY HTN DIABETIC CHRONIC LOW BACK PAIN ARTHRITIS HYPERCHOLESTEROLEMIA GOUT ALLERGIES CODEINE SULFATE: HEART RACES - ALLERGY SURGICAL HISTORY BILAT CARPAL TUNNEL RELEASE BILAT ELBOW SURGERY BILAT TRIGGER FINGER REPAIR LEFT KNEE REPLACEMENT DORSAL COLUMN STIMULATOR 08/2018 RIGHT KNEE REPLACEMENT 08/31/2020 SOCIAL HISTORY GENERAL: TOBACCO USE ARE YOU A:NONSMOKER LATEX QUESTIONNAIRE LATEX ALLERGY : HAVE YOU EVER DEVELOPED ANY TYPE OF REACTION AFTER HANDLING LATEX PRODUCTS SUCH RUBBER GLOVES, CONDOMS, DIAPHRAGMS, BALLOONS, SOCKS, OR UNDERWEAR?NO LATEX ALLERGY : HAVE YOU EVER DEVELOPED ANY TYPE OF REACTION DURING OR AFTER DENTAL APPOINTMENT, VAGINAL/RECTAL EXAMINATION, SURGICAL PROCEDURE, OR ANY OTHER EXPOSURE?NO LATEX RISK : HAVE YOU EVER HAD ANY DIFFICULTY BREATHING OR HIVES AFTER EATING OR HANDLING ANY FRUITS, OR VEGETABLES; SUCH KIWI, BANANAS, STONE FRUITS, OR CHESTNUTSNO LATEX RISK : DO YOU HAVE A PREVIOUS PERSONAL HISTORY OF MORE THAN NINE SURGERIES, SPINA BIFIDA, OR REPEATED CATHERIZATIONS? NO LATEX RISK : ARE YOU FREQUENTLY EXPOSED TO LATEX PRODUCTS IN YOUR OCCUPATION?NO DATE ASKED : 02/09/2021 ALCOHOL USE: OCCASIONAL. ALCOHOL SCREENING DID YOU HAVE A DRINK CONTAINING ALCOHOL IN THE PAST YEAR?YES HOW OFTEN DID YOU HAVE SIX OR MORE DRINKS ON ONE OCCASION IN THE PAST YEAR?WEEKLY (3 POINTS) HOW MANY DRINKS DID YOU HAVE ON A TYPICAL DAY WHEN YOU WERE DRINKING IN THE PAST YEAR?7 TO 9 (3 POINTS) HOW OFTEN DID YOU HAVE A DRINK CONTAINING ALCOHOL IN THE PAST YEAR?TWO TO FOUR TIMES A MONTH (2 POINTS) POINTS8 INTERPRETATIONPOSITIVE RECREATIONAL DRUG USE DRUG USE?NO CAFFEINE CAFFEINE USE?YES ZOROASTRIANISM [id number] HINDUISM NO SABIANISM BELIEFS THAT WOULD IMPACT HEALTH CARE. LANGUAGE LANGUAGES SPOKEN:SERBIAN EDUCATION LEVEL OF EDUCATION: HIGH SCHOOL LEARNING BARRIERS / SPECIAL NEEDS CHANGE FROM LAST VISIT?NO BARRIERS TO LEARNING?NO HEARING IMPAIRED?NO VISION IMPAIRED?NO COGNITIVELY IMPAIRED?NO READINESS TO LEARN?YES LEARNING PREFERENCES?YES :TAPES/VIDEOS LEARNING CAPABILITIES PRESENT?YES EMOTIONAL BARRIERS?NO SPECIAL DEVICES?NO SOCIAL WORK ADMINISTRATOR NEEDED?NO DOMESTIC VIOLENCE DO YOU FEEL SAFE IN YOUR ENVIRONMENT?YES OCCUPATION: RETIRED [employer]. DIET: REGULAR. MARITAL STATUS: SINGLE. - PFS REFERRAL NEEDED?NO CLERGY REFERRAL NEEDED?NO PUBLIC HEALTH REFERRAL NEEDED?NO WAS THE PROVIDER NOTIFIED OF ANY PERTINENT INFO?YES N/A HAS THE PATIENT BEEN EDUCATED REGARDING HIS/HER PLAN OF CARE?YES HAS THE PATIENT BEEN EDUCATED REGARDING PAIN, THE RISK FOR PAIN, THE IMPORTANCE OF EFFECTIVE PAIN MANAGEMENT, AND THE PAIN ASSESSMENT PROCESS?YES ADVANCE DIRECTIVE ADVANCE DIRECTIVE DISCUSSED WITH PATIENT:YES HCP CHANDRA GOTTI, DAUGHTER HOSPITALIZATION/MAJOR DIAGNOSTIC PROCEDURE SURGERIES REVIEW OF SYSTEMS CONSTITUTIONAL: ANY RECENT FEVER NO . CHILLS NO . WEIGHT CHANGE OF UNKNOWN REASONS NO . GASTROENTEROLOGY: NEW UNEXPLAINABLE CHANGES IN BOWEL CONTROL NO . CONSTIPATION NO . GENITOURINARY: ANY NEW CHANGE IN BLADDER CONTROL? NO . NEUROLOGY: NEW ONSET DIZZINESS OR NEUROLOGICAL CHANGES NOT MENTIONED NO . NEW NUMBNESS OR PAIN PATTERNS NOT MENTIONED AND PERTINENT TO TODAY'S VISIT NO . CARDIOLOGY: NEW CHEST PRESSURE NO . PATIENT DENIES NO . RESPIRATORY: UNEXPLAINABLE COUGH NO . NEW SHORTNESS OF BREATH NO . VITAL SIGNS WT 293.6 LBS, HT 69 IN, BMI 43.35 INDEX, BP 199/95 MM HG, REPEAT BP 168/64 MM HG, HR 88 /MIN, RR 18 /MIN, TEMP 97.6 F, OXYGEN SAT % 97%, SAFE IN ENV? (Y/N) YES, NA INITIALS AW 1120, REVIEWED BY: NGOZI BP RETAKEN. 168/64. ALVAREZ MALCOLM MA. EXAMINATION GENERAL EXAMINATION: GENERALNO ACUTE DISTRESS, WELL NOURISHED AND HYDRATED. PSYCHAPPROPRIATE MOOD AND AFFECT . LUNGS:CLEAR TO AUSCULTATION BILATERALLY, NO WHEEZES, RHONCHI, RALES. HEART:NO MURMURS, REGULAR RATE AND RHYTHM. ASSESSMENTS OTHER CHRONIC PAIN - G89.29 (PRIMARY) INTERVERTEBRAL DISC DISORDERS WITH RADICULOPATHY, LUMBOSACRAL REGION - M51.17 TREATMENT OTHER CHRONIC PAIN INCREASE GABAPENTIN CAPSULE, 400 MG, 1 CAPSULE, ORALLY, TID, 30 DAY(S), 90 CAPSULE, REFILLS 2 PAIN PROCEDURE LOGDATE OF [id number]/02/2021PROCEDURE:LEFT TRANSFORMINAL EPIDURAL STERIOD INJECTIONAMOUNT OF PRE SEDATEOXYCODONE 10 MG PO, VALIUM 10 MG PORESULT:INEFFECTIVE INTERVERTEBRAL DISC DISORDERS WITH RADICULOPATHY, LUMBOSACRAL REGION NOTES: 70-YEAR-OLD MALE IN FOR POST TRANSFORAMINAL EPIDURAL FOLLOW-UP. GIVEN PRESENTING SYMPTOMS RECOMMEND TAPERING OFF LYRICA FOLLOWS 200 MG TWICE DAILY X1 WEEK THEN 200 MG DAILY X1 WEEK THEN 200 MG EVERY OTHER DAY X1 WEEK THEN STOP MEDICATION. FURTHER RECOMMEND INCREASING GABAPENTIN TO 400 MG 3 TIMES DAILY. WILL HAVE PATIENT FOLLOW-UP WITH DR. EASLEY TO DISCUSS POTENTIAL PROCEDURES AND/OR OTHER MEDICATIONS TO HELP WITH PATIENT'S SYMPTOMS. PATIENT HAS EXPRESSED UNDERSTANDING OF AND WAS IN AGREEMENT WITH TREATMENT PLAN. GIVEN TIME TO ASK QUESTIONS AND EXPRESS CONCERNS. [employer] REGISTRY REVIEWED AND DEMONSTRATES COMPLLIANCE. (REF # [id number] ) BRINGS IN MEDICATIONS WHICH IS APPROPRIATE FOR WHAT WAS DISPENSED. RECENT URINE TOXICOLOGY REVIEWED. NO UNAUTHORIZED MEDICATIONS. NO ILLICIT SUBSTANCES AND PRESCRIBED MEDICATIONS WERE PRESENT. PROCEDURES PN WORKMANS' COMP OPINION IN YOUR OPINION, WAS THE INCIDENT THAT THE PATIENT DESCRIBED THE COMPETENT MEDICAL CAUSE OF THIS INJURY/ILLNESS? YES ARE THE PATIENT'S COMPLAINTS CONSISTENT WITH HIS/HER HISTORY OF THE INJURY/ILLNESS? YES IS THE PATIENT'S HISTORY OF THE INJURY/ILLNESS CONSISTENT WITH YOUR OBJECTIVE FINDING? YES WHAT IS THE PERCENTAGE OF TEMPORARY IMPAIRMENT? TOTAL = 100% IS THE PATIENT WORKING? NO DOCTOR ON SITE: MATTIE HERNANDEZ MD PROCEDURE CODES FA211 ESTABILISHED PATIENT [facility] CHARGE DISPOSITION & COMMUNICATION FOLLOW UP WITH DR. EASLEY (REASON: DISCUSSED POTENTIAL PROCEDURES AND/OR MEDICATIONS) ELECTRONICALLY SIGNED BY JOVITA XAVIER ON 02/10/2021 AT 09:51 AM EDT DISCLAIMER : THIS IS A VISIT SUMMARY EXTRACTED FROM THE [employer] CHART. IT IS NOT A COPY OF THE [employer] PROGRESS NOTE. RITOD
== END ==
LOC: M PAIN 11:30
PROVIDERS: ATTEND Family Medicine
DX: G89.29 Other chronic pain (principal); M51.17 Intervertebral disc disorders with radiculopathy, lumbosacral region; I10 Essential (primary) hypertension; E11.9 Type 2 diabetes mellitus without complications; E78.00 Pure hypercholesterolemia, unspecified; M10.9 Gout, unspecified; M19.90 Unspecified osteoarthritis, unspecified site; Z79.82 Long term (current) use of aspirin; Z79.84 Long term (current) use of oral hypoglycemic drugs; Z79.899 Other long term (current) drug therapy; Z88.5 Allergy status to narcotic agent

== ENCOUNTER → 2021-02-25 | Outpatient (CLI) | payer OTHER ==
--- NOTE | 2021-03-04 02:16 | ECWPNPC ---
PATIENT NAME: ALLAN ARNETT : 1950 GENDER: MALE VISIT DATE: 02/25/2021 DISCHARGE DATE: 02/25/21 1211 VISIT LOCKED DATE TIME: PHYSICIAN: MATTIE EASLEY MD PHYSICIAN PAGER NO: ACTIVE RESOURCE: MATTIE EASLEY MD REASON FOR APPOINTMENT 1. W/C DISCUSSED POTENTIAL PROCEDURES AND/OR MEDICATIONS HISTORY OF PRESENT ILLNESS GENERAL: 70-YEAR-OLD MALE PATIENT WITH A HISTORY OF CHRONIC LOW BACK AND MAINLY LEFT LEG PAIN. THE PATIENT HAS SUFFERED FROM THIS CONDITION FOR MANY YEARS. THE PATIENT SUFFERED A WORK RELATED INJURY IN 1989. THE PATIENT DESCRIBES THE PAIN ACHING AND CONSTANT WITH A PAIN SCORE RANGING FROM 6-10/10. PAIN DOWN THE LEGS GET WORST BY WALKING AND BETTER BY SITTING. HE RECEIVED A LEFT TRANSFORAMINAL L3-L4, L4-L5 WHICH PROVIDED HIM WITH GOOD PAIN RELIEF FOR 3-4 DAYS. UNFORTUNATELY, THE PAIN CAME BACK. HE STATES THAT WHEN HE WALKS AND STANDS THE PAIN GETS WORSE AND IS BETTER AFTER SITTING OR BENDING FORWARD. FALL RISK SCREENING: SCREENING : NO FALLS REPORTED IN THE LAST YEAR. PAIN SCREENING: PATIENT HAS A COMPLAINT OF ACUTE OR CHRONIC PAIN :YES LOCATION OF PAIN:LOW BACK, LEFT HIP, LEG(S) INTENSITY OF PAIN (SCALE OF 1 TO 10):7 WHAT DOES YOUR PAIN FEEL LIKE:ACHING DURATION:CONTINOUS, CONSTANT PAIN IS INCREASED BY:ACTIVITIES, PROLONGED STANDING PAIN IS DECREASED BY: NOTHING NURSING NOTE: -. PAIN CENTER INTAKE QUESTIONS: DO YOU HAVE A HISTORY OF MRSA? :NO DO YOU TAKE A BLOOD THINNERS? :NO DO YOU HAVE ANY BLEEDING DISORDERS? :NO ANY NEW NUMBNESS OR WEAKNESS IN YOUR LEGS OR ARMS? :YES LEFT LEG ANY PACEMAKER,DEFIBRILLATOR, OR DORSAL COLUMN STIMULATOR? :YES DCS DO YOU HAVE ANY RASHES OR OPEN SORES? :NO ARE YOU ALLERGIC TO IV DYE? :NO ARE YOU DIABETIC? :YES ANY NEW PROBLEMS WITH YOUR MEDICATIONS? :YES LYRICA AND ARIELLA NOT WORKING HAVE YOU RECEIVED A VACCINE IN THE PAST 30 DAYS? :NO DO YOU PLAN TO RECEIVE A VACCINE IN THE NEXT 21 DAYS? :NO DO YOU NEED ANY PRESCRIPTION? :NO DO YOU TAKE ANY IMMUNOSUPPRESSIVE MEDICATIONS? :NO DO YOU HAVE ANY KIDNEY OR LIVER DISEASE? :NO IS THERE A CHANCE YOU COULD BE ? :NO ARE YOU BREAST FEEDING? :NO CURRENT MEDICATIONS TAKING MULTIVITAMIN TABLET 1 TAB ORALLY DAILY TAKING ASPIR-81 81 MG TABLET DELAYED RELEASE 1 TABLET ORALLY ONCE A DAY TAKING NIFEDIPINE 60 MG TABLET EXTENDED RELEASE ORALLY DAILY TAKING OMEPRAZOLE 40 MG CAPSULE DELAYED RELEASE 1 CAPSULE ORALLY ONCE A DAY TAKING ROSUVASTATIN CALCIUM 20 MG TABLET 1 TABLET ORALLY ONCE A DAY TAKING METFORMIN HCL 1000 MG TABLET 1 TABLET WITH A MEAL ORALLY ONCE A DAY TAKING LOSARTAN POTASSIUM 100 MG TABLET 1 TABLET ORALLY ONCE A DAY TAKING ALLOPURINOL 100 MG TABLET 1 TABLET ORALLY ONCE A DAY TAKING GABAPENTIN 400 MG CAPSULE 1 CAPSULE ORALLY TWICE DAILY TAKING LYRICA 200 MG CAPSULE 1 CAPSULE 1 TO 3 HOURS BEFORE BEDTIME ORALLY THREE TIMES DAILY NOT-TAKING GABAPENTIN 400 MG CAPSULE 1 CAPSULE ORALLY TID NOT-TAKING FARXIGA 10 MG TABLET 1 TABLET ORALLY ONCE A DAY NOT-TAKING COLCHICINE 0.6 MG TABLET 1 TABLET ORALLY ONCE A DAY, NOTES: 3 MORE PILLS NOT-TAKING BUTRANS 15 MCG/HR PATCH WEEKLY 1 PATCH TO SKIN TRANSDERMAL WEEKLY NOT-TAKING NEXCARE TEGADERM 4"X4-3/4" - MISCELLANEOUS DIRECTED EXTERNAL NEEDED TO COVER BUTRANS PATCH. PATCH DOES NOT STAY ADHERED WITHOUT TEGADERM IN PLACE NOT-TAKING HYDROCHLOROTHIAZIDE 25 MG TABLET 1 TABLET IN THE MORNING ORALLY ONCE A DAY NOT-TAKING LOSARTAN POTASSIUM-HCTZ 100-25 MG TABLET 1 TABLET ORALLY ONCE A DAY NOT-TAKING CELECOXIB 200 MG CAPSULE 1 CAPSULE WITH FOOD ORALLY ONCE A DAY NOT-TAKING TRULICITY 0.75 MG/0.5ML SOLUTION PEN-INJECTOR SUBCUTANEOUS NOT-TAKING METFORMIN HCL ER 500 MG TABLET EXTENDED RELEASE 24 HOUR 1 TABLET WITH EVENING MEAL ORALLY ONCE A DAY NOT-TAKING CYMBALTA 30 MG CAPSULE DELAYED RELEASE PARTICLES 1 CAPSULE ORALLY ONCE A DAY NOT-TAKING IBUPROFEN 800 MG TABLET 1 TABLET WITH FOOD OR MILK ORALLY THREE TIMES A DAY NOT-TAKING BYDUREON 2MG/VIAL 1 INJECTION SUBCUTANEOUSLY WEEKLY NOT-TAKING DRISDOL 90265 UNIT CAPSULE 1 CAPSULE ORALLY WEEKLY NOT-TAKING LYRICA 75 MG CAPSULE 1 CAPSULE ORALLY BID MDD=2, NOTES: HAVENT STARTED YET NOT-TAKING AMITRIPTYLINE HCL 25 MG TABLET 1 TABLET ORALLY BEFORE BEDTIME, NOTES: INSURANCE WONT FILL MEDICATION LIST REVIEWED AND RECONCILED WITH THE PATIENT PAST MEDICAL HISTORY HTN DIABETIC CHRONIC LOW BACK PAIN ARTHRITIS HYPERCHOLESTEROLEMIA GOUT ALLERGIES CODEINE SULFATE: HEART RACES - ALLERGY SOCIAL HISTORY GENERAL: TOBACCO USE ARE YOU A:NONSMOKER LATEX QUESTIONNAIRE LATEX ALLERGY : HAVE YOU EVER DEVELOPED ANY TYPE OF REACTION AFTER HANDLING LATEX PRODUCTS SUCH RUBBER GLOVES, CONDOMS, DIAPHRAGMS, BALLOONS, SOCKS, OR UNDERWEAR?NO LATEX ALLERGY : HAVE YOU EVER DEVELOPED ANY TYPE OF REACTION DURING OR AFTER DENTAL APPOINTMENT, VAGINAL/RECTAL EXAMINATION, SURGICAL PROCEDURE, OR ANY OTHER EXPOSURE?NO DATE ASKED : 02/09/2021 LATEX RISK : HAVE YOU EVER HAD ANY DIFFICULTY BREATHING OR HIVES AFTER EATING OR HANDLING ANY FRUITS, OR VEGETABLES; SUCH KIWI, BANANAS, STONE FRUITS, OR CHESTNUTSNO LATEX RISK : DO YOU HAVE A PREVIOUS PERSONAL HISTORY OF MORE THAN NINE SURGERIES, SPINA BIFIDA, OR REPEATED CATHERIZATIONS? NO LATEX RISK : ARE YOU FREQUENTLY EXPOSED TO LATEX PRODUCTS IN YOUR OCCUPATION?NO ALCOHOL USE: OCCASIONAL. ALCOHOL SCREENING DID YOU HAVE A DRINK CONTAINING ALCOHOL IN THE PAST YEAR?YES HOW OFTEN DID YOU HAVE SIX OR MORE DRINKS ON ONE OCCASION IN THE PAST YEAR?WEEKLY (3 POINTS) HOW MANY DRINKS DID YOU HAVE ON A TYPICAL DAY WHEN YOU WERE DRINKING IN THE PAST YEAR?7 TO 9 (3 POINTS) HOW OFTEN DID YOU HAVE A DRINK CONTAINING ALCOHOL IN THE PAST YEAR?TWO TO FOUR TIMES A MONTH (2 POINTS) POINTS8 INTERPRETATIONPOSITIVE RECREATIONAL DRUG USE DRUG USE?NO CAFFEINE CAFFEINE USE?YES ADVENT [id number] SABIANIST NO BAHAI BELIEFS THAT WOULD IMPACT HEALTH CARE. LANGUAGE LANGUAGES SPOKEN:[place] EDUCATION LEVEL OF EDUCATION: HIGH SCHOOL LEARNING BARRIERS / SPECIAL NEEDS CHANGE FROM LAST VISIT?NO BARRIERS TO LEARNING?NO HEARING IMPAIRED?NO VISION IMPAIRED?NO COGNITIVELY IMPAIRED?NO READINESS TO LEARN?YES LEARNING PREFERENCES?YES :TAPES/VIDEOS LEARNING CAPABILITIES PRESENT?YES EMOTIONAL BARRIERS?NO SPECIAL DEVICES?NO SR. PRICING ANALYST NEEDED?NO DOMESTIC VIOLENCE DO YOU FEEL SAFE IN YOUR ENVIRONMENT?YES OCCUPATION: RETIRED [employer]. DIET: REGULAR. MARITAL STATUS: SINGLE. - PFS REFERRAL NEEDED?NO CLERGY REFERRAL NEEDED?NO PUBLIC HEALTH REFERRAL NEEDED?NO WAS THE PROVIDER NOTIFIED OF ANY PERTINENT INFO?YES N/A HAS THE PATIENT BEEN EDUCATED REGARDING HIS/HER PLAN OF CARE?YES HAS THE PATIENT BEEN EDUCATED REGARDING PAIN, THE RISK FOR PAIN, THE IMPORTANCE OF EFFECTIVE PAIN MANAGEMENT, AND THE PAIN ASSESSMENT PROCESS?YES ADVANCE DIRECTIVE ADVANCE DIRECTIVE DISCUSSED WITH PATIENT:YES HCP CHANDRA GOTTI, DAUGHTER REVIEW OF SYSTEMS CONSTITUTIONAL: ANY RECENT FEVER NO . CHILLS NO . WEIGHT CHANGE OF UNKNOWN REASONS NO . GASTROENTEROLOGY: NEW UNEXPLAINABLE CHANGES IN BOWEL CONTROL NO . CONSTIPATION NO . GENITOURINARY: ANY NEW CHANGE IN BLADDER CONTROL? NO . NEUROLOGY: NEW ONSET DIZZINESS OR NEUROLOGICAL CHANGES NOT MENTIONED NO . NEW NUMBNESS OR PAIN PATTERNS NOT MENTIONED AND PERTINENT TO TODAY'S VISIT NO . CARDIOLOGY: NEW CHEST PRESSURE NO . PATIENT DENIES NO . RESPIRATORY: UNEXPLAINABLE COUGH NO . NEW SHORTNESS OF BREATH NO . VITAL SIGNS WT 289.4 LBS, HT 69 IN, BMI 42.73 INDEX, BP 144/72 MM HG, HR 90 /MIN, RR 18 /MIN, TEMP 97.3 F, OXYGEN SAT % 94%, SAFE IN ENV? (Y/N) Y, NA INITIALS AW 1041, REVIEWED BY: EM. EXAMINATION GENERAL EXAMINATION: THE PATIENT IS ALERT, ORIENTED TIMES THREE AND COOPERATIVE. LUNGS ARE CLEAR TO AUSCULTATION. HEART SHOWS REGULAR RHYTHM, NO MURMURS AND NO GALLOPS. THE PATIENT WALKS WITH AN ANTALGIC GAIT LIMPING FROM THE LEFT LEG WHICH IS WEAKER THAN THE RIGHT LEG ON FLEXION AND EXTENSION. STRAIGHT LEG RAISE IS POSITIVE FOR RADICULOPATHY AT 20 DEGREES. PAIN INCREASE BY EXTENSION OF THE SPINE. MRI OF THE LUMBAR SPINE DATED 05/07/2020 IS SHOWING BULGING DISC AT L3-L4 AND L4-L5 WITH STENOSIS ON THE LEFT SIDE AT BOTH LEVELS. 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 ALSO GAVE THE PATIENT A PRINTED ORDER FOR THE SRAY ORDER. ANSWERED THE PATIENTS QUESTIONS WHO VERBALIZES UNDERSTANDING. CLINICAL NOTES: I DISCUSSED ALTERNATIVES WITH MR. ARNETT. WE HAVE PERFORMED AN EPIDURAL THAT HELPED FOR A FEW DAYS. THE PATIENT HAS STENOSIS AT THE LATERAL ASPECT OF L3-L4, L4-L5 ON THE LEFT SIDE. I FEEL THAT HE IS A CANDIDATE FOR VERTIFLEX. I WOULD LIKE TO BRING HIM IN FOR A CONVERSATION WITH THE ERP IMPLEMENTATION CONSULTANT OF VERTIFLEX TO SEE IF THIS IS RIGHT FOR HIM. I WILL CALL IKER LLANOS AND GIVE HIM THE PATIENT'S INFORMATION SO THEY CAN COLLABORATE A DAY AND TIME TO MEET. WE DISCUSSED MEDICATION MANAGEMENT. THE PATIENT STOPED LYRICA AND HE IS TAKING GABAPENTIN 300 MG 4 TIMES A DAY. I WILL START HIM ON CYMBALTA. THE PATIENT REPORTS UNDERSTANDING AND AGREES. I, ARLEN BAKER, DOCUMENTED THE ABOVE INFORMATION ACTING A SCRIBE FOR DR. EASLEY. I HAVE REVIEWED THE ABOVE DOCUMENT, WRITTEN BY ARLEN BAKER, A R SPECIALIST, AND I VERIFY THAT IT IS ACCURATE. PROCEDURES PN WORKMANS' COMP OPINION IN YOUR OPINION, WAS THE INCIDENT THAT THE PATIENT DESCRIBED THE COMPETENT MEDICAL CAUSE OF THIS INJURY/ILLNESS? YES ARE THE PATIENT'S COMPLAINTS CONSISTENT WITH HIS/HER HISTORY OF THE INJURY/ILLNESS? YES IS THE PATIENT'S HISTORY OF THE INJURY/ILLNESS CONSISTENT WITH YOUR OBJECTIVE FINDING? YES WHAT IS THE PERCENTAGE OF TEMPORARY IMPAIRMENT? TOTAL = 100% . IS THE PATIENT WORKING? NO . DOCTOR ON SITE: MATTIE HERNANDEZ MD PROCEDURE CODES FA211 ESTABILISHED PATIENT [facility] CHARGE 16922 OFFICE/OUTPATIENT VISIT EST DISPOSITION & COMMUNICATION FOLLOW UP PATIENT WILL CALL FOR FOLLOW UP (REASON: DISCUSS VERTIFLEX WITH IKER LLANOS) ELECTRONICALLY SIGNED BY MATTIE EASLEY MD, MD ON 03/03/2021 AT 02:06 PM EDT DISCLAIMER : THIS IS A VISIT SUMMARY EXTRACTED FROM THE [employer] CHART. IT IS NOT A COPY OF THE [employer] PROGRESS NOTE. JL
== END ==
LOC: M PAIN 10:45
PROVIDERS: ATTEND Anesthesiology
DX: M48.062 Spinal stenosis, lumbar region with neurogenic claudication (principal); M51.16 Intervertebral disc disorders with radiculopathy, lumbar region; G89.29 Other chronic pain; E11.9 Type 2 diabetes mellitus without complications; Z96.89 Presence of other specified functional implants; Z88.5 Allergy status to narcotic agent; E66.01 Morbid (severe) obesity due to excess calories; Z68.41 Body mass index [BMI] 40.0-44.9, adult; Z79.82 Long term (current) use of aspirin; Z79.84 Long term (current) use of oral hypoglycemic drugs; Z79.899 Other long term (current) drug therapy

== ENCOUNTER → 2021-02-25 | Outpatient (CLI) | payer OTHER ==
[~2021-02-25] MED LIST changes: -LISI10TA15 PO; +LISI10TA24 PO
== END ==
LOC: M RAD 12:43
PROVIDERS: ATTEND Anesthesiology
DX: M48.062 Spinal stenosis, lumbar region with neurogenic claudication (principal)

== ENCOUNTER → 2021-04-11 | Outpatient (CLI) | payer OTHER ==
[~2021-04-11] MED LIST changes: +LISI10TA15 PO; -LISI10TA24 PO
--- NOTE | 2021-04-17 23:03 | ECWPNPC ---
PATIENT NAME: ALLAN ARNETT : 1950 GENDER: MALE VISIT DATE: 04/11/2021 DISCHARGE DATE: 04/11/21 1018 VISIT LOCKED DATE TIME: PHYSICIAN: MATTIE EASLEY MD PHYSICIAN PAGER NO: ACTIVE RESOURCE: MATTIE EASLEY MD REASON FOR APPOINTMENT 1. LOW BACK PAIN HISTORY OF PRESENT ILLNESS GENERAL: 70-YEAR-OLD MALE PATIENT WITH A HISTORY OF CHRONIC LOW BACK AND MAINLY LEFT LEG PAIN. HE STARTED SUFFERING FROM THIS CONDITION SINCE A WORK RELATED INJURY IN 1989. HE HAS BEEN SUFFERING FOR MANY YEARS. HE HAS NOT RESPONDED FOR ELECTRONICS DETAIL DRAFTSPERSON WITH INTERVENTIONAL MANAGEMENT. IT USUALLY ONLY GIVES HIM A FEW DAYS. THE PATIENT STATES THE PAIN GETS WORSE WHEN HE WALKS LONG DISTANCES AND BETTER WHEN HE SITS. FALL RISK SCREENING: SCREENING : NO FALLS REPORTED IN THE LAST YEAR. PAIN SCREENING: PATIENT HAS A COMPLAINT OF ACUTE OR CHRONIC PAIN :YES LOCATION OF PAIN:LOW BACK, LEFT HIP, LEG(S) RADIATES DOWN LEFT LEG INTENSITY OF PAIN (SCALE OF 1 TO 10):5 WHAT DOES YOUR PAIN FEEL LIKE:ACHING, BURNING, CONTINOUS, SHARP, STABBING DURATION:CONTINOUS PAIN IS INCREASED BY:PROLONGED STANDING, OTHERS WALKING PAIN IS DECREASED BY:SITTING NURSING NOTE: -. PAIN CENTER INTAKE QUESTIONS: DO YOU HAVE A HISTORY OF MRSA? :NO DO YOU TAKE A BLOOD THINNERS? :NO DO YOU HAVE ANY BLEEDING DISORDERS? :NO ANY NEW NUMBNESS OR WEAKNESS IN YOUR LEGS OR ARMS? :NO ANY PACEMAKER,DEFIBRILLATOR, OR DORSAL COLUMN STIMULATOR? :YES DCS DO YOU HAVE ANY RASHES OR OPEN SORES? :NO ARE YOU ALLERGIC TO IV DYE? :NO ARE YOU DIABETIC? :YES ANY NEW PROBLEMS WITH YOUR MEDICATIONS? :YES CAUSED SIDE EFFECTS, NAUSEA, INSOMNIA - PT HAS SINCE STOPPED TAKING IT HAVE YOU RECEIVED A VACCINE IN THE PAST 30 DAYS? :NO DO YOU PLAN TO RECEIVE A VACCINE IN THE NEXT 21 DAYS? :NO DO YOU NEED ANY PRESCRIPTION? :NO DO YOU TAKE ANY IMMUNOSUPPRESSIVE MEDICATIONS? :NO DO YOU HAVE ANY KIDNEY OR LIVER DISEASE? :NO IS THERE A CHANCE YOU COULD BE ? :NO ARE YOU BREAST FEEDING? :NO CURRENT MEDICATIONS TAKING MULTIVITAMIN TABLET 1 TAB ORALLY DAILY TAKING ASPIR-81 81 MG TABLET DELAYED RELEASE 1 TABLET ORALLY ONCE A DAY TAKING NIFEDIPINE 60 MG TABLET EXTENDED RELEASE ORALLY DAILY TAKING OMEPRAZOLE 40 MG CAPSULE DELAYED RELEASE 1 CAPSULE ORALLY ONCE A DAY TAKING ROSUVASTATIN CALCIUM 20 MG TABLET 1 TABLET ORALLY ONCE A DAY TAKING METFORMIN HCL 1000 MG TABLET 1 TABLET WITH A MEAL ORALLY ONCE A DAY TAKING LOSARTAN POTASSIUM 100 MG TABLET 1 TABLET ORALLY ONCE A DAY TAKING ALLOPURINOL 100 MG TABLET 1 TABLET ORALLY ONCE A DAY TAKING GABAPENTIN 400 MG CAPSULE 1 CAPSULE ORALLY TWICE DAILY TAKING LYRICA 200 MG CAPSULE 1 CAPSULE 1 TO 3 HOURS BEFORE BEDTIME ORALLY THREE TIMES DAILY TAKING GABAPENTIN 400 MG CAPSULE 1 CAPSULE ORALLY TID NOT-TAKING DULOXETINE HCL 30 MG CAPSULE DELAYED RELEASE PARTICLES 1 CAPSULE ORALLY DAILY NOT-TAKING FARXIGA 10 MG TABLET 1 TABLET ORALLY ONCE A DAY NOT-TAKING COLCHICINE 0.6 MG TABLET 1 TABLET ORALLY ONCE A DAY, NOTES: 3 MORE PILLS NOT-TAKING BUTRANS 15 MCG/HR PATCH WEEKLY 1 PATCH TO SKIN TRANSDERMAL WEEKLY NOT-TAKING NEXCARE TEGADERM 4"X4-3/4" - MISCELLANEOUS DIRECTED EXTERNAL NEEDED TO COVER BUTRANS PATCH. PATCH DOES NOT STAY ADHERED WITHOUT TEGADERM IN PLACE NOT-TAKING HYDROCHLOROTHIAZIDE 25 MG TABLET 1 TABLET IN THE MORNING ORALLY ONCE A DAY NOT-TAKING LOSARTAN POTASSIUM-HCTZ 100-25 MG TABLET 1 TABLET ORALLY ONCE A DAY NOT-TAKING CELECOXIB 200 MG CAPSULE 1 CAPSULE WITH FOOD ORALLY ONCE A DAY NOT-TAKING TRULICITY 0.75 MG/0.5ML SOLUTION PEN-INJECTOR SUBCUTANEOUS NOT-TAKING METFORMIN HCL ER 500 MG TABLET EXTENDED RELEASE 24 HOUR 1 TABLET WITH EVENING MEAL ORALLY ONCE A DAY NOT-TAKING CYMBALTA 30 MG CAPSULE DELAYED RELEASE PARTICLES 1 CAPSULE ORALLY ONCE A DAY NOT-TAKING IBUPROFEN 800 MG TABLET 1 TABLET WITH FOOD OR MILK ORALLY THREE TIMES A DAY NOT-TAKING BYDUREON 2MG/VIAL 1 INJECTION SUBCUTANEOUSLY WEEKLY NOT-TAKING DRISDOL 45551 UNIT CAPSULE 1 CAPSULE ORALLY WEEKLY NOT-TAKING LYRICA 75 MG CAPSULE 1 CAPSULE ORALLY BID MDD=2, NOTES: HAVENT STARTED YET NOT-TAKING AMITRIPTYLINE HCL 25 MG TABLET 1 TABLET ORALLY BEFORE BEDTIME, NOTES: INSURANCE WONT FILL MEDICATION LIST REVIEWED AND RECONCILED WITH THE PATIENT PAST MEDICAL HISTORY HTN DIABETIC CHRONIC LOW BACK PAIN ARTHRITIS HYPERCHOLESTEROLEMIA GOUT ALLERGIES CODEINE SULFATE: HEART RACES - ALLERGY CYMBALTA: NAUSEA/VOMITING - SIDE EFFECTS SOCIAL HISTORY GENERAL: TOBACCO USE ARE YOU A:NONSMOKER LATEX QUESTIONNAIRE LATEX ALLERGY : HAVE YOU EVER DEVELOPED ANY TYPE OF REACTION AFTER HANDLING LATEX PRODUCTS SUCH RUBBER GLOVES, CONDOMS, DIAPHRAGMS, BALLOONS, SOCKS, OR UNDERWEAR?NO LATEX ALLERGY : HAVE YOU EVER DEVELOPED ANY TYPE OF REACTION DURING OR AFTER DENTAL APPOINTMENT, VAGINAL/RECTAL EXAMINATION, SURGICAL PROCEDURE, OR ANY OTHER EXPOSURE?NO LATEX RISK : HAVE YOU EVER HAD ANY DIFFICULTY BREATHING OR HIVES AFTER EATING OR HANDLING ANY FRUITS, OR VEGETABLES; SUCH KIWI, BANANAS, STONE FRUITS, OR CHESTNUTSNO LATEX RISK : DO YOU HAVE A PREVIOUS PERSONAL HISTORY OF MORE THAN NINE SURGERIES, SPINA BIFIDA, OR REPEATED CATHERIZATIONS? NO LATEX RISK : ARE YOU FREQUENTLY EXPOSED TO LATEX PRODUCTS IN YOUR OCCUPATION?NO DATE ASKED : 04/11/2021 ALCOHOL USE: OCCASIONAL. ALCOHOL SCREENING DID YOU HAVE A DRINK CONTAINING ALCOHOL IN THE PAST YEAR?YES HOW OFTEN DID YOU HAVE A DRINK CONTAINING ALCOHOL IN THE PAST YEAR?TWO TO FOUR TIMES A MONTH (2 POINTS) HOW MANY DRINKS DID YOU HAVE ON A TYPICAL DAY WHEN YOU WERE DRINKING IN THE PAST YEAR?7 TO 9 (3 POINTS) HOW OFTEN DID YOU HAVE SIX OR MORE DRINKS ON ONE OCCASION IN THE PAST YEAR?WEEKLY (3 POINTS) POINTS8 INTERPRETATIONPOSITIVE RECREATIONAL DRUG USE DRUG USE?NO CAFFEINE CAFFEINE USE?YES LATTER-DAY [id number] LATTER-DAY NO CONGREGATIONAL BELIEFS THAT WOULD IMPACT HEALTH CARE. LANGUAGE LANGUAGES SPOKEN:AUSTRIAN EDUCATION LEVEL OF EDUCATION: HIGH SCHOOL LEARNING BARRIERS / SPECIAL NEEDS CHANGE FROM LAST VISIT?NO BARRIERS TO LEARNING?NO HEARING IMPAIRED?NO VISION IMPAIRED?NO COGNITIVELY IMPAIRED?NO READINESS TO LEARN?YES LEARNING PREFERENCES?YES :TAPES/VIDEOS LEARNING CAPABILITIES PRESENT?YES EMOTIONAL BARRIERS?NO SPECIAL DEVICES?NO TIPPLE MECHANIC NEEDED?NO DOMESTIC VIOLENCE DO YOU FEEL SAFE IN YOUR ENVIRONMENT?YES OCCUPATION: RETIRED [employer]. DIET: REGULAR. MARITAL STATUS: SINGLE. - PFS REFERRAL NEEDED?NO CLERGY REFERRAL NEEDED?NO PUBLIC HEALTH REFERRAL NEEDED?NO WAS THE PROVIDER NOTIFIED OF ANY PERTINENT INFO?YES N/A HAS THE PATIENT BEEN EDUCATED REGARDING HIS/HER PLAN OF CARE?YES HAS THE PATIENT BEEN EDUCATED REGARDING PAIN, THE RISK FOR PAIN, THE IMPORTANCE OF EFFECTIVE PAIN MANAGEMENT, AND THE PAIN ASSESSMENT PROCESS?YES ADVANCE DIRECTIVE ADVANCE DIRECTIVE DISCUSSED WITH PATIENT:YES HCP CHANDRA GOTTI, TAYLOR REVIEW OF SYSTEMS CONSTITUTIONAL: ANY RECENT FEVER NO . CHILLS NO . WEIGHT CHANGE OF UNKNOWN REASONS NO . GASTROENTEROLOGY: NEW UNEXPLAINABLE CHANGES IN BOWEL CONTROL NO . CONSTIPATION NO . GENITOURINARY: ANY NEW CHANGE IN BLADDER CONTROL? NO . NEUROLOGY: NEW ONSET DIZZINESS OR NEUROLOGICAL CHANGES NOT MENTIONED NO . NEW NUMBNESS OR PAIN PATTERNS NOT MENTIONED AND PERTINENT TO TODAY'S VISIT NO . CARDIOLOGY: NEW CHEST PRESSURE NO . PATIENT DENIES NO . RESPIRATORY: UNEXPLAINABLE COUGH NO . NEW SHORTNESS OF BREATH NO . VITAL SIGNS WT 283.0 LBS, WT-KG 128.37 KG, HT 69 IN, BMI 41.79 INDEX, BP 146/82 MM HG, HR 100 /MIN, RR 18 /MIN, TEMP 98.3 F, OXYGEN SAT % 96%, SAFE IN ENV? (Y/N) YES, NA INITIALS AW 0818, REVIEWED BY: Gerhard FERRER RN. EXAMINATION GENERAL: THE PATIENT IS ALERT, ORIENTED TIMES THREE AND COOPERATIVE. THE PATIENT'S WALK IS ANTALGIC. HE IS LIMPING MAINLY FROM THE LEFT LEG WHICH IS WEAKER THAN THE RIGHT LEG ON FLEXION AND EXTENSION. STRAIGHT LEG RAISE IS POSITIVE FOR RADICULOPATHY AT 20 DEGREES. MRI OF THE LUMBOSACRAL SPINE DATED 05/07/2020 SHOWS SOME BULGING DISC AT L4-L5, L3-L4 WITH LATERAL NEUROFORAMINAL AT L4-L5. X-RAY DATED 02/25/2021 FLEXION AND EXTENSION SHOWS NO INSTABILITY. 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 ARNETT. THE PATIENT BROUGHT IN THE MRIS WHICH I WOULD LIKE TO REVIEW AND DISCUSS WITH THE RADIOLOGIST. TODAY WE REVIEWED WITH THE PATIENT VERPEÑALEX. HE WAS EVALUATED BY A SURGEON WHO STATED AT THIS POINT IN TIME THERE IS NO SURGICAL OPTIONS FOR HIM. I WILL ANALYZE HIS CASE MORE AND TALK TO THE RADIOLOGIST. SO I WILL MAKE A DECISION IF THIS IS APPROPRIATE FOR HIM AFTER I ANALYZE HIS CASE. HE HAS TRIED CYMBALTA AND IT DID NOT HELP HIM. HE IS STILL TRYING THE GABAPENTIN BUT HE FEELS THAT IT IS NOT HELPING. THE PATIENT REPORTS UNDERSTANDING AND AGREES WITH THE PLAN. I, ARLEN BAKER, DOCUMENTED THE ABOVE INFORMATION ACTING A SCRIBE FOR DR. EASLEY. I HAVE REVIEWED THE ABOVE DOCUMENT, WRITTEN BY ARLEN BAKER, ASSOCIATE STORE LEADER, AND I VERIFY THAT IT IS ACCURATE. VISIT CODES PROCEDURE CODES FA211 ESTABILISHED PATIENT [facility] CHARGE 44785 OFFICE/OUTPATIENT VISIT EST DISPOSITION & COMMUNICATION FOLLOW UP 1 MONTH [facility] SCHEDULE PROCEDURE DAY (REASON: LOW BACK PAIN) ELECTRONICALLY SIGNED BY MATTIE EASLEY MD, MD ON 04/17/2021 AT 07:25 PM EDT DISCLAIMER : THIS IS A VISIT SUMMARY EXTRACTED FROM THE [employer] CHART. IT IS NOT A COPY OF THE [employer] PROGRESS NOTE. RITOD
--- NOTE | 2021-04-18 09:39 | REP ---
INDICATION: NEED AN OFFICIAL READING OF MRI DATED 05/07/2020. COMPARISON: Comparison MRI imaging of the lumbar spine is from October 13, 2008. TECHNIQUE: Sagittal and axial T1 and T2-weighted scans are acquired in the usual fashion with and without fat saturation. Sequences include spin echo, turbo spin-echo, and STIR imaging sequences. Study is dated May 07, 2020 and done at [facility]. FINDINGS: There is some straightening of the normal lumbar lordosis. There is evidence of a right renal cyst measuring up to 5.5 cm in greatest diameter. This is incompletely included in the imaging field of view. No other extra vertebral abnormality is observed. The tip of the conus medullaris appears to be normal in position at T12-L1. Lumbar vertebral body heights are preserved. Alignment is otherwise normal apart from the straightening. There is no evidence of spondylolysis or spondylolisthesis. There are degenerative disc changes at L2-3, L3-4, and L4-5 with decreased signal intensity in these discs. There is loss of disc space height at L2-3 as well. Axial and sagittal images at the L2-3 disc level show diffuse disc bulging. Canal size is borderline. Facets are unremarkable. There is a right foraminal disc bulge at L2-3. This produces mild foraminal encroachment. Minimal bulging is seen on the left. At L3-4, there is mild diffuse disc bulging. There is mild ligamentum flavum and facet hypertrophy at L3-4. Borderline canal size is seen. No foraminal narrowing is seen. At L4-L5, there is decreased disc space height and signal intensity. Mild diffuse disc bulging is seen. Canal has a somewhat triangular configuration on axial images. Borderline canal size. Mild ligamentum flavum and facet hypertrophy is seen. There is mild left-sided neural foraminal narrowing due to disc bulging and facet hypertrophy. At the L5-S1 disc level there is mild bilateral facet hypertrophy. IMPRESSION: Degenerative spondylosis changes. There is right foraminal disc bulging at the L2-3 level. Facet and ligamentum flavum hypertrophy are noted at L3-4 and L4-5 and facet hypertrophy is visible at L5-S1. Borderline canal size developmentally. There is mild left-sided neural foraminal narrowing at L4-5. A right renal cyst is incompletely included in the imaging field of view. <Electronically signed by Keith Centeno > 04/18/21 0921
== END ==
LOC: M PAIN 08:00
PROVIDERS: ATTEND Anesthesiology
DX: M48.062 Spinal stenosis, lumbar region with neurogenic claudication (principal); M54.5 Low back pain; I10 Essential (primary) hypertension; E11.9 Type 2 diabetes mellitus without complications; E78.00 Pure hypercholesterolemia, unspecified; M10.9 Gout, unspecified; M19.90 Unspecified osteoarthritis, unspecified site; Z79.82 Long term (current) use of aspirin; Z79.84 Long term (current) use of oral hypoglycemic drugs; Z79.899 Other long term (current) drug therapy; Z79.1 Long term (current) use of non-steroidal anti-inflammatories (NSAID); Z88.5 Allergy status to narcotic agent; Z88.8 Allergy status to other drugs, medicaments and biological substances

== ENCOUNTER → 2021-05-10 | Outpatient (CLI) | payer OTHER | LOC: M PAIN 10:00 | PROVIDERS: ATTEND Anesthesiology | DX: M48.062 Spinal stenosis, lumbar region with neurogenic claudication (principal); M54.5 Low back pain; I10 Essential (primary) hypertension; E11.9 Type 2 diabetes mellitus without complications; E78.00 Pure hypercholesterolemia, unspecified; M10.9 Gout, unspecified; Z79.84 Long term (current) use of oral hypoglycemic drugs; Z79.899 Other long term (current) drug therapy; Z88.5 Allergy status to narcotic agent; Z88.8 Allergy status to other drugs, medicaments and biological substances ==

== ENCOUNTER → 2021-06-13 | Outpatient (CLI) | payer OTHER | LOC: M PAIN 11:45 | PROVIDERS: ATTEND Nurse Practitioner Family | DX: M51.16 Intervertebral disc disorders with radiculopathy, lumbar region (principal); I10 Essential (primary) hypertension; E11.9 Type 2 diabetes mellitus without complications; E78.00 Pure hypercholesterolemia, unspecified; M10.9 Gout, unspecified; Z79.84 Long term (current) use of oral hypoglycemic drugs; Z79.82 Long term (current) use of aspirin; Z79.899 Other long term (current) drug therapy; Z88.5 Allergy status to narcotic agent; Z88.8 Allergy status to other drugs, medicaments and biological substances ==

== ENCOUNTER → 2021-11-02 | Outpatient (CLI) | payer OTHER ==
[~2021-11-02] MED LIST changes: -LISI10TA15 PO; +LISI10TA24 PO
== END ==
LOC: M PAIN 10:30
PROVIDERS: ATTEND Anesthesiology
DX: M48.062 Spinal stenosis, lumbar region with neurogenic claudication (principal); G89.29 Other chronic pain; E11.9 Type 2 diabetes mellitus without complications; Z96.89 Presence of other specified functional implants; Z88.5 Allergy status to narcotic agent; Z88.8 Allergy status to other drugs, medicaments and biological substances; Z79.82 Long term (current) use of aspirin; Z79.84 Long term (current) use of oral hypoglycemic drugs; Z79.899 Other long term (current) drug therapy
CPT/HCPCS: 76000; G0463

== ENCOUNTER → 2021-11-23 | Outpatient (CLI) | payer OTHER | LOC: M PAIN 11:45 | PROVIDERS: ATTEND Anesthesiology | DX: M48.062 Spinal stenosis, lumbar region with neurogenic claudication (principal); I10 Essential (primary) hypertension; E11.9 Type 2 diabetes mellitus without complications; E78.00 Pure hypercholesterolemia, unspecified; M10.9 Gout, unspecified; M19.90 Unspecified osteoarthritis, unspecified site; Z79.82 Long term (current) use of aspirin; Z79.84 Long term (current) use of oral hypoglycemic drugs; Z79.899 Other long term (current) drug therapy; Z88.5 Allergy status to narcotic agent; Z88.8 Allergy status to other drugs, medicaments and biological substances ==

== ENCOUNTER → 2022-01-29 | Outpatient (CLI) | payer OTHER | LOC: M LABSMTC 11:01 | PROVIDERS: ATTEND Anesthesiology | DX: Z01.812 Encounter for preprocedural laboratory examination (principal); Z20.822 Contact with and (suspected) exposure to COVID-19 ==

== ENCOUNTER → 2022-03-19 | Outpatient (CLI) | payer OTHER | LOC: M LABSMTC 10:58 | PROVIDERS: ATTEND Anesthesiology | DX: Z20.822 Contact with and (suspected) exposure to COVID-19 (principal) ==

== ENCOUNTER → 2022-03-23 | Outpatient (CLI) | payer OTHER ==
[~2022-03-23] MED LIST changes: +BUPIVACAINE HCL 0.25% 30ML VIAL As Ordered ONE; +ISOVUE-M 300 61% 15ML VIAL As Ordered ONE; +LIDOCAINE 1% SDV 30ML VIAL As Ordered ONE; +dexameTHASONE 10MG/1ML VIAL PRES.FREE (J1100 PER 1MG) As Ordered ONE; +diazePAM 5MG TABLET As Ordered ONE; +oxyCODONE 5MG TAB As Ordered ONE
== END ==
LOC: M PAIN 14:30
PROVIDERS: ATTEND Anesthesiology
DX: M51.16 Intervertebral disc disorders with radiculopathy, lumbar region (principal); M51.17 Intervertebral disc disorders with radiculopathy, lumbosacral region; I10 Essential (primary) hypertension; E11.9 Type 2 diabetes mellitus without complications; E78.00 Pure hypercholesterolemia, unspecified; M10.9 Gout, unspecified; M19.90 Unspecified osteoarthritis, unspecified site; Z79.82 Long term (current) use of aspirin; Z79.84 Long term (current) use of oral hypoglycemic drugs; Z79.899 Other long term (current) drug therapy; Z88.5 Allergy status to narcotic agent; Z88.8 Allergy status to other drugs, medicaments and biological substances
CPT/HCPCS: 64483; J1100; Q9967

== ENCOUNTER → 2022-05-12 | Outpatient (CLI) | payer OTHER ==
[~2022-05-12] MED LIST changes: -BUPIVACAINE HCL 0.25% 30ML VIAL As Ordered ONE; -HYZA50TA2 PO; -ISOVUE-M 300 61% 15ML VIAL As Ordered ONE; -LIDOCAINE 1% SDV 30ML VIAL As Ordered ONE; +LOSA-532 PO; -dexameTHASONE 10MG/1ML VIAL PRES.FREE (J1100 PER 1MG) As Ordered ONE; -diazePAM 5MG TABLET As Ordered ONE; -oxyCODONE 5MG TAB As Ordered ONE
== END ==
LOC: M PAIN 10:00
PROVIDERS: ATTEND Anesthesiology
DX: G89.29 Other chronic pain (principal); M48.062 Spinal stenosis, lumbar region with neurogenic claudication; M47.816 Spondylosis without myelopathy or radiculopathy, lumbar region; I10 Essential (primary) hypertension; E11.9 Type 2 diabetes mellitus without complications; M54.50 Low back pain, unspecified; E78.00 Pure hypercholesterolemia, unspecified; M10.9 Gout, unspecified; Z96.653 Presence of artificial knee joint, bilateral; Z79.82 Long term (current) use of aspirin; Z79.899 Other long term (current) drug therapy; Z79.84 Long term (current) use of oral hypoglycemic drugs; Z88.5 Allergy status to narcotic agent; Z88.8 Allergy status to other drugs, medicaments and biological substances

== ENCOUNTER → 2022-05-18 | Outpatient (CLI) | payer OTHER | LOC: M SOG 08:45 | PROVIDERS: ATTEND Orthopaedic Surgery | DX: M51.36 Other intervertebral disc degeneration, lumbar region (principal) ==

== ENCOUNTER → 2022-08-04 | Outpatient (CLI) | payer OTHER | LOC: M PAIN 15:15 | PROVIDERS: ATTEND Anesthesiology | DX: M48.062 Spinal stenosis, lumbar region with neurogenic claudication (principal); G89.29 Other chronic pain; E11.9 Type 2 diabetes mellitus without complications; I10 Essential (primary) hypertension; Z96.89 Presence of other specified functional implants; Z96.653 Presence of artificial knee joint, bilateral; Z88.5 Allergy status to narcotic agent; Z88.8 Allergy status to other drugs, medicaments and biological substances; Z79.82 Long term (current) use of aspirin; Z79.84 Long term (current) use of oral hypoglycemic drugs; Z79.899 Other long term (current) drug therapy ==

== ENCOUNTER → 2022-10-05 | Outpatient (CLI) | payer OTHER | LOC: M PAIN 14:30 | PROVIDERS: ATTEND Anesthesiology | DX: M48.062 Spinal stenosis, lumbar region with neurogenic claudication (principal); I10 Essential (primary) hypertension; E11.9 Type 2 diabetes mellitus without complications; M54.50 Low back pain, unspecified; G89.29 Other chronic pain; M19.90 Unspecified osteoarthritis, unspecified site; E78.00 Pure hypercholesterolemia, unspecified; M10.9 Gout, unspecified; Z79.82 Long term (current) use of aspirin; Z79.84 Long term (current) use of oral hypoglycemic drugs; Z79.899 Other long term (current) drug therapy; Z88.5 Allergy status to narcotic agent; Z88.8 Allergy status to other drugs, medicaments and biological substances ==

== ENCOUNTER → 2022-12-06 | Outpatient (CLI) | payer OTHER | LOC: M PAIN 13:45 | PROVIDERS: ATTEND Anesthesiology | DX: G89.29 Other chronic pain (principal); M51.16 Intervertebral disc disorders with radiculopathy, lumbar region; I10 Essential (primary) hypertension; E11.9 Type 2 diabetes mellitus without complications; Z96.89 Presence of other specified functional implants; Z96.653 Presence of artificial knee joint, bilateral; Z88.5 Allergy status to narcotic agent; Z88.8 Allergy status to other drugs, medicaments and biological substances; Z79.82 Long term (current) use of aspirin; Z79.84 Long term (current) use of oral hypoglycemic drugs; Z79.899 Other long term (current) drug therapy ==

== ENCOUNTER → 2023-01-24 | Outpatient (CLI) | payer OTHER ==
[~2023-01-24] MED LIST changes: +ALLO100T PO; +BAYE81TA10 PO; +DULO1CAP5 PO; +FARX1TAB3 PO; +GABA600T4 PO; +HYDR-3713 PO; +LOSA100T46 PO; +METF10004 PO; +NIFE90TA46 PO; +OMEP40CA5 PO; +ROSU20TA61 PO; +VITMTA PO
== END ==
LOC: M SOG 15:45
PROVIDERS: ATTEND Orthopaedic Surgery
DX: M25.552 Pain in left hip (principal)

== ENCOUNTER 2023-02-06 06:06 | Day surgery (SDC) | payer OTHER, MEDICARE ==
[2023-02-06] VITALS (7 sets, daily range): BP systolic 120–142; BP diastolic 79–88; TEMP 97.5–98.2; O2SAT 92–94
[~2023-02-06] VITALS: Ht 175.3 cm; Wt 117.7 kg
[~2023-02-06 06:06] MED LIST changes: -HYDR-3713 PO; +TRANEXAMIC ACID INJection 1,000 MG in NS 100 ML IV ONE; +ceFAZolin SOD 1 GM in D5W MINI-BAG PLUS 50 ML IV ONE; +ceFAZolin SOD 2 GM in IV 1 EA IV ONE
[2023-02-06] MEDS ORDERED: LR 1,000 ML IV SCH ×2 (06:30→10:05)
[2023-02-06] MEDS ORDERED: oxyCODONE 5MG TAB PO ONE (07:10)
[2023-02-06] MEDS ORDERED: LIDOCAINE 2% 100MG/5ML SDV (FOR ANES.) As Ordered ONE (07:16)
[2023-02-06] MEDS ORDERED: ROCURONIUM BROMIDE 50MG/5ML VIAL As Ordered ONE (07:16)
[2023-02-06] MEDS ORDERED: SUGAMMADEX SODIUM 500 MG/5 ML VIAL (BRIDION) As Ordered ONE (07:16)
[2023-02-06] MEDS ORDERED: propofoL 200 MG/20 ML VIAL As Ordered ONE (07:16)
[2023-02-06] MEDS ORDERED: KETAMINE HCL 200MG/20ML VIAL As Ordered ONE (07:17)
[2023-02-06] MEDS ORDERED: fentaNYL 100 MCG/2 ML INJECTION As Ordered ONE ×2 (07:17→09:39)
[2023-02-06] MEDS ORDERED: ACETAMINOPHEN 1000MG 100ML IV BAG As Ordered ONE (07:17)
[2023-02-06] MEDS ORDERED: ONDANSETRON 4MG 2ML VIAL As Ordered ONE (07:17)
[2023-02-06] MEDS ORDERED: KETOROLAC 60MG 2ML VIAL As Ordered ONE (07:17)
[2023-02-06] MEDS ORDERED: INSULIN LISPRO (NovoLOG) PER UNIT SC PRN (07:20)
[2023-02-06] MEDS ORDERED: THROMBIN 20,000 UNITS KIT As Ordered ONE (07:23)
[2023-02-06] MEDS ORDERED: TRANEXAMIC ACID 100 MG/ML 10ML VIAL As Ordered ONE (07:23)
[2023-02-06] MEDS ORDERED: VANCOMYCIN 500MG/10ML VIAL As Ordered ONE (07:24)
[2023-02-06] MEDS ORDERED: PHENYLEPHRINE 10MG/ML 1ML VIAL As Ordered ONE (08:29)
[2023-02-06] MEDS ORDERED: ALBUTEROL 6.7GM INHALER **FOR ANES. CART/OMNICELL ONLY As Ordered ONE (08:35)
[2023-02-06] MEDS: DOCUSATE SODIUM 100MG CAPSULE PO SCH ×2 (09:00→21:32)
[2023-02-06] MEDS ORDERED: ONDANSETRON 4MG 2ML VIAL IV PRN ×2 (10:05→10:25)
[2023-02-06] MEDS ORDERED: oxyCODONE 5MG TAB PO PRN ×2 (10:05→10:25)
[2023-02-06] MEDS ORDERED: METOCLOPRAMIDE INJ 10MG/2ML VIAL IV PRN (10:05)
[2023-02-06] MEDS ORDERED: HYDROMORPHONE HCL 0.5 MG/ 0.5 ML SYRINGE IV PRN (10:05)
[2023-02-06] MEDS ORDERED: fentaNYL 100 MCG/2 ML INJECTION IV PRN (10:05)
[2023-02-06] MEDS ORDERED: SENNA 8.6 MG TAB (SENOKOT) PO PRN (10:25)
[2023-02-06] MEDS ORDERED: ACETAMINOPHEN TAB 650MG DOSE (2X325MG) PO PRN (10:25)
[2023-02-06] MEDS ORDERED: MORPHINE 4 MG/ML 1ML VIAL IV PRN (10:25)
[2023-02-06] MEDS ORDERED: GLUCOSE 4GM CHEW TABLET PO PRN (10:40)
[2023-02-06] MEDS ORDERED: DEXTROSE 50% 50ML SYRINGE IV PRN (10:40)
[2023-02-06] MEDS ORDERED: GLUCAGON INJ 1MG VIAL SC PRN (10:40)
[2023-02-06] MEDS: INSULIN LISPRO (NovoLOG) PER UNIT SC SCH ×2 (12:00→17:51)
[2023-02-06] MEDS ORDERED: INSULIN LISPRO (NovoLOG) PER UNIT SC STA (14:19)
[2023-02-06] MEDS: ceFAZolin SOD 2 GM in IV 1 EA IV SCH (15:49)
[2023-02-06] MEDS ORDERED: IBUPROFEN 600MG TAB PO PRN (16:00)
[2023-02-06] MEDS: GABAPENTIN 300 MG CAP PO SCH ×2 (17:52→21:32)
[2023-02-06] MEDS ORDERED: SIMVASTATIN 20 MG TAB PO SCH (21:00)
[2023-02-06] MEDS ORDERED: ROSUVASTATIN 10 MG TAB (CRESTOR) PO SCH (21:00)
[2023-02-06] MEDS ORDERED: INSULIN LISPRO (NovoLOG) PER UNIT SC SCH (21:00)
[2023-02-07] VITALS: BP 139/85; TEMP 97.9; O2SAT 94
[2023-02-07] MEDS: ceFAZolin SOD 2 GM in IV 1 EA IV SCH ×2 (00:01→08:31)
[2023-02-07 04:00] VITALS: BP 158/89; TEMP 97.9; O2SAT 94
[2023-02-07 05:45] LABS: HEMATOCRIT 42.5 % (42.0-52.0); HEMOGLOBIN 13.7 g/dl (13.5-17.5); MEAN CORPUSCULAR HEMOGLOBIN 30.6 pg (27.0-33.0); MEAN CORPUSCULAR HGB CONC 32.2 g/dl (32.0-36.5); MEAN CORPUSCULAR VOLUME 94.9 fl (80.0-96.0); PLATELET COUNT, AUTOMATED 216 10^3/uL (150-450); RED BLOOD COUNT 4.48 10^6/uL (4.30-6.10); WHITE BLOOD COUNT 10.5 10^3/uL (4.0-10.0)
[2023-02-07 06:22] LABS: BLOOD UREA NITROGEN 21 MG/DL (9-23); CALCIUM LEVEL 7.9 MG/DL (8.3-10.6); CARBON DIOXIDE LEVEL 29 MMOL/L (20-31); CHLORIDE LEVEL 106 MMOL/L (98-107); CREATININE FOR GFR 1.25 MG/DL (0.70-1.30); GLOMERULAR FILTRATION RATE > 60.0 (>42); GLUCOSE, FASTING 138 MG/DL (74-106); SODIUM LEVEL 142 MMOL/L (136-145)
[2023-02-07 08:00] VITALS: O2SAT 94
[2023-02-07] MEDS: DOCUSATE SODIUM 100MG CAPSULE PO SCH (08:24)
[2023-02-07] MEDS: GABAPENTIN 300 MG CAP PO SCH (08:24)
[2023-02-07 08:25] VITALS: BP 157/94
[2023-02-07] MEDS ORDERED: HOME MED LIST COMPLETE! XX SCH (08:25)
[2023-02-07] MEDS: INSULIN LISPRO (NovoLOG) PER UNIT SC SCH (08:25)
[2023-02-07] MEDS ORDERED: NIFEdipine 30MG XL TAB PO SCH (09:00)
[2023-02-07] MEDS ORDERED: ASPIRIN 81MG ENTERIC TABLET PO SCH (09:00)
[2023-02-07] MEDS ORDERED: allopurinoL 100 MG TAB PO SCH (09:00)
[2023-02-07] MEDS ORDERED: LOSARTAN 50MG TABLET PO SCH (09:00)
[2023-02-07] MEDS ORDERED: DULoxetine 30MG CAPSULE (CYMBALTA) PO SCH (09:00)
[2023-02-07] MEDS ORDERED: HYDR-3713 PO (09:17)
== END 2023-02-07 10:56 | disposition home or self-care (01) ==
LOC: M SDC 06:06 → M MSPAV 15:19 → M SDC 02-07 10:56
PROVIDERS: ATTEND Orthopaedic Surgery
DX: M48.061 Spinal stenosis, lumbar region without neurogenic claudication (principal); I10 Essential (primary) hypertension; E11.9 Type 2 diabetes mellitus without complications; Z88.5 Allergy status to narcotic agent; Z79.899 Other long term (current) drug therapy; Z79.82 Long term (current) use of aspirin; Z79.84 Long term (current) use of oral hypoglycemic drugs; Z87.891 Personal history of nicotine dependence
CPT/HCPCS: 36415; 63047; 76000; 80048; 85027; 97161; 97530; C9290; J0131; J0690; J1100; J1815; J1885; J2370; J2405; J3010; S0020

== ENCOUNTER → 2023-03-19 | Outpatient (CLI) | payer OTHER ==
[~2023-03-19] MED LIST changes: +HYDR-3713 PO; -TRANEXAMIC ACID INJection 1,000 MG in NS 100 ML IV ONE; -ceFAZolin SOD 1 GM in D5W MINI-BAG PLUS 50 ML IV ONE; -ceFAZolin SOD 2 GM in IV 1 EA IV ONE
== END ==
LOC: M PAIN 10:30
PROVIDERS: ATTEND Anesthesiology
DX: M51.16 Intervertebral disc disorders with radiculopathy, lumbar region (principal); M47.816 Spondylosis without myelopathy or radiculopathy, lumbar region; G89.29 Other chronic pain; I10 Essential (primary) hypertension; E11.9 Type 2 diabetes mellitus without complications; M19.90 Unspecified osteoarthritis, unspecified site; E78.00 Pure hypercholesterolemia, unspecified; M10.9 Gout, unspecified; Z79.82 Long term (current) use of aspirin; Z79.84 Long term (current) use of oral hypoglycemic drugs; Z79.899 Other long term (current) drug therapy; Z88.5 Allergy status to narcotic agent; Z88.8 Allergy status to other drugs, medicaments and biological substances

== ENCOUNTER → 2023-06-20 | Outpatient (CLI) | payer OTHER | LOC: M PAIN 13:45 | PROVIDERS: ATTEND Anesthesiology | DX: M51.16 Intervertebral disc disorders with radiculopathy, lumbar region (principal); G89.29 Other chronic pain; I10 Essential (primary) hypertension; E11.9 Type 2 diabetes mellitus without complications; E78.00 Pure hypercholesterolemia, unspecified; M10.9 Gout, unspecified; M19.90 Unspecified osteoarthritis, unspecified site; Z79.82 Long term (current) use of aspirin; Z79.899 Other long term (current) drug therapy; Z79.84 Long term (current) use of oral hypoglycemic drugs; Z88.5 Allergy status to narcotic agent; Z88.8 Allergy status to other drugs, medicaments and biological substances ==

== ENCOUNTER → 2023-09-20 | Outpatient (CLI) | payer OTHER | LOC: M PAIN 10:00 | PROVIDERS: ATTEND Nurse Practitioner Family | DX: M51.16 Intervertebral disc disorders with radiculopathy, lumbar region (principal); M47.816 Spondylosis without myelopathy or radiculopathy, lumbar region; G89.29 Other chronic pain; I10 Essential (primary) hypertension; E11.9 Type 2 diabetes mellitus without complications; E78.00 Pure hypercholesterolemia, unspecified; M10.9 Gout, unspecified; Z79.82 Long term (current) use of aspirin; Z79.84 Long term (current) use of oral hypoglycemic drugs; Z79.899 Other long term (current) drug therapy; Z88.5 Allergy status to narcotic agent; Z88.8 Allergy status to other drugs, medicaments and biological substances ==

== ENCOUNTER → 2023-12-20 | Outpatient (CLI) | payer OTHER | LOC: M PAIN 10:45 | PROVIDERS: ATTEND Nurse Practitioner Family | DX: M51.16 Intervertebral disc disorders with radiculopathy, lumbar region (principal); M47.816 Spondylosis without myelopathy or radiculopathy, lumbar region; G89.29 Other chronic pain; I10 Essential (primary) hypertension; E11.9 Type 2 diabetes mellitus without complications; E78.00 Pure hypercholesterolemia, unspecified; M10.9 Gout, unspecified; Z79.82 Long term (current) use of aspirin; Z79.84 Long term (current) use of oral hypoglycemic drugs; Z79.899 Other long term (current) drug therapy; Z88.5 Allergy status to narcotic agent; Z88.8 Allergy status to other drugs, medicaments and biological substances ==

== ENCOUNTER → 2024-03-20 | Outpatient (CLI) | payer OTHER | LOC: M PAIN 10:00 | PROVIDERS: ATTEND Nurse Practitioner Family | DX: M96.1 Postlaminectomy syndrome, not elsewhere classified (principal); G89.29 Other chronic pain; I10 Essential (primary) hypertension; E11.9 Type 2 diabetes mellitus without complications; M54.50 Low back pain, unspecified; M19.90 Unspecified osteoarthritis, unspecified site; E78.00 Pure hypercholesterolemia, unspecified; M10.9 Gout, unspecified; Z79.84 Long term (current) use of oral hypoglycemic drugs; Z79.82 Long term (current) use of aspirin; Z79.899 Other long term (current) drug therapy; Z88.5 Allergy status to narcotic agent; Z88.8 Allergy status to other drugs, medicaments and biological substances ==

== ENCOUNTER → 2024-05-27 | Outpatient (CLI) | payer OTHER ==
[~2024-05-27] MED LIST changes: +GABA-1490 PO; -GABA600T4 PO; -ROSU20TA61 PO; +ROSU20TA86 PO
== END ==
LOC: M PAIN 10:45
PROVIDERS: ATTEND Nurse Practitioner Family
DX: M96.1 Postlaminectomy syndrome, not elsewhere classified (principal); M48.00 Spinal stenosis, site unspecified; G89.29 Other chronic pain; I10 Essential (primary) hypertension; E11.9 Type 2 diabetes mellitus without complications; M54.50 Low back pain, unspecified; E78.00 Pure hypercholesterolemia, unspecified; M10.9 Gout, unspecified; Z79.82 Long term (current) use of aspirin; Z79.84 Long term (current) use of oral hypoglycemic drugs; Z79.899 Other long term (current) drug therapy; Z88.5 Allergy status to narcotic agent; Z88.8 Allergy status to other drugs, medicaments and biological substances